=== PATIENT | female | born 1935 | race African-American/Black ===

== ENCOUNTER 2018-04-19 21:06 | Inpatient (IN) | payer MEDICARE, BC ==
[~2018-04-19] VITALS: Ht 157.5 cm; Wt 54.0 kg
[~2018-04-19 21:06] MED LIST: ACETAMINOPHEN325 M1 ORAL; ADVAIR 100-501 EACH INH; ASPIR 8181 MG ORAL; ATORVASTATIN CA40 MG ORAL; CELEBREX200 MG ORAL; CLONIDINE HCL0.1 MG PO; CLOPIDOGREL75 MG ORAL; COREG3.125 MG ORAL; FERROUS SULFAT500 G1 MC; FUROSEMIDE40 MG ORAL; HYDROCODON-ACE1 EA15 ORAL; LASIX40 MG ORAL; LIPITOR20 MG ORAL; LIPITOR80 MG ORAL; LYRICA75 M1 ORAL; METOPROLOL TART50 MG ORAL; NICODERM 21MG/241 EA TDERMAL; NITRO-BID1 GM TOPIC; NORCO 5-325 TA1 EAC1 ORAL; NORCO 5-325 TA1 EACH ORAL; NORVASC5 MG ORAL; NOVOLOG100 UNITS1 SUBQ; POTASSIUM CHLO20 ME2 ORAL; PROTONIX20 MG ORAL; PROTONIX40 MG ORAL
--- NOTE | 2018-04-19 21:10 | NUR ---
ED Nurse Note: Patient biba from home c/o of resp distress, at time of arrival patient was on a cpap machine, EMS states that she was satting at around 80%. patient is alert and oriented x4, after being registered to ED, patient was placed on a bipap machine 15/7 breathing rate of 14, fio2 of 90. patient is accompanied by family
--- NOTE | 2018-04-19 21:11 | NUR ---
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
[2018-04-19] MEDS ORDERED: METFORMIN500 MG/5 M PO (21:12)
--- NOTE | 2018-04-19 21:14 | Emergency Room Report ---
History of Present Illness General Chief Complaint: Dyspnea/Respdistress Source: EMS Present Illness HPI Patient presents by paramedics for reports of shortness of breath Patient is reported to have come from home upon arrival appears in acute respiratory distress patient is tachypneic and Impending failure History from the patient is limited given her acute presentation Attempts are being made to contact family for further information Review of medical records does reveal the patient was here in 2013 with similar presentation requiring airway intubation Unknown regarding fevers on the regarding vomiting or diarrhea no regarding compliance of medications Patient appears extremely edematous On the left lower extremity and facial region upon arrival Allergies: Coded Allergies: SULFA (SULFONAMIDE ANTIBIOTICS) (Verified Allergy, Severe, ITCHING AND RASH BREAKOUT, 01/24/14) Patient History Limited by: medical condition Past Medical History: see triage record Pertinent Family History: unable to obtain Now: No Reviewed Nursing Documentation: PMH: Agreed; PSxH: Agreed Nursing Documentation-PMH Past Medical History Deferred: Pt Cognitively Impaired Past Medical History: No Stated History Hx Cardiac Problems: Yes - CHF Hx Hypertension: Yes Hx Asthma: Yes Hx Diabetes: Yes Hx Cancer: No Hx Gastrointestinal Problems: Yes Hx Neurological Problems: No Review of Systems All Other Systems: limited - Other than the ones mentioned in the history of present illness all others are reviewed however they do stay limited due to the patient's mental status Physical Exam Vital Signs Date Time Temp Pulse Resp B/P (MAP) Pulse Ox O2 Delivery O2 Flow Rate FiO2 04/19/18 20:53 98.4 111 24 140/91 91 Bi-pap Sp02 EP Interpretation: reviewed, abnormal - 91% on BiPAP which is low General Appearance: severe distress - Tachypneic appears short of breath Head: normocephalic, atraumatic Eyes: bilateral eye PERRL, bilateral eye EOMI ENT: normal pharynx, other - Edema noted to bilateral eyelids and facial area Neck: supple Respiratory: accessory muscle use, crackles - Diffusely, tachypneic Cardiovascular #1: regular rate, rhythm Gastrointestinal: non tender, soft Musculoskeletal: other - Right below the knee amputation, moves upper extremity without focal deficit Neurologic: alert, responsive - However not able to have appropriate speech, and acute respiratory distress Skin: other - Edematous diffusely Lymphatic: no adenopathy Procedures Critical Care Time Critical Care Time 50 minutes for multiple re-evaluations clinical presentation, acute respiratory distress, with impending respiratory failure not including any procedural time Medical Decision Making Diagnostic Impression: Primary Impression: CHF exacerbation Additional Impression: Respiratory distress ER Course Patient is a fairly complex patient with multiple differential to consideration including but not limited to cardiac cardiopulmonary and vascular emergencies Patient presents in acute distress emergently placed on BiPAP IV Lasix is provided Patient's family is at bedside I did discuss with him that if her respirations continue to deteriorate patient could potentially require Airway intubation at this time patient continues to respond to BiPAP appropriately Blood work and imaging all findings consistent with acute CHF as well White blood cell count is also mildly elevated raising question of underlying infiltrate Patient admitted to ICU in critical condition Labs Test 04/19/18 21:08 04/19/18 21:25 04/19/18 22:50 04/20/18 00:30 Arterial Blood pH 7.230 (7.350-7.450) Arterial Blood Partial Pressure CO2 49.6 mmHg (35.0-45.0) Arterial Blood Partial Pressure O2 83.0 mmHg (75.0-100.0) Arterial Blood HCO3 20.3 mmol/L (22.0-26.0) Arterial Blood Oxygen Saturation 94.2 % (95-100) Arterial Blood Base Excess -7.2 (-2-2) Jb Test Positive White Blood Count 15.6 K/UL (4.8-10.8) Red Blood Count 4.14 M/UL (4.20-5.40) Hemoglobin 11.5 G/DL (12.0-16.0) Hematocrit 36.4 % (37.0-47.0) Mean Corpuscular Volume 88 FL (80-99) Mean Corpuscular Hemoglobin 27.9 PG (27.0-31.0) Mean Corpuscular Hemoglobin Concent 31.7 G/DL (32.0-36.0) Red Cell Distribution Width 13.4 % (11.6-14.8) Platelet Count 267 K/UL (150-450) Mean Platelet Volume 7.3 FL (6.5-10.1) Neutrophils (%) (Auto) 71.1 % (45.0-75.0) Lymphocytes (%) (Auto) 16.5 % (20.0-45.0) Monocytes (%) (Auto) 7.2 % (1.0-10.0) Eosinophils (%) (Auto) 3.0 % (0.0-3.0) Basophils (%) (Auto) 2.2 % (0.0-2.0) Sodium Level 137 MMOL/L (136-145) Potassium Level 5.3 MMOL/L (3.5-5.1) Chloride Level 105 MMOL/L (98-107) Carbon Dioxide Level 25 MMOL/L (21-32) Anion Gap 7 mmol/L (5-15) Blood Urea Nitrogen 29 mg/dL (7-18) Creatinine 1.6 MG/DL (0.55-1.30) Estimat Glomerular Filtration Rate mL/min (>60) Glucose Level 323 MG/DL (74-106) Lactic Acid Level 1.90 mmol/L (0.4-2.0) Calcium Level 8.8 MG/DL (8.5-10.1) Total Bilirubin 0.2 MG/DL (0.2-1.0) Aspartate Amino Transf (AST/SGOT) 31 U/L (15-37) Alanine Aminotransferase (ALT/SGPT) 40 U/L (12-78) Alkaline Phosphatase 125 U/L (46-116) Total Creatine Kinase 81 U/L (26-308) Creatine Kinase MB 1.0 NG/ML (0.0-3.6) Creatine Kinase MB Relative Index 1.2 Troponin I 0.064 ng/mL (0.000-0.056) Pro-B-Type Natriuretic Peptide 7943 pg/mL (0-125) Total Protein 7.4 G/DL (6.4-8.2) Albumin 2.9 G/DL (3.4-5.0) Globulin 4.5 g/dL Albumin/Globulin Ratio 0.6 (1.0-2.7) Lipase 85 U/L (73-393) Urine Color Pale yellow Urine Appearance Clear Urine pH 5 (4.5-8.0) Urine Specific [place] 1.015 (1.005-1.035) Urine Protein 3+ (NEGATIVE) Urine Glucose (UA) Negative (NEGATIVE) Urine Ketones Negative (NEGATIVE) Urine Blood 2+ (NEGATIVE) Urine Nitrite Negative (NEGATIVE) Urine Bilirubin Negative (NEGATIVE) Urine Urobilinogen Normal MG/DL (0.0-1.0) Urine Leukocyte Esterase Negative (NEGATIVE) Urine RBC 2-4 /HPF (0 - 2) Urine WBC 15-20 /HPF (0 - 2) Urine Squamous Epithelial Cells Few /LPF (NONE/OCC) Urine Bacteria Few /HPF (NONE) D-Dimer 3.97 mg/L FEU (0.00-0.49) EKG Diagnostic Results Rate: other - paced Rhythm: other ST Segments: other Rhythm Strip Diag. Results EP Interpretation: yes Rate: 80 Rhythm: no PVC's, no ectopy, other - paced Chest X-Ray Diagnostic Results Chest X-Ray Diagnostic Results : Chest X-Ray Ordered: Yes # of Views/Limited/Complete: 1 View Indication: Shortness of Breath EP Interpretation: Yes Interpretation: no pneumothorax, other - Cardiomegaly, pulmonary congestion , some increased right lower lobe markings Impression: Other - Acute CHF Electronically Signed by: Светлана Romero DO Last Vital Signs Date Time Temp Pulse Resp B/P (MAP) Pulse Ox O2 Delivery O2 Flow Rate FiO2 04/19/18 20:53 98.4 111 24 140/91 91 Bi-pap Status: improved Disposition: ADMITTED INPATIENT Condition: Critical Светлана Romero DO Apr 19, 2018 21:14
[2018-04-19 21:41] LABS: BASOPHILS % (AUTO) 2.2 % (0.0-2.0); HEMATOCRIT 36.4 % (37.0-47.0); HEMOGLOBIN 11.5 G/DL (12.0-16.0); LYMPHOCYTES % (AUTO) 16.5 % (20.0-45.0); MEAN CORPUSCULAR VOLUME 88 FL (80-99); MONOCYTES % (AUTO) 7.2 % (1.0-10.0); NEUTROPHILS % (AUTO) 71.1 % (45.0-75.0); PLATELET COUNT 267 K/UL (150-450); RED BLOOD COUNT 4.14 M/UL (4.20-5.40); RED CELL DISTRIBUTION WIDTH 13.4 % (11.6-14.8); WHITE BLOOD COUNT 15.6 K/UL (4.8-10.8)
[2018-04-19 21:51] LABS: ANION GAP 7 mmol/L (5-15); BLOOD UREA NITROGEN 29 mg/dL (7-18); CALCIUM 8.8 MG/DL (8.5-10.1); CARBON DIOXIDE 25 MMOL/L (21-32); CHLORIDE 105 MMOL/L (98-107); CREATININE 1.6 MG/DL (0.55-1.30); POTASSIUM 5.3 MMOL/L (3.5-5.1); SODIUM 137 MMOL/L (136-145)
[2018-04-19 22:05] LABS: ALANINE AMINOTRANSFERASE 40 U/L (12-78); ALBUMIN 2.9 G/DL (3.4-5.0); ALBUMIN/GLOBULIN RATIO 0.6 (1.0-2.7); ALKALINE PHOSPHATASE 125 U/L (46-116); ASPARTATE AMINO TRANSFERASE 31 U/L (15-37); BILIRUBIN,TOTAL 0.2 MG/DL (0.2-1.0); CREATINE KINASE 81 U/L (26-308)
[2018-04-19 23:06] VITALS: BP 139/55
[2018-04-19 23:19] LABS: APPEARANCE,URINE CLEAR; BILIRUBIN, URINE NEGATIVE (NEGATIVE); COLOR,URINE PALE YELLOW; GLUCOSE, URINE (UA) NEGATIVE (NEGATIVE); KETONES,URINE NEGATIVE (NEGATIVE); LEUKOCYTE ESTERASE ,URINE NEGATIVE (NEGATIVE); NITRITE,URINE NEGATIVE (NEGATIVE); PH,URINE 5 (4.5-8.0); PROTEIN,URINE 3+ (NEGATIVE); UROBILINOGEN,URINE NORMAL MG/DL (0.0-1.0)
--- NOTE | 2018-04-19 23:27 | NUR ---
NURSE NOTES: MD Vazquez called and admission orders have been received at this time. Orders read back and confirmed by .
[2018-04-19] MEDS ORDERED: Albuterol/Ipratropium 3ml neb HHN PRN (23:30)
--- NOTE | 2018-04-19 23:40 | NUR ---
TRANSFER TO FLOOR: Patient transferred to ICU as ordered, per Dr. Albert. Report given to JERALD Carrillo. Belongings and medications given to Family and informed of transfer.
--- NOTE | 2018-04-19 23:55 | NUR ---
NURSE NOTES: Received pt from ER [facility]. pt AOx4. Sinus rhythm on the monitor. On Bi-pap at this time. Noted to be SOB unable to lay flat. Left FA IV site patent and intact at this time. Pt has a Jenkins cath draining to gravity. Bed in lowest position, side rails upx3. No signs of distress noted. Will continue to monitor.
[2018-04-20] VITALS (24 sets, daily range): BP systolic 100–151; BP diastolic 37–77
--- NOTE | 2018-04-20 00:10 | NUR ---
NURSE NOTES: Called and notified MD Cruz about new admission. ABG Results read back and new Bi-pap orders received at this time. Will continue with plan of care
--- NOTE | 2018-04-20 01:45 | NUR ---
NURSE NOTES: Sinus rhythm on the monitor. Continues on Bi-pap at this time. Sleeping, continues AOx4. No signs of distress noted. Will continue to monitor.
[2018-04-20] MEDS ORDERED: Piperacillin/Tazobactam 2.25 GM in NS 55 ML IV SCH (02:00)
--- NOTE | 2018-04-20 04:00 | NUR ---
NURSE NOTES: Pt called and states she wants to drink something. notified her about current order diet orders. Pt does not want to be repositioned at this time. In high fowlers positions supported by two pillows at this time. Continues to be SOB, on ordered bi-pap setting. Blood sugar 133 at this time. No coverage as per MD's orders of no sliding scale to prevent hypoglycemia. pt denies any pain or discomfort at this time. Will continue with plan of care.
--- NOTE | 2018-04-20 05:12 | NUR ---
NURSE NOTES: Message left for MD Crzu in regards to pt D- Dimer results.
[2018-04-20 06:04] LABS: HEMATOCRIT 31.6 % (37.0-47.0); HEMOGLOBIN 10.2 G/DL (12.0-16.0); MEAN CORPUSCULAR VOLUME 87 FL (80-99); PLATELET COUNT 227 K/UL (150-450); RED BLOOD COUNT 3.62 M/UL (4.20-5.40); RED CELL DISTRIBUTION WIDTH 13.6 % (11.6-14.8); WHITE BLOOD COUNT 18.4 K/UL (4.8-10.8)
[2018-04-20 06:33] LABS: ALANINE AMINOTRANSFERASE 38 U/L (12-78); ALBUMIN 2.8 G/DL (3.4-5.0); ALBUMIN/GLOBULIN RATIO 0.8 (1.0-2.7); ALKALINE PHOSPHATASE 100 U/L (46-116); ANION GAP 8 mmol/L (5-15); ASPARTATE AMINO TRANSFERASE 22 U/L (15-37); BILIRUBIN,TOTAL 0.2 MG/DL (0.2-1.0); BLOOD UREA NITROGEN 31 mg/dL (7-18); CALCIUM 8.8 MG/DL (8.5-10.1); CARBON DIOXIDE 24 MMOL/L (21-32); CHLORIDE 107 MMOL/L (98-107); CREATININE 1.5 MG/DL (0.55-1.30); SODIUM 139 MMOL/L (136-145)
--- NOTE | 2018-04-20 06:42 | NUR ---
NURSE NOTES: Pt sleeping at this time. Continues on bi-pap at this time. Denies any pain or discomfort. SOB noted to be less but patient continue son high fowlers position. No signs of distress noted. Will continue to monitor
--- NOTE | 2018-04-20 07:04 | NUR ---
NURSE NOTES: Called and notified MD Cruz in regards to troponin 0.111 at this time. Elevated from time of admission. duplex being done at this time.
--- NOTE | 2018-04-20 07:17 | NUR ---
NURSE NOTES: MD Cruz called with orders to start Heparin gtt at this time, D/C SubQ Heparin, ABG now and chest X-ray. Troponin to be repeated at 1200 today. JERALD Hightower updated with the most recent orders at this time.
--- NOTE | 2018-04-20 07:21 | NUR ---
HAND-OFF: Report given to Katja MARQUES at this time. updates also provided.
--- NOTE | 2018-04-20 07:30 | NUR ---
Received Patient on BIPAP 17/5 40% FIO2 BUR 14. Patient alert and awake. BIPAP is bothering patient. BS clear diminished. HR low to mid 80s with 100% O2 saturation. Will continue to monitor.
--- NOTE | 2018-04-20 07:45 | NUR ---
NURSE NOTES: Report given by lobo
--- NOTE | 2018-04-20 07:47 | NUR ---
NURSE NOTES: Patient is resting in bed, alert and oriented x3-4, on bipap 17/5 at 40%. Awaiting abg, chestxray, and lab. DR mccollmu has already communicated that he wants patient on heparin drip with full bolus. Patient has currently one access and arms are too edematous to insert another IV willl continue to monitor patient.
[2018-04-20] MEDS ORDERED: Heparin 25,000u/D5W 500ml 500 ML IV SCH ×2 (07:50→17:45)
[2018-04-20] MEDS ORDERED: Heparin 5000 units/ml inj IV SCH (07:50)
--- NOTE | 2018-04-20 08:00 | NUR ---
NURSE NOTES: Patient has been seen by MD mccollum : he has ordered heparin drip, VD is negative, troponin is elevated . PICCL line is ordered for patient whom is required to recieve antibiotics, heparin drip IV push medications. Patient has consented
[2018-04-20 08:25] LABS: PHOSPHORUS 3.9 MG/DL (2.5-4.9)
--- NOTE | 2018-04-20 08:34 | Pulmonolgy Critical Care Note ---
Critical Care - Asmt/Plan Problems: (1) Respiratory failure, acute (2) Pulmonary edema (3) Pneumonia (4) CHF exacerbation (5) NSTEMI (non-ST elevated myocardial infarction) (6) ARF (acute renal failure) (7) Diabetes mellitus (8) Leukocytosis (9) Hx of BKA Assessment/Plan: CHANGE BiPAP to 17/5 qHS and PRN Titrate down FiO2 to keep SaO2 > 90% RTC and PRN HHN's Zosyn (D1), F/U Cx's, F/U rapid viral swab Monitor volumes and renal function, lasix 40 IV BID Start IVUH for now, trend trops, F/U Duplex --> if neg will check VQ, FU TTE, cards eval pending ASA, BB, statin, home meds Monitor BS, SSI, accu check QID AC HS Start ADA diet Aspiration precautions, [employer] eval Px: IVUH, PPI FC CCT 55 min Critical Care - Objective Last 24 Hour Vital Signs Date Time Temp Pulse Resp B/P (MAP) Pulse Ox O2 Delivery O2 Flow Rate FiO2 04/20/18 07:14 85 21 100 Facial 40 04/20/18 07:00 82 20 123/46 (71) 100 04/20/18 06:00 83 20 137/48 (77) 100 04/20/18 05:00 83 18 136/51 (79) 100 04/20/18 04:52 85 19 100 Facial 40 04/20/18 04:00 Bi-pap 04/20/18 04:00 89 04/20/18 04:00 98.1 85 19 132/57 (82) 100 04/20/18 04:00 40 04/20/18 03:11 83 22 100 Facial 40 04/20/18 03:00 84 25 137/53 (81) 100 04/20/18 02:00 83 25 136/50 (78) 100 04/20/18 01:19 Bi-pap 04/20/18 01:00 82 25 130/49 (76) 100 04/20/18 00:36 85 24 100 Facial 50 04/20/18 00:22 50 04/20/18 00:17 98.3 90 25 151/60 (90) 100 04/20/18 00:16 90 04/20/18 00:00 Bi-pap 04/19/18 23:40 98.2 60 18 129/72 99 Room Air 04/19/18 23:06 98.2 84 32 139/55 100 Bi-pap 15.0 04/19/18 23:00 102 28 100 Facial 90 04/19/18 21:15 85 32 Bi-pap 100 04/19/18 21:00 111 32 Bi-pap 100 04/19/18 21:00 111 32 92 Facial 100 04/19/18 20:53 98.4 111 24 140/91 91 Bi-pap Status: awake Condition: critical HEENT: atraumatic, normocephalic Neck: full ROM, other - JVD to AOM Lungs: rales, rhonchi Heart: HR/BP stable Abdomen: soft, non-tender, active bowel sounds Extremities: other - 2+ RLEE, L BKA, no CC Micro: Microbiology Date/Time Source Procedure Growth Status 04/19/18 23:30 Rectum Received Accucheck: 133 Blood Sugars: BS controlled Critical Care - Subjective ROS Limited/Unobtainable: Yes ICU Day: 1 Intubation Day: N/A Interval Events: 83 F h/o CAD S/P PCI, CHF, PVD, BKA, DM, HTN, HL BIB EMS with SOB and RD + cough and congestion x a few days, no F/C, no rhin/breana, + chest discomfort no CP. Trop elevated, BNP 8000, clinically in ADHF, WCT 16 on presentation now 18 , 7.23/49/83/20/94, placed on BiPAP ON now 7.39/37/107/22/96. Patient states that initially she started feeling her respiratory Sx's and subsequently stopped taking Lasix. She was transferred to the ICU from ER, weaned off of BiPAP this am onto VM, she feels marked improvement. Condition: critical IV Access: peripheral EKG Rhythm: Sinus Rhythm FI02: 40 Secretions: none Fluids: SLIV Drips: None I&O: Intake and Output 04/19/18 04/20/18 18:59 06:59 Output Total 1050 ml Balance -1050 ml Output Urine Total 1050 ml # Bowel Movements 1 Subjective: + cough + SOB + wheezing no F/C no CP no NVDC + DAVE + PND + orthopnea CXR: PVC Labs: Laboratory Tests Test 04/19/18 21:08 04/19/18 21:25 04/19/18 22:50 04/20/18 00:30 Arterial Blood pH 7.230 (7.350-7.450) Arterial Blood Partial Pressure CO2 49.6 mmHg (35.0-45.0) H Arterial Blood Partial Pressure O2 83.0 mmHg (75.0-100.0) Arterial Blood HCO3 20.3 mmol/L (22.0-26.0) L Arterial Blood Oxygen Saturation 94.2 % (95-100) L Arterial Blood Base Excess -7.2 (-2-2) L Jb Test Positive White Blood Count 15.6 K/UL (4.8-10.8) H Red Blood Count 4.14 M/UL (4.20-5.40) L Hemoglobin 11.5 G/DL (12.0-16.0) L Hematocrit 36.4 % (37.0-47.0) L Mean Corpuscular Volume 88 FL (80-99) Mean Corpuscular Hemoglobin 27.9 PG (27.0-31.0) Mean Corpuscular Hemoglobin Concent 31.7 G/DL (32.0-36.0) L Red Cell Distribution Width 13.4 % (11.6-14.8) Platelet Count 267 K/UL (150-450) Mean Platelet Volume 7.3 FL (6.5-10.1) Neutrophils (%) (Auto) 71.1 % (45.0-75.0) Lymphocytes (%) (Auto) 16.5 % (20.0-45.0) L Monocytes (%) (Auto) 7.2 % (1.0-10.0) Eosinophils (%) (Auto) 3.0 % (0.0-3.0) Basophils (%) (Auto) 2.2 % (0.0-2.0) H Sodium Level 137 MMOL/L (136-145) Potassium Level 5.3 MMOL/L (3.5-5.1) H Chloride Level 105 MMOL/L (98-107) Carbon Dioxide Level 25 MMOL/L (21-32) Anion Gap 7 mmol/L (5-15) Blood Urea Nitrogen 29 mg/dL (7-18) H Creatinine 1.6 MG/DL (0.55-1.30) H Estimat Glomerular Filtration Rate mL/min (>60) Glucose Level 323 MG/DL (74-106) H Lactic Acid Level 1.90 mmol/L (0.4-2.0) Calcium Level 8.8 MG/DL (8.5-10.1) Total Bilirubin 0.2 MG/DL (0.2-1.0) Aspartate Amino Transf (AST/SGOT) 31 U/L (15-37) Alanine Aminotransferase (ALT/SGPT) 40 U/L (12-78) Alkaline Phosphatase 125 U/L (46-116) H Total Creatine Kinase 81 U/L (26-308) Creatine Kinase MB 1.0 NG/ML (0.0-3.6) Creatine Kinase MB Relative Index 1.2 Troponin I 0.064 ng/mL (0.000-0.056) Pro-B-Type Natriuretic Peptide 7943 pg/mL (0-125) H Total Protein 7.4 G/DL (6.4-8.2) Albumin 2.9 G/DL (3.4-5.0) L Globulin 4.5 g/dL Albumin/Globulin Ratio 0.6 (1.0-2.7) L Lipase 85 U/L (73-393) Urine Color Pale yellow Urine Appearance Clear Urine pH 5 (4.5-8.0) Urine Specific [place] 1.015 (1.005-1.035) Urine Protein 3+ (NEGATIVE) H Urine Glucose (UA) Negative (NEGATIVE) Urine Ketones Negative (NEGATIVE) Urine Blood 2+ (NEGATIVE) H Urine Nitrite Negative (NEGATIVE) Urine Bilirubin Negative (NEGATIVE) Urine Urobilinogen Normal MG/DL (0.0-1.0) Urine Leukocyte Esterase Negative (NEGATIVE) Urine RBC 2-4 /HPF (0 - 2) H Urine WBC 15-20 /HPF (0 - 2) H Urine Squamous Epithelial Cells Few /LPF (NONE/OCC) Urine Bacteria Few /HPF (NONE) Activated Partial Thromboplast Time 29 SEC (23-33) D-Dimer 3.97 mg/L FEU (0.00-0.49) H Test 04/20/18 04:46 04/20/18 07:20 White Blood Count 18.4 K/UL (4.8-10.8) H Red Blood Count 3.62 M/UL (4.20-5.40) L Hemoglobin 10.2 G/DL (12.0-16.0) L Hematocrit 31.6 % (37.0-47.0) L Mean Corpuscular Volume 87 FL (80-99) Mean Corpuscular Hemoglobin 28.1 PG (27.0-31.0) Mean Corpuscular Hemoglobin Concent 32.2 G/DL (32.0-36.0) Red Cell Distribution Width 13.6 % (11.6-14.8) Platelet Count 227 K/UL (150-450) Mean Platelet Volume 7.4 FL (6.5-10.1) Neutrophils (%) (Auto) % (45.0-75.0) Lymphocytes (%) (Auto) % (20.0-45.0) Monocytes (%) (Auto) % (1.0-10.0) Eosinophils (%) (Auto) % (0.0-3.0) Basophils (%) (Auto) % (0.0-2.0) Neutrophils % (Manual) Pending Lymphocytes % (Manual) Pending Platelet Estimate Pending Platelet Morphology Pending Sodium Level 139 MMOL/L (136-145) Potassium Level 5.0 MMOL/L (3.5-5.1) Chloride Level 107 MMOL/L (98-107) Carbon Dioxide Level 24 MMOL/L (21-32) Anion Gap 8 mmol/L (5-15) Blood Urea Nitrogen 31 mg/dL (7-18) H Creatinine 1.5 MG/DL (0.55-1.30) H Estimat Glomerular Filtration Rate mL/min (>60) Glucose Level 185 MG/DL (74-106) #H Hemoglobin A1c 7.4 % (4.3-6.0) H Uric Acid 6.2 MG/DL (2.6-7.2) Calcium Level 8.8 MG/DL (8.5-10.1) Phosphorus Level 3.9 MG/DL (2.5-4.9) Magnesium Level 1.8 MG/DL (1.8-2.4) Total Bilirubin 0.2 MG/DL (0.2-1.0) Aspartate Amino Transf (AST/SGOT) 22 U/L (15-37) Alanine Aminotransferase (ALT/SGPT) 38 U/L (12-78) Alkaline Phosphatase 100 U/L (46-116) Troponin I 0.111 ng/mL (0.000-0.056) Total Protein 6.5 G/DL (6.4-8.2) Albumin 2.8 G/DL (3.4-5.0) L Globulin 3.7 g/dL Albumin/Globulin Ratio 0.8 (1.0-2.7) L Arterial Blood pH 7.394 (7.350-7.450) Arterial Blood Partial Pressure CO2 37.4 mmHg (35.0-45.0) Arterial Blood Partial Pressure O2 107.9 mmHg (75.0-100.0) H Arterial Blood HCO3 22.3 mmol/L (22.0-26.0) Arterial Blood Oxygen Saturation 96.4 % (95-100) Arterial Blood Base Excess -2.3 (-2-2) L Jb Test Positive Gamal Cruz MD Apr 20, 2018 08:34
[2018-04-20] MEDS: Atorvastatin 80mg tab ORAL SCH (08:41)
[2018-04-20] MEDS: Aspirin EC 81mg tab ORAL SCH (08:42)
[2018-04-20] MEDS ORDERED: Lidocaine 1% Plain 30 ml INJ PRN (09:00)
[2018-04-20] MEDS ORDERED: NovoLOG Insulin Flexpen SUBQ SCH (09:00)
[2018-04-20] MEDS ORDERED: Heparin 2000 units/Ns 1000ml INJ PRN (09:00)
[2018-04-20] MEDS ORDERED: Heparin 5000 units/ml inj SUBQ SCH (09:00)
--- NOTE | 2018-04-20 10:04 | Diagnostic Imaging Report ---
Indication: Dyspnea Comparison: 04/19/2018 A single view chest radiograph was obtained. Findings: Mild to moderate interstitial edema demonstrated improved from the last study. Heart remains enlarged. Aortic the mechanical aortic valve demonstrated. Pacemaker noted. IMPRESSION: CHF improved over last 24 hours.
--- NOTE | 2018-04-20 10:38 | Diagnostic Imaging Report ---
Indication: Dyspnea Comparison: 01/24/2014 A single view chest radiograph was obtained. Findings: Current exam shows mixed interstitial and alveolar densities with prominent vascularity and heart size. Pacemaker is present on the left. Bones are osteopenic. Mechanical aortic heart valve noted. IMPRESSION: Congestive heart failure.
[2018-04-20] MEDS: NovoLOG Insulin Flexpen SUBQ SCH ×3 (11:30→20:43)
--- NOTE | 2018-04-20 11:36 | NUR ---
CASE MANAGEMENT: REVIEW 83/F BIBA FROM CC: DYSPNEA . RESP DISTRESS SI: ACUTE CHF T 98.4 HR 111 RR 24 BP 140/91 SAT 91% BIPAP FIO2 100 WBC 15.6 H/H 11.5/36.4 ABG: PH 7.230 PCO2 49.6 PO2 83.0 HCO3 20.3 O2 SAT 94.2 IS: LASIX IV X1 LEVOFLOXACIN IV X1 ZOSYN IV X1 HEPARIN IV X1 INTERQUAL CRITERIA MET: PATIENT ADMITTED TO ICU 04/19/2018 DCP: PATIENT IS FROM HOME
[2018-04-20] MEDS: Zosyn 3.375gm q8h **Extended infusion IVPB SCH ×4 (12:00→22:20)
--- NOTE | 2018-04-20 12:21 | NUR ---
RADIOLOGY DEPT CHEST X-RAY DONE.-P.DYE
--- NOTE | 2018-04-20 12:50 | NUR ---
NURSE NOTES: Dr butts has been informed about patients condition. and elevated troponin. ( spoke with administrative receptionist) [facility] call back
[2018-04-20] MEDS: Albuterol/Ipratropium 3ml neb HHN SCH ×2 (13:07→19:56)
--- NOTE | 2018-04-20 13:21 | GI Initial Consult Note ---
History of Present Illness General Date patient seen: Apr 20, 2018 Time patient seen: 13:15 Reason for Hospitalization: Dyspnea/Respdistress Referring physician: BRENDON Manuel Reason for Consultation: ANEMIA Present Illness HPI Patient presents by paramedics for reports of shortness of breath Patient is reported to have come from home upon arrival appears in acute respiratory distress patient is tachypneic and Impending failure History from the patient is limited given her acute presentation Attempts are being made to contact family for further information Review of medical records does reveal the patient was here in 2013 with similar presentation requiring airway intubation Unknown regarding fevers on the regarding vomiting or diarrhea no regarding compliance of medications Patient appears extremely edematous On the left lower extremity and facial region upon arrival GI consulted for anemia. ROS limited, patient seen in ICU currently on Venturi mask. Patient has a history of peripheral vascular disease, status post multiple angioplasties, history of coronary disease and [place], history of hypertension, diabetes mellitus and history of congestive heart failure. Patient presents today with a leukocytosis and Normocytic anemia and elevated troponin levels. Unknown history of endoscopic or colonoscopy at this time. Home Meds Active Scripts Pantoprazole* (PROTONIX*) 40 Mg Tabec, 40 MG ORAL DAILY, #60 TAB Prov:Kavin Elkins MD 01/22/14 Nitroglycerin (NITRO-BID*) 1 Inch Oint, 1 INCH TOPIC EVERY 6 HOURS, #30 GM Prov:Kavin Elkins MD 01/22/14 Nicotine (Nicotine Patch) 1 Patch Patch, 1 PATCH TDERMAL Q24H, #60 PATCH Prov:Kavin Elkins MD 01/22/14 Insulin Aspart (Novolog Flexpen) 100 Units/Ml Pen, 0 UNITS SUBQ BEFORE MEALS AND HS, #30 EA Prov:Kavin Elkins MD 01/22/14 Furosemide* (LASIX*) 40 Mg Tab, 40 MG ORAL EVERY 12 HOURS, #60 TAB Prov:Kavin Elkins MD 01/22/14 Carvedilol (Coreg) 3.125 Mg Tab, 25 MG ORAL EVERY 12 HOURS, #60 TAB Prov:Kavin Elkins MD 01/22/14 Atorvastatin Calcium* (LIPITOR*) 20 Mg Tablet, 20 MG ORAL BEDTIME, #60 TAB Prov:Kavin Elkins MD 01/22/14 Amlodipine Besylate (Norvasc) 5 Mg Tab, 5 MG ORAL DAILY, #60 TAB Prov:Kavin Elkins MD 01/22/14 Acetaminophen* (ACETAMINOPHEN 325MG TABLET*) 325 Mg Tab, 650 MG ORAL Q4H PRN for HEADACHE or temp>101, #60 TAB Prov:Kavin Elkins MD 01/22/14 Reported Medications Metformin HCl (Metformin HCl) 500 Mg/5 Ml Solution, 500 MG PO 04/19/18 Atorvastatin (Lipitor) 80 Mg Tablet, 80 MG ORAL DAILY, TAB 0 Refills 04/19/18 Clopidogrel* (CLOPIDOGREL*) 75 Mg Tablet, 75 MG ORAL DAILY, TAB 04/19/18 Ferrous Sulfate, Dried (FERROUS SULFATE) 500 Gm Powder, 500 GM MC, GM 04/19/18 Carvedilol (Coreg) 3.125 Mg Tablet, 3.125 MG ORAL EVERY 12 HOURS, TAB 04/19/18 Clonidine Hcl (CLONIDINE HCL) 0.1 Mg Tablet, 0.1 MG PO BID, TAB 04/19/18 Pantoprazole Sodium (PROTONIX) 20 Mg Tablet.dr, 20 MG ORAL DAILY, TAB 04/19/18 Furosemide* (LASIX*) 40 Mg Tablet, 40 MG ORAL DAILY, TAB 04/19/18 Aspirin* (ASPIR 81*) 81 Mg Tablet.dr, 81 MG ORAL DAILY, TAB 04/19/18 Hydrocodone Bit/Acetaminophen 5-325* (NORCO 5-325*) 1 Each Tablet, 1 TAB ORAL Q4H PRN for For Pain, TAB 0 Refills 01/24/14 Aspirin* (ASPIR 81*) 81 Mg Tablet.dr, 81 MG ORAL DAILY, TAB 12/30/13 Med list reviewed/reconciled: Yes Allergies: Coded Allergies: SULFA (SULFONAMIDE ANTIBIOTICS) (Verified Allergy, Severe, ITCHING AND RASH BREAKOUT, 01/24/14) Patient History Limited by: medical condition History Provided By: Medical Record PMH Narrative Limited by: medical condition Past Medical History: see triage record Pertinent Family History: unable to obtain Now: No Reviewed Nursing Documentation: PMH: Agreed; PSxH: Agreed Nursing Documentation-PM Past Medical History Deferred: Pt Cognitively Impaired Past Medical History: No Stated History Hx Cardiac Problems: Yes - CHF Hx Hypertension: Yes Hx Asthma: Yes Hx Diabetes: Yes Hx Cancer: No Hx Gastrointestinal Problems: Yes Hx Neurological Problems: No Review of Systems All Other Systems: limited Physical Exam Vital Signs Date Time Temp Pulse Resp B/P (MAP) Pulse Ox O2 Delivery O2 Flow Rate FiO2 04/19/18 20:53 98.4 111 24 140/91 91 Bi-pap 04/19/18 21:00 100 04/19/18 23:06 15.0 Labs Laboratory Tests Test 04/19/18 21:08 04/19/18 21:25 04/19/18 22:50 04/20/18 00:30 Arterial Blood pH 7.230 (7.350-7.450) Arterial Blood Partial Pressure CO2 49.6 mmHg (35.0-45.0) H Arterial Blood Partial Pressure O2 83.0 mmHg (75.0-100.0) Arterial Blood HCO3 20.3 mmol/L (22.0-26.0) L Arterial Blood Oxygen Saturation 94.2 % (95-100) L Arterial Blood Base Excess -7.2 (-2-2) L Jb Test Positive White Blood Count 15.6 K/UL (4.8-10.8) H Red Blood Count 4.14 M/UL (4.20-5.40) L Hemoglobin 11.5 G/DL (12.0-16.0) L Hematocrit 36.4 % (37.0-47.0) L Mean Corpuscular Volume 88 FL (80-99) Mean Corpuscular Hemoglobin 27.9 PG (27.0-31.0) Mean Corpuscular Hemoglobin Concent 31.7 G/DL (32.0-36.0) L Red Cell Distribution Width 13.4 % (11.6-14.8) Platelet Count 267 K/UL (150-450) Mean Platelet Volume 7.3 FL (6.5-10.1) Neutrophils (%) (Auto) 71.1 % (45.0-75.0) Lymphocytes (%) (Auto) 16.5 % (20.0-45.0) L Monocytes (%) (Auto) 7.2 % (1.0-10.0) Eosinophils (%) (Auto) 3.0 % (0.0-3.0) Basophils (%) (Auto) 2.2 % (0.0-2.0) H Sodium Level 137 MMOL/L (136-145) Potassium Level 5.3 MMOL/L (3.5-5.1) H Chloride Level 105 MMOL/L (98-107) Carbon Dioxide Level 25 MMOL/L (21-32) Anion Gap 7 mmol/L (5-15) Blood Urea Nitrogen 29 mg/dL (7-18) H Creatinine 1.6 MG/DL (0.55-1.30) H Estimat Glomerular Filtration Rate mL/min (>60) Glucose Level 323 MG/DL (74-106) H Lactic Acid Level 1.90 mmol/L (0.4-2.0) Calcium Level 8.8 MG/DL (8.5-10.1) Total Bilirubin 0.2 MG/DL (0.2-1.0) Aspartate Amino Transf (AST/SGOT) 31 U/L (15-37) Alanine Aminotransferase (ALT/SGPT) 40 U/L (12-78) Alkaline Phosphatase 125 U/L (46-116) H Total Creatine Kinase 81 U/L (26-308) Creatine Kinase MB 1.0 NG/ML (0.0-3.6) Creatine Kinase MB Relative Index 1.2 Troponin I 0.064 ng/mL (0.000-0.056) Pro-B-Type Natriuretic Peptide 7943 pg/mL (0-125) H Total Protein 7.4 G/DL (6.4-8.2) Albumin 2.9 G/DL (3.4-5.0) L Globulin 4.5 g/dL Albumin/Globulin Ratio 0.6 (1.0-2.7) L Lipase 85 U/L (73-393) Urine Color Pale yellow Urine Appearance Clear Urine pH 5 (4.5-8.0) Urine Specific [place] 1.015 (1.005-1.035) Urine Protein 3+ (NEGATIVE) H Urine Glucose (UA) Negative (NEGATIVE) Urine Ketones Negative (NEGATIVE) Urine Blood 2+ (NEGATIVE) H Urine Nitrite Negative (NEGATIVE) Urine Bilirubin Negative (NEGATIVE) Urine Urobilinogen Normal MG/DL (0.0-1.0) Urine Leukocyte Esterase Negative (NEGATIVE) Urine RBC 2-4 /HPF (0 - 2) H Urine WBC 15-20 /HPF (0 - 2) H Urine Squamous Epithelial Cells Few /LPF (NONE/OCC) Urine Bacteria Few /HPF (NONE) Activated Partial Thromboplast Time 29 SEC (23-33) D-Dimer 3.97 mg/L FEU (0.00-0.49) H Test 04/20/18 04:46 04/20/18 07:20 White Blood Count 18.4 K/UL (4.8-10.8) H Red Blood Count 3.62 M/UL (4.20-5.40) L Hemoglobin 10.2 G/DL (12.0-16.0) L Hematocrit 31.6 % (37.0-47.0) L Mean Corpuscular Volume 87 FL (80-99) Mean Corpuscular Hemoglobin 28.1 PG (27.0-31.0) Mean Corpuscular Hemoglobin Concent 32.2 G/DL (32.0-36.0) Red Cell Distribution Width 13.6 % (11.6-14.8) Platelet Count 227 K/UL (150-450) Mean Platelet Volume 7.4 FL (6.5-10.1) Neutrophils (%) (Auto) % (45.0-75.0) Lymphocytes (%) (Auto) % (20.0-45.0) Monocytes (%) (Auto) % (1.0-10.0) Eosinophils (%) (Auto) % (0.0-3.0) Basophils (%) (Auto) % (0.0-2.0) Differential Total Cells Counted 100 Neutrophils % (Manual) 80 % (45-75) H Lymphocytes % (Manual) 7 % (20-45) L Monocytes % (Manual) 8 % (1-10) Eosinophils % (Manual) 0 % (0-3) Basophils % (Manual) 1 % (0-2) Band Neutrophils 4 % (0-8) Platelet Estimate Adequate Platelet Morphology Normal Red Blood Cell Morphology Normal Sodium Level 139 MMOL/L (136-145) Potassium Level 5.0 MMOL/L (3.5-5.1) Chloride Level 107 MMOL/L (98-107) Carbon Dioxide Level 24 MMOL/L (21-32) Anion Gap 8 mmol/L (5-15) Blood Urea Nitrogen 31 mg/dL (7-18) H Creatinine 1.5 MG/DL (0.55-1.30) H Estimat Glomerular Filtration Rate mL/min (>60) Glucose Level 185 MG/DL (74-106) #H Hemoglobin A1c 7.4 % (4.3-6.0) H Uric Acid 6.2 MG/DL (2.6-7.2) Calcium Level 8.8 MG/DL (8.5-10.1) Phosphorus Level 3.9 MG/DL (2.5-4.9) Magnesium Level 1.8 MG/DL (1.8-2.4) Total Bilirubin 0.2 MG/DL (0.2-1.0) Aspartate Amino Transf (AST/SGOT) 22 U/L (15-37) Alanine Aminotransferase (ALT/SGPT) 38 U/L (12-78) Alkaline Phosphatase 100 U/L (46-116) Troponin I 0.111 ng/mL (0.000-0.056) Total Protein 6.5 G/DL (6.4-8.2) Albumin 2.8 G/DL (3.4-5.0) L Globulin 3.7 g/dL Albumin/Globulin Ratio 0.8 (1.0-2.7) L Thyroid Stimulating Hormone (TSH) 1.656 uiU/mL (0.358-3.740) Arterial Blood pH 7.394 (7.350-7.450) Arterial Blood Partial Pressure CO2 37.4 mmHg (35.0-45.0) Arterial Blood Partial Pressure O2 107.9 mmHg (75.0-100.0) H Arterial Blood HCO3 22.3 mmol/L (22.0-26.0) Arterial Blood Oxygen Saturation 96.4 % (95-100) Arterial Blood Base Excess -2.3 (-2-2) L Jb Test Positive General Appearance: no apparent distress Head: normocephalic Neck: supple Respiratory: other - Venturi mask Cardiovascular: normal rate Gastrointestinal: non tender, soft Rectal: deferred Skin: normal inspection, normal color, no rash Lymphatic: normal inspection, no adenopathy Current Medications Current Medications Medications (Trade) Dose Ordered Sig/Shazia Route PRN Reason Start Time Stop Time Status Last Admin Dose Admin Albuterol/ Ipratropium (Albuterol/ Ipratropium) 3 ml Q4H PRN HHN Shortness of Breath 04/19/18 23:30 04/24/18 23:29 Albuterol/ Ipratropium (Albuterol/ Ipratropium) 3 ml Q6HRT HHN 04/20/18 13:00 04/25/18 12:59 04/20/18 13:07 Amlodipine Besylate (Norvasc) 5 mg DAILY ORAL 04/20/18 09:00 05/20/18 08:59 04/20/18 08:42 Aspirin (Ecotrin) 81 mg DAILY ORAL 04/20/18 09:00 05/20/18 08:59 04/20/18 08:42 Atorvastatin Calcium (Lipitor) 80 mg DAILY ORAL 04/20/18 09:00 05/20/18 08:59 04/20/18 08:41 Chlorhexidine Gluconate (Monet-Hex 2%) 1 applic DAILY@2000 TOPIC 04/20/18 20:00 05/20/18 19:59 Clonidine HCl (Catapres Tab) 0.1 mg BID SL 04/20/18 09:00 05/20/18 08:59 04/20/18 08:42 Clopidogrel Bisulfate (Plavix) 75 mg DAILY ORAL 04/20/18 09:00 05/20/18 08:59 04/20/18 08:42 Dextrose (Dextrose 50%) 25 ml Q30M PRN IV Hypoglycemia 04/20/18 08:30 05/20/18 08:29 Dextrose (Dextrose 50%) 50 ml Q30M PRN IV Hypoglycemia 04/20/18 08:30 05/20/18 08:29 Furosemide (Lasix) 40 mg EVERY 12 HOURS IV 04/20/18 09:00 05/20/18 08:59 04/20/18 08:19 Heparin Sodium/ Dextrose 500 ml @ 19.759 mls/ hr ADJUST PER PROTOCOL IV 04/20/18 07:50 05/20/18 07:49 04/20/18 08:24 Heparin Sodium/ Sodium Chloride (Heparin 2000 units/Ns 1000ml premix) 2,000 unit ONCE PRN INJ PICC LINE 04/20/18 09:00 04/21/18 23:59 Insulin Aspart (NovoLOG) BEFORE MEALS AND HS SUBQ 04/20/18 11:30 05/20/18 11:29 Lidocaine HCl (Xylocaine 1% 30ml) 30 ml ONCE PRN INJ PICC LINE 04/20/18 09:00 04/21/18 23:59 Pantoprazole (Protonix) 40 mg DAILY ORAL 1/16/19 09:00 05/20/18 08:59 04/20/18 08:42 Piperacillin Sod/ Tazobactam Sod 3.375 gm/Sodium Chloride 110 ml @ 27.5 mls/hr EVERY 8 HOURS IVPB 04/20/18 12:00 04/25/18 11:59 04/20/18 12:00 GI: Plan Problems: (1) Anemia (2) HTN (hypertension) (3) Diabetes mellitus Plan GI procedures if necessary, but will defer at this time given elevated troponin levels and will require cardiac clearance prior. Pulmonary support speech therapy evaluation pending anemia work up OB stool r/o GI bleed monitor H&H, prn transfusions bowel regime ppi fu labs Discussed with Dr. Anthony. Thank you for this patient referral, we will follow. The patient was seen and examined at bedside and all new and available data was reviewed in the patients chart. I agree with the above findings, impression and plan. (Patient seen earlier today. Signature stamp does not reflect patient encounter time.). - MD Cherie RojasHopi Health Care CenterAnnelise BONE CHAR KILN TENDER Apr 20, 2018 13:21
--- NOTE | 2018-04-20 14:30 | Consultation ---
DATE OF CONSULTATION: 04/20/2018 ENDOCRINOLOGY CONSULTATION: CONSULTING PHYSICIAN: Richi Jeff M.D. REFERRING PHYSICIAN: Светална Vazquez M.D. REASON FOR CONSULTATION: Diabetes management. HISTORY OF PRESENT ILLNESS: The patient is an 83-year-old female who presented to the hospital with generalized edema and respiratory failure, was put on BiPAP. Glucose on presentation was 323. History of diabetes, on metformin as an outpatient. Lactic acid is not elevated. I was called to manage diabetes. PAST MEDICAL HISTORY: 1. Respiratory disease. 2. Peripheral vascular disease. 3. Coronary artery disease and [place], status post angioplasty. 4. Hypertension. 5. Diabetes. 6. CHF. MEDICATIONS: Reviewed and reconciled. ALLERGIES: To Sulfa, which is severe. SOCIAL HISTORY: Longstanding history of smoking. No alcohol or drug use. Has supportive family. REVIEW OF SYSTEMS: Unobtainable. LABORATORY DATA: WBC 18, hemoglobin 12, hematocrit 31.6, and platelets of 227. Sodium 139, potassium 5.0, chloride 107, bicarbonate 24, BUN 31, creatinine 1.5, and glucose of 185. On presentation, glucose was 323. Lactic acid is 190. Troponin initial was 0.06 and subsequent was 0.1. BNP 7943. Lipase is normal. PHYSICAL EXAMINATION: VITAL SIGNS: Blood pressure 123/46, pulse 82, respiratory rate of 20, and temperature of 98.5. HEENT: Pupils are equal and reactive to light. On BiPAP. HEART: Tachycardiac. LUNGS: Crackles. ABDOMEN: Positive bowel sounds. EXTREMITIES: 2 to 2+ edema. DIAGNOSES: 1. CHF exacerbation. 2. Diabetes out of control. 3. Respiratory insufficiency. PLAN: The patient will be kept NPO. We will start the patient on blood glucose monitoring every 4 hours with high-dose NovoLog. Once the diet is resumed, we will add scheduled insulin basal bolus. The patient is to continue with her [employer]. We will follow the patient closely. Thank you, Dr. Vazquez, for the courtesy of this consultation. Richi Jeff M.D. DR: JERALD/DILEEP JOB#: [id number] CC: OSMAR
--- NOTE | 2018-04-20 15:40 | NUR ---
NURSE NOTES: PICCline attempted twice failed , picc line team will attempt again tmr morning
--- NOTE | 2018-04-20 16:08 | Cardiology Report ---
APPROVED REPORT EKG Measurement Heart [id number] OR [id number] Normal sinus rhythm Right bundle branch block Left posterior fascicular block Bifascicular block T wave abnormality, consider lateral ischemia Abnormal ECG
--- NOTE | 2018-04-20 16:13 | Cardiology Report ---
APPROVED REPORT EKG Measurement Heart [id number] MD [id number] Sinus tachycardia with Dual-Chamber Pacemaker Abnormal ECG
--- NOTE | 2018-04-20 16:23 | Consultation ---
Consult Note Consult Note asked to eval for elevated Cr Seen in ICU Patient presents by paramedics for reports of shortness of breath Patient is reported to have come from home upon arrival appears in acute respiratory distress patient is tachypneic and Impending failure History from the patient is limited given her acute presentation Attempts are being made to contact family for further information Review of medical records does reveal the patient was here in 2013 with similar presentation requiring airway intubation Unknown regarding fevers on the regarding vomiting or diarrhea no regarding compliance of medications Patient appears extremely edematous On the left lower extremity and facial region upon arrival Allergies: SULFA (SULFONAMIDE ANTIBIOTICS) (Verified Allergy, Severe, ITCHING AND RASH BREAKOUT, 01/24/14) Past Medical History Deferred: Pt Cognitively Impaired Past Medical History: No Stated History Hx Cardiac Problems: Yes - CHF Hx Hypertension: Yes Hx Asthma: Yes Hx Diabetes: Yes Hx Gastrointestinal Problems: Yes examined data reviewed Assessment/Plan Renal failure- likely acute on chronic Likely Diabetic Nephropathy 3+ proteinuria Anemia Etiology?? Respiratory failure, acute / Pulmonary edema / Pneumonia CHF exacerbation NSTEMI (non-ST elevated myocardial infarction) Diabetes mellitus Leukocytosis Hx of BKA plan: Optimize cardiac and pulmonary status avoid Nephrotoxics BP and BS in check hickman echo urine studies Antony Adkins MD Apr 20, 2018 16:23
--- NOTE | 2018-04-20 16:30 | Consultation ---
DATE OF CONSULTATION: 04/20/2018 INFECTIOUS DISEASES CONSULTATION CONSULTING PHYSICIAN: Matt Elkins M.D. PRIMARY ATTENDING PHYSICIAN: Светлана Vazquez M.D. REASON FOR CONSULTATION: Pneumonia. HISTORY OF PRESENT ILLNESS: The patient is an 83-year-old female admitted last night from home complaining of shortness of breath. The patient had respiratory failure and started on BiPAP, transferred to ICU, had altered mental status that is improving today, had leukocytosis that increased today, but no fever. PAST MEDICAL HISTORY: Significant for congestive heart failure, hypertension, diabetes mellitus, asthma, history of previous admission in [facility] in 2013 with acute renal failure and exacerbation of congestive heart failure. ALLERGIES: Allergic to sulfa. MEDICATIONS: Albuterol ipratropium inhaler, Zosyn, insulin, Lasix, amlodipine, aspirin, atorvastatin, clonidine, Plavix, Protonix, heparin, get a dose of Levaquin in the ER. SOCIAL HISTORY: Single, history of smoking in the past. No alcohol or drug abuse. VACCINATION HISTORY: The patient did not got flu shot this year, but she states that she got pneumonia vaccination before. REVIEW OF SYSTEMS: Coughing and shortness of breath better today. No fever. No chills. No nausea. No vomiting. Has swelling of the leg. She is ambulating with a walker at home. PHYSICAL EXAMINATION: VITAL SIGNS: Temperature 98.1, pulse 84, blood pressure 124/43. GENERAL APPEARANCE: Seems to be in normal weight. HEAD AND NECK: Getting oxygen by mask. HEART: Regular. LUNGS: Clear. ABDOMEN: Soft and nontender. EXTREMITIES: Right above-knee amputation. Left leg edema. NEUROLOGIC: She is awake, alert, and responsive. LABORATORY AND DIAGNOSTIC DATA: WBC 18.4, hemoglobin 10.2, hematocrit 31.6, and platelets is 227. Sodium 139, potassium 5, chloride 107, bicarb 24, BUN 31, . Hemoglobin A1c 7.4. Troponin is slightly elevated at 0.1111. Albumin is 2.8. Chest x-ray showed pulmonary edema. Subsequent x-ray shows improvement of congestive heart failure. Venous duplex showed no DVT. IMPRESSION: 1. Bronchitis, try to rule out pneumonia. 2. CHF exacerbation. 3. Acute renal failure. 4. Diabetes mellitus. 5. Leukocytosis. 6. Acute respiratory failure. RECOMMENDATION: We will continue Zosyn. We will follow up the cultures. The patient has wbc's of 15 to 20 in the urine exam may have UTI. We will try to gradually taper antibiotic. At the end of my exam, I thank Dr. Vazquez for involving me in the care of this patient. Matt Elkins M.D. DR: Benjamín JOB#: [id number] CC: OSMAR
--- NOTE | 2018-04-20 16:42 | Cardiology Report ---
APPROVED REPORT EXAM: Two-dimensional and M-mode echocardiogram with Doppler and color Doppler. INDICATION Congestive Heart Failure M-Mode DIMENSIONS IVSd1.2 (0.7-1.1cm)Left Atrium (MM)2.1 (1.6-4.0cm) LVDd5.9 (3.5-5.6cm)Aortic Root2.1 (2.0-3.7cm) PWd1.3 (0.7-1.1cm)Aortic Cusp Exc.1.6 (1.5-2.0cm) IVSs1.6 cm LVDs4.4 (2.5-4.0cm) PWs1.2 cm Mild left ventricular enlargement . Left ventricular ejection fraction estimated to be 40-45 %. Mild left ventricular hypertrophy by 2-D. Circumferential pericardial effusion with mild early diastolic collapse with respiratory variation . Mild left atrial enlargement . Right cardiac chamber sizes are within normal limits. Focal aortic valve sclerosis with adequate cusp excursion. Thickened mitral valve leaflets with normal excursion. Mitral annulus and aortic root calcification. Normal pulmonic valve structure. Normal tricuspid valve structure. IVC dilated at 2.5 cm with physiologic collapse suggestive of increased RA pressure, RA pressure estimated 15mmHg. Pacemaker wire present in the right side chambers. A color flow and spectral Doppler study was performed and revealed: No aortic insufficiency . Mild mitral regurgitation. Mitral diastolic velocities suggest reduced left ventricular relaxation c/w mild LV diastolic dysfunction (Grade I ). Mild tricuspid regurgitation. Tricuspid systolic velocities suggests peak right ventricular systolic pressure of 35 mmHg,consistent with mild pulmonary hypertension.
--- NOTE | 2018-04-20 19:04 | Cardiology Progress Note ---
Assessment/Plan Assessment/Plan The patient is seen and examined, full consult note will be dictated. Objective Last 24 Hour Vital Signs Date Time Temp Pulse Resp B/P (MAP) Pulse Ox O2 Delivery O2 Flow Rate FiO2 04/20/18 18:00 92 23 124/42 (69) 100 04/20/18 17:48 119/39 04/20/18 17:02 76 24 98 04/20/18 17:00 83 24 119/38 (65) 100 04/20/18 16:00 40 04/20/18 16:00 Venturi Mask 04/20/18 16:00 91 04/20/18 16:00 88 23 119/46 (70) 100 04/20/18 15:00 93 22 100/77 (85) 100 04/20/18 14:37 88 24 97 04/20/18 14:00 90 24 137/44 (75) 100 04/20/18 13:09 84 25 100 Venturi Mask 8.0 40 04/20/18 13:00 87 33 100 Venturi Mask 8.0 40 04/20/18 13:00 36 04/20/18 13:00 100.0 88 26 145/50 (81) 100 04/20/18 12:58 84 26 98 04/20/18 12:00 90 04/20/18 12:00 Venturi Mask 04/20/18 12:00 88 26 145/50 (81) 100 04/20/18 12:00 40 04/20/18 11:00 84 25 124/43 (70) 100 04/20/18 10:38 88 22 99 04/20/18 10:02 Venturi Mask 8.0 40 04/20/18 10:01 100 Venturi Mask 8.0 40 04/20/18 10:00 84 29 121/42 (68) 100 04/20/18 09:00 92 24 139/44 (75) 99 04/20/18 08:42 123/46 04/20/18 08:42 84 123/46 04/20/18 08:38 84 24 100 04/20/18 08:00 90 27 136/47 (76) 100 04/20/18 08:00 Venturi Mask 04/20/18 08:00 92 04/20/18 08:00 40 04/20/18 07:14 85 21 100 Facial 40 04/20/18 07:00 82 20 123/46 (71) 100 04/20/18 06:00 83 20 137/48 (77) 100 04/20/18 05:00 83 18 136/51 (79) 100 04/20/18 04:52 85 19 100 Facial 40 04/20/18 04:00 Bi-pap 04/20/18 04:00 89 04/20/18 04:00 98.1 85 19 132/57 (82) 100 04/20/18 04:00 40 04/20/18 03:11 83 22 100 Facial 40 04/20/18 03:00 84 25 137/53 (81) 100 04/20/18 02:00 83 25 136/50 (78) 100 04/20/18 01:19 Bi-pap 04/20/18 01:00 82 25 130/49 (76) 100 04/20/18 00:36 85 24 100 Facial 50 04/20/18 00:22 50 04/20/18 00:17 98.3 90 25 151/60 (90) 100 04/20/18 00:16 90 04/20/18 00:00 Bi-pap 04/19/18 23:40 98.2 60 18 129/72 99 Room Air 04/19/18 23:06 98.2 84 32 139/55 100 Bi-pap 15.0 04/19/18 23:00 102 28 100 Facial 90 04/19/18 21:15 85 32 Bi-pap 100 04/19/18 21:00 111 32 Bi-pap 100 04/19/18 21:00 111 32 92 Facial 100 04/19/18 20:53 98.4 111 24 140/91 91 Bi-pap Intake and Output 04/19/18 04/20/18 19:00 07:00 Output Total 1090 ml Balance -1090 ml Output Urine Total 1090 ml # Bowel Movements 1 Laboratory Tests Test 04/19/18 21:08 04/19/18 21:25 04/19/18 22:50 04/20/18 00:30 Arterial Blood pH 7.230 (7.350-7.450) Arterial Blood Partial Pressure CO2 49.6 mmHg (35.0-45.0) H Arterial Blood Partial Pressure O2 83.0 mmHg (75.0-100.0) Arterial Blood HCO3 20.3 mmol/L (22.0-26.0) L Arterial Blood Oxygen Saturation 94.2 % (95-100) L Arterial Blood Base Excess -7.2 (-2-2) L Jb Test Positive White Blood Count 15.6 K/UL (4.8-10.8) H Red Blood Count 4.14 M/UL (4.20-5.40) L Hemoglobin 11.5 G/DL (12.0-16.0) L Hematocrit 36.4 % (37.0-47.0) L Mean Corpuscular Volume 88 FL (80-99) Mean Corpuscular Hemoglobin 27.9 PG (27.0-31.0) Mean Corpuscular Hemoglobin Concent 31.7 G/DL (32.0-36.0) L Red Cell Distribution Width 13.4 % (11.6-14.8) Platelet Count 267 K/UL (150-450) Mean Platelet Volume 7.3 FL (6.5-10.1) Neutrophils (%) (Auto) 71.1 % (45.0-75.0) Lymphocytes (%) (Auto) 16.5 % (20.0-45.0) L Monocytes (%) (Auto) 7.2 % (1.0-10.0) Eosinophils (%) (Auto) 3.0 % (0.0-3.0) Basophils (%) (Auto) 2.2 % (0.0-2.0) H Sodium Level 137 MMOL/L (136-145) Potassium Level 5.3 MMOL/L (3.5-5.1) H Chloride Level 105 MMOL/L (98-107) Carbon Dioxide Level 25 MMOL/L (21-32) Anion Gap 7 mmol/L (5-15) Blood Urea Nitrogen 29 mg/dL (7-18) H Creatinine 1.6 MG/DL (0.55-1.30) H Estimat Glomerular Filtration Rate mL/min (>60) Glucose Level 323 MG/DL (74-106) H Lactic Acid Level 1.90 mmol/L (0.4-2.0) Calcium Level 8.8 MG/DL (8.5-10.1) Total Bilirubin 0.2 MG/DL (0.2-1.0) Aspartate Amino Transf (AST/SGOT) 31 U/L (15-37) Alanine Aminotransferase (ALT/SGPT) 40 U/L (12-78) Alkaline Phosphatase 125 U/L (46-116) H Total Creatine Kinase 81 U/L (26-308) Creatine Kinase MB 1.0 NG/ML (0.0-3.6) Creatine Kinase MB Relative Index 1.2 Troponin I 0.064 ng/mL (0.000-0.056) Pro-B-Type Natriuretic Peptide 7943 pg/mL (0-125) H Total Protein 7.4 G/DL (6.4-8.2) Albumin 2.9 G/DL (3.4-5.0) L Globulin 4.5 g/dL Albumin/Globulin Ratio 0.6 (1.0-2.7) L Lipase 85 U/L (73-393) Urine Color Pale yellow Urine Appearance Clear Urine pH 5 (4.5-8.0) Urine Specific [place] 1.015 (1.005-1.035) Urine Protein 3+ (NEGATIVE) H Urine Glucose (UA) Negative (NEGATIVE) Urine Ketones Negative (NEGATIVE) Urine Blood 2+ (NEGATIVE) H Urine Nitrite Negative (NEGATIVE) Urine Bilirubin Negative (NEGATIVE) Urine Urobilinogen Normal MG/DL (0.0-1.0) Urine Leukocyte Esterase Negative (NEGATIVE) Urine RBC 2-4 /HPF (0 - 2) H Urine WBC 15-20 /HPF (0 - 2) H Urine Squamous Epithelial Cells Few /LPF (NONE/OCC) Urine Bacteria Few /HPF (NONE) Activated Partial Thromboplast Time 29 SEC (23-33) D-Dimer 3.97 mg/L FEU (0.00-0.49) H Test 04/20/18 04:46 04/20/18 07:20 04/20/18 16:00 White Blood Count 18.4 K/UL (4.8-10.8) H Red Blood Count 3.62 M/UL (4.20-5.40) L Hemoglobin 10.2 G/DL (12.0-16.0) L Hematocrit 31.6 % (37.0-47.0) L Mean Corpuscular Volume 87 FL (80-99) Mean Corpuscular Hemoglobin 28.1 PG (27.0-31.0) Mean Corpuscular Hemoglobin Concent 32.2 G/DL (32.0-36.0) Red Cell Distribution Width 13.6 % (11.6-14.8) Platelet Count 227 K/UL (150-450) Mean Platelet Volume 7.4 FL (6.5-10.1) Neutrophils (%) (Auto) % (45.0-75.0) Lymphocytes (%) (Auto) % (20.0-45.0) Monocytes (%) (Auto) % (1.0-10.0) Eosinophils (%) (Auto) % (0.0-3.0) Basophils (%) (Auto) % (0.0-2.0) Differential Total Cells Counted 100 Neutrophils % (Manual) 80 % (45-75) H Lymphocytes % (Manual) 7 % (20-45) L Monocytes % (Manual) 8 % (1-10) Eosinophils % (Manual) 0 % (0-3) Basophils % (Manual) 1 % (0-2) Band Neutrophils 4 % (0-8) Platelet Estimate Adequate Platelet Morphology Normal Red Blood Cell Morphology Normal Sodium Level 139 MMOL/L (136-145) Potassium Level 5.0 MMOL/L (3.5-5.1) Chloride Level 107 MMOL/L (98-107) Carbon Dioxide Level 24 MMOL/L (21-32) Anion Gap 8 mmol/L (5-15) Blood Urea Nitrogen 31 mg/dL (7-18) H Creatinine 1.5 MG/DL (0.55-1.30) H Estimat Glomerular Filtration Rate mL/min (>60) Glucose Level 185 MG/DL (74-106) #H Hemoglobin A1c 7.4 % (4.3-6.0) H Uric Acid 6.2 MG/DL (2.6-7.2) Calcium Level 8.8 MG/DL (8.5-10.1) Phosphorus Level 3.9 MG/DL (2.5-4.9) Magnesium Level 1.8 MG/DL (1.8-2.4) Total Bilirubin 0.2 MG/DL (0.2-1.0) Aspartate Amino Transf (AST/SGOT) 22 U/L (15-37) Alanine Aminotransferase (ALT/SGPT) 38 U/L (12-78) Alkaline Phosphatase 100 U/L (46-116) Troponin I 0.111 ng/mL (0.000-0.056) 0.071 ng/mL (0.000-0.056) Total Protein 6.5 G/DL (6.4-8.2) Albumin 2.8 G/DL (3.4-5.0) L Globulin 3.7 g/dL Albumin/Globulin Ratio 0.8 (1.0-2.7) L Thyroid Stimulating Hormone (TSH) 1.656 uiU/mL (0.358-3.740) Arterial Blood pH 7.394 (7.350-7.450) Arterial Blood Partial Pressure CO2 37.4 mmHg (35.0-45.0) Arterial Blood Partial Pressure O2 107.9 mmHg (75.0-100.0) H Arterial Blood HCO3 22.3 mmol/L (22.0-26.0) Arterial Blood Oxygen Saturation 96.4 % (95-100) Arterial Blood Base Excess -2.3 (-2-2) L Jb Test Positive Activated Partial Thromboplast Time > 150 SEC (23-33) *H Fibrinogen 410 mg/dL (200-400) H Lactic Acid Level 1.00 mmol/L (0.4-2.0) Lactate Dehydrogenase 134 U/L (81-234) C-Reactive Protein, Quantitative 7.5 mg/dL (0.00-0.90) H Microbiology Date/Time Source Procedure Growth Status 04/19/18 23:30 Rectum Received Logan Mathur MD Apr 20, 2018 19:04
--- NOTE | 2018-04-20 19:30 | NUR ---
NURSE NOTES: Received pt in bed with eyes closed. sinus rhythm on the monitor With HR 79. arousable to verbal and tactile stimuli. On Venturi Mask 45 %. Left FA IV site running heparin gtt at this time @ 15.36 u/hr. No signs of bleeding noted. Right AKA noted and elevated at this time. Left foot noted with +4 pitting edema at this time. Jenkins cath draining with sediment. pt denies any pain or discomfort. No signs of distress noted. Will continue to monitor.
[2018-04-20] MEDS ORDERED: Dyna-Hex 2% Top Sol 2oz TOPIC SCH (20:00)
--- NOTE | 2018-04-20 21:00 | NUR ---
NURSE NOTES: Pt turned and repositioned at this time. pt does not want to bed turned but bedside teaching done about the importance of repositioning q2hr. Pt continues on heparin gtt at this time. No signs of bleeding or distress noted. Will continue to monitor
--- NOTE | 2018-04-20 21:30 | Consultation ---
DATE OF CONSULTATION: 04/20/2018 CARDIOLOGY CONSULTATION CONSULTING PHYSICIAN: Logan Mathur M.D. REFERRING PHYSICIAN: Светлана Vazquez M.D. REASON FOR CONSULTATION: Management of shortness of breath. HISTORY OF PRESENT ILLNESS: The patient is a very unfortunate 83-year-old lady with history of congestive heart failure and cardiomyopathy, history of hypertension, history of asthma/COPD due to longstanding tobacco use, history of diabetes mellitus, history of GERD, history of dementia who comes from home with symptoms of shortness of breath. Apparently, the patient at the time of arrival to the hospital, had respiratory distress, was having tachypnea and using accessary muscles of respiration. She had trouble providing history. In 2013, she had similar presentation requiring intubation. At the time of arrival to the facility, blood pressure was 140/91 and heart rate was 111. A 12-lead electrocardiogram was significant for sinus tachycardia rate of 105 with left axis deviation and left anterior fascicular block, and LVH. A 12-lead electrocardiogram was significant for sinus tachycardia with V-paced rhythm. Chest x-ray done in the emergency department was significant for alveolar edema consistent with congestive heart failure. There was also evidence of right atrial and right ventricular leads, cardiomegaly, and bilateral pleural effusion. Cardiology consultation was made at request of Dr. Vazquez for assessment and evaluation of acute heart failure. The patient was admitted to intensive care unit of [facility] with diagnosis of acute respiratory failure. PAST MEDICAL HISTORY: Diabetes mellitus, hypertension, COPD, history of congestive heart failure/cardiomyopathy for about 10 years, history of dementia, history of GERD, peripheral vascular disease status post right AKA in the past, multiple myocardial infarction. PAST SURGICAL HISTORY: Status post dual-chamber pacemaker implantation, amputation of the right leg. ALLERGIES: To sulfa. FAMILY HISTORY: No premature coronary artery disease in the first-degree relatives. SOCIAL HISTORY: Ex-smoker, she was a heavy smoker. Currently there is no tobacco, alcohol, or illicit drug use. MEDICATIONS: List of medication including atorvastatin 80 mg at bedtime, carvedilol 3.125 mg twice daily, clopidogrel 75 mg p.o. daily, clonidine 0.1 mg twice daily, ferrous sulfate , Lasix 40 mg q.12 hours, hydrocodone-acetaminophen 5/325 one tablet every four hours p.r.n. pain, insulin NovoLog, metformin 500 mg twice daily, NicoDerm 1 patch dermal every 24 hours, Nitro-Bid one inch every six hours topical, Protonix 20 mg p.o. daily. REVIEW OF SYSTEMS: HEENT: Denies any headache, diplopia, blurred vision. CONSTITUTIONAL: Denies any fever, chills, night sweats, or weight loss. CARDIOVASCULAR: Complains of shortness of breath. No chest pain. Complained of 2 to 3 pillow orthopnea, PND, and left lower extremity edema. PULMONARY: Denies any cough, hemoptysis, or wheezing. GASTROINTESTINAL: Denies any nausea, vomiting, diarrhea, constipation, abdominal pain, or GI bleed. GENITOURINARY: Denies any hematuria, dysuria, incontinence. NEUROLOGY: Denies any motor dysfunction, sensory deficit, or altered speech. PHYSICAL EXAMINATION: VITAL SIGNS: Blood pressure at time of arrival to the hospital was 140/91, pulse of 111, respirations 24, temperature 98.4 degrees Fahrenheit, and O2 saturation of 91% on BiPAP. GENERAL: The patient is a very unfortunate 83-year-old lady currently on Venturi mask. Alert and oriented x4. HEENT: Atraumatic and normocephalic. Anicteric. Pupils are equal, round, and reactive to light and accommodation. Extraocular muscles intact. NECK: JVP is less than 2 mm. No carotid bruit. Carotid upstrokes 2+ bilaterally. CARDIOVASCULAR: Normal S1 and S2. Regular rate and rhythm. No murmurs, gallops, or rubs. PMI is at fourth intercostal space in the mid clavicular line. LUNGS: Diminished breath sounds in both lungs. ABDOMEN: Soft, nontender, and nondistended. No hepatosplenomegaly. Positive bowel sounds. EXTREMITIES: There is right [id number] amputation. LABORATORY FINDINGS: WBC 15.6, hemoglobin 11.5, hematocrit 36.4, and platelet count is 267. Sodium 137, potassium is 5.3, chloride 105, bicarbonate 25, BUN of 29, creatinine 1.6, glucose is 323, calcium is 8.8. Troponin I level was 0.06 and 0.11. ProBNP was 7943. D-dimer elevated at 3.97. Arterial blood gas shows pH 7.23, pCO2 of 49.6, pO2 of 83, HCO2 of 20.3, and O2 saturation 94.2%. A 2D echocardiography was reviewed. This showed left ventricular systolic dysfunction mainly posterior and mid to apical inferior wall infarct, lateral infarct with overall left ventricular ejection fraction, estimated to be 35 to 40%. There was mild left ventricular hypertrophy. There was moderate pericardial effusions with no evidence of pericardial tamponade, transmitral gradient during did not change, IVC was at 2 centimeter with physiologic collapse, mild moderate mitral regurgitation and tricuspid regurgitation with RVSP measured at 35 mmHg consistent with mild pulmonary hypertension. There was no RA or RV diastolic collapse. ASSESSMENT AND PLAN: The is a very unfortunate 83-year-old lady who is seen in Cardiology consultation at request of Dr. Vazquez. 1. Acute systolic congestive heart failure. The wall motion abnormalities as stated above. Overall left ventricular ejection fraction measured at 35% to 40%. The patient requires to be on guideline directed medical therapy including carvedilol, NICK inhibitors/ ARBs as well as spironolactone. We will slowly introduce these agents. The patient will require to have diuretics. will be given for decreasing preload. The patient may benefit from digoxin as well. 2. Slight elevation of troponin I level in this patient could be type [address]-elevation myocardial infarction or due to myocarditis. 3. Moderate pericardial effusion with no echocardiographic or clinical evidence of pericardial tamponade. 4. Chronic kidney disease. Creatinine of 1.5. 5. 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 6. Bilateral pleural effusion. 7. Acute respiratory failure, was on BiPAP mask. Currently, on Venturi mask. Total amount of time spent in the care and evaluation of the intensive care unit of [facility], reviewing of the medical records, review of the 2D echocardiography images, discussing the plan of care with the nursing staff as well as primary care physician was over 50 minutes. I would like to thank, Dr. Vazquez, for the courtesy of this consultation. Logan Mathur M.D. DR: Jameson JOB#: [id number] CC:
[2018-04-20 22:32] LABS: ANION GAP 8 mmol/L (5-15); BLOOD UREA NITROGEN 37 mg/dL (7-18); CALCIUM 8.6 MG/DL (8.5-10.1); CARBON DIOXIDE 27 MMOL/L (21-32); CHLORIDE 105 MMOL/L (98-107); CREATININE 1.9 MG/DL (0.55-1.30); POTASSIUM 3.8 MMOL/L (3.5-5.1); SODIUM 140 MMOL/L (136-145)
--- NOTE | 2018-04-20 22:41 | Consultation ---
History of Present Illness General Date patient seen: Apr 20, 2018 Chief Complaint: Dyspnea/Respdistress Referring physician: СВЕТЛАНА Vazquez Reason for Consultation: ANEMIA Present Illness Allergies: Coded Allergies: SULFA (SULFONAMIDE ANTIBIOTICS) (Verified Allergy, Severe, ITCHING AND RASH BREAKOUT, 01/24/14) Medication History Scheduled Amlodipine Besylate (Norvasc), 5 MG ORAL DAILY Aspirin* (Aspir 81*), 81 MG ORAL DAILY, (Reported) Aspirin* (Aspir 81*), 81 MG ORAL DAILY, (Reported) Atorvastatin (Lipitor), 80 MG ORAL DAILY, (Reported) Atorvastatin Calcium* (Lipitor*), 20 MG ORAL BEDTIME Carvedilol (Coreg), 25 MG ORAL EVERY 12 HOURS Carvedilol (Coreg), 3.125 MG ORAL EVERY 12 HOURS, (Reported) Clopidogrel* (Clopidogrel*), 75 MG ORAL DAILY, (Reported) Furosemide* (Lasix*), 40 MG ORAL EVERY 12 HOURS Furosemide* (Lasix*), 40 MG ORAL DAILY, (Reported) Insulin Aspart (Novolog Flexpen), 0 UNITS SUBQ BEFORE MEALS AND HS Nicotine (Nicotine Patch), 1 PATCH TDERMAL Q24H Nitroglycerin (Nitro-Bid*), 1 INCH TOPIC EVERY 6 HOURS Pantoprazole Sodium (Protonix), 20 MG ORAL DAILY, (Reported) Pantoprazole* (Protonix*), 40 MG ORAL DAILY Scheduled PRN Acetaminophen* (Acetaminophen 325MG Tablet*), 650 MG ORAL Q4H PRN for HEADACHE or temp>101 Hydrocodone Bit/Acetaminophen 5-325* ([place] 5-325*), 1 TAB ORAL Q4H PRN for For Pain, (Reported) Miscellaneous Medications Ferrous Sulfate, Dried (Ferrous Sulfate), 500 GM MC, (Reported) Metformin HCl (Metformin HCl), 500 MG PO, (Reported) Discontinued Medications Clonidine Hcl (Clonidine Hcl), 0.1 MG PO BID, (Reported) Discontinued Reason: MD discontinued med Patient History Healthcare decision maker keily quach Resuscitation status Full Code Advanced Directive on File No Physical Exam Last 24 Hour Vital Signs Date Time Temp Pulse Resp B/P (MAP) Pulse Ox O2 Delivery O2 Flow Rate FiO2 04/20/18 21:30 96 8.0 40 04/20/18 20:40 80 118/40 04/20/18 20:00 80 20 100 Venturi Mask 8.0 40 1/16/19 20:00 Venturi Mask 04/20/18 19:56 Venturi Mask 8.0 40 04/20/18 19:56 100 Venturi Mask 8.0 40 04/20/18 19:49 78 20 98 Venturi Mask 8.0 40 04/20/18 19:30 78 98 8.0 40 04/20/18 19:00 83 23 115/37 (63) 100 04/20/18 18:00 92 23 124/42 (69) 100 04/20/18 17:48 119/39 04/20/18 17:02 76 24 98 04/20/18 17:00 83 24 119/38 (65) 100 04/20/18 16:00 40 04/20/18 16:00 Venturi Mask 04/20/18 16:00 91 04/20/18 16:00 88 23 119/46 (70) 100 04/20/18 15:00 93 22 100/77 (85) 100 04/20/18 14:37 88 24 97 04/20/18 14:00 90 24 137/44 (75) 100 04/20/18 13:09 84 25 100 Venturi Mask 8.0 40 04/20/18 13:00 87 33 100 Venturi Mask 8.0 40 04/20/18 13:00 36 04/20/18 13:00 100.0 88 26 145/50 (81) 100 04/20/18 12:58 84 26 98 04/20/18 12:00 90 04/20/18 12:00 Venturi Mask 04/20/18 12:00 88 26 145/50 (81) 100 04/20/18 12:00 40 04/20/18 11:00 84 25 124/43 (70) 100 04/20/18 10:38 88 22 99 04/20/18 10:02 Venturi Mask 8.0 40 04/20/18 10:01 100 Venturi Mask 8.0 40 04/20/18 10:00 84 29 121/42 (68) 100 04/20/18 09:00 92 24 139/44 (75) 99 04/20/18 08:42 123/46 04/20/18 08:42 84 123/46 04/20/18 08:38 84 24 100 04/20/18 08:00 90 27 136/47 (76) 100 04/20/18 08:00 Venturi Mask 04/20/18 08:00 92 04/20/18 08:00 40 04/20/18 07:14 85 21 100 Facial 40 04/20/18 07:00 82 20 123/46 (71) 100 04/20/18 06:00 83 20 137/48 (77) 100 04/20/18 05:00 83 18 136/51 (79) 100 04/20/18 04:52 85 19 100 Facial 40 04/20/18 04:00 Bi-pap 04/20/18 04:00 89 04/20/18 04:00 98.1 85 19 132/57 (82) 100 04/20/18 04:00 40 04/20/18 03:11 83 22 100 Facial 40 04/20/18 03:00 84 25 137/53 (81) 100 04/20/18 02:00 83 25 136/50 (78) 100 04/20/18 01:19 Bi-pap 04/20/18 01:00 82 25 130/49 (76) 100 04/20/18 00:36 85 24 100 Facial 50 04/20/18 00:22 50 04/20/18 00:17 98.3 90 25 151/60 (90) 100 04/20/18 00:16 90 04/20/18 00:00 Bi-pap 04/19/18 23:40 98.2 60 18 129/72 99 Room Air 04/19/18 23:06 98.2 84 32 139/55 100 Bi-pap 15.0 04/19/18 23:00 102 28 100 Facial 90 Intake and Output 04/19/18 04/20/18 19:00 07:00 Output Total 1090 ml Balance -1090 ml Output Urine Total 1090 ml # Bowel Movements 1 Laboratory Tests Test 04/19/18 22:50 04/20/18 00:30 04/20/18 04:46 04/20/18 07:20 Urine Color Pale yellow Urine Appearance Clear Urine pH 5 (4.5-8.0) Urine Specific [place] 1.015 (1.005-1.035) Urine Protein 3+ (NEGATIVE) H Urine Glucose (UA) Negative (NEGATIVE) Urine Ketones Negative (NEGATIVE) Urine Blood 2+ (NEGATIVE) H Urine Nitrite Negative (NEGATIVE) Urine Bilirubin Negative (NEGATIVE) Urine Urobilinogen Normal MG/DL (0.0-1.0) Urine Leukocyte Esterase Negative (NEGATIVE) Urine RBC 2-4 /HPF (0 - 2) H Urine WBC 15-20 /HPF (0 - 2) H Urine Squamous Epithelial Cells Few /LPF (NONE/OCC) Urine Bacteria Few /HPF (NONE) Activated Partial Thromboplast Time 29 SEC (23-33) D-Dimer 3.97 mg/L FEU (0.00-0.49) H White Blood Count 18.4 K/UL (4.8-10.8) H Red Blood Count 3.62 M/UL (4.20-5.40) L Hemoglobin 10.2 G/DL (12.0-16.0) L Hematocrit 31.6 % (37.0-47.0) L Mean Corpuscular Volume 87 FL (80-99) Mean Corpuscular Hemoglobin 28.1 PG (27.0-31.0) Mean Corpuscular Hemoglobin Concent 32.2 G/DL (32.0-36.0) Red Cell Distribution Width 13.6 % (11.6-14.8) Platelet Count 227 K/UL (150-450) Mean Platelet Volume 7.4 FL (6.5-10.1) Neutrophils (%) (Auto) % (45.0-75.0) Lymphocytes (%) (Auto) % (20.0-45.0) Monocytes (%) (Auto) % (1.0-10.0) Eosinophils (%) (Auto) % (0.0-3.0) Basophils (%) (Auto) % (0.0-2.0) Differential Total Cells Counted 100 Neutrophils % (Manual) 80 % (45-75) H Lymphocytes % (Manual) 7 % (20-45) L Monocytes % (Manual) 8 % (1-10) Eosinophils % (Manual) 0 % (0-3) Basophils % (Manual) 1 % (0-2) Band Neutrophils 4 % (0-8) Platelet Estimate Adequate Platelet Morphology Normal Red Blood Cell Morphology Normal Sodium Level 139 MMOL/L (136-145) Potassium Level 5.0 MMOL/L (3.5-5.1) Chloride Level 107 MMOL/L (98-107) Carbon Dioxide Level 24 MMOL/L (21-32) Anion Gap 8 mmol/L (5-15) Blood Urea Nitrogen 31 mg/dL (7-18) H Creatinine 1.5 MG/DL (0.55-1.30) H Estimat Glomerular Filtration Rate mL/min (>60) Glucose Level 185 MG/DL (74-106) #H Hemoglobin A1c 7.4 % (4.3-6.0) H Uric Acid 6.2 MG/DL (2.6-7.2) Calcium Level 8.8 MG/DL (8.5-10.1) Phosphorus Level 3.9 MG/DL (2.5-4.9) Magnesium Level 1.8 MG/DL (1.8-2.4) Total Bilirubin 0.2 MG/DL (0.2-1.0) Aspartate Amino Transf (AST/SGOT) 22 U/L (15-37) Alanine Aminotransferase (ALT/SGPT) 38 U/L (12-78) Alkaline Phosphatase 100 U/L (46-116) Troponin I 0.111 ng/mL (0.000-0.056) Total Protein 6.5 G/DL (6.4-8.2) Albumin 2.8 G/DL (3.4-5.0) L Globulin 3.7 g/dL Albumin/Globulin Ratio 0.8 (1.0-2.7) L Thyroid Stimulating Hormone (TSH) 1.656 uiU/mL (0.358-3.740) Arterial Blood pH 7.394 (7.350-7.450) Arterial Blood Partial Pressure CO2 37.4 mmHg (35.0-45.0) Arterial Blood Partial Pressure O2 107.9 mmHg (75.0-100.0) H Arterial Blood HCO3 22.3 mmol/L (22.0-26.0) Arterial Blood Oxygen Saturation 96.4 % (95-100) Arterial Blood Base Excess -2.3 (-2-2) L Jb Test Positive Test 04/20/18 16:00 Activated Partial Thromboplast Time > 150 SEC (23-33) *H Fibrinogen 410 mg/dL (200-400) H Lactic Acid Level 1.00 mmol/L (0.4-2.0) Lactate Dehydrogenase 134 U/L (81-234) Troponin I 0.071 ng/mL (0.000-0.056) C-Reactive Protein, Quantitative 7.5 mg/dL (0.00-0.90) H Microbiology Date/Time Source Procedure Growth Status 04/19/18 23:30 Rectum Received Height (Feet): 5 Height (Inches): 2.00 Weight (Pounds): 121 Medications Current Medications Medications (Trade) Dose Ordered Sig/Shazia Route PRN Reason Start Time Stop Time Status Last Admin Dose Admin Albuterol/ Ipratropium (Albuterol/ Ipratropium) 3 ml Q4H PRN HHN Shortness of Breath 04/19/18 23:30 04/24/18 23:29 Albuterol/ Ipratropium (Albuterol/ Ipratropium) 3 ml Q6HRT HHN 04/20/18 13:00 04/25/18 12:59 04/20/18 19:56 Aspirin (Ecotrin) 81 mg DAILY ORAL 04/20/18 09:00 05/20/18 08:59 04/20/18 08:42 Atorvastatin Calcium (Lipitor) 80 mg DAILY ORAL 04/20/18 09:00 05/20/18 08:59 04/20/18 08:41 Carvedilol (Coreg) 3.125 mg EVERY 12 HOURS ORAL 04/20/18 21:00 05/20/18 20:59 04/20/18 20:40 Chlorhexidine Gluconate (Monet-Hex 2%) 1 applic DAILY@2000 TOPIC 04/20/18 20:00 05/20/18 19:59 Clopidogrel Bisulfate (Plavix) 75 mg DAILY ORAL 04/20/18 09:00 05/20/18 08:59 04/20/18 08:42 Dextrose (Dextrose 50%) 25 ml Q30M PRN IV Hypoglycemia 04/20/18 08:30 05/20/18 08:29 Dextrose (Dextrose 50%) 50 ml Q30M PRN IV Hypoglycemia 04/20/18 08:30 05/20/18 08:29 Furosemide (Lasix) 40 mg EVERY 12 HOURS IV 04/20/18 09:00 05/20/18 08:59 04/20/18 20:39 Heparin Sodium/ Dextrose 500 ml @ 15.368 mls/ hr ADJUST PER PROTOCOL IV 04/20/18 17:45 05/20/18 07:49 04/20/18 18:59 Heparin Sodium/ Sodium Chloride (Heparin 2000 units/Ns 1000ml premix) 2,000 unit ONCE PRN INJ PICC LINE 04/20/18 09:00 04/21/18 23:59 Insulin Aspart (NovoLOG) BEFORE MEALS AND HS SUBQ 04/20/18 11:30 05/20/18 11:29 04/20/18 20:43 Lidocaine HCl (Xylocaine 1% 30ml) 30 ml ONCE PRN INJ PICC LINE 04/20/18 09:00 04/21/18 23:59 Pantoprazole (Protonix) 40 mg DAILY ORAL 04/20/18 09:00 05/20/18 08:59 04/20/18 08:42 Piperacillin Sod/ Tazobactam Sod 3.375 gm/Sodium Chloride 110 ml @ 27.5 mls/hr EVERY 8 HOURS IVPB 04/20/18 12:00 04/25/18 11:59 04/20/18 12:00 Assessment/Plan Assessment/Plan Hematology/Oncology Consultation Requesting MD: Светлана Vazquez M.D. Date of Service: 04/20/2018 Reason for consultation: Leukocytosis and Anemia. HPI: This is a 83 years old female with history of congestive heart failure, cardiomyopathy, hypertension, asthma/COPD due to longstanding tobacco use, diabetes mellitus, GERD, and dementia Patient was admitted for shortness of breath, leukocytosis, and anemia. Patient experienced respiratory distress and she was having tachypnea and using accessary muscles of respiration. In 2013, she had similar presentation requiring intubation. The patient was started on BiPAP for respiratory failure was transferred to ICU, she had altered mental status that is improving. Hematology/Oncology was consulted for leukocytosis and anemia. WBC trending up from 15.6-->18.4. Hgb 11.5-->10.2. Plt 277. Past Medical Hx: Diabetes mellitus, hypertension, COPD, history of congestive heart failure/cardiomyopathy for about 10 years, history of dementia, history of GERD, peripheral vascular disease status post right AKA in the past, multiple myocardial infarction. Past Surgical Hx: Status post dual-chamber pacemaker implantation, amputation of the right leg. Social Hx: Ex-smoker, she was a heavy smoker. Currently there is no tobacco, alcohol, or illicit drug use Family history: none Allergies:To sulfa. Home meds: List of medication including atorvastatin 80 mg at bedtime, carvedilol 3.125 mg twice daily, clopidogrel 75 mg p.o. daily, clonidine 0.1 mg twice daily, ferrous sulfate ,Lasix 40 mg q.12 hours, hydrocodone-acetaminophen 5/325 one tablet every four hours p.r.n. pain, insulin NovoLog, metformin 500 mg twice daily, NicoDerm 1 patch dermal every 24 hours, Nitro-Bid one inch every six hours topical, Protonix 20 mg p.o. daily. ROS: Constitutional: No fever, no chills, no night sweats, no fatigue Skin: No rashes, lumps, itchiness, dryness HEENT: No MARQUEZ, ear ache, visual changes, double vision, Breasts: No lumps, pain, discharge Pulmonary: Complained of 2 to 3 pillow orthopnea, PND, and left lower extremity Cardiovascular:Complains of shortness of breath. No chest pain. GI: No nausea, vomiting, diarrhea, melena, hematochezia, change in appetite, abdominal pain : No dysuria, frequency, urgency, urinary incontinence, foamy urine Musculoskeletal: No joint swelling or muscle pain, trauma, back pain Neurologic: No dizziness, fainting, seizures Physical Exam Last 24 Hour Vital Signs Date Time Temp Pulse Resp B/P (MAP) Pulse Ox O2 Delivery O2 Flow Rate FiO2 04/21/18 05:00 79 21 140/41 (74) 100 04/21/18 04:00 40 04/21/18 04:00 82 04/21/18 04:00 98.3 82 22 130/38 (68) 100 04/21/18 04:00 Venturi Mask 04/21/18 03:00 81 22 137/45 (75) 100 04/21/18 02:00 80 22 111/72 (85) 100 04/21/18 01:08 82 20 100 Venturi Mask 8.0 40 04/21/18 01:00 79 20 98 Venturi Mask 8.0 40 04/21/18 01:00 82 24 135/41 (72) 100 04/21/18 00:00 77 04/21/18 00:00 Venturi Mask 04/21/18 00:00 98.1 77 22 130/38 (68) 100 04/20/18 23:00 77 24 123/48 (73) 100 04/20/18 22:00 77 24 123/46 (71) 100 04/20/18 21:30 96 8.0 40 04/20/18 21:00 79 24 124/44 (70) 100 04/20/18 20:40 80 118/40 04/20/18 20:00 80 20 100 Venturi Mask 8.0 40 04/20/18 20:00 40 04/20/18 20:00 80 04/20/18 20:00 98.3 80 23 127/38 (67) 100 04/20/18 20:00 Venturi Mask 04/20/18 19:56 Venturi Mask 8.0 40 04/20/18 19:56 100 Venturi Mask 8.0 40 04/20/18 19:49 78 20 98 Venturi Mask 8.0 40 04/20/18 19:30 78 98 8.0 40 04/20/18 19:00 83 23 115/37 (63) 100 04/20/18 18:00 92 23 124/42 (69) 100 04/20/18 17:48 119/39 04/20/18 17:02 76 24 98 04/20/18 17:00 83 24 119/38 (65) 100 04/20/18 16:00 40 04/20/18 16:00 Venturi Mask 04/20/18 16:00 91 04/20/18 16:00 88 23 119/46 (70) 100 04/20/18 15:00 93 22 100/77 (85) 100 04/20/18 14:37 88 24 97 04/20/18 14:00 90 24 137/44 (75) 100 04/20/18 13:09 84 25 100 Venturi Mask 8.0 40 04/20/18 13:00 87 33 100 Venturi Mask 8.0 40 04/20/18 13:00 36 04/20/18 13:00 100.0 88 26 145/50 (81) 100 04/20/18 12:58 84 26 98 04/20/18 12:00 90 04/20/18 12:00 Venturi Mask 04/20/18 12:00 88 26 145/50 (81) 100 04/20/18 12:00 40 04/20/18 11:00 84 25 124/43 (70) 100 04/20/18 10:38 88 22 99 04/20/18 10:02 Venturi Mask 8.0 40 04/20/18 10:01 100 Venturi Mask 8.0 40 04/20/18 10:00 84 29 121/42 (68) 100 04/20/18 09:00 92 24 139/44 (75) 99 04/20/18 08:42 123/46 04/20/18 08:42 84 123/46 04/20/18 08:38 84 24 100 04/20/18 08:00 90 27 136/47 (76) 100 04/20/18 08:00 Venturi Mask 04/20/18 08:00 92 04/20/18 08:00 40 04/20/18 07:14 85 21 100 Facial 40 04/20/18 07:00 82 20 123/46 (71) 100 General Appearance: A+O x3, NAD HEENT: normocephalic, atraumatic Neck: non-tender, normal alignment Respiratory/Chest: Venturi mask. Diminished breath sounds in both lungs. Cardiovascular/Chest: normal peripheral pulses, normal rate Abdomen: normal bowel sounds, non tender Extremities: There is right [id number] amputation. LABORATORY FINDINGS: WBC 15.6, hemoglobin 11.5, hematocrit 36.4, and platelet count is 267. Sodium 137, potassium is 5.3, chloride 105, bicarbonate 25, BUN of 29, creatinine 1.6, glucose is 323, calcium is 8.8. troponin I level was 0.06 and 0.11. Assessment and Recommendations: # Leukocytosis/Elevated white blood cell count, likely related to underlying stress reaction, smoking, or underlying infection --> Peripheral has been ordered, results are pending --> trend wbc 15.6-->18.4 --> Medications have been reviewed --> Imaging has been reviewed --> Blood cultures and urine reviewed --> has been started on Zosyn # Anemia of chronic disease (due to underlying chronic medical issues) --> Anemia w/u has been ordered --> No evidence of hemolysis is noted --> peripheral smear has been reviewed. --> Hgb goal >7. Transfuse prn --> Hgb trend 11.5-->10.2--> --> epo and iron not indicated # Acute respiratory failure --> was on BiPAP mask, now on Venturi mask. # Acute systolic congestive heart failure. --> medical therapy including carvedilol, NICK inhibitors/ ARBs as well as spironolactone --> diuresis as per cards # Slight elevation of troponin I level in this patient could be type [address]- elevation myocardial infarction or due to myocarditis. --> per cards recs # JULIAN on ckd --> Creatinine of 1.5.-->1.2 --> per renal # Mild pulmonary hypertension--> due to left heart failure. # Bilateral pleural effusion. The timing of this note does not necessarily reflect the time of the patient was seen Greatly appreciate consultation! Loi Shepherd MD Apr 20, 2018 22:41
--- NOTE | 2018-04-20 23:00 | NUR ---
NURSE NOTES: Pt refused to have troponin drawn at this time. states she just wants to be left alone. equine pharmacology technician at the beside at this time. will try again in the am for ptt.
--- NOTE | 2018-04-20 23:10 | NUR ---
NURSE NOTES: Lab called and stated they will add on troponin to labs that were drawn earlier
[2018-04-21] VITALS (17 sets, daily range): BP systolic 98–142; BP diastolic 4–87
--- NOTE | 2018-04-21 01:00 | NUR ---
NURSE NOTES: Lab was only able to get Ptt and this time. Pt continues to refuse any other labs at this time. laborer/grade check will come back 0400 and draw all morning labs.
[2018-04-21] MEDS: Albuterol/Ipratropium 3ml neb HHN SCH ×4 (01:05→19:28)
[2018-04-21 01:23] LABS: INR 1.1 (0.9-1.1)
--- NOTE | 2018-04-21 01:52 | NUR ---
NURSE NOTES: [facility] called and there is no changed in heparin gtt at this time. Next ptt 04/22 0400
--- NOTE | 2018-04-21 03:52 | NUR ---
NURSE NOTES: pt sleeping at this time. Continues on Venturi mask at 40%. Sat 100%. Denies any pain or discomfort at this time. Will continue to monitor.
[2018-04-21 05:07] LABS: BASOPHILS % (AUTO) 1.7 % (0.0-2.0); EOSINOPHILS % (AUTO) 2.8 % (0.0-3.0); HEMOGLOBIN 8.3 G/DL (12.0-16.0); LYMPHOCYTES % (AUTO) 16.7 % (20.0-45.0); MEAN CORPUSCULAR VOLUME 85 FL (80-99); MONOCYTES % (AUTO) 11.8 % (1.0-10.0); NEUTROPHILS % (AUTO) 67.1 % (45.0-75.0); PLATELET COUNT 182 K/UL (150-450); RED BLOOD COUNT 2.95 M/UL (4.20-5.40); RED CELL DISTRIBUTION WIDTH 13.4 % (11.6-14.8); WHITE BLOOD COUNT 10.2 K/UL (4.8-10.8)
[2018-04-21] MEDS: Zosyn 3.375gm q8h **Extended infusion IVPB SCH ×4 (05:37→14:00)
[2018-04-21] MEDS: NovoLOG Insulin Flexpen SUBQ SCH ×4 (05:46→21:05)
--- NOTE | 2018-04-21 05:46 | NUR ---
NURSE NOTES: Pt BS 125 at this time. Does not want morning inulin because "she does think she will eat breakfast due to not liking the food". Held at this time. Will endorse to morning RN to recheck sugar if patient eats
[2018-04-21 05:52] LABS: ALANINE AMINOTRANSFERASE 23 U/L (12-78); ALBUMIN 2.4 G/DL (3.4-5.0); ALBUMIN/GLOBULIN RATIO 0.6 (1.0-2.7); ALKALINE PHOSPHATASE 68 U/L (46-116); ANION GAP 7 mmol/L (5-15); ASPARTATE AMINO TRANSFERASE 10 U/L (15-37); BILIRUBIN,TOTAL 0.4 MG/DL (0.2-1.0); BLOOD UREA NITROGEN 37 mg/dL (7-18); CALCIUM 8.7 MG/DL (8.5-10.1); CARBON DIOXIDE 28 MMOL/L (21-32); CHLORIDE 105 MMOL/L (98-107); CHOLESTEROL 123 MG/DL (< 200); CREATININE 1.8 MG/DL (0.55-1.30); FERRITIN 71 NG/ML (8-388); HDL CHOLESTEROL 52 MG/DL (40-60); POTASSIUM 4.1 MMOL/L (3.5-5.1); SODIUM 140 MMOL/L (136-145); TRIGLYCERIDES 64 MG/DL (30-150)
[2018-04-21 05:59] LABS: CREATINE KINASE 44 U/L (26-308); GAMMA GLUTAMYL TRANSPEPTIDASE 33 U/L (5-85); PHOSPHORUS 3.6 MG/DL (2.5-4.9)
[2018-04-21 06:30] LABS: % IRON SATURATION 12 % (15-50); IRON 27 ug/dL (50-175); TOTAL IRON BINDING CAPACITY 218 ug/dL (250-450)
--- NOTE | 2018-04-21 07:18 | NUR ---
HAND-OFF: Report given to Katja Barger RN using SBAR. VS Stable at this time.
--- NOTE | 2018-04-21 07:30 | NUR ---
NURSE NOTES: Patient is resting in bed, alert and oriented x4, does not like her food, is on venturi mask ( currently ) being titrated . Has diet and eating more than 50%. hAS BARCENAS out put is well. Currently on heparin drip, next ptt will be tmr.
[2018-04-21] MEDS ORDERED: Enalapril 5mg tab ORAL SCH (07:45)
[2018-04-21] MEDS ORDERED: Spironolactone 25mg tab ORAL SCH (09:00)
--- NOTE | 2018-04-21 09:05 | NUR ---
ST NOTE: BEDSIDE SWALLOW EVAL RECEIVED BEDSIDE SWALLOW EVAL ORDER CHART REVIEWED PRIOR THE EVALUATION PT IS A 83-YEAR-OLD FEMALE WHO WAS ADMITTED ACUTE CHF WITH ACUTE RESP FAILURE. DYSPHAGIA RISK FACTORS: CHF, PACEMAKER, HEART ATTACK, EX-SMOKER(PER PT, 30 YEARS), DM, COPD, GERD, H/O DEMENTIA, ESRD, DIALYSIS. PLOF: PT RESIDES AT HOME WITH FAMILY. PT IS FULL CODE. CURRENT STATUS: PT SEEN AT BEDSIDE IN AM. ALERT, COOPERATIVE, FOLLOWS DIRECTIONS, ORIENTED X 3, WITH VENTURI MASK(6L), OXYGEN LEVEL: 100% PT DENIED ANY SWALLOWING DIFFICULTY, HOWEVER, DID REPORT THAT SOMETIMES FEEL LIKE FOOD STUCK IN THE MIDDLE OF THE CHEST OR LOWER THROAT, WHICH MADE HER COUGH, ESPECIALLY AT NIGHT. GIVEN PO TRIALS: THIN(CUP), PUREE(TSP) AND CRACKER. INITIAL IMPRESSION: PT EDENTULOUS. SLOW BUT FUNCTIONAL MASTICATION MILD INCREASED ORAL TRANSIT TIME AND OROPHARYNGEAL TRANSIT TIME FAIR TO GOOD LARYNGEAL ELEVATION, NO OVERT S/S OF ASPIRATION. OVERALL, PT'S SWALLOWING SEEMS FUNCTIONAL. HOWEVER, QUESTIONABLE DEGREE OF ESOPHAGEAL PHASE DYSPHAGIA. RECOMMENDATIONS: 1. CONTINUE CCHO(LOW) REGULAR WITH THIN LIQUIDS DIET (PT REFUSED MODIFIED DIET). 2. STRICT ASPIRATION/REFLUX PRECAUTIONS WITH ASSIST. 3. CONSIDER VIDEOSWALLOW STUDY IF NEEDED IP OR OP WITH AP VIEW(VIEW ESOPHAGEAL PHASE)TO OBJECTIVELY ASSESS PT'S SWALLOWING FUNCTION. D/W PT AND THE STAFF POSTED ASPIRATION/REFLUX PRECAUTIONS SIGN
[2018-04-21] MEDS: Atorvastatin 80mg tab ORAL SCH (09:33)
[2018-04-21] MEDS: Aspirin EC 81mg tab ORAL SCH (09:33)
--- NOTE | 2018-04-21 09:54 | NUR ---
RADIOLOGY DEPT CHEST X-RAY DONE.-P.DYE
[2018-04-21] MEDS ORDERED: Iron Sucrose 200 MG in NS 110 ML IV ONE (10:00)
--- NOTE | 2018-04-21 10:00 | NUR ---
CASE MANAGEMENT: REVIEW SI: ACUTE CHF . PNA T 99.1 HR 82 RR 20 BP 138/48 SAT 100% VENTURI MASK FIO2 40 H/H 8.3/25.0 IS: VENOFER IV X1 ALDACTONE PO QD COREG PO Q12HR HEPARIN GTT ZOSYN IV Q8HR LASIX IV Q12HR ICU STATUS DCP: PATIENT IS FROM HOME
--- NOTE | 2018-04-21 10:45 | History and Physical Report ---
DATE OF ADMISSION: 04/19/2018 "NOTE: POOR AUDIO QUALITY" HISTORY OF PRESENT ILLNESS: The patient was admitted for acute CHF, on BiPAP initially and hyperkalemia and elevated . The patient was admitted for acute CHF exacerbation. The patient has been complaining of shortness of breath, orthopnea for the past few days as well as and productive cough, severe reflux, history of smoking, ICU. Initially she was altered. PAST MEDICAL HISTORY: Significant for hypertension, hyperlipidemia, iron deficiency anemia, NIDDM, and GERD. PAST SURGICAL HISTORY: Right hip replacement, pacemaker, extremity, right hand surgery. SOCIAL HISTORY: History of smoking. Denies alcohol or illicit drugs. alcohol abuse. MEDICATIONS: . ALLERGIES: . FAMILY HISTORY: history of diabetes mellitus. REVIEW OF SYSTEMS: HEENT: Denies headaches. RESPIRATORY: cough. Does have some shortness of breath. No wheezing. CARDIOVASCULAR: Denies chest pain. GASTROINTESTINAL: Denies any nausea, vomiting, or diarrhea. EXTREMITIES: Denies pain in lower extremities. CENTRAL NERVOUS SYSTEM: Denies change in vision or speech pattern. PHYSICAL EXAMINATION: VITAL SIGNS: Temperature is not recorded, pulse is 78, and blood pressure is 110/40. HEENT: PERRLA. . GASTROINTESTINAL: . EXTREMITIES: generalized weakness. LABORATORY DATA: hemoglobin 11.5, and platelets 267. ASSESSMENT AND PLAN: NIDDM. Initially she was on prior to admission admitted to ICU. I have asked Dr. Mathur, Dr. Jed Dr. to see the patient for the above-mentioned diagnoses and treatment to help with the management of this patient . Светлана Vazquez M.D. DR: YENI JOB#: [id number] CC:
--- NOTE | 2018-04-21 11:34 | Infectious Diseases Prog Note ---
Assessment/Plan Assessment/Plan A: 1. Bronchitis, try to rule out pneumonia. 2. CHF exacerbation. 3. Acute renal failure. 4. Diabetes mellitus. 5. Leukocytosis. resolved 6. Acute respiratory failure. 7. UTI P: Continue Zosy Will f/u cultures Subjective ROS Limited/Unobtainable: No Constitutional: Reports: other - doing better Respiratory: Reports: dry cough Cardiovascular: Reports: no symptoms Gastrointestinal/Abdominal: Reports: no symptoms Genitourinary: Reports: no symptoms Allergies: Coded Allergies: SULFA (SULFONAMIDE ANTIBIOTICS) (Verified Allergy, Severe, ITCHING AND RASH BREAKOUT, 01/24/14) Objective Vital Signs Last 24 Hour Vital Signs Date Time Temp Pulse Resp B/P (MAP) Pulse Ox O2 Delivery O2 Flow Rate FiO2 04/21/18 11:00 80 18 141/55 (83) 100 04/21/18 10:00 77 20 122/47 (72) 100 04/21/18 09:36 120/38 04/21/18 09:33 82 120/38 04/21/18 09:00 83 20 137/39 (71) 100 04/21/18 08:00 Venturi Mask 04/21/18 08:00 82 04/21/18 08:00 99.1 82 20 120/38 (65) 100 04/21/18 08:00 40 04/21/18 07:06 76 19 100 Venturi Mask 6.0 35 04/21/18 07:00 77 20 138/48 (78) 100 04/21/18 06:55 Venturi Mask 8.0 40 04/21/18 06:55 100 Venturi Mask 8.0 40 04/21/18 06:55 78 24 100 Venturi Mask 8.0 40 04/21/18 06:00 79 20 142/52 (82) 100 04/21/18 05:00 79 21 140/41 (74) 100 04/21/18 04:00 40 04/21/18 04:00 82 04/21/18 04:00 98.3 82 22 130/38 (68) 100 04/21/18 04:00 Venturi Mask 04/21/18 03:00 81 22 137/45 (75) 100 04/21/18 02:00 80 22 111/72 (85) 100 04/21/18 01:08 82 20 100 Venturi Mask 8.0 40 04/21/18 01:00 79 20 98 Venturi Mask 8.0 40 04/21/18 01:00 82 24 135/41 (72) 100 04/21/18 00:00 77 04/21/18 00:00 Venturi Mask 04/21/18 00:00 98.1 77 22 130/38 (68) 100 04/20/18 23:00 77 24 123/48 (73) 100 04/20/18 22:00 77 24 123/46 (71) 100 04/20/18 21:30 96 8.0 40 04/20/18 21:00 79 24 124/44 (70) 100 04/20/18 20:40 80 118/40 04/20/18 20:00 80 20 100 Venturi Mask 8.0 40 04/20/18 20:00 40 04/20/18 20:00 80 04/20/18 20:00 98.3 80 23 127/38 (67) 100 04/20/18 20:00 Venturi Mask 04/20/18 19:56 Venturi Mask 8.0 40 04/20/18 19:56 100 Venturi Mask 8.0 40 04/20/18 19:49 78 20 98 Venturi Mask 8.0 40 04/20/18 19:30 78 98 8.0 40 04/20/18 19:00 83 23 115/37 (63) 100 04/20/18 18:00 92 23 124/42 (69) 100 04/20/18 17:48 119/39 04/20/18 17:02 76 24 98 04/20/18 17:00 83 24 119/38 (65) 100 04/20/18 16:00 40 04/20/18 16:00 Venturi Mask 04/20/18 16:00 91 04/20/18 16:00 88 23 119/46 (70) 100 04/20/18 15:00 93 22 100/77 (85) 100 04/20/18 14:37 88 24 97 04/20/18 14:00 90 24 137/44 (75) 100 04/20/18 13:09 84 25 100 Venturi Mask 8.0 40 04/20/18 13:00 87 33 100 Venturi Mask 8.0 40 04/20/18 13:00 36 04/20/18 13:00 100.0 88 26 145/50 (81) 100 04/20/18 12:58 84 26 98 04/20/18 12:00 90 04/20/18 12:00 Venturi Mask 04/20/18 12:00 88 26 145/50 (81) 100 04/20/18 12:00 40 Height (Feet): 5 Height (Inches): 2.00 Weight (Pounds): 121 General Appearance: no acute distress Respiratory/Chest: lungs clear, other - Oxygen by mask Cardiovascular: normal rate, other - R arm PICC line Abdomen: soft, non tender Extremities: other - R AKA, left leg edema decreasing Neurologic/Psychiatric: alert, responsive Microbiology Date/Time Source Procedure Growth Status 04/19/18 21:25 Blood Blood Culture - Preliminary NO GROWTH AFTER 24 HOURS Resulted 04/19/18 21:10 Blood Blood Culture - Preliminary NO GROWTH AFTER 24 HOURS Resulted 04/20/18 21:30 Nasal Not Otherwise Specified Influenza Types A,B Antigen (ROSA) - Final Complete 04/19/18 22:50 Urine,Clean Catch Urine Culture - Preliminary Gram Negative Bacillus 1 Resulted 04/19/18 23:30 Rectum Received Laboratory Tests Test 04/20/18 16:00 04/20/18 22:00 04/21/18 01:00 04/21/18 04:00 Activated Partial Thromboplast Time > 150 SEC (23-33) *H 77 SEC (23-33) H Fibrinogen 410 mg/dL (200-400) H Lactic Acid Level 1.00 mmol/L (0.4-2.0) Lactate Dehydrogenase 134 U/L (81-234) Troponin I 0.071 ng/mL (0.000-0.056) 0.052 ng/mL (0.000-0.056) C-Reactive Protein, Quantitative 7.5 mg/dL (0.00-0.90) H Sodium Level 140 MMOL/L (136-145) Potassium Level 3.8 MMOL/L (3.5-5.1) Chloride Level 105 MMOL/L (98-107) Carbon Dioxide Level 27 MMOL/L (21-32) Anion Gap 8 mmol/L (5-15) Blood Urea Nitrogen 37 mg/dL (7-18) H Creatinine 1.9 MG/DL (0.55-1.30) H Estimat Glomerular Filtration Rate mL/min (>60) Glucose Level 83 MG/DL (74-106) # Calcium Level 8.6 MG/DL (8.5-10.1) Prothrombin Time 12.0 SEC (9.30-11.50) H Prothromb Time International Ratio 1.1 (0.9-1.1) Urine Eosinophils Pending Test 04/21/18 04:10 White Blood Count 10.2 K/UL (4.8-10.8) Red Blood Count 2.95 M/UL (4.20-5.40) L Hemoglobin 8.3 G/DL (12.0-16.0) L Hematocrit 25.0 % (37.0-47.0) L Mean Corpuscular Volume 85 FL (80-99) Mean Corpuscular Hemoglobin 28.3 PG (27.0-31.0) Mean Corpuscular Hemoglobin Concent 33.4 G/DL (32.0-36.0) Red Cell Distribution Width 13.4 % (11.6-14.8) Platelet Count 182 K/UL (150-450) Mean Platelet Volume 8.2 FL (6.5-10.1) Neutrophils (%) (Auto) 67.1 % (45.0-75.0) Lymphocytes (%) (Auto) 16.7 % (20.0-45.0) L Monocytes (%) (Auto) 11.8 % (1.0-10.0) H Eosinophils (%) (Auto) 2.8 % (0.0-3.0) Basophils (%) (Auto) 1.7 % (0.0-2.0) Reticulocyte Count Pending Sodium Level 140 MMOL/L (136-145) Potassium Level 4.1 MMOL/L (3.5-5.1) Chloride Level 105 MMOL/L (98-107) Carbon Dioxide Level 28 MMOL/L (21-32) Anion Gap 7 mmol/L (5-15) Blood Urea Nitrogen 37 mg/dL (7-18) H Creatinine 1.8 MG/DL (0.55-1.30) H Estimat Glomerular Filtration Rate mL/min (>60) Glucose Level 121 MG/DL (74-106) H Uric Acid 5.9 MG/DL (2.6-7.2) Calcium Level 8.7 MG/DL (8.5-10.1) Phosphorus Level 3.6 MG/DL (2.5-4.9) Magnesium Level 1.8 MG/DL (1.8-2.4) Iron Level 27 ug/dL (50-175) L Total Iron Binding Capacity 218 ug/dL (250-450) L Percent Iron Saturation 12 % (15-50) L Unsaturated Iron Binding 191 ug/dL (112-346) Ferritin 71 NG/ML (8-388) Total Bilirubin 0.4 MG/DL (0.2-1.0) Gamma Glutamyl Transpeptidase 33 U/L (5-85) Aspartate Amino Transf (AST/SGOT) 10 U/L (15-37) L Alanine Aminotransferase (ALT/SGPT) 23 U/L (12-78) Alkaline Phosphatase 68 U/L (46-116) Total Creatine Kinase 44 U/L (26-308) Troponin I 0.050 ng/mL (0.000-0.056) Pro-B-Type Natriuretic Peptide 4314 pg/mL (0-125) H Total Protein 6.1 G/DL (6.4-8.2) L Albumin 2.4 G/DL (3.4-5.0) L Globulin 3.7 g/dL Albumin/Globulin Ratio 0.6 (1.0-2.7) L Triglycerides Level 64 MG/DL (30-150) Cholesterol Level 123 MG/DL (< 200) LDL Cholesterol 56 mg/dL (<100) HDL Cholesterol 52 MG/DL (40-60) Cholesterol/HDL Ratio 2.4 (3.3-4.4) L Carcinoembryonic Antigen Pending Vitamin B12 Level 432 PG/ML (193-986) Folate 11.1 NG/ML (8.6-58.9) Free Thyroxine 1.25 NG/DL (0.76-1.46) Current Medications Medications (Trade) Dose Ordered Sig/Shazia Route PRN Reason Start Time Stop Time Status Last Admin Dose Admin Albuterol/ Ipratropium (Albuterol/ Ipratropium) 3 ml Q4H PRN HHN Shortness of Breath 04/19/18 23:30 04/24/18 23:29 Albuterol/ Ipratropium (Albuterol/ Ipratropium) 3 ml Q6HRT HHN 04/20/18 13:00 04/25/18 12:59 04/21/18 06:55 Aspirin (Ecotrin) 81 mg DAILY ORAL 04/20/18 09:00 05/20/18 08:59 04/21/18 09:33 Atorvastatin Calcium (Lipitor) 80 mg DAILY ORAL 04/20/18 09:00 05/20/18 08:59 04/21/18 09:33 Carvedilol (Coreg) 3.125 mg EVERY 12 HOURS ORAL 04/20/18 21:00 05/20/18 20:59 04/21/18 09:33 Chlorhexidine Gluconate (Monet-Hex 2%) 1 applic DAILY@2000 TOPIC 04/20/18 20:00 05/20/18 19:59 Clopidogrel Bisulfate (Plavix) 75 mg DAILY ORAL 04/20/18 09:00 05/20/18 08:59 04/21/18 09:32 Dextrose (Dextrose 50%) 25 ml Q30M PRN IV Hypoglycemia 04/20/18 08:30 05/20/18 08:29 Dextrose (Dextrose 50%) 50 ml Q30M PRN IV Hypoglycemia 04/20/18 08:30 05/20/18 08:29 Furosemide (Lasix) 40 mg EVERY 12 HOURS IV 04/20/18 09:00 05/20/18 08:59 04/21/18 09:34 Heparin Sodium/ Dextrose 500 ml @ 15.368 mls/ hr ADJUST PER PROTOCOL IV 04/20/18 17:45 05/20/18 07:49 04/20/18 18:59 Heparin Sodium/ Sodium Chloride (Heparin 2000 units/Ns 1000ml premix) 2,000 unit ONCE PRN INJ PICC LINE 04/20/18 09:00 04/21/18 23:59 Insulin Aspart (NovoLOG) BEFORE MEALS AND HS SUBQ 04/20/18 11:30 05/20/18 11:29 04/20/18 20:43 Lidocaine HCl (Xylocaine 1% 30ml) 30 ml ONCE PRN INJ PICC LINE 04/20/18 09:00 04/21/18 23:59 Pantoprazole (Protonix) 40 mg DAILY ORAL 04/20/18 09:00 05/20/18 08:59 04/21/18 09:32 Piperacillin Sod/ Tazobactam Sod 3.375 gm/Sodium Chloride 110 ml @ 27.5 mls/hr EVERY 8 HOURS IVPB 04/20/18 12:00 04/25/18 11:59 04/21/18 05:37 Spironolactone (Aldactone) 25 mg DAILY ORAL 04/21/18 09:00 05/21/18 08:59 04/21/18 09:32 Matt Elknis MD Apr 21, 2018 11:34
--- NOTE | 2018-04-21 11:44 | Diagnostic Imaging Report ---
Indication: Cough Comparison: 04/20/2018 A single view chest radiograph was obtained. Findings: No change appreciated. Vascular congestion and cardiomegaly demonstrated. Left pleural effusion is present. Pacemaker noted. IMPRESSION: Congestive heart failure
--- NOTE | 2018-04-21 12:09 | NUR ---
awake/alert v/s cocdition stable cont heparin drip ptt [place]
--- NOTE | 2018-04-21 12:22 | Diagnostic Imaging Report ---
Indication: long term venous access Findings: After the indications, procedure, risks, complications, and alternatives of the procedure were explained, written informed consent was obtained. The right upper extremity was prepped with alcohol. All elements of maximal sterile barrier technique were followed including usage of a cap, mask, sterile gown, sterile gloves, hand hygiene and a large sterile sheet. Sonographic evaluation of the upper extremity was performed demonstrating a patent and compressible basilic vein. Access was obtained under real-time ultrasound guidance (with utilization of sterile gel and sterile probe cover) and digital image was saved and archived. An .018 wire was introduced. Needle exchanged for a 5 Fijian peel-away sheath. Measurements were obtained. A 5 Fijian dual-lumen Power PICC line catheter was cut to 40 cm and introduced over the wire. Peel-away sheath and wire were removed.Catheter was secured to the skin using 2-0 Prolene suture. Both ports aspirate and flush easily. Post procedure chest x-ray demonstrates good position of the PICC line catheter within the SVC. Impression: Successful placement of an upper extremity PICC line catheter
--- NOTE | 2018-04-21 13:54 | Pulmonolgy Critical Care Note ---
Critical Care - Asmt/Plan Problems: (1) Respiratory failure, acute (2) Pulmonary edema (3) Pneumonia (4) CHF exacerbation (5) NSTEMI (non-ST elevated myocardial infarction) (6) ARF (acute renal failure) (7) Diabetes mellitus (8) Leukocytosis (9) Hx of BKA (10) UTI (urinary tract infection) Assessment/Plan: Declines BiPAP, gas exchange adequate Titrate down FiO2 to keep SaO2 > 90% RTC and PRN HHN's Zosyn (D2) per ID, F/U Cx's, F/U rapid viral swab Monitor volumes and renal function, lasix 40 IV BID Continue IVUH until VQ done, if neg can dc and switch to Hep SQ ASA, BB, statin, home meds Monitor BS, SSI, accu check QID AC HS ADA diet, aspiration precautions, [employer] recs, VSS Px: IVUH, PPI FC TTF --> HALLE CCT 25 min Critical Care - Objective Last 24 Hour Vital Signs Date Time Temp Pulse Resp B/P (MAP) Pulse Ox O2 Delivery O2 Flow Rate FiO2 04/21/18 12:00 Venturi Mask 04/21/18 12:00 98.6 80 19 127/43 (71) 100 04/21/18 12:00 78 04/21/18 12:00 40 04/21/18 11:00 80 18 141/55 (83) 100 04/21/18 10:00 77 20 122/47 (72) 100 04/21/18 09:36 120/38 04/21/18 09:33 82 120/38 04/21/18 09:00 83 20 137/39 (71) 100 04/21/18 08:00 Venturi Mask 04/21/18 08:00 82 04/21/18 08:00 99.1 82 20 120/38 (65) 100 04/21/18 08:00 40 04/21/18 07:06 76 19 100 Venturi Mask 6.0 35 04/21/18 07:00 77 20 138/48 (78) 100 04/21/18 06:55 Venturi Mask 8.0 40 04/21/18 06:55 100 Venturi Mask 8.0 40 04/21/18 06:55 78 24 100 Venturi Mask 8.0 40 04/21/18 06:00 79 20 142/52 (82) 100 04/21/18 05:00 79 21 140/41 (74) 100 04/21/18 04:00 40 04/21/18 04:00 82 04/21/18 04:00 98.3 82 22 130/38 (68) 100 04/21/18 04:00 Venturi Mask 04/21/18 03:00 81 22 137/45 (75) 100 04/21/18 02:00 80 22 111/72 (85) 100 04/21/18 01:08 82 20 100 Venturi Mask 8.0 40 04/21/18 01:00 79 20 98 Venturi Mask 8.0 40 04/21/18 01:00 82 24 135/41 (72) 100 04/21/18 00:00 77 04/21/18 00:00 Venturi Mask 04/21/18 00:00 98.1 77 22 130/38 (68) 100 04/20/18 23:00 77 24 123/48 (73) 100 04/20/18 22:00 77 24 123/46 (71) 100 04/20/18 21:30 96 8.0 40 04/20/18 21:00 79 24 124/44 (70) 100 04/20/18 20:40 80 118/40 04/20/18 20:00 80 20 100 Venturi Mask 8.0 40 04/20/18 20:00 40 04/20/18 20:00 80 04/20/18 20:00 98.3 80 23 127/38 (67) 100 04/20/18 20:00 Venturi Mask 04/20/18 19:56 Venturi Mask 8.0 40 04/20/18 19:56 100 Venturi Mask 8.0 40 04/20/18 19:49 78 20 98 Venturi Mask 8.0 40 04/20/18 19:30 78 98 8.0 40 04/20/18 19:00 83 23 115/37 (63) 100 04/20/18 18:00 92 23 124/42 (69) 100 04/20/18 17:48 119/39 04/20/18 17:02 76 24 98 04/20/18 17:00 83 24 119/38 (65) 100 04/20/18 16:00 40 04/20/18 16:00 Venturi Mask 04/20/18 16:00 91 04/20/18 16:00 88 23 119/46 (70) 100 04/20/18 15:00 93 22 100/77 (85) 100 04/20/18 14:37 88 24 97 04/20/18 14:00 90 24 137/44 (75) 100 Status: awake Condition: improving HEENT: atraumatic, normocephalic Neck: full ROM Lungs: clear - but distant Heart: HR/BP stable Abdomen: soft, non-tender, active bowel sounds Extremities: no C/C/E Micro: Microbiology Date/Time Source Procedure Growth Status 04/19/18 21:25 Blood Blood Culture - Preliminary NO GROWTH AFTER 24 HOURS Resulted 04/19/18 21:10 Blood Blood Culture - Preliminary NO GROWTH AFTER 24 HOURS Resulted 04/20/18 21:30 Nasal Not Otherwise Specified Influenza Types A,B Antigen (ROSA) - Final Complete 04/19/18 22:50 Urine,Clean Catch Urine Culture - Preliminary Gram Negative Bacillus 1 Resulted 04/19/18 23:30 Rectum Received Accucheck: 98 Blood Sugars: BS controlled Critical Care - Subjective ROS Limited/Unobtainable: Yes ICU Day: 3 Interval Events: -2.2 L, AFVSS on VM, did not use BiPAP o/n Duplex neg, trops downtrending, on IVUH, HH dropping Condition: improving IV Access: PICC EKG Rhythm: Sinus Rhythm FI02: 40 Sputum Amount: None Fluids: SLIV Drips: N/A I&O: Intake and Output 04/20/18 04/21/18 18:59 06:59 Intake Total 210.929 ml 518.312 ml Output Total 940 ml 2040 ml Balance -729.071 ml -1521.688 ml Intake Oral 270 ml IV Total 210.929 ml 248.312 ml Output Urine Total 940 ml 2040 ml Subjective: cough better not mobilizing no SOB + wheezing no F/C\ Labs: Laboratory Tests Test 04/20/18 16:00 04/20/18 22:00 04/21/18 01:00 04/21/18 04:00 Activated Partial Thromboplast Time > 150 SEC (23-33) *H 77 SEC (23-33) H Fibrinogen 410 mg/dL (200-400) H Lactic Acid Level 1.00 mmol/L (0.4-2.0) Lactate Dehydrogenase 134 U/L (81-234) Troponin I 0.071 ng/mL (0.000-0.056) 0.052 ng/mL (0.000-0.056) C-Reactive Protein, Quantitative 7.5 mg/dL (0.00-0.90) H Sodium Level 140 MMOL/L (136-145) Potassium Level 3.8 MMOL/L (3.5-5.1) Chloride Level 105 MMOL/L (98-107) Carbon Dioxide Level 27 MMOL/L (21-32) Anion Gap 8 mmol/L (5-15) Blood Urea Nitrogen 37 mg/dL (7-18) H Creatinine 1.9 MG/DL (0.55-1.30) H Estimat Glomerular Filtration Rate mL/min (>60) Glucose Level 83 MG/DL (74-106) # Calcium Level 8.6 MG/DL (8.5-10.1) Prothrombin Time 12.0 SEC (9.30-11.50) H Prothromb Time International Ratio 1.1 (0.9-1.1) Urine Eosinophils None seen (NONE SEEN) Test 04/21/18 04:10 White Blood Count 10.2 K/UL (4.8-10.8) Red Blood Count 2.95 M/UL (4.20-5.40) L Hemoglobin 8.3 G/DL (12.0-16.0) L Hematocrit 25.0 % (37.0-47.0) L Mean Corpuscular Volume 85 FL (80-99) Mean Corpuscular Hemoglobin 28.3 PG (27.0-31.0) Mean Corpuscular Hemoglobin Concent 33.4 G/DL (32.0-36.0) Red Cell Distribution Width 13.4 % (11.6-14.8) Platelet Count 182 K/UL (150-450) Mean Platelet Volume 8.2 FL (6.5-10.1) Neutrophils (%) (Auto) 67.1 % (45.0-75.0) Lymphocytes (%) (Auto) 16.7 % (20.0-45.0) L Monocytes (%) (Auto) 11.8 % (1.0-10.0) H Eosinophils (%) (Auto) 2.8 % (0.0-3.0) Basophils (%) (Auto) 1.7 % (0.0-2.0) Reticulocyte Count 0.9 % (0.0-2.0) Sodium Level 140 MMOL/L (136-145) Potassium Level 4.1 MMOL/L (3.5-5.1) Chloride Level 105 MMOL/L (98-107) Carbon Dioxide Level 28 MMOL/L (21-32) Anion Gap 7 mmol/L (5-15) Blood Urea Nitrogen 37 mg/dL (7-18) H Creatinine 1.8 MG/DL (0.55-1.30) H Estimat Glomerular Filtration Rate mL/min (>60) Glucose Level 121 MG/DL (74-106) H Uric Acid 5.9 MG/DL (2.6-7.2) Calcium Level 8.7 MG/DL (8.5-10.1) Phosphorus Level 3.6 MG/DL (2.5-4.9) Magnesium Level 1.8 MG/DL (1.8-2.4) Iron Level 27 ug/dL (50-175) L Total Iron Binding Capacity 218 ug/dL (250-450) L Percent Iron Saturation 12 % (15-50) L Unsaturated Iron Binding 191 ug/dL (112-346) Ferritin 71 NG/ML (8-388) Total Bilirubin 0.4 MG/DL (0.2-1.0) Gamma Glutamyl Transpeptidase 33 U/L (5-85) Aspartate Amino Transf (AST/SGOT) 10 U/L (15-37) L Alanine Aminotransferase (ALT/SGPT) 23 U/L (12-78) Alkaline Phosphatase 68 U/L (46-116) Total Creatine Kinase 44 U/L (26-308) Troponin I 0.050 ng/mL (0.000-0.056) Pro-B-Type Natriuretic Peptide 4314 pg/mL (0-125) H Total Protein 6.1 G/DL (6.4-8.2) L Albumin 2.4 G/DL (3.4-5.0) L Globulin 3.7 g/dL Albumin/Globulin Ratio 0.6 (1.0-2.7) L Triglycerides Level 64 MG/DL (30-150) Cholesterol Level 123 MG/DL (< 200) LDL Cholesterol 56 mg/dL (<100) HDL Cholesterol 52 MG/DL (40-60) Cholesterol/HDL Ratio 2.4 (3.3-4.4) L Carcinoembryonic Antigen Pending Vitamin B12 Level 432 PG/ML (193-986) Folate 11.1 NG/ML (8.6-58.9) Free Thyroxine 1.25 NG/DL (0.76-1.46) Gamal Cruz MD Apr 21, 2018 13:54
--- NOTE | 2018-04-21 13:58 | General Progress Note ---
Assessment/Plan Assessment/Plan Assessment and Recommendations: # Leukocytosis/Elevated white blood cell count, likely related to underlying stress reaction, smoking, or underlying infection --> Peripheral has been ordered, results are pending --> trend wbc 15.6-->18.4-->10.2 --> Medications have been reviewed --> Imaging has been reviewed --> Blood cultures and urine reviewed --> has been started on Zosyn --> atul ID recs # Anemia of iron deficiency though borderline --> Anemia w/u has been ordered / reviewed --> No evidence of hemolysis is noted --> peripheral smear has been reviewed. --> Hgb goal >7. Transfuse prn --> Hgb trend 11.5-->10.2--> 8.3 --> iron iv has been started x3d # Acute respiratory failure --> was on BiPAP mask, now on Venturi mask. # Acute systolic congestive heart failure. --> medical therapy including carvedilol, NICK inhibitors/ ARBs as well as spironolactone --> diuresis as per cards # Slight elevation of troponin I level in this patient could be type [address]- elevation myocardial infarction or due to myocarditis. --> per cards recs --> on heparin gtt until vq scan neg # JULIAN on ckd --> Creatinine of 1.5.-->1.2 --> per renal # Mild pulmonary hypertension--> due to left heart failure. # Bilateral pleural effusion. The timing of this note does not necessarily reflect the time of the patient was seen Greatly appreciate consultation! Subjective Constitutional: Denies: no symptoms, chills, diaphoresis, fever, malaise, weakness, other HEENT: Denies: no symptoms, eye pain, blurred vision, tearing, double vision, ear pain, ear discharge, nose pain, nose congestion, throat pain, throat swelling, mouth pain, mouth swelling, other Cardiovascular: Denies: no symptoms, chest pain, edema, irregular heart rate, lightheadedness, palpitations, syncope, other Respiratory: Denies: no symptoms, cough, orthopnea, shortness of breath, SOB with excertion, SOB at rest, sputum, stridor, wheezing, other Gastrointestinal/Abdominal: Denies: no symptoms, abdomen distended, abdominal pain, black stools, tarry stools, blood in stool, constipated, diarrhea, difficulty swallowing, nausea, poor appetite, poor fluid intake, rectal bleeding , vomiting, other Genitourinary: Denies: no symptoms, burning, discharge, frequency, flank pain, hematuria, incontinence, pain, urgency, other Neurologic/Psychiatric: Denies: no symptoms, anxiety, depressed, emotional problems, headache, numbness, paresthesia, pre-existing deficit, seizure, tingling, tremors, weakness, other Allergies: Coded Allergies: SULFA (SULFONAMIDE ANTIBIOTICS) (Verified Allergy, Severe, ITCHING AND RASH BREAKOUT, 01/24/14) Subjective 04/21: on heparin gtt as per pulm until vq is negative, otherwise anemia panel reviewed, started on iron iv Objective Last 24 Hour Vital Signs Date Time Temp Pulse Resp B/P (MAP) Pulse Ox O2 Delivery O2 Flow Rate FiO2 04/21/18 13:51 83 22 100 Venturi Mask 8.0 40 04/21/18 12:00 Venturi Mask 04/21/18 12:00 98.6 80 19 127/43 (71) 100 04/21/18 12:00 78 04/21/18 12:00 40 04/21/18 11:00 80 18 141/55 (83) 100 04/21/18 10:00 77 20 122/47 (72) 100 04/21/18 09:36 120/38 04/21/18 09:33 82 120/38 04/21/18 09:00 83 20 137/39 (71) 100 04/21/18 08:00 Venturi Mask 04/21/18 08:00 82 04/21/18 08:00 99.1 82 20 120/38 (65) 100 04/21/18 08:00 40 04/21/18 07:06 76 19 100 Venturi Mask 6.0 35 04/21/18 07:00 77 20 138/48 (78) 100 04/21/18 06:55 Venturi Mask 8.0 40 04/21/18 06:55 100 Venturi Mask 8.0 40 04/21/18 06:55 78 24 100 Venturi Mask 8.0 40 04/21/18 06:00 79 20 142/52 (82) 100 04/21/18 05:00 79 21 140/41 (74) 100 04/21/18 04:00 40 04/21/18 04:00 82 04/21/18 04:00 98.3 82 22 130/38 (68) 100 04/21/18 04:00 Venturi Mask 04/21/18 03:00 81 22 137/45 (75) 100 04/21/18 02:00 80 22 111/72 (85) 100 04/21/18 01:08 82 20 100 Venturi Mask 8.0 40 04/21/18 01:00 79 20 98 Venturi Mask 8.0 40 04/21/18 01:00 82 24 135/41 (72) 100 04/21/18 00:00 77 04/21/18 00:00 Venturi Mask 04/21/18 00:00 98.1 77 22 130/38 (68) 100 04/20/18 23:00 77 24 123/48 (73) 100 04/20/18 22:00 77 24 123/46 (71) 100 04/20/18 21:30 96 8.0 40 04/20/18 21:00 79 24 124/44 (70) 100 04/20/18 20:40 80 118/40 04/20/18 20:00 80 20 100 Venturi Mask 8.0 40 04/20/18 20:00 40 04/20/18 20:00 80 04/20/18 20:00 98.3 80 23 127/38 (67) 100 04/20/18 20:00 Venturi Mask 04/20/18 19:56 Venturi Mask 8.0 40 04/20/18 19:56 100 Venturi Mask 8.0 40 04/20/18 19:49 78 20 98 Venturi Mask 8.0 40 04/20/18 19:30 78 98 8.0 40 04/20/18 19:00 83 23 115/37 (63) 100 04/20/18 18:00 92 23 124/42 (69) 100 04/20/18 17:48 119/39 04/20/18 17:02 76 24 98 04/20/18 17:00 83 24 119/38 (65) 100 04/20/18 16:00 40 04/20/18 16:00 Venturi Mask 04/20/18 16:00 91 04/20/18 16:00 88 23 119/46 (70) 100 04/20/18 15:00 93 22 100/77 (85) 100 04/20/18 14:37 88 24 97 04/20/18 14:00 90 24 137/44 (75) 100 Intake and Output 04/20/18 04/21/18 19:00 07:00 Intake Total 253.797 ml 518.312 ml Output Total 940 ml 2150 ml Balance -686.203 ml -1631.688 ml Intake Oral 270 ml IV Total 253.797 ml 248.312 ml Output Urine Total 940 ml 2150 ml Laboratory Tests 04/20/18 16:00: Activated Partial Thromboplast Time > 150*H, Fibrinogen 410H, Lactic Acid Level 1.00, Lactate Dehydrogenase 134, Troponin I 0.071H, C-Reactive Protein, Quantitative 7.5H 04/20/18 22:00: Troponin I 0.052, Sodium Level 140, Potassium Level 3.8, Chloride Level 105, Carbon Dioxide Level 27, Anion Gap 8, Blood Urea Nitrogen 37H, Creatinine 1.9H, Estimat Glomerular Filtration Rate , Glucose Level 83#, Calcium Level 8.6 04/21/18 01:00: Activated Partial Thromboplast Time 77H, Prothrombin Time 12.0H, Prothromb Time International Ratio 1.1 04/21/18 04:00: Urine Eosinophils None seen 04/21/18 04:10: White Blood Count 10.2, Red Blood Count 2.95L, Hemoglobin 8.3L, Hematocrit 25.0L , Mean Corpuscular Volume 85, Mean Corpuscular Hemoglobin 28.3, Mean Corpuscular Hemoglobin Concent 33.4, Red Cell Distribution Width 13.4, Platelet Count 182, Mean Platelet Volume 8.2, Neutrophils (%) (Auto) 67.1, Lymphocytes (% ) (Auto) 16.7L, Monocytes (%) (Auto) 11.8H, Eosinophils (%) (Auto) 2.8, Basophils (%) (Auto) 1.7, Reticulocyte Count 0.9, Sodium Level 140, Potassium Level 4.1, Chloride Level 105, Carbon Dioxide Level 28, Anion Gap 7, Blood Urea Nitrogen 37H, Creatinine 1.8H, Estimat Glomerular Filtration Rate , Glucose Level 121H, Uric Acid 5.9, Calcium Level 8.7, Phosphorus Level 3.6, Magnesium Level 1.8, Iron Level 27L, Total Iron Binding Capacity 218L, Percent Iron Saturation 12L, Unsaturated Iron Binding 191, Ferritin 71, Total Bilirubin 0.4, Gamma Glutamyl Transpeptidase 33, Aspartate Amino Transf (AST/SGOT) 10L, Alanine Aminotransferase (ALT/SGPT) 23, Alkaline Phosphatase 68, Total Creatine Kinase 44, Troponin I 0.050, Pro-B-Type Natriuretic Peptide 4314H, Total Protein 6.1L, Albumin 2.4L, Globulin 3.7, Albumin/Globulin Ratio 0.6L, Triglycerides Level 64, Cholesterol Level 123, LDL Cholesterol 56, HDL Cholesterol 52, Cholesterol/HDL Ratio 2.4L, Carcinoembryonic Antigen [Pending], Vitamin B12 Level 432, Folate 11.1, Free Thyroxine 1.25 Height (Feet): 5 Height (Inches): 2.00 Weight (Pounds): 121 Objective General Appearance: A+O x3, NAD HEENT: normocephalic, atraumatic Neck: non-tender, normal alignment Respiratory/Chest: bipapa and vm. Diminished breath sounds in both lungs. 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 Loi Shepherd MD Apr 21, 2018 13:58
--- NOTE | 2018-04-21 14:02 | NUR ---
Regarding V/Q Scan: Spoke with JERALD Bolden. V/Q Scan will be scheduled for tomorrow morning
--- NOTE | 2018-04-21 14:15 | NUR ---
pt, seen by chun gutierres with orders cont,heparin drip till vq scan done
--- NOTE | 2018-04-21 14:30 | NUR ---
NURSE NOTES: RECEIVED PATIENT FROM JERALD COTA - ICU. PATIENT IS AWAKE, ALERT AND ORIENTED. 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 ON VENTURI MASK 3L AT 30%. NO SIGNS OF CARDIO OR RESPI DISTRESS. WITH BARCENAS CATH. WITH R PICC, OK TO USE. ON HEPARIN DRIP AT 14u/KG/HR, FOLLOWING HOSPITAL PROTOCOL. DGT SEEN AT THE BEDSIDE. CALL LIGHT WITHIN REACH. BED AT LOWEST POSITION. SIDE RAILS UP. WILL CONTINUE TO MONITOR.
--- NOTE | 2018-04-21 14:45 | Nephrology Progress Note ---
Assessment/Plan Problem List: (1) ARF (acute renal failure) (2) Diabetic nephropathy (3) Anemia (4) CHF exacerbation (5) Cardiomyopathy (6) Pacemaker Assessment Renal failure- likely acute on chronic Likely Diabetic Nephropathy 3+ proteinuria Anemia Etiology?? Respiratory failure, acute / Pulmonary edema / Pneumonia CHF exacerbation NSTEMI (non-ST elevated myocardial infarction) Diabetes mellitus Leukocytosis Hx of BKA Plan Optimize cardiac and pulmonary status avoid Nephrotoxics BP and BS in check hickman echo 40 5 ej fx urine studies venofer IV Subjective ROS Limited/Unobtainable: No Constitutional: Reports: malaise, weakness Objective Objective Last 24 Hour Vital Signs Date Time Temp Pulse Resp B/P (MAP) Pulse Ox O2 Delivery O2 Flow Rate FiO2 04/21/18 14:02 81 20 100 Venturi Mask 6.0 35 04/21/18 14:00 83 18 114/4 (40) 100 04/21/18 13:51 83 22 100 Venturi Mask 8.0 40 04/21/18 13:00 81 18 98/60 (73) 100 04/21/18 12:00 Venturi Mask 04/21/18 12:00 98.6 80 19 127/43 (71) 100 04/21/18 12:00 78 04/21/18 12:00 40 04/21/18 11:00 80 18 141/55 (83) 100 04/21/18 10:00 77 20 122/47 (72) 100 04/21/18 09:36 120/38 04/21/18 09:33 82 120/38 04/21/18 09:00 83 20 137/39 (71) 100 04/21/18 08:00 Venturi Mask 04/21/18 08:00 82 04/21/18 08:00 99.1 82 20 120/38 (65) 100 04/21/18 08:00 40 04/21/18 07:06 76 19 100 Venturi Mask 6.0 35 04/21/18 07:00 77 20 138/48 (78) 100 04/21/18 06:55 Venturi Mask 8.0 40 04/21/18 06:55 100 Venturi Mask 8.0 40 04/21/18 06:55 78 24 100 Venturi Mask 8.0 40 04/21/18 06:00 79 20 142/52 (82) 100 04/21/18 05:00 79 21 140/41 (74) 100 04/21/18 04:00 40 04/21/18 04:00 82 04/21/18 04:00 98.3 82 22 130/38 (68) 100 04/21/18 04:00 Venturi Mask 04/21/18 03:00 81 22 137/45 (75) 100 04/21/18 02:00 80 22 111/72 (85) 100 04/21/18 01:08 82 20 100 Venturi Mask 8.0 40 04/21/18 01:00 79 20 98 Venturi Mask 8.0 40 04/21/18 01:00 82 24 135/41 (72) 100 04/21/18 00:00 77 04/21/18 00:00 Venturi Mask 04/21/18 00:00 98.1 77 22 130/38 (68) 100 04/20/18 23:00 77 24 123/48 (73) 100 04/20/18 22:00 77 24 123/46 (71) 100 04/20/18 21:30 96 8.0 40 04/20/18 21:00 79 24 124/44 (70) 100 04/20/18 20:40 80 118/40 04/20/18 20:00 80 20 100 Venturi Mask 8.0 40 04/20/18 20:00 40 04/20/18 20:00 80 04/20/18 20:00 98.3 80 23 127/38 (67) 100 04/20/18 20:00 Venturi Mask 04/20/18 19:56 Venturi Mask 8.0 40 04/20/18 19:56 100 Venturi Mask 8.0 40 04/20/18 19:49 78 20 98 Venturi Mask 8.0 40 04/20/18 19:30 78 98 8.0 40 04/20/18 19:00 83 23 115/37 (63) 100 04/20/18 18:00 92 23 124/42 (69) 100 04/20/18 17:48 119/39 04/20/18 17:02 76 24 98 04/20/18 17:00 83 24 119/38 (65) 100 04/20/18 16:00 40 04/20/18 16:00 Venturi Mask 04/20/18 16:00 91 04/20/18 16:00 88 23 119/46 (70) 100 04/20/18 15:00 93 22 100/77 (85) 100 Intake and Output 04/20/18 04/21/18 19:00 07:00 Intake Total 253.797 ml 518.312 ml Output Total 940 ml 2150 ml Balance -686.203 ml -1631.688 ml Intake Oral 270 ml IV Total 253.797 ml 248.312 ml Output Urine Total 940 ml 2150 ml Laboratory Tests 04/20/18 16:00: Activated Partial Thromboplast Time > 150*H, Fibrinogen 410H, Lactic Acid Level 1.00, Lactate Dehydrogenase 134, Troponin I 0.071H, C-Reactive Protein, Quantitative 7.5H 04/20/18 22:00: Troponin I 0.052, Sodium Level 140, Potassium Level 3.8, Chloride Level 105, Carbon Dioxide Level 27, Anion Gap 8, Blood Urea Nitrogen 37H, Creatinine 1.9H, Estimat Glomerular Filtration Rate , Glucose Level 83#, Calcium Level 8.6 04/21/18 01:00: Activated Partial Thromboplast Time 77H, Prothrombin Time 12.0H, Prothromb Time International Ratio 1.1 04/21/18 04:00: Urine Eosinophils None seen 04/21/18 04:10: White Blood Count 10.2, Red Blood Count 2.95L, Hemoglobin 8.3L, Hematocrit 25.0L , Mean Corpuscular Volume 85, Mean Corpuscular Hemoglobin 28.3, Mean Corpuscular Hemoglobin Concent 33.4, Red Cell Distribution Width 13.4, Platelet Count 182, Mean Platelet Volume 8.2, Neutrophils (%) (Auto) 67.1, Lymphocytes (% ) (Auto) 16.7L, Monocytes (%) (Auto) 11.8H, Eosinophils (%) (Auto) 2.8, Basophils (%) (Auto) 1.7, Reticulocyte Count 0.9, Sodium Level 140, Potassium Level 4.1, Chloride Level 105, Carbon Dioxide Level 28, Anion Gap 7, Blood Urea Nitrogen 37H, Creatinine 1.8H, Estimat Glomerular Filtration Rate , Glucose Level 121H, Uric Acid 5.9, Calcium Level 8.7, Phosphorus Level 3.6, Magnesium Level 1.8, Iron Level 27L, Total Iron Binding Capacity 218L, Percent Iron Saturation 12L, Unsaturated Iron Binding 191, Ferritin 71, Total Bilirubin 0.4, Gamma Glutamyl Transpeptidase 33, Aspartate Amino Transf (AST/SGOT) 10L, Alanine Aminotransferase (ALT/SGPT) 23, Alkaline Phosphatase 68, Total Creatine Kinase 44, Troponin I 0.050, Pro-B-Type Natriuretic Peptide 4314H, Total Protein 6.1L, Albumin 2.4L, Globulin 3.7, Albumin/Globulin Ratio 0.6L, Triglycerides Level 64, Cholesterol Level 123, LDL Cholesterol 56, HDL Cholesterol 52, Cholesterol/HDL Ratio 2.4L, Carcinoembryonic Antigen [Pending], Vitamin B12 Level 432, Folate 11.1, Free Thyroxine 1.25 Height (Feet): 5 Height (Inches): 2.00 Weight (Pounds): 121 General Appearance: mild distress Cardiovascular: normal rate Respiratory/Chest: decreased breath sounds, rhonchi - bilaterally Abdomen: distended Objective breathing easier Antony Adkins MD Apr 21, 2018 14:45
--- NOTE | 2018-04-21 14:50 | GI Progress Note ---
Assessment/Plan Problems: (1) Anemia ICD Codes: D64.9 - Anemia, unspecified SNOMED: 966490819 (2) Respiratory distress ICD Codes: R06.00 - Dyspnea, unspecified SNOMED: 191892258 (3) Acute on chronic renal failure ICD Codes: N17.9 - Acute on chronic renal failure; N18.9 - Chronic kidney disease, unspecified SNOMED: 183406703 Status: progressing, unchanged Status Narrative Discussed with Dr. Anthony. Assessment/Plan GI procedures if necessary, but will defer at this time given elevated troponin levels and will require cardiac clearance prior. Pulmonary support on ADA diet OB stool r/o GI bleed venofer monitor H&H, prn transfusions bowel regime ppi fu labs The patient was seen and examined at bedside and all new and available data was reviewed in the patients chart. I agree with the above findings, impression and plan. (Patient seen earlier today. Signature stamp does not reflect patient encounter time.). - Norman Anthony MD Subjective Gastrointestinal/Abdominal: Reports: no symptoms Objective Last 24 Hour Vital Signs Date Time Temp Pulse Resp B/P (MAP) Pulse Ox O2 Delivery O2 Flow Rate FiO2 04/21/18 14:02 81 20 100 Venturi Mask 6.0 35 04/21/18 14:00 83 18 114/4 (40) 100 04/21/18 13:51 83 22 100 Venturi Mask 8.0 40 04/21/18 13:00 81 18 98/60 (73) 100 04/21/18 12:00 Venturi Mask 04/21/18 12:00 98.6 80 19 127/43 (71) 100 04/21/18 12:00 78 04/21/18 12:00 40 04/21/18 11:00 80 18 141/55 (83) 100 04/21/18 10:00 77 20 122/47 (72) 100 04/21/18 09:36 120/38 04/21/18 09:33 82 120/38 04/21/18 09:00 83 20 137/39 (71) 100 04/21/18 08:00 Venturi Mask 04/21/18 08:00 82 04/21/18 08:00 99.1 82 20 120/38 (65) 100 04/21/18 08:00 40 04/21/18 07:06 76 19 100 Venturi Mask 6.0 35 04/21/18 07:00 77 20 138/48 (78) 100 04/21/18 06:55 Venturi Mask 8.0 40 04/21/18 06:55 100 Venturi Mask 8.0 40 04/21/18 06:55 78 24 100 Venturi Mask 8.0 40 04/21/18 06:00 79 20 142/52 (82) 100 04/21/18 05:00 79 21 140/41 (74) 100 04/21/18 04:00 40 04/21/18 04:00 82 04/21/18 04:00 98.3 82 22 130/38 (68) 100 04/21/18 04:00 Venturi Mask 04/21/18 03:00 81 22 137/45 (75) 100 04/21/18 02:00 80 22 111/72 (85) 100 04/21/18 01:08 82 20 100 Venturi Mask 8.0 40 04/21/18 01:00 79 20 98 Venturi Mask 8.0 40 04/21/18 01:00 82 24 135/41 (72) 100 04/21/18 00:00 77 04/21/18 00:00 Venturi Mask 04/21/18 00:00 98.1 77 22 130/38 (68) 100 04/20/18 23:00 77 24 123/48 (73) 100 04/20/18 22:00 77 24 123/46 (71) 100 04/20/18 21:30 96 8.0 40 04/20/18 21:00 79 24 124/44 (70) 100 04/20/18 20:40 80 118/40 04/20/18 20:00 80 20 100 Venturi Mask 8.0 40 04/20/18 20:00 40 04/20/18 20:00 80 04/20/18 20:00 98.3 80 23 127/38 (67) 100 04/20/18 20:00 Venturi Mask 04/20/18 19:56 Venturi Mask 8.0 40 04/20/18 19:56 100 Venturi Mask 8.0 40 04/20/18 19:49 78 20 98 Venturi Mask 8.0 40 04/20/18 19:30 78 98 8.0 40 04/20/18 19:00 83 23 115/37 (63) 100 04/20/18 18:00 92 23 124/42 (69) 100 04/20/18 17:48 119/39 04/20/18 17:02 76 24 98 04/20/18 17:00 83 24 119/38 (65) 100 04/20/18 16:00 40 04/20/18 16:00 Venturi Mask 04/20/18 16:00 91 04/20/18 16:00 88 23 119/46 (70) 100 04/20/18 15:00 93 22 100/77 (85) 100 Intake and Output 04/20/18 04/21/18 19:00 07:00 Intake Total 253.797 ml 518.312 ml Output Total 940 ml 2150 ml Balance -686.203 ml -1631.688 ml Intake Oral 270 ml IV Total 253.797 ml 248.312 ml Output Urine Total 940 ml 2150 ml Laboratory Tests Test 04/20/18 16:00 04/20/18 22:00 04/21/18 01:00 04/21/18 04:00 Activated Partial Thromboplast Time > 150 SEC (23-33) *H 77 SEC (23-33) H Fibrinogen 410 mg/dL (200-400) H Lactic Acid Level 1.00 mmol/L (0.4-2.0) Lactate Dehydrogenase 134 U/L (81-234) Troponin I 0.071 ng/mL (0.000-0.056) 0.052 ng/mL (0.000-0.056) C-Reactive Protein, Quantitative 7.5 mg/dL (0.00-0.90) H Sodium Level 140 MMOL/L (136-145) Potassium Level 3.8 MMOL/L (3.5-5.1) Chloride Level 105 MMOL/L (98-107) Carbon Dioxide Level 27 MMOL/L (21-32) Anion Gap 8 mmol/L (5-15) Blood Urea Nitrogen 37 mg/dL (7-18) H Creatinine 1.9 MG/DL (0.55-1.30) H Estimat Glomerular Filtration Rate mL/min (>60) Glucose Level 83 MG/DL (74-106) # Calcium Level 8.6 MG/DL (8.5-10.1) Prothrombin Time 12.0 SEC (9.30-11.50) H Prothromb Time International Ratio 1.1 (0.9-1.1) Urine Eosinophils None seen (NONE SEEN) Test 04/21/18 04:10 White Blood Count 10.2 K/UL (4.8-10.8) Red Blood Count 2.95 M/UL (4.20-5.40) L Hemoglobin 8.3 G/DL (12.0-16.0) L Hematocrit 25.0 % (37.0-47.0) L Mean Corpuscular Volume 85 FL (80-99) Mean Corpuscular Hemoglobin 28.3 PG (27.0-31.0) Mean Corpuscular Hemoglobin Concent 33.4 G/DL (32.0-36.0) Red Cell Distribution Width 13.4 % (11.6-14.8) Platelet Count 182 K/UL (150-450) Mean Platelet Volume 8.2 FL (6.5-10.1) Neutrophils (%) (Auto) 67.1 % (45.0-75.0) Lymphocytes (%) (Auto) 16.7 % (20.0-45.0) L Monocytes (%) (Auto) 11.8 % (1.0-10.0) H Eosinophils (%) (Auto) 2.8 % (0.0-3.0) Basophils (%) (Auto) 1.7 % (0.0-2.0) Reticulocyte Count 0.9 % (0.0-2.0) Sodium Level 140 MMOL/L (136-145) Potassium Level 4.1 MMOL/L (3.5-5.1) Chloride Level 105 MMOL/L (98-107) Carbon Dioxide Level 28 MMOL/L (21-32) Anion Gap 7 mmol/L (5-15) Blood Urea Nitrogen 37 mg/dL (7-18) H Creatinine 1.8 MG/DL (0.55-1.30) H Estimat Glomerular Filtration Rate mL/min (>60) Glucose Level 121 MG/DL (74-106) H Uric Acid 5.9 MG/DL (2.6-7.2) Calcium Level 8.7 MG/DL (8.5-10.1) Phosphorus Level 3.6 MG/DL (2.5-4.9) Magnesium Level 1.8 MG/DL (1.8-2.4) Iron Level 27 ug/dL (50-175) L Total Iron Binding Capacity 218 ug/dL (250-450) L Percent Iron Saturation 12 % (15-50) L Unsaturated Iron Binding 191 ug/dL (112-346) Ferritin 71 NG/ML (8-388) Total Bilirubin 0.4 MG/DL (0.2-1.0) Gamma Glutamyl Transpeptidase 33 U/L (5-85) Aspartate Amino Transf (AST/SGOT) 10 U/L (15-37) L Alanine Aminotransferase (ALT/SGPT) 23 U/L (12-78) Alkaline Phosphatase 68 U/L (46-116) Total Creatine Kinase 44 U/L (26-308) Troponin I 0.050 ng/mL (0.000-0.056) Pro-B-Type Natriuretic Peptide 4314 pg/mL (0-125) H Total Protein 6.1 G/DL (6.4-8.2) L Albumin 2.4 G/DL (3.4-5.0) L Globulin 3.7 g/dL Albumin/Globulin Ratio 0.6 (1.0-2.7) L Triglycerides Level 64 MG/DL (30-150) Cholesterol Level 123 MG/DL (< 200) LDL Cholesterol 56 mg/dL (<100) HDL Cholesterol 52 MG/DL (40-60) Cholesterol/HDL Ratio 2.4 (3.3-4.4) L Carcinoembryonic Antigen Pending Vitamin B12 Level 432 PG/ML (193-986) Folate 11.1 NG/ML (8.6-58.9) Free Thyroxine 1.25 NG/DL (0.76-1.46) Microbiology Date/Time Source Procedure Growth Status 04/20/18 21:30 Nasal Not Otherwise Specified Influenza Types A,B Antigen (ROSA) - Final Complete Height (Feet): 5 Height (Inches): 2.00 Weight (Pounds): 121 General Appearance: WD/WN, no apparent distress, alert, thin Cardiovascular: normal rate Respiratory/Chest: normal breath sounds, no respiratory distress, other - venturi mask Abdominal Exam: normal bowel sounds, non tender, soft Extremities: non-tender Renee Crespo [employer] Apr 21, 2018 14:50
[2018-04-21] MEDS ORDERED: Heparin 25,000u/D5W 500ml 500 ML IV SCH (16:06)
[2018-04-21] MEDS ORDERED: Albuterol/Ipratropium 3ml neb HHN PRN (16:07)
[2018-04-21] MEDS: guaiFENesin ER 600mg tab ORAL SCH (17:07)
[2018-04-21] MEDS ORDERED: guaiFENesin ER 600mg tab ORAL SCH (18:00)
--- NOTE | 2018-04-21 19:09 | NUR ---
HAND-OFF: Report given to kIe Lara RN.
--- NOTE | 2018-04-21 19:20 | NUR ---
NURSE NOTES: Received report from Judd MARQUES, pt. in bed awake, A/O x's3-4- able to make needs known- family at bedside, no signs or symptoms of acute cardiac or respiratory distress noted, cardiac monitoring on, pt. appears to be satin well on 4L venturi mask at 97%- no respiratory distress noted, call light within easy reach, bed in lowest position, bed alarm on, side rails up x's3- safety brakes engaged, Jenkins intact and draining to gravity, SIMONA PICC Intact and patent running Heparin at 14U/Kg/hr- no evidence of bleeding noted, pt. appears to be resting comfortably, safety measures continued, will continue with plan of care. Addendum: 04/21/18 at [id number] by BESSIE DORMAN RN RN correction to message above pt. is on 4L venturi mask at Fio2 40%- sating at 97%- no respiratory distress noted.
--- NOTE | 2018-04-21 20:43 | General Progress Note ---
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 SNOMED: 00975900, 763898103 (7) Cardiomyopathy ICD Codes: I42.9 - Cardiomyopathy, unspecified SNOMED: 18585591 (8) Pacemaker ICD Codes: Z95.0 - Presence of cardiac pacemaker SNOMED: 930369903 (9) CHF exacerbation ICD Codes: I50.9 - Heart failure, unspecified SNOMED: 81907515 (10) Diabetes mellitus ICD Codes: E11.9 - Diabetes mellitus SNOMED: 24163810 (11) Valvular cardiomyopathy ICD Codes: I42.8 - Valvular cardiomyopathy SNOMED: 09065735 (12) Hypokalemia ICD Codes: E87.6 - Hypokalemia SNOMED: 28697576 (13) ARF (acute renal failure) ICD Codes: N17.9 - ARF (acute renal failure) SNOMED: 46463966 Status: progressing Assessment/Plan sugar is improving resp insuff afebrile off icu chf htn cardiomyopathy echo clinically improving Subjective Respiratory: Reports: shortness of breath Allergies: Coded Allergies: SULFA (SULFONAMIDE ANTIBIOTICS) (Verified Allergy, Severe, ITCHING AND RASH BREAKOUT, 01/24/14) Objective Last 24 Hour Vital Signs Date Time Temp Pulse Resp B/P (MAP) Pulse Ox O2 Delivery O2 Flow Rate FiO2 04/21/18 19:51 Venturi Mask 6.0 35 04/21/18 19:51 98 Venturi Mask 6.0 35 04/21/18 19:50 83 20 98 Venturi Mask 6.0 35 04/21/18 19:29 84 20 96 Venturi Mask 6.0 35 04/21/18 16:00 80 04/21/18 16:00 4.0 30 04/21/18 16:00 Venturi Mask 04/21/18 16:00 97.9 81 22 118/47 (70) 99 04/21/18 14:02 81 20 100 Venturi Mask 6.0 35 04/21/18 14:00 83 18 114/4 (40) 100 04/21/18 13:51 83 22 100 Venturi Mask 8.0 40 04/21/18 13:00 81 18 98/60 (73) 100 04/21/18 12:00 Venturi Mask 04/21/18 12:00 98.6 80 19 127/43 (71) 100 04/21/18 12:00 78 04/21/18 12:00 40 04/21/18 11:00 80 18 141/55 (83) 100 04/21/18 10:00 77 20 122/47 (72) 100 04/21/18 09:36 120/38 04/21/18 09:33 82 120/38 04/21/18 09:00 83 20 137/39 (71) 100 04/21/18 08:00 Venturi Mask 04/21/18 08:00 82 04/21/18 08:00 99.1 82 20 120/38 (65) 100 04/21/18 08:00 40 04/21/18 07:06 76 19 100 Venturi Mask 6.0 35 04/21/18 07:00 77 20 138/48 (78) 100 04/21/18 06:55 Venturi Mask 8.0 40 04/21/18 06:55 100 Venturi Mask 8.0 40 04/21/18 06:55 78 24 100 Venturi Mask 8.0 40 04/21/18 06:00 79 20 142/52 (82) 100 04/21/18 05:00 79 21 140/41 (74) 100 04/21/18 04:00 40 04/21/18 04:00 82 04/21/18 04:00 98.3 82 22 130/38 (68) 100 04/21/18 04:00 Venturi Mask 04/21/18 03:00 81 22 137/45 (75) 100 04/21/18 02:00 80 22 111/72 (85) 100 04/21/18 01:08 82 20 100 Venturi Mask 8.0 40 04/21/18 01:00 79 20 98 Venturi Mask 8.0 40 04/21/18 01:00 82 24 135/41 (72) 100 04/21/18 00:00 77 04/21/18 00:00 Venturi Mask 04/21/18 00:00 98.1 77 22 130/38 (68) 100 04/20/18 23:00 77 24 123/48 (73) 100 04/20/18 22:00 77 24 123/46 (71) 100 04/20/18 21:30 96 8.0 40 04/20/18 21:00 79 24 124/44 (70) 100 Intake and Output 04/20/18 04/21/18 19:00 07:00 Intake Total 253.797 ml 518.312 ml Output Total 940 ml 2150 ml Balance -686.203 ml -1631.688 ml Intake Oral 270 ml IV Total 253.797 ml 248.312 ml Output Urine Total 940 ml 2150 ml Laboratory Tests 04/20/18 22:00: Sodium Level 140, Potassium Level 3.8, Chloride Level 105, Carbon Dioxide Level 27, Anion Gap 8, Blood Urea Nitrogen 37H, Creatinine 1.9H, Estimat Glomerular Filtration Rate , Glucose Level 83#, Calcium Level 8.6, Troponin I 0.052 04/21/18 01:00: Prothrombin Time 12.0H, Prothromb Time International Ratio 1.1, Activated Partial Thromboplast Time 77H 04/21/18 04:00: Urine Eosinophils None seen 04/21/18 04:10: Sodium Level 140, Potassium Level 4.1, Chloride Level 105, Carbon Dioxide Level 28, Anion Gap 7, Blood Urea Nitrogen 37H, Creatinine 1.8H, Estimat Glomerular Filtration Rate , Glucose Level 121H, Calcium Level 8.7, Troponin I 0.050, White Blood Count 10.2, Red Blood Count 2.95L, Hemoglobin 8.3L, Hematocrit 25.0L , Mean Corpuscular Volume 85, Mean Corpuscular Hemoglobin 28.3, Mean Corpuscular Hemoglobin Concent 33.4, Red Cell Distribution Width 13.4, Platelet Count 182, Mean Platelet Volume 8.2, Neutrophils (%) (Auto) 67.1, Lymphocytes (% ) (Auto) 16.7L, Monocytes (%) (Auto) 11.8H, Eosinophils (%) (Auto) 2.8, Basophils (%) (Auto) 1.7, Reticulocyte Count 0.9, Uric Acid 5.9, Phosphorus Level 3.6, Magnesium Level 1.8, Iron Level 27L, Total Iron Binding Capacity 218L , Percent Iron Saturation 12L, Unsaturated Iron Binding 191, Ferritin 71, Total Bilirubin 0.4, Gamma Glutamyl Transpeptidase 33, Aspartate Amino Transf (AST/ SGOT) 10L, Alanine Aminotransferase (ALT/SGPT) 23, Alkaline Phosphatase 68, Total Creatine Kinase 44, Pro-B-Type Natriuretic Peptide 4314H, Total Protein 6.1L, Albumin 2.4L, Globulin 3.7, Albumin/Globulin Ratio 0.6L, Triglycerides Level 64, Cholesterol Level 123, LDL Cholesterol 56, HDL Cholesterol 52, Cholesterol/HDL Ratio 2.4L, Carcinoembryonic Antigen [Pending], Vitamin B12 Level 432, Folate 11.1, Free Thyroxine 1.25 Height (Feet): 5 Height (Inches): 2.00 Weight (Pounds): 121 Respiratory/Chest: lungs clear Abdomen: soft Светлана Vazquez MD Apr 21, 2018 20:43
[2018-04-21] MEDS ORDERED: Iron Sucrose 100 MG in NS 55 ML IV SCH (21:00)
[2018-04-21] MEDS: Dyna-Hex 2% Top Sol 2oz TOPIC SCH (21:02)
[2018-04-21] MEDS: Iron Sucrose 100 MG in NS 55 ML IV SCH (21:03)
[2018-04-21] MEDS: Piperacillin/Tazobactam 3.375 GM in NS 110 ML IVPB SCH (21:56)
--- NOTE | 2018-04-21 23:42 | Cardiology Progress Note ---
Assessment/Plan Assessment/Plan 1. Acute systolic congestive heart failure, LVEF at 35% to 40% with associated WMA. Continue guideline directed medical therapy including carvedilol, NICK inhibitors/ ARBs as well as spironolactone. 2. Slight elevation of troponin I level in this patient could be type 2 [address]- elevation myocardial infarction or due to myocarditis. 3. Moderate pericardial effusion with no echocardiographic or clinical evidence of pericardial tamponade. 4. Chronic kidney disease. Creatinine of 1.5. 5. 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 6. Bilateral pleural effusion. 7. Acute respiratory failure, resolved. Subjective Subjective Sinus rhythm at rate of 80. On venturi mask with FiO2 of 30. Objective Last 24 Hour Vital Signs Date Time Temp Pulse Resp B/P (MAP) Pulse Ox O2 Delivery O2 Flow Rate FiO2 04/21/18 21:02 80 129/87 04/21/18 20:00 4.0 30 04/21/18 20:00 90 04/21/18 20:00 97.9 80 24 129/87 (101) 100 04/21/18 20:00 Venturi Mask 04/21/18 19:51 Venturi Mask 6.0 35 04/21/18 19:51 98 Venturi Mask 6.0 35 04/21/18 19:50 83 20 98 Venturi Mask 6.0 35 04/21/18 19:29 84 20 96 Venturi Mask 6.0 35 04/21/18 16:00 80 04/21/18 16:00 4.0 30 04/21/18 16:00 Venturi Mask 04/21/18 16:00 97.9 81 22 118/47 (70) 99 04/21/18 14:02 81 20 100 Venturi Mask 6.0 35 04/21/18 14:00 83 18 114/4 (40) 100 04/21/18 13:51 83 22 100 Venturi Mask 8.0 40 04/21/18 13:00 81 18 98/60 (73) 100 04/21/18 12:00 Venturi Mask 04/21/18 12:00 98.6 80 19 127/43 (71) 100 04/21/18 12:00 78 04/21/18 12:00 40 04/21/18 11:00 80 18 141/55 (83) 100 04/21/18 10:00 77 20 122/47 (72) 100 04/21/18 09:36 120/38 04/21/18 09:33 82 120/38 04/21/18 09:00 83 20 137/39 (71) 100 04/21/18 08:00 Venturi Mask 04/21/18 08:00 82 04/21/18 08:00 99.1 82 20 120/38 (65) 100 04/21/18 08:00 40 04/21/18 07:06 76 19 100 Venturi Mask 6.0 35 04/21/18 07:00 77 20 138/48 (78) 100 04/21/18 06:55 Venturi Mask 8.0 40 04/21/18 06:55 100 Venturi Mask 8.0 40 04/21/18 06:55 78 24 100 Venturi Mask 8.0 40 04/21/18 06:00 79 20 142/52 (82) 100 04/21/18 05:00 79 21 140/41 (74) 100 04/21/18 04:00 40 04/21/18 04:00 82 04/21/18 04:00 98.3 82 22 130/38 (68) 100 04/21/18 04:00 Venturi Mask 04/21/18 03:00 81 22 137/45 (75) 100 04/21/18 02:00 80 22 111/72 (85) 100 04/21/18 01:08 82 20 100 Venturi Mask 8.0 40 04/21/18 01:00 79 20 98 Venturi Mask 8.0 40 04/21/18 01:00 82 24 135/41 (72) 100 04/21/18 00:00 77 04/21/18 00:00 Venturi Mask 04/21/18 00:00 98.1 77 22 130/38 (68) 100 Intake and Output 04/20/18 04/21/18 19:00 07:00 Intake Total 253.797 ml 518.312 ml Output Total 940 ml 2150 ml Balance -686.203 ml -1631.688 ml Intake Oral 270 ml IV Total 253.797 ml 248.312 ml Output Urine Total 940 ml 2150 ml 2D Echo: EF 40%, Mild LVH/LAE, Medium Leslie.Eff. no tamponade, RVSP 35, Grade I LVDD ild Laboratory Tests Test 04/21/18 01:00 04/21/18 04:00 04/21/18 04:10 Prothrombin Time 12.0 SEC (9.30-11.50) H Prothromb Time International Ratio 1.1 (0.9-1.1) Activated Partial Thromboplast Time 77 SEC (23-33) H Urine Eosinophils None seen (NONE SEEN) White Blood Count 10.2 K/UL (4.8-10.8) Red Blood Count 2.95 M/UL (4.20-5.40) L Hemoglobin 8.3 G/DL (12.0-16.0) L Hematocrit 25.0 % (37.0-47.0) L Mean Corpuscular Volume 85 FL (80-99) Mean Corpuscular Hemoglobin 28.3 PG (27.0-31.0) Mean Corpuscular Hemoglobin Concent 33.4 G/DL (32.0-36.0) Red Cell Distribution Width 13.4 % (11.6-14.8) Platelet Count 182 K/UL (150-450) Mean Platelet Volume 8.2 FL (6.5-10.1) Neutrophils (%) (Auto) 67.1 % (45.0-75.0) Lymphocytes (%) (Auto) 16.7 % (20.0-45.0) L Monocytes (%) (Auto) 11.8 % (1.0-10.0) H Eosinophils (%) (Auto) 2.8 % (0.0-3.0) Basophils (%) (Auto) 1.7 % (0.0-2.0) Reticulocyte Count 0.9 % (0.0-2.0) Sodium Level 140 MMOL/L (136-145) Potassium Level 4.1 MMOL/L (3.5-5.1) Chloride Level 105 MMOL/L (98-107) Carbon Dioxide Level 28 MMOL/L (21-32) Anion Gap 7 mmol/L (5-15) Blood Urea Nitrogen 37 mg/dL (7-18) H Creatinine 1.8 MG/DL (0.55-1.30) H Estimat Glomerular Filtration Rate mL/min (>60) Glucose Level 121 MG/DL (74-106) H Uric Acid 5.9 MG/DL (2.6-7.2) Calcium Level 8.7 MG/DL (8.5-10.1) Phosphorus Level 3.6 MG/DL (2.5-4.9) Magnesium Level 1.8 MG/DL (1.8-2.4) Iron Level 27 ug/dL (50-175) L Total Iron Binding Capacity 218 ug/dL (250-450) L Percent Iron Saturation 12 % (15-50) L Unsaturated Iron Binding 191 ug/dL (112-346) Ferritin 71 NG/ML (8-388) Total Bilirubin 0.4 MG/DL (0.2-1.0) Gamma Glutamyl Transpeptidase 33 U/L (5-85) Aspartate Amino Transf (AST/SGOT) 10 U/L (15-37) L Alanine Aminotransferase (ALT/SGPT) 23 U/L (12-78) Alkaline Phosphatase 68 U/L (46-116) Total Creatine Kinase 44 U/L (26-308) Troponin I 0.050 ng/mL (0.000-0.056) Pro-B-Type Natriuretic Peptide 4314 pg/mL (0-125) H Total Protein 6.1 G/DL (6.4-8.2) L Albumin 2.4 G/DL (3.4-5.0) L Globulin 3.7 g/dL Albumin/Globulin Ratio 0.6 (1.0-2.7) L Triglycerides Level 64 MG/DL (30-150) Cholesterol Level 123 MG/DL (< 200) LDL Cholesterol 56 mg/dL (<100) HDL Cholesterol 52 MG/DL (40-60) Cholesterol/HDL Ratio 2.4 (3.3-4.4) L Carcinoembryonic Antigen Pending Vitamin B12 Level 432 PG/ML (193-986) Folate 11.1 NG/ML (8.6-58.9) Free Thyroxine 1.25 NG/DL (0.76-1.46) Microbiology Date/Time Source Procedure Growth Status 04/19/18 21:25 Blood Blood Culture - Preliminary NO GROWTH AFTER 24 HOURS Resulted 04/19/18 21:10 Blood Blood Culture - Preliminary NO GROWTH AFTER 24 HOURS Resulted 04/20/18 21:30 Nasal Not Otherwise Specified Influenza Types A,B Antigen (ROSA) - Final Complete 04/19/18 22:50 Urine,Clean Catch Urine Culture - Preliminary Gram Negative Bacillus 1 Resulted 04/19/18 23:30 Rectum Received Objective HEENT: Atraumatic and normocephalic. Anicteric. Pupils are equal, round, and reactive to light and accommodation. Extraocular muscles intact. NECK: JVP is less than 2 mm. No carotid bruit. Carotid upstrokes 2+ bilaterally. CARDIOVASCULAR: Normal S1 and S2. Regular rate and rhythm. No murmurs, gallops, or rubs. PMI is at fourth intercostal space in the mid clavicular line. LUNGS: Diminished breath sounds in both lungs. ABDOMEN: Soft, nontender, and nondistended. No hepatosplenomegaly. Positive bowel sounds. 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 Logan Mathur MD Apr 21, 2018 23:42
[2018-04-22] VITALS: BP 130/60
--- NOTE | 2018-04-22 00:45 | NUR ---
HAND-OFF: Report given to Ana Rn, pt. stable and no signs of distress noted.
[2018-04-22] MEDS: Albuterol/Ipratropium 3ml neb HHN SCH ×4 (01:37→18:37)
--- NOTE | 2018-04-22 01:43 | NUR ---
NURSE NOTES: Report received from JERALD Pina. Pt shows no signs of distress. VSS. Respirations even and unlabored on 3 [address] NC[address] in place, patent, and running heparin drip at prescribed rate. Pt is in stable condition; will continue to monitor.
[2018-04-22 04:19] LABS: HEMATOCRIT 24.4 % (37.0-47.0); LYMPHOCYTES % (AUTO) 17.2 % (20.0-45.0); MEAN CORPUSCULAR VOLUME 85 FL (80-99); MONOCYTES % (AUTO) 12.1 % (1.0-10.0); NEUTROPHILS % (AUTO) 63.7 % (45.0-75.0); PLATELET COUNT 184 K/UL (150-450); RED BLOOD COUNT 2.87 M/UL (4.20-5.40); RED CELL DISTRIBUTION WIDTH 12.9 % (11.6-14.8)
[2018-04-22 04:49] LABS: ANION GAP 8 mmol/L (5-15); BLOOD UREA NITROGEN 36 mg/dL (7-18); CALCIUM 8.4 MG/DL (8.5-10.1); CARBON DIOXIDE 28 MMOL/L (21-32); CHLORIDE 105 MMOL/L (98-107); CREATININE 1.9 MG/DL (0.55-1.30); PHOSPHORUS 4.1 MG/DL (2.5-4.9); POTASSIUM 3.6 MMOL/L (3.5-5.1); SODIUM 141 MMOL/L (136-145)
--- NOTE | 2018-04-22 05:07 | NUR ---
NURSE NOTES: 0400 PTT higher than 150. Heparin drip on hold for one hour.
[2018-04-22 05:14] LABS: ALANINE AMINOTRANSFERASE 24 U/L (12-78); ALBUMIN 2.5 G/DL (3.4-5.0); ALKALINE PHOSPHATASE 65 U/L (46-116); ASPARTATE AMINO TRANSFERASE 9 U/L (15-37); BILIRUBIN,DIRECT 0.1 MG/DL (0.0-0.3); BILIRUBIN,TOTAL 0.3 MG/DL (0.2-1.0)
[2018-04-22] MEDS ORDERED: Heparin 25,000u/D5W 500ml 500 ML IV SCH ×2 (06:00→14:30)
[2018-04-22] MEDS: NovoLOG Insulin Flexpen SUBQ SCH ×4 (06:22→20:49)
[2018-04-22] MEDS: Piperacillin/Tazobactam 3.375 GM in NS 110 ML IVPB SCH (06:24)
--- NOTE | 2018-04-22 07:21 | NUR ---
HAND-OFF: Report given to JERALD Smith. Pt is in stable condition; plan of care endorsed.
--- NOTE | 2018-04-22 07:22 | NUR ---
NURSE NOTES: Received patient from JERALD Perez. Patient in bed, awake, alert, and verbally responsive. No SOB. On 3L via NC. satellite project site monitor in placed. Jenkins is in placed and draining well. On Heparin Drip. PICC is on SIMONA asymptomatic. Bed in lowest position with side rails up. Will continue to follow plan of care.
[2018-04-22 08:00] VITALS: BP 152/61
[2018-04-22] MEDS: guaiFENesin ER 600mg tab ORAL SCH ×2 (08:27→18:09)
--- NOTE | 2018-04-22 08:33 | NUR ---
ST NOTE: SWALLOW/SPEECH/LANGUAGE/COGNITION STATUS PT SEEN AT BEDSIDE IN AM. ALERT, COOPERATIVE, WITH NC(3L). PT COMPLETED HER BREAKFAST (100%). PER PT, NO OVERT S/S OF ASPIRATION. HOWEVER, PT REPORTED THAT COUGHING AFTER EATING HER BREAKFAST. DISCUSSED THE PLAN OF CARE WITH PT. RECEIVED VIDEOSWALLOW STUDY ORDER AND DISCUSSED WITH PT RE: VIDEOSWALLOW STUDY. PT AGREED TO DO THE VIDEOSWALLOW STUDY. WILL FOLLOW D/W JERALD DIAZ.
[2018-04-22] MEDS ORDERED: Spironolactone 25mg tab ORAL SCH (09:00)
[2018-04-22] MEDS ORDERED: Aspirin EC 81mg tab ORAL SCH (09:00)
[2018-04-22] MEDS ORDERED: Atorvastatin 80mg tab ORAL SCH (09:00)
--- NOTE | 2018-04-22 09:10 | Pulmonology Progress Note ---
Assessment/Plan Problems: (1) Respiratory distress (2) Pulmonary edema (3) Anemia (4) NSTEMI (non-ST elevated myocardial infarction) (5) HTN (hypertension) (6) UTI (urinary tract infection) (7) ARF (acute renal failure) (8) Acute on chronic renal failure (9) Diabetic nephropathy (10) Diabetes mellitus Assessment/Plan Declines BiPAP, gas exchange adequate Titrate down FiO2 to keep SaO2 > 90% RTC and PRN HHN's Zosyn (D3) per ID, F/U Cx's, F/U rapid viral swab Monitor volumes and renal function, lasix 40 IV BID - may need to slow down on diuresis Continue IVUH until VQ done, if neg can dc and switch to Hep SQ ASA, BB, statin, home meds Monitor BS, SSI, accu check QID AC HS ADA diet, aspiration precautions, VP TRAINING recs, VSS Px: IVUH, PPI FC Subjective Allergies: Coded Allergies: SULFA (SULFONAMIDE ANTIBIOTICS) (Verified Allergy, Severe, ITCHING AND RASH BREAKOUT, 01/24/14) Subjective AFVSS on 3L -2.8L Cr 1.9 less SOB less cough no wheezing no FC Objective Last 24 Hour Vital Signs Date Time Temp Pulse Resp B/P (MAP) Pulse Ox O2 Delivery O2 Flow Rate FiO2 04/22/18 08:28 82 152/61 04/22/18 08:00 98.1 82 22 152/61 (91) 97 04/22/18 07:52 81 18 100 Nasal Cannula 3.0 32 04/22/18 07:42 80 20 99 Nasal Cannula 3.0 32 04/22/18 07:41 99 Nasal Cannula 3.0 32 04/22/18 07:41 Nasal Cannula 3.0 32 04/22/18 04:00 3.0 04/22/18 04:00 Venturi Mask 04/22/18 04:00 82 04/22/18 01:48 82 20 100 Nasal Cannula 3.0 32 04/22/18 01:37 82 20 96 Nasal Cannula 3.0 32 04/22/18 00:00 4.0 30 04/22/18 00:00 82 04/22/18 00:00 Venturi Mask 04/22/18 00:00 98.1 80 22 130/60 (83) 100 04/21/18 21:02 80 129/87 04/21/18 20:00 4.0 30 04/21/18 20:00 90 04/21/18 20:00 97.9 80 24 129/87 (101) 100 04/21/18 20:00 Venturi Mask 04/21/18 19:51 Venturi Mask 6.0 35 04/21/18 19:51 98 Venturi Mask 6.0 35 04/21/18 19:50 83 20 98 Venturi Mask 6.0 35 04/21/18 19:29 84 20 96 Venturi Mask 6.0 35 04/21/18 16:00 80 04/21/18 16:00 4.0 30 04/21/18 16:00 Venturi Mask 04/21/18 16:00 97.9 81 22 118/47 (70) 99 04/21/18 14:02 81 20 100 Venturi Mask 6.0 35 04/21/18 14:00 83 18 114/4 (40) 100 04/21/18 13:51 83 22 100 Venturi Mask 8.0 40 04/21/18 13:00 81 18 98/60 (73) 100 04/21/18 12:00 Venturi Mask 04/21/18 12:00 98.6 80 19 127/43 (71) 100 04/21/18 12:00 78 04/21/18 12:00 40 04/21/18 11:00 80 18 141/55 (83) 100 04/21/18 10:00 77 20 122/47 (72) 100 04/21/18 09:36 120/38 04/21/18 09:33 82 120/38 Intake and Output 04/21/18 04/22/18 19:00 07:00 Intake Total 1356.548 ml 721.840 ml Output Total 3510 ml 1300 ml Balance -2153.452 ml -578.160 ml Intake Oral 1150 ml 350 ml IV Total 206.548 ml 371.840 ml Output Urine Total 3510 ml 1300 ml General Appearance: WD/WN, no acute distress HEENT: normocephalic, atraumatic, anicteric Respiratory/Chest: crackles/rales Cardiovascular: normal peripheral pulses, normal rate, regular rhythm, regularly irregular Abdomen: normal bowel sounds, soft, non tender, no organomegaly, non distended , no mass Extremities: no cyanosis, no clubbing, other - trace edema better S/P BKA Microbiology Date/Time Source Procedure Growth Status 04/19/18 21:25 Blood Blood Culture - Preliminary NO GROWTH AFTER 48 HOURS Resulted 04/19/18 21:10 Blood Blood Culture - Preliminary NO GROWTH AFTER 48 HOURS Resulted 04/20/18 21:30 Nasal Not Otherwise Specified Influenza Types A,B Antigen (ROSA) - Final Complete 04/19/18 22:50 Urine,Clean Catch Urine Culture - Final Pseudomonas Aeruginosa Complete 04/19/18 23:30 Rectum VRE Culture - Final NO VANCOMYCIN RESISTANT ENTEROCOCCUS ... Complete Laboratory Tests 04/22/18 01:00: Urine Eosinophils Negative 04/22/18 04:09: White Blood Count 10.0, Red Blood Count 2.87L, Hemoglobin 8.0L, Hematocrit 24.4L , Mean Corpuscular Volume 85, Mean Corpuscular Hemoglobin 27.8, Mean Corpuscular Hemoglobin Concent 32.7, Red Cell Distribution Width 12.9, Platelet Count 184, Mean Platelet Volume 7.1, Neutrophils (%) (Auto) 63.7, Lymphocytes (% ) (Auto) 17.2L, Monocytes (%) (Auto) 12.1H, Eosinophils (%) (Auto) 6.0H, Basophils (%) (Auto) 1.0, Activated Partial Thromboplast Time > 150*H, Sodium Level 141, Potassium Level 3.6, Chloride Level 105, Carbon Dioxide Level 28, Anion Gap 8, Blood Urea Nitrogen 36H, Creatinine 1.9H, Estimat Glomerular Filtration Rate , Glucose Level 150H, Uric Acid 5.4, Calcium Level 8.4L, Phosphorus Level 4.1, Magnesium Level 1.8, Total Bilirubin 0.3, Direct Bilirubin 0.1, Aspartate Amino Transf (AST/SGOT) 9L, Alanine Aminotransferase ( ALT/SGPT) 24, Alkaline Phosphatase 65, C-Reactive Protein, Quantitative 8.5H, Pro-B-Type Natriuretic Peptide 1576H, Total Protein 6.3L, Albumin 2.5L Current Medications Medications (Trade) Dose Ordered Sig/Shazia Route PRN Reason Start Time Stop Time Status Last Admin Dose Admin Albuterol/ Ipratropium (Albuterol/ Ipratropium) 3 ml Q4H PRN HHN Shortness of Breath 04/21/18 16:07 04/24/18 16:06 Albuterol/ Ipratropium (Albuterol/ Ipratropium) 3 ml Q6HRT HHN 04/21/18 19:00 04/25/18 12:59 04/22/18 07:43 Aspirin (Ecotrin) 81 mg DAILY ORAL 04/22/18 09:00 05/20/18 08:59 04/22/18 08:28 Atorvastatin Calcium (Lipitor) 80 mg DAILY ORAL 04/22/18 09:00 05/20/18 08:59 04/22/18 08:27 Carvedilol (Coreg) 3.125 mg EVERY 12 HOURS ORAL 04/21/18 21:00 05/20/18 20:59 04/22/18 08:28 Chlorhexidine Gluconate (Monet-Hex 2%) 1 applic DAILY@2000 TOPIC 04/21/18 20:00 05/20/18 19:59 04/21/18 21:02 Clopidogrel Bisulfate (Plavix) 75 mg DAILY ORAL 04/22/18 09:00 05/20/18 08:59 04/22/18 08:27 Dextrose (Dextrose 50%) 25 ml Q30M PRN IV Hypoglycemia 04/21/18 16:30 05/20/18 08:29 Dextrose (Dextrose 50%) 50 ml Q30M PRN IV Hypoglycemia 04/21/18 16:30 05/20/18 08:29 Furosemide (Lasix) 40 mg EVERY 12 HOURS IV 04/21/18 21:00 05/20/18 08:59 04/22/18 08:27 Guaifenesin (Mucinex ER) 600 mg TWICE A DAY ORAL 04/21/18 18:00 05/21/18 17:59 04/22/18 08:27 Heparin Sodium/ Dextrose 500 ml @ 10.977 mls/ hr ADJUST PER PROTOCOL IV 04/22/18 06:00 05/20/18 16:05 04/22/18 06:25 Insulin Aspart (NovoLOG) BEFORE MEALS AND HS SUBQ 04/21/18 16:30 05/20/18 11:29 04/21/18 21:05 Iron Sucrose 100 mg/Sodium Chloride 60 ml @ 240 mls/hr BEDTIME IV 04/21/18 21:00 04/23/18 21:14 04/21/18 21:03 Pantoprazole (Protonix) 40 mg DAILY ORAL 04/22/18 09:00 05/20/18 08:59 04/22/18 08:27 Piperacillin Sod/ Tazobactam Sod 3.375 gm/Sodium Chloride 110 ml @ 27.5 mls/hr EVERY 8 HOURS IVPB 04/21/18 22:00 04/25/18 11:59 04/22/18 06:24 Spironolactone (Aldactone) 25 mg DAILY ORAL 04/22/18 09:00 05/21/18 08:59 04/22/18 08:27 Gamal Cruz MD Apr 22, 2018 09:10
--- NOTE | 2018-04-22 10:11 | Infectious Diseases Prog Note ---
Assessment/Plan Assessment/Plan A: 1. Bronchitis, 2. CHF exacerbation. 3. Acute renal failure. 4. Diabetes mellitus. 5. Leukocytosis. resolved 6. Acute respiratory failure.improving 7. UTI with Pseudomonas P: Change Zosyn to Levaquin Will f/u cultures Subjective ROS Limited/Unobtainable: No Constitutional: Reports: no symptoms, other - doing better transferred from ICU to [facility] Respiratory: Reports: dry cough Cardiovascular: Reports: no symptoms Gastrointestinal/Abdominal: Reports: no symptoms Genitourinary: Reports: no symptoms Allergies: Coded Allergies: SULFA (SULFONAMIDE ANTIBIOTICS) (Verified Allergy, Severe, ITCHING AND RASH BREAKOUT, 01/24/14) Objective Vital Signs Last 24 Hour Vital Signs Date Time Temp Pulse Resp B/P (MAP) Pulse Ox O2 Delivery O2 Flow Rate FiO2 04/22/18 08:28 82 152/61 04/22/18 08:00 98.1 82 22 152/61 (91) 97 04/22/18 07:52 81 18 100 Nasal Cannula 3.0 32 04/22/18 07:42 80 20 99 Nasal Cannula 3.0 32 04/22/18 07:41 99 Nasal Cannula 3.0 32 04/22/18 07:41 Nasal Cannula 3.0 32 04/22/18 04:00 3.0 04/22/18 04:00 Venturi Mask 04/22/18 04:00 82 04/22/18 01:48 82 20 100 Nasal Cannula 3.0 32 04/22/18 01:37 82 20 96 Nasal Cannula 3.0 32 04/22/18 00:00 4.0 30 04/22/18 00:00 82 04/22/18 00:00 Venturi Mask 04/22/18 00:00 98.1 80 22 130/60 (83) 100 04/21/18 21:02 80 129/87 04/21/18 20:00 4.0 30 04/21/18 20:00 90 04/21/18 20:00 97.9 80 24 129/87 (101) 100 04/21/18 20:00 Venturi Mask 04/21/18 19:51 Venturi Mask 6.0 35 04/21/18 19:51 98 Venturi Mask 6.0 35 04/21/18 19:50 83 20 98 Venturi Mask 6.0 35 04/21/18 19:29 84 20 96 Venturi Mask 6.0 35 04/21/18 16:00 80 04/21/18 16:00 4.0 30 04/21/18 16:00 Venturi Mask 04/21/18 16:00 97.9 81 22 118/47 (70) 99 04/21/18 14:02 81 20 100 Venturi Mask 6.0 35 04/21/18 14:00 83 18 114/4 (40) 100 04/21/18 13:51 83 22 100 Venturi Mask 8.0 40 04/21/18 13:00 81 18 98/60 (73) 100 04/21/18 12:00 Venturi Mask 04/21/18 12:00 98.6 80 19 127/43 (71) 100 04/21/18 12:00 78 04/21/18 12:00 40 04/21/18 11:00 80 18 141/55 (83) 100 Height (Feet): 5 Height (Inches): 2.00 Weight (Pounds): 124 General Appearance: no acute distress HEENT: mucous membranes moist, other - no teeth Respiratory/Chest: lungs clear, other - oxygen by nasal cannula Cardiovascular: normal rate Abdomen: soft, non tender Extremities: no edema Neurologic/Psychiatric: alert, oriented x 3, responsive Microbiology Date/Time Source Procedure Growth Status 04/19/18 21:25 Blood Blood Culture - Preliminary NO GROWTH AFTER 48 HOURS Resulted 04/19/18 21:10 Blood Blood Culture - Preliminary NO GROWTH AFTER 48 HOURS Resulted 04/20/18 21:30 Nasal Not Otherwise Specified Influenza Types A,B Antigen (ROSA) - Final Complete 04/19/18 22:50 Urine,Clean Catch Urine Culture - Final Pseudomonas Aeruginosa Complete 04/19/18 23:30 Rectum VRE Culture - Final NO VANCOMYCIN RESISTANT ENTEROCOCCUS ... Complete Laboratory Tests Test 04/22/18 01:00 04/22/18 04:09 Urine Eosinophils Negative (NONE SEEN) White Blood Count 10.0 K/UL (4.8-10.8) Red Blood Count 2.87 M/UL (4.20-5.40) L Hemoglobin 8.0 G/DL (12.0-16.0) L Hematocrit 24.4 % (37.0-47.0) L Mean Corpuscular Volume 85 FL (80-99) Mean Corpuscular Hemoglobin 27.8 PG (27.0-31.0) Mean Corpuscular Hemoglobin Concent 32.7 G/DL (32.0-36.0) Red Cell Distribution Width 12.9 % (11.6-14.8) Platelet Count 184 K/UL (150-450) Mean Platelet Volume 7.1 FL (6.5-10.1) Neutrophils (%) (Auto) 63.7 % (45.0-75.0) Lymphocytes (%) (Auto) 17.2 % (20.0-45.0) L Monocytes (%) (Auto) 12.1 % (1.0-10.0) H Eosinophils (%) (Auto) 6.0 % (0.0-3.0) H Basophils (%) (Auto) 1.0 % (0.0-2.0) Activated Partial Thromboplast Time > 150 SEC (23-33) *H Sodium Level 141 MMOL/L (136-145) Potassium Level 3.6 MMOL/L (3.5-5.1) Chloride Level 105 MMOL/L (98-107) Carbon Dioxide Level 28 MMOL/L (21-32) Anion Gap 8 mmol/L (5-15) Blood Urea Nitrogen 36 mg/dL (7-18) H Creatinine 1.9 MG/DL (0.55-1.30) H Estimat Glomerular Filtration Rate mL/min (>60) Glucose Level 150 MG/DL (74-106) H Uric Acid 5.4 MG/DL (2.6-7.2) Calcium Level 8.4 MG/DL (8.5-10.1) L Phosphorus Level 4.1 MG/DL (2.5-4.9) Magnesium Level 1.8 MG/DL (1.8-2.4) Total Bilirubin 0.3 MG/DL (0.2-1.0) Direct Bilirubin 0.1 MG/DL (0.0-0.3) Aspartate Amino Transf (AST/SGOT) 9 U/L (15-37) L Alanine Aminotransferase (ALT/SGPT) 24 U/L (12-78) Alkaline Phosphatase 65 U/L (46-116) C-Reactive Protein, Quantitative 8.5 mg/dL (0.00-0.90) H Pro-B-Type Natriuretic Peptide 1576 pg/mL (0-125) H Total Protein 6.3 G/DL (6.4-8.2) L Albumin 2.5 G/DL (3.4-5.0) L Current Medications Medications (Trade) Dose Ordered Sig/Shazia Route PRN Reason Start Time Stop Time Status Last Admin Dose Admin Albuterol/ Ipratropium (Albuterol/ Ipratropium) 3 ml Q4H PRN HHN Shortness of Breath 04/21/18 16:07 04/24/18 16:06 Albuterol/ Ipratropium (Albuterol/ Ipratropium) 3 ml Q6HRT HHN 04/21/18 19:00 04/25/18 12:59 04/22/18 07:43 Aspirin (Ecotrin) 81 mg DAILY ORAL 04/22/18 09:00 05/20/18 08:59 04/22/18 08:28 Atorvastatin Calcium (Lipitor) 80 mg DAILY ORAL 04/22/18 09:00 05/20/18 08:59 04/22/18 08:27 Carvedilol (Coreg) 3.125 mg EVERY 12 HOURS ORAL 04/21/18 21:00 05/20/18 20:59 04/22/18 08:28 Chlorhexidine Gluconate (Monet-Hex 2%) 1 applic DAILY@2000 TOPIC 04/21/18 20:00 05/20/18 19:59 04/21/18 21:02 Clopidogrel Bisulfate (Plavix) 75 mg DAILY ORAL 04/22/18 09:00 05/20/18 08:59 04/22/18 08:27 Dextrose (Dextrose 50%) 25 ml Q30M PRN IV Hypoglycemia 04/21/18 16:30 05/20/18 08:29 Dextrose (Dextrose 50%) 50 ml Q30M PRN IV Hypoglycemia 04/21/18 16:30 05/20/18 08:29 Furosemide (Lasix) 40 mg EVERY 12 HOURS IV 04/21/18 21:00 05/20/18 08:59 04/22/18 08:27 Guaifenesin (Mucinex ER) 600 mg TWICE A DAY ORAL 04/21/18 18:00 05/21/18 17:59 04/22/18 08:27 Heparin Sodium/ Dextrose 500 ml @ 10.977 mls/ hr ADJUST PER PROTOCOL IV 04/22/18 06:00 05/20/18 16:05 04/22/18 06:25 Insulin Aspart (NovoLOG) BEFORE MEALS AND HS SUBQ 04/21/18 16:30 05/20/18 11:29 04/21/18 21:05 Iron Sucrose 100 mg/Sodium Chloride 60 ml @ 240 mls/hr BEDTIME IV 04/21/18 21:00 04/23/18 21:14 04/21/18 21:03 Pantoprazole (Protonix) 40 mg DAILY ORAL 04/22/18 09:00 05/20/18 08:59 04/22/18 08:27 Piperacillin Sod/ Tazobactam Sod 3.375 gm/Sodium Chloride 110 ml @ 27.5 mls/hr EVERY 8 HOURS IVPB 04/21/18 22:00 04/25/18 11:59 04/22/18 06:24 Spironolactone (Aldactone) 25 mg DAILY ORAL 04/22/18 09:00 05/21/18 08:59 04/22/18 08:27 Matt Elkins MD Apr 22, 2018 10:11
--- NOTE | 2018-04-22 10:17 | NUR ---
CASE MANAGEMENT: REVIEW SI: ACUTE CHF . PNA T 98.1 HR 82 RR 22 BP 152/61 SAT 97% VENTURI MASK FIO2 32 H/H 8.0/24.4 BUN 36 CR 1.9 IS: LEVAQUIN PO QD ECOTRIN PO QD PLAVIX PO QD HEPARIN IV VENOFER IV QHS COREG PO Q12HR LASIX IV Q12HR STEP DOWN UNIT STATUS DCP: PATIENT IS FROM HOME
--- NOTE | 2018-04-22 11:29 | GI Progress Note ---
Assessment/Plan Problems: (1) Anemia ICD Codes: D64.9 - Anemia, unspecified SNOMED: 085935141 (2) Respiratory distress ICD Codes: R06.00 - Dyspnea, unspecified SNOMED: 377199164 (3) Acute on chronic renal failure ICD Codes: N17.9 - Acute on chronic renal failure; N18.9 - Chronic kidney disease, unspecified SNOMED: 962313483 Status: progressing, unchanged Status Narrative Discussed with Dr. Anthony Assessment/Plan GI procedures if necessary, but will defer at this time given elevated troponin levels and will require cardiac clearance prior. Pulmonary support on ADA diet OB stool r/o GI bleed venofer monitor H&H, prn transfusions bowel regime ppi fu labs The patient was seen and examined at bedside and all new and available data was reviewed in the patients chart. I agree with the above findings, impression and plan. (Patient seen earlier today. Signature stamp does not reflect patient encounter time.). - Norman Anthony MD Subjective Subjective Limited Objective Last 24 Hour Vital Signs Date Time Temp Pulse Resp B/P (MAP) Pulse Ox O2 Delivery O2 Flow Rate FiO2 04/22/18 10:00 Venturi Mask 04/22/18 08:28 82 152/61 04/22/18 08:00 98.1 82 22 152/61 (91) 97 04/22/18 08:00 Venturi Mask 04/22/18 08:00 3.0 04/22/18 07:52 81 18 100 Nasal Cannula 3.0 32 04/22/18 07:42 80 20 99 Nasal Cannula 3.0 32 04/22/18 07:41 99 Nasal Cannula 3.0 32 04/22/18 07:41 Nasal Cannula 3.0 32 04/22/18 04:00 3.0 04/22/18 04:00 Venturi Mask 04/22/18 04:00 82 04/22/18 01:48 82 20 100 Nasal Cannula 3.0 32 04/22/18 01:37 82 20 96 Nasal Cannula 3.0 32 04/22/18 00:00 4.0 30 04/22/18 00:00 82 04/22/18 00:00 Venturi Mask 04/22/18 00:00 98.1 80 22 130/60 (83) 100 04/21/18 21:02 80 129/87 04/21/18 20:00 4.0 30 04/21/18 20:00 90 04/21/18 20:00 97.9 80 24 129/87 (101) 100 04/21/18 20:00 Venturi Mask 04/21/18 19:51 Venturi Mask 6.0 35 04/21/18 19:51 98 Venturi Mask 6.0 35 04/21/18 19:50 83 20 98 Venturi Mask 6.0 35 04/21/18 19:29 84 20 96 Venturi Mask 6.0 35 04/21/18 16:00 80 04/21/18 16:00 4.0 30 04/21/18 16:00 Venturi Mask 04/21/18 16:00 97.9 81 22 118/47 (70) 99 04/21/18 14:02 81 20 100 Venturi Mask 6.0 35 04/21/18 14:00 83 18 114/4 (40) 100 04/21/18 13:51 83 22 100 Venturi Mask 8.0 40 04/21/18 13:00 81 18 98/60 (73) 100 04/21/18 12:00 Venturi Mask 04/21/18 12:00 98.6 80 19 127/43 (71) 100 04/21/18 12:00 78 04/21/18 12:00 40 Intake and Output 04/21/18 04/22/18 18:59 06:59 Intake Total 1384.048 ml 737.208 ml Output Total 3660 ml 1300 ml Balance -2275.952 ml -562.792 ml Intake Oral 1150 ml 350 ml IV Total 234.048 ml 387.208 ml Output Urine Total 3660 ml 1300 ml Laboratory Tests Test 04/22/18 01:00 04/22/18 04:09 Urine Eosinophils Negative (NONE SEEN) White Blood Count 10.0 K/UL (4.8-10.8) Red Blood Count 2.87 M/UL (4.20-5.40) L Hemoglobin 8.0 G/DL (12.0-16.0) L Hematocrit 24.4 % (37.0-47.0) L Mean Corpuscular Volume 85 FL (80-99) Mean Corpuscular Hemoglobin 27.8 PG (27.0-31.0) Mean Corpuscular Hemoglobin Concent 32.7 G/DL (32.0-36.0) Red Cell Distribution Width 12.9 % (11.6-14.8) Platelet Count 184 K/UL (150-450) Mean Platelet Volume 7.1 FL (6.5-10.1) Neutrophils (%) (Auto) 63.7 % (45.0-75.0) Lymphocytes (%) (Auto) 17.2 % (20.0-45.0) L Monocytes (%) (Auto) 12.1 % (1.0-10.0) H Eosinophils (%) (Auto) 6.0 % (0.0-3.0) H Basophils (%) (Auto) 1.0 % (0.0-2.0) Activated Partial Thromboplast Time > 150 SEC (23-33) *H Sodium Level 141 MMOL/L (136-145) Potassium Level 3.6 MMOL/L (3.5-5.1) Chloride Level 105 MMOL/L (98-107) Carbon Dioxide Level 28 MMOL/L (21-32) Anion Gap 8 mmol/L (5-15) Blood Urea Nitrogen 36 mg/dL (7-18) H Creatinine 1.9 MG/DL (0.55-1.30) H Estimat Glomerular Filtration Rate mL/min (>60) Glucose Level 150 MG/DL (74-106) H Uric Acid 5.4 MG/DL (2.6-7.2) Calcium Level 8.4 MG/DL (8.5-10.1) L Phosphorus Level 4.1 MG/DL (2.5-4.9) Magnesium Level 1.8 MG/DL (1.8-2.4) Total Bilirubin 0.3 MG/DL (0.2-1.0) Direct Bilirubin 0.1 MG/DL (0.0-0.3) Aspartate Amino Transf (AST/SGOT) 9 U/L (15-37) L Alanine Aminotransferase (ALT/SGPT) 24 U/L (12-78) Alkaline Phosphatase 65 U/L (46-116) C-Reactive Protein, Quantitative 8.5 mg/dL (0.00-0.90) H Pro-B-Type Natriuretic Peptide 1576 pg/mL (0-125) H Total Protein 6.3 G/DL (6.4-8.2) L Albumin 2.5 G/DL (3.4-5.0) L Height (Feet): 5 Height (Inches): 2.00 Weight (Pounds): 124 General Appearance: no apparent distress Cardiovascular: normal rate Respiratory/Chest: normal breath sounds, no respiratory distress, other - Venturi mask Abdominal Exam: normal bowel sounds, non tender, soft Extremities: non-tender Renee Crespo NP Apr 22, 2018 11:29
[2018-04-22 12:00] VITALS: BP 145/61
--- NOTE | 2018-04-22 12:19 | NUR ---
NURSE NOTES: Spoke to Bob from Pharmacy to let him know that patient has an order for timed PTT at 12pm, but patient is still doing a VQ scan procedure. Ambreen from Lab is also aware.
--- NOTE | 2018-04-22 12:24 | NUR ---
NURSE NOTES: Patient just came back from VQ scan, called lab and spoke to Deepthi that they can take blood now for timed PTT.
--- NOTE | 2018-04-22 12:43 | NUR ---
NURSE NOTES: Spoke to Edvin from Pharmacy that patient refused for PTT to be drawn thru Peripheral IV, was told to speak to laboratory. Spoke to Deepthi from Laboratory. Patient refused for the timed PTT to be drawn thru Peripheral IV. Deepthi said it is okay for the IV fluid to be stopped then after 10 minutes, PTT will be drawn from the PICC.
--- NOTE | 2018-04-22 12:59 | NUR ---
RD ASSESSMENT & RECOMMENDATIONS SEE CARE ACTIVITY FOR COMPLETE ASSESSMENT DAILY ESTIMATED NEEDS: Needs based on DM, CHF/ 56kg 25-30 kcals/kg 9831-8571 total kcals 1-1.3 g protein/kg 56-73 g total protein 20-22 mL/kg 6464-1223 total fluid mLs NUTRITION DIAGNOSIS: Altered nutrition related lab values R/T diabetes and CHF as evidenced by elev POC glu (98-215), elev BNP (1576), on diuretics. CURRENT DIET:CCHO LOW PO DIET RECOMMENDATIONS: LOW NA, CCHO LOW/ texture per PATTERN ILLUSTRATOR ADDITIONAL RECOMMENDATIONS: * Calibrated bedscale wt -daily wts per policy- CHF dx * Monitor lytes closely w/ diuretics, replete as needed
--- NOTE | 2018-04-22 13:11 | NUR ---
NURSE NOTES: Timed PTT drawn through PICC Line and sent to laboratory.
--- NOTE | 2018-04-22 13:39 | NUR ---
ST NOTE: DUE TO SCHEDULING CONFLICT, UNABLE TO COMPLETE VIDEOSWALLOW STUDY AT THIS TIME. SPOKE TO THE PT AT BEDSIDE. PT REPORTED THAT NO SWALLOWING DIFFICULTY AND WANTED TO HOLD OFF ON VIDEOSWALLOW STUDY. SPOKE TO PT AND EDUCATED PT THAT VIDEOSWALLOW STUDY NOT ONLY ASSESS PT'S SWALLOWING FUNCTION AND ALSO OBJECTIVELY VIEW ESOPHAGEAL PHASE RE:REFLUX. PT VERBALIZED THE GOOD UNDERSTANDING OF INFO GIVEN. RECOMMENDATIONS: 1. CONSIDER ENT CONSULT OP RE: CHRONIC COUGH 2. CONSIDER VIDEOSWALLOW STUDY OP (DO NOT HOLD UP THE DISCHARGE). D/W PT AND RNJOE.
[2018-04-22] MEDS ORDERED: Heparin 5000 units/ml inj IV SCH (14:15)
--- NOTE | 2018-04-22 14:23 | Nephrology Progress Note ---
Assessment/Plan Problem List: (1) ARF (acute renal failure) (2) Diabetic nephropathy (3) Anemia (4) CHF exacerbation (5) Cardiomyopathy (6) Pacemaker Assessment Renal failure- likely acute on chronic Likely Diabetic Nephropathy 3+ proteinuria Anemia Etiology?? Respiratory failure, acute / Pulmonary edema / Pneumonia CHF exacerbation NSTEMI (non-ST elevated myocardial infarction) Diabetes mellitus Leukocytosis Hx of BKA Plan Optimize cardiac and pulmonary status avoid Nephrotoxics BP and BS in check increase coreg hickman echo 40 5 ej fx urine studies venofer IV Subjective ROS Limited/Unobtainable: No Constitutional: Reports: malaise Objective Objective Last 24 Hour Vital Signs Date Time Temp Pulse Resp B/P (MAP) Pulse Ox O2 Delivery O2 Flow Rate FiO2 04/22/18 13:21 89 18 100 Nasal Cannula 3.0 32 04/22/18 13:11 89 20 98 Nasal Cannula 3.0 32 04/22/18 12:00 Venturi Mask 04/22/18 12:00 97.5 91 20 145/61 (89) 94 04/22/18 12:00 3.0 04/22/18 10:33 84 04/22/18 10:00 Venturi Mask 04/22/18 08:28 82 152/61 04/22/18 08:00 98.1 82 22 152/61 (91) 97 04/22/18 08:00 Venturi Mask 04/22/18 08:00 3.0 04/22/18 07:52 81 18 100 Nasal Cannula 3.0 32 04/22/18 07:42 80 20 99 Nasal Cannula 3.0 32 04/22/18 07:41 99 Nasal Cannula 3.0 32 04/22/18 07:41 Nasal Cannula 3.0 32 04/22/18 04:00 3.0 04/22/18 04:00 Venturi Mask 04/22/18 04:00 82 04/22/18 01:48 82 20 100 Nasal Cannula 3.0 32 04/22/18 01:37 82 20 96 Nasal Cannula 3.0 32 04/22/18 00:00 4.0 30 04/22/18 00:00 82 04/22/18 00:00 Venturi Mask 04/22/18 00:00 98.1 80 22 130/60 (83) 100 04/21/18 21:02 80 129/87 04/21/18 20:00 4.0 30 04/21/18 20:00 90 04/21/18 20:00 97.9 80 24 129/87 (101) 100 04/21/18 20:00 Venturi Mask 04/21/18 19:51 Venturi Mask 6.0 35 04/21/18 19:51 98 Venturi Mask 6.0 35 04/21/18 19:50 83 20 98 Venturi Mask 6.0 35 04/21/18 19:29 84 20 96 Venturi Mask 6.0 35 04/21/18 16:00 80 04/21/18 16:00 4.0 30 04/21/18 16:00 Venturi Mask 04/21/18 16:00 97.9 81 22 118/47 (70) 99 Intake and Output 04/21/18 04/22/18 18:59 06:59 Intake Total 1384.048 ml 737.208 ml Output Total 3660 ml 1300 ml Balance -2275.952 ml -562.792 ml Intake Oral 1150 ml 350 ml IV Total 234.048 ml 387.208 ml Output Urine Total 3660 ml 1300 ml Laboratory Tests 04/22/18 01:00: Urine Eosinophils Negative 04/22/18 04:09: White Blood Count 10.0, Red Blood Count 2.87L, Hemoglobin 8.0L, Hematocrit 24.4L , Mean Corpuscular Volume 85, Mean Corpuscular Hemoglobin 27.8, Mean Corpuscular Hemoglobin Concent 32.7, Red Cell Distribution Width 12.9, Platelet Count 184, Mean Platelet Volume 7.1, Neutrophils (%) (Auto) 63.7, Lymphocytes (% ) (Auto) 17.2L, Monocytes (%) (Auto) 12.1H, Eosinophils (%) (Auto) 6.0H, Basophils (%) (Auto) 1.0, Activated Partial Thromboplast Time > 150*H, Sodium Level 141, Potassium Level 3.6, Chloride Level 105, Carbon Dioxide Level 28, Anion Gap 8, Blood Urea Nitrogen 36H, Creatinine 1.9H, Estimat Glomerular Filtration Rate , Glucose Level 150H, Uric Acid 5.4, Calcium Level 8.4L, Phosphorus Level 4.1, Magnesium Level 1.8, Total Bilirubin 0.3, Direct Bilirubin 0.1, Aspartate Amino Transf (AST/SGOT) 9L, Alanine Aminotransferase ( ALT/SGPT) 24, Alkaline Phosphatase 65, C-Reactive Protein, Quantitative 8.5H, Pro-B-Type Natriuretic Peptide 1576H, Total Protein 6.3L, Albumin 2.5L 04/22/18 13:00: Activated Partial Thromboplast Time 64H Height (Feet): 5 Height (Inches): 2.00 Weight (Pounds): 124 General Appearance: no apparent distress Cardiovascular: tachycardia Respiratory/Chest: decreased breath sounds Abdomen: soft Objective breathing easier Antony Adkins MD Apr 22, 2018 14:23
[2018-04-22 16:00] VITALS: BP 151/66
--- NOTE | 2018-04-22 16:12 | Diagnostic Imaging Report ---
Indication: Chest pain Technique: A ventilation/perfusion scan was performed. Ventilation was performed utilizing 40 mCi of Technetium 99m-DTPA. Perfusion was performed with 5 mCi of technetium 99m-MAA injected intravenously. Multiple side by side projections obtained. Findings: Ventilation is homogeneous. No defects are identified. Perfusion is homogeneous. No defects are identified. Impression: Low probability for pulmonary embolus
--- NOTE | 2018-04-22 18:50 | NUR ---
NURSE NOTES: Received orders from Dr. Cruz to stop heparin drop and Heparin 5000u SubQ BID.
--- NOTE | 2018-04-22 19:20 | NUR ---
NURSE NOTES: Received report from Sarah Prieto RN, pt. in bed awake, A/O x's3-4- able to make needs known, no signs or symptoms of acute cardiac or respiratory distress noted, cardiac monitoring on, pt. appears to be sating well on 4L venturi mask at fio2 at 40%- sating at 98%- no respiratory distress noted, call light within easy reach, bed in lowest position, bed alarm on, side rails up x's3- safety brakes engaged, Jenkins intact and draining to gravity, SIMONA PICC Intact and patent- heplock, no evidence of bleeding noted, pt. appears to be resting comfortably, safety measures continued, will continue with plan of care.
--- NOTE | 2018-04-22 19:26 | NUR ---
HAND-OFF: Report given to JERALD Pina. Patient stable and in no apparent distress.
[2018-04-22 20:00] VITALS: BP 144/75
--- NOTE | 2018-04-22 20:31 | General Progress Note ---
Assessment/Plan Assessment/Plan Assessment and Recommendations: # Leukocytosis/Elevated white blood cell count, likely related to underlying stress reaction, smoking, or underlying infection --> Peripheral has been ordered, results reviewed, no blasts noted --> trend wbc 15.6-->18.4-->10.2-->10 --> Medications have been reviewed --> Imaging has been reviewed --> Blood cultures and urine reviewed --> has been started on Zosyn --> atul ID recs # Anemia of iron deficiency though borderline --> Anemia w/u has been ordered / reviewed --> No evidence of hemolysis is noted --> peripheral smear has been reviewed. --> Hgb goal >7. Transfuse prn --> Hgb trend 11.5-->10.2--> 8.3-->8 --> iron iv has been started x3d # Acute respiratory failure --> was on BiPAP mask, now on Venturi mask. # Acute systolic congestive heart failure. --> medical therapy including carvedilol, NICK inhibitors/ ARBs as well as spironolactone --> diuresis as per cards # Slight elevation of troponin I level in this patient could be type [address]- elevation myocardial infarction or due to myocarditis. 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 # Bilateral pleural effusion. The timing of this note does not necessarily reflect the time of the patient was seen Greatly appreciate consultation! Subjective Constitutional: Denies: no symptoms, chills, diaphoresis, fever, malaise, weakness, other HEENT: Denies: no symptoms, eye pain, blurred vision, tearing, double vision, ear pain, ear discharge, nose pain, nose congestion, throat pain, throat swelling, mouth pain, mouth swelling, other Cardiovascular: Denies: no symptoms, chest pain, edema, irregular heart rate, lightheadedness, palpitations, syncope, other Respiratory: Denies: no symptoms, cough, orthopnea, shortness of breath, SOB with excertion, SOB at rest, sputum, stridor, wheezing, other Gastrointestinal/Abdominal: Denies: no symptoms, abdomen distended, abdominal pain, black stools, tarry stools, blood in stool, constipated, diarrhea, difficulty swallowing, nausea, poor appetite, poor fluid intake, rectal bleeding , vomiting, other Genitourinary: Denies: no symptoms, burning, discharge, frequency, flank pain, hematuria, incontinence, pain, urgency, other Neurologic/Psychiatric: Denies: no symptoms, anxiety, depressed, emotional problems, headache, numbness, paresthesia, pre-existing deficit, seizure, tingling, tremors, weakness, other Endocrine: Denies: no symptoms, excessive sweating, flushing, intolerance to cold, intolerance to heat, increased hunger, increased thirst, increased urine, unexplained weight gain, unexplained weight loss, other Allergies: Coded Allergies: SULFA (SULFONAMIDE ANTIBIOTICS) (Verified Allergy, Severe, ITCHING AND RASH BREAKOUT, 01/24/14) Subjective 04/21: on heparin gtt as per pulm until vq is negative, otherwise anemia panel reviewed, started on iron iv 04/22: heparin gtt was stopped, started on hep sq, no fevers or chills, remains on iron Objective Last 24 Hour Vital Signs Date Time Temp Pulse Resp B/P (MAP) Pulse Ox O2 Delivery O2 Flow Rate FiO2 04/22/18 18:49 83 18 99 Nasal Cannula 3.0 32 04/22/18 18:37 83 18 98 Nasal Cannula 3.0 32 04/22/18 18:37 Nasal Cannula 3.0 32 04/22/18 18:37 98 Nasal Cannula 3.0 32 04/22/18 18:00 Venturi Mask 04/22/18 16:00 Venturi Mask 04/22/18 16:00 3.0 04/22/18 16:00 99.2 91 20 151/66 (94) 98 04/22/18 15:31 95 04/22/18 13:21 89 18 100 Nasal Cannula 3.0 32 04/22/18 13:11 89 20 98 Nasal Cannula 3.0 32 04/22/18 12:04 85 04/22/18 12:00 Venturi Mask 04/22/18 12:00 97.5 91 20 145/61 (89) 94 04/22/18 12:00 3.0 04/22/18 10:33 84 04/22/18 10:00 Venturi Mask 04/22/18 08:28 82 152/61 04/22/18 08:00 98.1 82 22 152/61 (91) 97 04/22/18 08:00 Venturi Mask 04/22/18 08:00 3.0 04/22/18 07:52 81 18 100 Nasal Cannula 3.0 32 04/22/18 07:42 80 20 99 Nasal Cannula 3.0 32 04/22/18 07:41 99 Nasal Cannula 3.0 32 04/22/18 07:41 Nasal Cannula 3.0 32 04/22/18 04:00 3.0 04/22/18 04:00 Venturi Mask 04/22/18 04:00 82 04/22/18 01:48 82 20 100 Nasal Cannula 3.0 32 04/22/18 01:37 82 20 96 Nasal Cannula 3.0 32 04/22/18 00:00 4.0 30 04/22/18 00:00 82 04/22/18 00:00 Venturi Mask 04/22/18 00:00 98.1 80 22 130/60 (83) 100 04/21/18 21:02 80 129/87 Intake and Output 04/21/18 04/22/18 19:00 07:00 Intake Total 1356.548 ml 728.240 ml Output Total 3510 ml 1300 ml Balance -2153.452 ml -571.760 ml Intake Oral 1150 ml 350 ml IV Total 206.548 ml 378.240 ml Output Urine Total 3510 ml 1300 ml Laboratory Tests 04/22/18 01:00: Urine Eosinophils Negative 04/22/18 04:09: White Blood Count 10.0, Red Blood Count 2.87L, Hemoglobin 8.0L, Hematocrit 24.4L , Mean Corpuscular Volume 85, Mean Corpuscular Hemoglobin 27.8, Mean Corpuscular Hemoglobin Concent 32.7, Red Cell Distribution Width 12.9, Platelet Count 184, Mean Platelet Volume 7.1, Neutrophils (%) (Auto) 63.7, Lymphocytes (% ) (Auto) 17.2L, Monocytes (%) (Auto) 12.1H, Eosinophils (%) (Auto) 6.0H, Basophils (%) (Auto) 1.0, Activated Partial Thromboplast Time > 150*H, Sodium Level 141, Potassium Level 3.6, Chloride Level 105, Carbon Dioxide Level 28, Anion Gap 8, Blood Urea Nitrogen 36H, Creatinine 1.9H, Estimat Glomerular Filtration Rate , Glucose Level 150H, Uric Acid 5.4, Calcium Level 8.4L, Phosphorus Level 4.1, Magnesium Level 1.8, Total Bilirubin 0.3, Direct Bilirubin 0.1, Aspartate Amino Transf (AST/SGOT) 9L, Alanine Aminotransferase ( ALT/SGPT) 24, Alkaline Phosphatase 65, C-Reactive Protein, Quantitative 8.5H, Pro-B-Type Natriuretic Peptide 1576H, Total Protein 6.3L, Albumin 2.5L 04/22/18 13:00: Activated Partial Thromboplast Time 64H Height (Feet): 5 Height (Inches): 2.00 Weight (Pounds): 124 Objective General Appearance: A+O x3, NAD HEENT: normocephalic, atraumatic Neck: non-tender, normal alignment Respiratory/Chest: venturi-mask, diminished breath sounds in both lungs. 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 Loi Shepherd MD Apr 22, 2018 20:31
[2018-04-22] MEDS: Dyna-Hex 2% Top Sol 2oz TOPIC SCH (20:44)
[2018-04-22] MEDS ORDERED: Heparin 5000 units/ml inj SUBQ SCH (21:00)
[2018-04-22] MEDS ORDERED: Carvedilol 6.25mg Tab ORAL SCH (21:00)
[2018-04-22] MEDS: Iron Sucrose 100 MG in NS 55 ML IV SCH (21:06)
--- NOTE | 2018-04-22 21:36 | General Progress Note ---
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 SNOMED: 73220341, 133881027 (7) Cardiomyopathy ICD Codes: I42.9 - Cardiomyopathy, unspecified SNOMED: 06471401 (8) Pacemaker ICD Codes: Z95.0 - Presence of cardiac pacemaker SNOMED: 785284401 (9) CHF exacerbation ICD Codes: I50.9 - Heart failure, unspecified SNOMED: 49524447 (10) Diabetes mellitus ICD Codes: E11.9 - Diabetes mellitus SNOMED: 20828424 (11) Valvular cardiomyopathy ICD Codes: I42.8 - Valvular cardiomyopathy SNOMED: 63570743 (12) Hypokalemia ICD Codes: E87.6 - Hypokalemia SNOMED: 45501362 (13) ARF (acute renal failure) ICD Codes: N17.9 - ARF (acute renal failure) SNOMED: 50383878 Status: progressing Assessment/Plan sugar is improving resp insuff chf htn cardiomyopathy valvular insuffcieny pulm edema is improving weak needs rehab decrease oxygen requirement Subjective ROS Limited/Unobtainable: Yes Allergies: Coded Allergies: SULFA (SULFONAMIDE ANTIBIOTICS) (Verified Allergy, Severe, ITCHING AND RASH BREAKOUT, 01/24/14) Objective Last 24 Hour Vital Signs Date Time Temp Pulse Resp B/P (MAP) Pulse Ox O2 Delivery O2 Flow Rate FiO2 04/22/18 20:45 84 144/75 04/22/18 20:00 98.2 84 24 144/75 (98) 99 04/22/18 20:00 92 04/22/18 20:00 3.0 04/22/18 20:00 Venturi Mask 04/22/18 18:49 83 18 99 Nasal Cannula 3.0 32 04/22/18 18:37 83 18 98 Nasal Cannula 3.0 32 04/22/18 18:37 Nasal Cannula 3.0 32 04/22/18 18:37 98 Nasal Cannula 3.0 32 04/22/18 18:00 Venturi Mask 04/22/18 16:00 Venturi Mask 04/22/18 16:00 3.0 04/22/18 16:00 99.2 91 20 151/66 (94) 98 04/22/18 15:31 95 04/22/18 13:21 89 18 100 Nasal Cannula 3.0 32 04/22/18 13:11 89 20 98 Nasal Cannula 3.0 32 04/22/18 12:04 85 04/22/18 12:00 Venturi Mask 04/22/18 12:00 97.5 91 20 145/61 (89) 94 04/22/18 12:00 3.0 04/22/18 10:33 84 04/22/18 10:00 Venturi Mask 04/22/18 08:28 82 152/61 04/22/18 08:00 98.1 82 22 152/61 (91) 97 04/22/18 08:00 Venturi Mask 04/22/18 08:00 3.0 04/22/18 07:52 81 18 100 Nasal Cannula 3.0 32 04/22/18 07:42 80 20 99 Nasal Cannula 3.0 32 04/22/18 07:41 99 Nasal Cannula 3.0 32 04/22/18 07:41 Nasal Cannula 3.0 32 04/22/18 04:00 3.0 04/22/18 04:00 Venturi Mask 04/22/18 04:00 82 04/22/18 01:48 82 20 100 Nasal Cannula 3.0 32 04/22/18 01:37 82 20 96 Nasal Cannula 3.0 32 04/22/18 00:00 4.0 30 04/22/18 00:00 82 04/22/18 00:00 Venturi Mask 04/22/18 00:00 98.1 80 22 130/60 (83) 100 Intake and Output 04/21/18 04/22/18 19:00 07:00 Intake Total 1356.548 ml 728.240 ml Output Total 3510 ml 1300 ml Balance -2153.452 ml -571.760 ml Intake Oral 1150 ml 350 ml IV Total 206.548 ml 378.240 ml Output Urine Total 3510 ml 1300 ml Laboratory Tests 04/22/18 01:00: Urine Eosinophils Negative 04/22/18 04:09: White Blood Count 10.0, Red Blood Count 2.87L, Hemoglobin 8.0L, Hematocrit 24.4L , Mean Corpuscular Volume 85, Mean Corpuscular Hemoglobin 27.8, Mean Corpuscular Hemoglobin Concent 32.7, Red Cell Distribution Width 12.9, Platelet Count 184, Mean Platelet Volume 7.1, Neutrophils (%) (Auto) 63.7, Lymphocytes (% ) (Auto) 17.2L, Monocytes (%) (Auto) 12.1H, Eosinophils (%) (Auto) 6.0H, Basophils (%) (Auto) 1.0, Activated Partial Thromboplast Time > 150*H, Sodium Level 141, Potassium Level 3.6, Chloride Level 105, Carbon Dioxide Level 28, Anion Gap 8, Blood Urea Nitrogen 36H, Creatinine 1.9H, Estimat Glomerular Filtration Rate , Glucose Level 150H, Uric Acid 5.4, Calcium Level 8.4L, Phosphorus Level 4.1, Magnesium Level 1.8, Total Bilirubin 0.3, Direct Bilirubin 0.1, Aspartate Amino Transf (AST/SGOT) 9L, Alanine Aminotransferase ( ALT/SGPT) 24, Alkaline Phosphatase 65, C-Reactive Protein, Quantitative 8.5H, Pro-B-Type Natriuretic Peptide 1576H, Total Protein 6.3L, Albumin 2.5L 04/22/18 13:00: Activated Partial Thromboplast Time 64H Height (Feet): 5 Height (Inches): 2.00 Weight (Pounds): 124 Cardiovascular: normal rate Respiratory/Chest: lungs clear Abdomen: soft Светлана Vazquez MD Apr 22, 2018 21:36
--- NOTE | 2018-04-22 22:00 | NUR ---
HAND-OFF: Report given to My RN, pt. remains stable and no signs of distress noted. pt. transferred to room 301 bed 2.
--- NOTE | 2018-04-22 23:52 | Cardiology Progress Note ---
Assessment/Plan Assessment/Plan 1. Acute systolic congestive heart failure, LVEF at 35% to 40% with associated WMA. Continue guideline directed medical therapy including carvedilol, NICK inhibitors/ ARBs as well as spironolactone. Pro-BNP is on the downtrend. 2. Slight elevation of troponin I level in this patient could be type [address]- elevation myocardial infarction or due to myocarditis. 3. Moderate pericardial effusion with no echocardiographic or clinical evidence of pericardial tamponade. 4. Chronic kidney disease. Creatinine of 1.9. 5. 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 6. Bilateral pleural effusion. 7. Acute respiratory failure, resolved. Subjective Subjective Sinus rhythm at rate of 84. On venturi mask with FiO2 of 32. Objective Last 24 Hour Vital Signs Date Time Temp Pulse Resp B/P (MAP) Pulse Ox O2 Delivery O2 Flow Rate FiO2 04/22/18 20:45 84 144/75 04/22/18 20:00 98.2 84 24 144/75 (98) 99 04/22/18 20:00 92 04/22/18 20:00 3.0 04/22/18 20:00 Venturi Mask 04/22/18 18:49 83 18 99 Nasal Cannula 3.0 32 04/22/18 18:37 83 18 98 Nasal Cannula 3.0 32 04/22/18 18:37 Nasal Cannula 3.0 32 04/22/18 18:37 98 Nasal Cannula 3.0 32 04/22/18 18:00 Venturi Mask 04/22/18 16:00 Venturi Mask 04/22/18 16:00 3.0 04/22/18 16:00 99.2 91 20 151/66 (94) 98 04/22/18 15:31 95 04/22/18 13:21 89 18 100 Nasal Cannula 3.0 32 04/22/18 13:11 89 20 98 Nasal Cannula 3.0 32 04/22/18 12:04 85 04/22/18 12:00 Venturi Mask 04/22/18 12:00 97.5 91 20 145/61 (89) 94 04/22/18 12:00 3.0 04/22/18 10:33 84 04/22/18 10:00 Venturi Mask 04/22/18 08:28 82 152/61 04/22/18 08:00 98.1 82 22 152/61 (91) 97 04/22/18 08:00 Venturi Mask 04/22/18 08:00 3.0 04/22/18 07:52 81 18 100 Nasal Cannula 3.0 32 04/22/18 07:42 80 20 99 Nasal Cannula 3.0 32 04/22/18 07:41 99 Nasal Cannula 3.0 32 04/22/18 07:41 Nasal Cannula 3.0 32 04/22/18 04:00 3.0 04/22/18 04:00 Venturi Mask 04/22/18 04:00 82 04/22/18 01:48 82 20 100 Nasal Cannula 3.0 32 04/22/18 01:37 82 20 96 Nasal Cannula 3.0 32 04/22/18 00:00 4.0 30 04/22/18 00:00 82 04/22/18 00:00 Venturi Mask 04/22/18 00:00 98.1 80 22 130/60 (83) 100 Intake and Output 04/21/18 04/22/18 19:00 07:00 Intake Total 1356.548 ml 728.240 ml Output Total 3510 ml 1300 ml Balance -2153.452 ml -571.760 ml Intake Oral 1150 ml 350 ml IV Total 206.548 ml 378.240 ml Output Urine Total 3510 ml 1300 ml 2D Echo: EF 40%, Mild LVH/LAE, Medium Leslie.Eff. no tamponade, RVSP 35, Grade I LVDD Laboratory Tests Test 04/22/18 01:00 04/22/18 04:09 04/22/18 13:00 Urine Eosinophils Negative (NONE SEEN) White Blood Count 10.0 K/UL (4.8-10.8) Red Blood Count 2.87 M/UL (4.20-5.40) L Hemoglobin 8.0 G/DL (12.0-16.0) L Hematocrit 24.4 % (37.0-47.0) L Mean Corpuscular Volume 85 FL (80-99) Mean Corpuscular Hemoglobin 27.8 PG (27.0-31.0) Mean Corpuscular Hemoglobin Concent 32.7 G/DL (32.0-36.0) Red Cell Distribution Width 12.9 % (11.6-14.8) Platelet Count 184 K/UL (150-450) Mean Platelet Volume 7.1 FL (6.5-10.1) Neutrophils (%) (Auto) 63.7 % (45.0-75.0) Lymphocytes (%) (Auto) 17.2 % (20.0-45.0) L Monocytes (%) (Auto) 12.1 % (1.0-10.0) H Eosinophils (%) (Auto) 6.0 % (0.0-3.0) H Basophils (%) (Auto) 1.0 % (0.0-2.0) Activated Partial Thromboplast Time > 150 SEC (23-33) *H 64 SEC (23-33) H Sodium Level 141 MMOL/L (136-145) Potassium Level 3.6 MMOL/L (3.5-5.1) Chloride Level 105 MMOL/L (98-107) Carbon Dioxide Level 28 MMOL/L (21-32) Anion Gap 8 mmol/L (5-15) Blood Urea Nitrogen 36 mg/dL (7-18) H Creatinine 1.9 MG/DL (0.55-1.30) H Estimat Glomerular Filtration Rate mL/min (>60) Glucose Level 150 MG/DL (74-106) H Uric Acid 5.4 MG/DL (2.6-7.2) Calcium Level 8.4 MG/DL (8.5-10.1) L Phosphorus Level 4.1 MG/DL (2.5-4.9) Magnesium Level 1.8 MG/DL (1.8-2.4) Total Bilirubin 0.3 MG/DL (0.2-1.0) Direct Bilirubin 0.1 MG/DL (0.0-0.3) Aspartate Amino Transf (AST/SGOT) 9 U/L (15-37) L Alanine Aminotransferase (ALT/SGPT) 24 U/L (12-78) Alkaline Phosphatase 65 U/L (46-116) C-Reactive Protein, Quantitative 8.5 mg/dL (0.00-0.90) H Pro-B-Type Natriuretic Peptide 1576 pg/mL (0-125) H Total Protein 6.3 G/DL (6.4-8.2) L Albumin 2.5 G/DL (3.4-5.0) L Microbiology Date/Time Source Procedure Growth Status 04/22/18 06:00 Sputum Expectorated Gram Stain - Final Resulted 04/22/18 06:00 Sputum Expectorated Sputum Culture Pending Resulted 04/20/18 21:30 Nasal Not Otherwise Specified Influenza Types A,B Antigen (ROSA) - Final Complete Objective HEENT: Atraumatic and normocephalic. Anicteric. Pupils are equal, round, and reactive to light and accommodation. Extraocular muscles intact. NECK: JVP is less than 2 mm. No carotid bruit. Carotid upstrokes 2+ bilaterally. CARDIOVASCULAR: Normal S1 and S2. Regular rate and rhythm. No murmurs, gallops, or rubs. PMI is at fourth intercostal space in the mid clavicular line. LUNGS: Diminished breath sounds in both lungs. ABDOMEN: Soft, nontender, and nondistended. No hepatosplenomegaly. Positive bowel sounds. EXTREMITIES: There is right [id number]-[id number] amputation. Logan Mathur MD Apr 22, 2018 23:52
[2018-04-23] MEDS ORDERED: Albuterol/Ipratropium 3ml neb HHN PRN (00:15)
[2018-04-23 04:00] VITALS: BP 123/63
[2018-04-23 04:38] LABS: BASOPHILS % (AUTO) 1.4 % (0.0-2.0); EOSINOPHILS % (AUTO) 7.8 % (0.0-3.0); HEMATOCRIT 25.3 % (37.0-47.0); HEMOGLOBIN 8.2 G/DL (12.0-16.0); LYMPHOCYTES % (AUTO) 16.9 % (20.0-45.0); MEAN CORPUSCULAR VOLUME 85 FL (80-99); NEUTROPHILS % (AUTO) 61.9 % (45.0-75.0); PLATELET COUNT 195 K/UL (150-450); RED BLOOD COUNT 2.96 M/UL (4.20-5.40); RED CELL DISTRIBUTION WIDTH 13.5 % (11.6-14.8); WHITE BLOOD COUNT 10.2 K/UL (4.8-10.8)
[2018-04-23] MEDS: NovoLOG Insulin Flexpen SUBQ SCH ×4 (06:30→20:52)
[2018-04-23] MEDS: Albuterol/Ipratropium 3ml neb HHN SCH ×3 (07:00→19:00)
--- NOTE | 2018-04-23 07:25 | NUR ---
HAND-OFF: Report given to JERALD Barreto. Pt. is in stable condition. Plan of care endorsed.
--- NOTE | 2018-04-23 07:30 | NUR ---
Report received from outgoing RN, rounds made. Patient alert, oriented x4, semi fowlers position, O2 3L NC in place, no SOB or cough. Patient denies pain or NV. Jenkins patent with yellow clear urine to gravity. Call light in reach, bed in lowest position, will continue to assess.
[2018-04-23 08:00] VITALS: BP 126/63
[2018-04-23] MEDS: Spironolactone 25mg tab ORAL SCH (08:29)
[2018-04-23] MEDS: Aspirin EC 81mg tab ORAL SCH (08:29)
[2018-04-23] MEDS: guaiFENesin ER 600mg tab ORAL SCH ×2 (08:30→17:28)
[2018-04-23] MEDS: Carvedilol 6.25mg Tab ORAL SCH ×2 (08:30→20:54)
[2018-04-23] MEDS: Atorvastatin 80mg tab ORAL SCH (08:30)
[2018-04-23] MEDS: Heparin 5000 units/ml inj SUBQ SCH ×2 (08:34→20:52)
--- NOTE | 2018-04-23 10:24 | Nephrology Progress Note ---
Assessment/Plan Problem List: (1) ARF (acute renal failure) (2) Diabetic nephropathy (3) Anemia (4) CHF exacerbation (5) Cardiomyopathy (6) Pacemaker Assessment Renal failure- likely acute on chronic Likely Diabetic Nephropathy 3+ proteinuria Anemia Etiology?? Respiratory failure, acute / Pulmonary edema / Pneumonia CHF exacerbation NSTEMI (non-ST elevated myocardial infarction) Diabetes mellitus Leukocytosis Hx of BKA Plan Optimize cardiac and pulmonary status avoid Nephrotoxics BP and BS in check increase coreg hickman echo 40 5 ej fx urine studies venofer IV down on lasix dose Subjective ROS Limited/Unobtainable: No Constitutional: Reports: malaise Objective Objective Last 24 Hour Vital Signs Date Time Temp Pulse Resp B/P (MAP) Pulse Ox O2 Delivery O2 Flow Rate FiO2 04/23/18 09:00 Venturi Mask 04/23/18 08:30 84 126/63 04/23/18 08:00 3.0 04/23/18 08:00 99.5 84 18 126/63 (84) 100 04/23/18 07:10 Nasal Cannula 3.0 32 04/23/18 07:10 Nasal Cannula 3.0 32 04/23/18 07:10 97 Nasal Cannula 3.0 32 04/23/18 07:10 Nasal Cannula 3.0 32 04/23/18 04:00 98.9 86 20 123/63 (83) 97 04/23/18 04:00 3.0 04/23/18 01:42 79 16 98 Nasal Cannula 3.0 32 04/23/18 01:31 84 16 97 Nasal Cannula 3.0 32 04/22/18 20:45 84 144/75 04/22/18 20:00 98.2 84 24 144/75 (98) 99 04/22/18 20:00 92 04/22/18 20:00 3.0 04/22/18 20:00 Venturi Mask 04/22/18 18:49 83 18 99 Nasal Cannula 3.0 32 04/22/18 18:37 83 18 98 Nasal Cannula 3.0 32 04/22/18 18:37 Nasal Cannula 3.0 32 04/22/18 18:37 98 Nasal Cannula 3.0 32 04/22/18 18:00 Venturi Mask 04/22/18 16:00 Venturi Mask 04/22/18 16:00 3.0 04/22/18 16:00 99.2 91 20 151/66 (94) 98 04/22/18 15:31 95 04/22/18 13:21 89 18 100 Nasal Cannula 3.0 32 04/22/18 13:11 89 20 98 Nasal Cannula 3.0 32 04/22/18 12:04 85 04/22/18 12:00 Venturi Mask 04/22/18 12:00 97.5 91 20 145/61 (89) 94 04/22/18 12:00 3.0 04/22/18 10:33 84 Intake and Output 04/22/18 04/23/18 19:00 07:00 Intake Total 398.925 ml 360 ml Output Total 1500 ml 400 ml Balance -1101.075 ml -40 ml Intake Oral 260 ml 360 ml IV Total 138.925 ml Output Urine Total 1500 ml 400 ml # Bowel Movements 2 1 Laboratory Tests 04/22/18 13:00: Activated Partial Thromboplast Time 64H 04/23/18 04:00: White Blood Count 10.2, Red Blood Count 2.96L, Hemoglobin 8.2L, Hematocrit 25.3L , Mean Corpuscular Volume 85, Mean Corpuscular Hemoglobin 27.8, Mean Corpuscular Hemoglobin Concent 32.6, Red Cell Distribution Width 13.5, Platelet Count 195, Mean Platelet Volume 7.7, Neutrophils (%) (Auto) 61.9, Lymphocytes (% ) (Auto) 16.9L, Monocytes (%) (Auto) 12.0H, Eosinophils (%) (Auto) 7.8H, Basophils (%) (Auto) 1.4 04/23/18 05:30: Urine Eosinophils [Pending] Height (Feet): 5 Height (Inches): 2.00 Weight (Pounds): 118 General Appearance: no apparent distress Cardiovascular: tachycardia Respiratory/Chest: decreased breath sounds Abdomen: soft Objective breathing easier Antony Adkins MD Apr 23, 2018 10:24
[2018-04-23 12:00] VITALS: BP 136/60
--- NOTE | 2018-04-23 13:15 | NUR ---
NURSE NOTES: Patient alert, oriented x4, calm, on O2 3LNC 95%, no SOB noted, HOB elevated, semi fowlers position, lungs diminished, non-productive cough, tolerating RT treatments as ordered. No pain/NV. Jenkins patent, yellow clear urine. LLE edema improved, no s/s of edema at this time. LLE skin intact, instructed on daily feet checks. Right AKA noted, skin intact. Last BM 04/22. Accu check 150 mg/dl, Novolog 3 units given subcutaneous to SIMONA as ordered, no adverse diabetic reaction noted. Appetite fair. Right PICC double lumen, intact, asymptomatic. Call light in reach, bed in lowest position, will continue to assess.
--- NOTE | 2018-04-23 14:34 | General Progress Note ---
Assessment/Plan Problem List: (1) Cardiomyopathy ICD Codes: I42.9 - Cardiomyopathy, unspecified SNOMED: 77050344 (2) ARF (acute renal failure) ICD Codes: N17.9 - Acute kidney failure, unspecified SNOMED: 23918893 (3) Pulmonary edema ICD Codes: J81.1 - Chronic pulmonary edema SNOMED: 62122053 (4) Diabetes mellitus ICD Codes: E11.9 - Diabetes mellitus SNOMED: 25239693 Assessment/Plan continue to keep off Metformin start Januvia 50 mg daily continue NISS ac / hs Subjective Allergies: Coded Allergies: SULFA (SULFONAMIDE ANTIBIOTICS) (Verified Allergy, Severe, ITCHING AND RASH BREAKOUT, 01/24/14) All Systems: reviewed and negative except above Subjective presented with SOB and admitted with CHF DM is managed by Metformin as OP - stopped after admission due to Cr of 1.8 Objective Last 24 Hour Vital Signs Date Time Temp Pulse Resp B/P (MAP) Pulse Ox O2 Delivery O2 Flow Rate FiO2 04/23/18 13:35 81 18 98 Nasal Cannula 3.0 32 04/23/18 13:20 76 16 96 Nasal Cannula 3.0 32 04/23/18 12:00 3.0 04/23/18 12:00 98.3 81 20 136/60 (85) 95 04/23/18 09:00 Venturi Mask 04/23/18 08:30 84 126/63 04/23/18 08:00 3.0 04/23/18 08:00 99.5 84 18 126/63 (84) 100 04/23/18 07:10 Nasal Cannula 3.0 32 04/23/18 07:10 Nasal Cannula 3.0 32 04/23/18 07:10 97 Nasal Cannula 3.0 32 04/23/18 07:10 Nasal Cannula 3.0 32 04/23/18 04:00 98.9 86 20 123/63 (83) 97 04/23/18 04:00 3.0 04/23/18 01:42 79 16 98 Nasal Cannula 3.0 32 04/23/18 01:31 84 16 97 Nasal Cannula 3.0 32 04/22/18 20:45 84 144/75 04/22/18 20:00 98.2 84 24 144/75 (98) 99 04/22/18 20:00 92 04/22/18 20:00 3.0 04/22/18 20:00 Venturi Mask 04/22/18 18:49 83 18 99 Nasal Cannula 3.0 32 04/22/18 18:37 83 18 98 Nasal Cannula 3.0 32 04/22/18 18:37 Nasal Cannula 3.0 32 04/22/18 18:37 98 Nasal Cannula 3.0 32 04/22/18 18:00 Venturi Mask 04/22/18 16:00 Venturi Mask 04/22/18 16:00 3.0 04/22/18 16:00 99.2 91 20 151/66 (94) 98 04/22/18 15:31 95 Intake and Output 04/22/18 04/23/18 18:59 06:59 Intake Total 391.826 ml 373.499 ml Output Total 1500 ml 400 ml Balance -1108.174 ml -26.501 ml Intake Oral 260 ml 360 ml IV Total 131.826 ml 13.499 ml Output Urine Total 1500 ml 400 ml # Bowel Movements 2 1 Laboratory Tests 04/23/18 04:00: White Blood Count 10.2, Red Blood Count 2.96L, Hemoglobin 8.2L, Hematocrit 25.3L , Mean Corpuscular Volume 85, Mean Corpuscular Hemoglobin 27.8, Mean Corpuscular Hemoglobin Concent 32.6, Red Cell Distribution Width 13.5, Platelet Count 195, Mean Platelet Volume 7.7, Neutrophils (%) (Auto) 61.9, Lymphocytes (% ) (Auto) 16.9L, Monocytes (%) (Auto) 12.0H, Eosinophils (%) (Auto) 7.8H, Basophils (%) (Auto) 1.4 04/23/18 05:30: Urine Eosinophils None seen Height (Feet): 5 Height (Inches): 2.00 Weight (Pounds): 118 General Appearance: no apparent distress Neck: normal alignment Cardiovascular: normal rate Respiratory/Chest: crackles/rales Pelvis: normal external exam Edema: no edema noted Arm (L), no edema noted Arm (R), no edema noted Leg (L), no edema noted Leg (R), no edema noted Pedal (L), no edema noted Pedal (R), no edema noted Generalized Objective Current Medications Medications (Trade) Dose Ordered Sig/Shazia Route PRN Reason Start Time Stop Time Status Last Admin Dose Admin Albuterol/ Ipratropium (Albuterol/ Ipratropium) 3 ml Q4H PRN HHN Shortness of Breath 04/23/18 00:15 04/24/18 16:06 Albuterol/ Ipratropium (Albuterol/ Ipratropium) 3 ml Q6HRT HHN 04/23/18 01:00 04/25/18 12:59 04/23/18 13:30 Aspirin (Ecotrin) 81 mg DAILY ORAL 04/23/18 09:00 05/20/18 08:59 04/23/18 08:29 Atorvastatin Calcium (Lipitor) 80 mg DAILY ORAL 04/23/18 09:00 05/20/18 08:59 04/23/18 08:30 Carvedilol (Coreg) 6.25 mg EVERY 12 HOURS ORAL 04/23/18 09:00 05/20/18 20:59 04/23/18 08:30 Chlorhexidine Gluconate (Monet-Hex 2%) 1 applic DAILY@2000 TOPIC 04/23/18 20:00 05/20/18 19:59 Clopidogrel Bisulfate (Plavix) 75 mg DAILY ORAL 04/23/18 09:00 05/20/18 08:59 04/23/18 08:29 Dextrose (Dextrose 50%) 25 ml Q30M PRN IV Hypoglycemia 04/22/18 22:30 05/20/18 08:29 Dextrose (Dextrose 50%) 50 ml Q30M PRN IV Hypoglycemia 04/22/18 22:30 05/20/18 08:29 Furosemide (Lasix) 40 mg DAILY IV 04/24/18 09:00 05/20/18 08:59 Guaifenesin (Mucinex ER) 600 mg TWICE A DAY ORAL 04/23/18 09:00 05/21/18 17:59 04/23/18 08:30 Heparin Sodium (Porcine) (Heparin 5000 units/ml) 5,000 units EVERY 12 HOURS SUBQ 04/23/18 09:00 05/22/18 20:59 04/23/18 08:34 Insulin Aspart (NovoLOG) BEFORE MEALS AND HS SUBQ 04/23/18 06:30 05/20/18 11:29 04/23/18 12:00 Iron Sucrose 100 mg/Sodium Chloride 60 ml @ 240 mls/hr BEDTIME IV 04/23/18 21:00 04/23/18 21:14 Levofloxacin (Levaquin) 250 mg QOD ORAL 04/24/18 09:00 04/29/18 13:59 Pantoprazole (Protonix) 40 mg DAILY ORAL 04/23/18 09:00 05/20/18 08:59 04/23/18 08:29 Spironolactone (Aldactone) 25 mg DAILY ORAL 04/23/18 09:00 05/21/18 08:59 04/23/18 08:29 Item Value Date Time Bedside Blood Glucose 150 mg/dl H 04/23/18 1200 Bedside Blood Glucose 107 mg/dl 04/23/18 0630 Bedside Blood Glucose 108 mg/dl 04/22/18 2100 Bedside Blood Glucose 208 mg/dl H 04/22/18 1630 Bedside Blood Glucose 132 mg/dl H 04/22/18 [id number] Richi Jeff MD Apr 23, 2018 14:34
[2018-04-23 16:00] VITALS: BP 152/64
--- NOTE | 2018-04-23 16:00 | NUR ---
NURSE NOTES: Spoke with pt and pt's son regarding d/c plan. pt stated that she daughter and her daughter's family live in her two story home. she also state that she has a caregiver and that she has a nurse once a week to check on her. She also stated that she has some type of portable oxygen at home but unable to describe what type, pt also stated that she would like to have a new one but I told her that she would need to qualify for that. RN will endorse to case management. Pt would like to go back home once stable to do so. I will f/u as needed.
--- NOTE | 2018-04-23 17:11 | Cardiology Progress Note ---
Assessment/Plan Assessment/Plan 1. Acute systolic congestive heart failure, LVEF at 35% to 40% with associated WMA. Continue guideline directed medical therapy including carvedilol, NICK inhibitors/ ARBs as well as spironolactone. 2. Slight elevation of troponin I level in this patient could be type 2 [address] ST- elevation myocardial infarction or due to myocarditis. 3. Moderate pericardial effusion with no echocardiographic or clinical evidence of pericardial tamponade. 4. Chronic kidney disease. Creatinine stable at 1.9. 5. 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 6. Bilateral pleural effusion. 7. Acute respiratory failure, resolved. Subjective Subjective Sinus rhythm at rate of 81. On NC oxygen. Objective Last 24 Hour Vital Signs Date Time Temp Pulse Resp B/P (MAP) Pulse Ox O2 Delivery O2 Flow Rate FiO2 04/23/18 13:35 81 18 98 Nasal Cannula 3.0 32 04/23/18 13:20 76 16 96 Nasal Cannula 3.0 32 04/23/18 12:00 3.0 04/23/18 12:00 98.3 81 20 136/60 (85) 95 04/23/18 09:00 Venturi Mask 04/23/18 08:30 84 126/63 04/23/18 08:00 3.0 04/23/18 08:00 99.5 84 18 126/63 (84) 100 04/23/18 07:10 Nasal Cannula 3.0 32 04/23/18 07:10 Nasal Cannula 3.0 32 04/23/18 07:10 97 Nasal Cannula 3.0 32 04/23/18 07:10 Nasal Cannula 3.0 32 04/23/18 04:00 98.9 86 20 123/63 (83) 97 04/23/18 04:00 3.0 04/23/18 01:42 79 16 98 Nasal Cannula 3.0 32 04/23/18 01:31 84 16 97 Nasal Cannula 3.0 32 04/22/18 20:45 84 144/75 04/22/18 20:00 98.2 84 24 144/75 (98) 99 04/22/18 20:00 92 04/22/18 20:00 3.0 04/22/18 20:00 Venturi Mask 04/22/18 18:49 83 18 99 Nasal Cannula 3.0 32 04/22/18 18:37 83 18 98 Nasal Cannula 3.0 32 04/22/18 18:37 Nasal Cannula 3.0 32 04/22/18 18:37 98 Nasal Cannula 3.0 32 04/22/18 18:00 Venturi Mask Intake and Output 04/22/18 04/23/18 18:59 06:59 Intake Total 391.826 ml 373.499 ml Output Total 1500 ml 400 ml Balance -1108.174 ml -26.501 ml Intake Oral 260 ml 360 ml IV Total 131.826 ml 13.499 ml Output Urine Total 1500 ml 400 ml # Bowel Movements 2 1 2D Echo: EF 40%, Mild LVH/LAE, Medium Leslie.Eff. no tamponade, RVSP 35, Grade I LVDD Laboratory Tests Test 04/23/18 04:00 04/23/18 05:30 White Blood Count 10.2 K/UL (4.8-10.8) Red Blood Count 2.96 M/UL (4.20-5.40) L Hemoglobin 8.2 G/DL (12.0-16.0) L Hematocrit 25.3 % (37.0-47.0) L Mean Corpuscular Volume 85 FL (80-99) Mean Corpuscular Hemoglobin 27.8 PG (27.0-31.0) Mean Corpuscular Hemoglobin Concent 32.6 G/DL (32.0-36.0) Red Cell Distribution Width 13.5 % (11.6-14.8) Platelet Count 195 K/UL (150-450) Mean Platelet Volume 7.7 FL (6.5-10.1) Neutrophils (%) (Auto) 61.9 % (45.0-75.0) Lymphocytes (%) (Auto) 16.9 % (20.0-45.0) L Monocytes (%) (Auto) 12.0 % (1.0-10.0) H Eosinophils (%) (Auto) 7.8 % (0.0-3.0) H Basophils (%) (Auto) 1.4 % (0.0-2.0) Urine Eosinophils None seen (NONE SEEN) Microbiology Date/Time Source Procedure Growth Status 04/22/18 06:00 Sputum Expectorated Gram Stain - Final Resulted 04/22/18 06:00 Sputum Expectorated Sputum Culture - Preliminary Resulted 1/16/19 21:30 Nasal Not Otherwise Specified Influenza Types A,B Antigen (ROSA) - Final Complete Objective HEENT: Atraumatic and normocephalic. Anicteric. Pupils are equal, round, and reactive to light and accommodation. Extraocular muscles intact. NECK: JVP is less than 2 mm. No carotid bruit. Carotid upstrokes 2+ bilaterally. CARDIOVASCULAR: Normal S1 and S2. Regular rate and rhythm. No murmurs, gallops, or rubs. PMI is at fourth intercostal space in the mid clavicular line. LUNGS: Diminished breath sounds in both lungs. ABDOMEN: Soft, nontender, and nondistended. No hepatosplenomegaly. Positive bowel sounds. 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 Logan Mathur MD Apr 23, 2018 17:11
--- NOTE | 2018-04-23 17:29 | Pulmonology Progress Note ---
Assessment/Plan Assessment/Plan Pulmonary Progress Note Assessment/Plan Problems: (1) Respiratory distress - VQ low probability (2) Pulmonary edema (3) Anemia (4) NSTEMI (non-ST elevated myocardial infarction) (5) HTN (hypertension) (6) UTI (urinary tract infection) (7) ARF (acute renal failure) (8) Acute on chronic renal failure (9) Diabetic nephropathy (10) Diabetes mellitus Assessment/Plan Declines BiPAP, gas exchange adequate Titrate down FiO2 to keep SaO2 > 90% RTC and PRN HHN's Zosyn (D3) per ID, F/U Cx's, F/U rapid viral swab Monitor volumes and renal function, lasix 40 IV BID - may need to slow down on diuresis DC IVUH and switch to Hep SQ ASA, BB, statin, home meds Monitor BS, SSI, accu check QID AC HS ADA diet, aspiration precautions, CATERING ADMINISTRATIVE ASSISTANT recs, VSS Px: IVUH, PPI FC Subjective Allergies: Coded Allergies: SULFA (SULFONAMIDE ANTIBIOTICS) (Verified Allergy, Severe, ITCHING AND RASH BREAKOUT, 01/24/14) Subjective AFVSS on 3L -2.8L Cr 1.9 less SOB less cough no wheezing no FC Objective Vital Signs Noted General Appearance: WD/WN, no acute distress HEENT: normocephalic, atraumatic, anicteric Respiratory/Chest: crackles/rales Cardiovascular: normal peripheral pulses, normal rate, regular rhythm, regularly irregular Abdomen: normal bowel sounds, soft, non tender, no organomegaly, non distended , no mass Extremities: no cyanosis, no clubbing, other - trace edema better S/P BKA Microbiology Date/Time Source Procedure Growth Status 04/19/18 21:25 Blood Blood Culture - Preliminary NO GROWTH AFTER 48 HOURS Resulted 04/19/18 21:10 Blood Blood Culture - Preliminary NO GROWTH AFTER 48 HOURS Resulted 04/20/18 21:30 Nasal Not Otherwise Specified Influenza Types A,B Antigen (ROSA) - Final Complete 04/19/18 22:50 Urine,Clean Catch Urine Culture - Final Pseudomonas Aeruginosa Complete 04/19/18 23:30 Rectum VRE Culture - Final NO VANCOMYCIN RESISTANT ENTEROCOCCUS ... Complete Laboratory Tests 04/22/18 01:00: Urine Eosinophils Negative 04/22/18 04:09: White Blood Count 10.0, Red Blood Count 2.87L, Hemoglobin 8.0L, Hematocrit 24.4L , Mean Corpuscular Volume 85, Mean Corpuscular Hemoglobin 27.8, Mean Corpuscular Hemoglobin Concent 32.7, Red Cell Distribution Width 12.9, Platelet Count 184, Mean Platelet Volume 7.1, Neutrophils (%) (Auto) 63.7, Lymphocytes (% ) (Auto) 17.2L, Monocytes (%) (Auto) 12.1H, Eosinophils (%) (Auto) 6.0H, Basophils (%) (Auto) 1.0, Activated Partial Thromboplast Time > 150*H, Sodium Level 141, Potassium Level 3.6, Chloride Level 105, Carbon Dioxide Level 28, Anion Gap 8, Blood Urea Nitrogen 36H, Creatinine 1.9H, Estimat Glomerular Filtration Rate , Glucose Level 150H, Uric Acid 5.4, Calcium Level 8.4L, Phosphorus Level 4.1, Magnesium Level 1.8, Total Bilirubin 0.3, Direct Bilirubin 0.1, Aspartate Amino Transf (AST/SGOT) 9L, Alanine Aminotransferase ( ALT/SGPT) 24, Alkaline Phosphatase 65, C-Reactive Protein, Quantitative 8.5H, Pro-B-Type Natriuretic Peptide 1576H, Total Protein 6.3L, Albumin 2.5L Current Medications Medications (Trade) Dose Ordered Sig/Shazia Route PRN Reason Start Time Stop Time Status Last Admin Dose Admin Albuterol/ Ipratropium (Albuterol/ Ipratropium) 3 ml Q4H PRN N Shortness of Breath 04/21/18 16:07 04/24/18 16:06 Albuterol/ Ipratropium (Albuterol/ Ipratropium) 3 ml Q6HRT HHN 04/21/18 19:00 04/25/18 12:59 04/22/18 07:43 Aspirin (Ecotrin) 81 mg DAILY ORAL 04/22/18 09:00 05/20/18 08:59 04/22/18 08:28 Atorvastatin Calcium (Lipitor) 80 mg DAILY ORAL 04/22/18 09:00 05/20/18 08:59 04/22/18 08:27 Carvedilol (Coreg) 3.125 mg EVERY 12 HOURS ORAL 04/21/18 21:00 05/20/18 20:59 04/22/18 08:28 Chlorhexidine Gluconate (Monet-Hex 2%) 1 applic DAILY@2000 TOPIC 04/21/18 20:00 05/20/18 19:59 04/21/18 21:02 Clopidogrel Bisulfate (Plavix) 75 mg DAILY ORAL 04/22/18 09:00 05/20/18 08:59 04/22/18 08:27 Dextrose (Dextrose 50%) 25 ml Q30M PRN IV Hypoglycemia 04/21/18 16:30 05/20/18 08:29 Dextrose (Dextrose 50%) 50 ml Q30M PRN IV Hypoglycemia 04/21/18 16:30 05/20/18 08:29 Furosemide (Lasix) 40 mg EVERY 12 HOURS IV 04/21/18 21:00 05/20/18 08:59 04/22/18 08:27 Guaifenesin (Mucinex ER) 600 mg TWICE A DAY ORAL 04/21/18 18:00 05/21/18 17:59 04/22/18 08:27 Heparin Sodium/ Dextrose 500 ml @ 10.977 mls/ hr ADJUST PER PROTOCOL IV 04/22/18 06:00 05/20/18 16:05 04/22/18 06:25 Insulin Aspart (NovoLOG) BEFORE MEALS AND HS SUBQ 04/21/18 16:30 05/20/18 11:29 04/21/18 21:05 Iron Sucrose 100 mg/Sodium Chloride 60 ml @ 240 mls/hr BEDTIME IV 04/21/18 21:00 04/23/18 21:14 04/21/18 21:03 Pantoprazole (Protonix) 40 mg DAILY ORAL 04/22/18 09:00 05/20/18 08:59 04/22/18 08:27 Piperacillin Sod/ Tazobactam Sod 3.375 gm/Sodium Chloride 110 ml @ 27.5 mls/hr EVERY 8 HOURS IVPB 04/21/18 22:00 04/25/18 11:59 04/22/18 06:24 Spironolactone (Aldactone) 25 mg DAILY ORAL 04/22/18 09:00 05/21/18 08:59 04/22/18 08:27 Subjective ROS Limited/Unobtainable: No Allergies: Coded Allergies: SULFA (SULFONAMIDE ANTIBIOTICS) (Verified Allergy, Severe, ITCHING AND RASH BREAKOUT, 01/24/14) Objective Last 24 Hour Vital Signs Date Time Temp Pulse Resp B/P (MAP) Pulse Ox O2 Delivery O2 Flow Rate FiO2 04/23/18 16:00 3.0 04/23/18 16:00 99.0 90 18 152/64 (93) 100 04/23/18 13:35 81 18 98 Nasal Cannula 3.0 32 04/23/18 13:20 76 16 96 Nasal Cannula 3.0 32 04/23/18 12:00 3.0 04/23/18 12:00 98.3 81 20 136/60 (85) 95 04/23/18 09:00 Venturi Mask 04/23/18 08:30 84 126/63 04/23/18 08:00 3.0 04/23/18 08:00 99.5 84 18 126/63 (84) 100 04/23/18 07:10 Nasal Cannula 3.0 32 04/23/18 07:10 Nasal Cannula 3.0 32 04/23/18 07:10 97 Nasal Cannula 3.0 32 04/23/18 07:10 Nasal Cannula 3.0 32 04/23/18 04:00 98.9 86 20 123/63 (83) 97 04/23/18 04:00 3.0 04/23/18 01:42 79 16 98 Nasal Cannula 3.0 32 04/23/18 01:31 84 16 97 Nasal Cannula 3.0 32 04/22/18 20:45 84 144/75 04/22/18 20:00 98.2 84 24 144/75 (98) 99 04/22/18 20:00 92 04/22/18 20:00 3.0 04/22/18 20:00 Venturi Mask 04/22/18 18:49 83 18 99 Nasal Cannula 3.0 32 04/22/18 18:37 83 18 98 Nasal Cannula 3.0 32 04/22/18 18:37 Nasal Cannula 3.0 32 04/22/18 18:37 98 Nasal Cannula 3.0 32 04/22/18 18:00 Venturi Mask Intake and Output 04/22/18 04/23/18 18:59 06:59 Intake Total 391.826 ml 373.499 ml Output Total 1500 ml 400 ml Balance -1108.174 ml -26.501 ml Intake Oral 260 ml 360 ml IV Total 131.826 ml 13.499 ml Output Urine Total 1500 ml 400 ml # Bowel Movements 2 1 Microbiology Date/Time Source Procedure Growth Status 04/22/18 06:00 Sputum Expectorated Gram Stain - Final Resulted 04/22/18 06:00 Sputum Expectorated Sputum Culture - Preliminary Resulted 04/20/18 21:30 Nasal Not Otherwise Specified Influenza Types A,B Antigen (ROSA) - Final Complete Laboratory Tests 04/23/18 04:00: White Blood Count 10.2, Red Blood Count 2.96L, Hemoglobin 8.2L, Hematocrit 25.3L , Mean Corpuscular Volume 85, Mean Corpuscular Hemoglobin 27.8, Mean Corpuscular Hemoglobin Concent 32.6, Red Cell Distribution Width 13.5, Platelet Count 195, Mean Platelet Volume 7.7, Neutrophils (%) (Auto) 61.9, Lymphocytes (% ) (Auto) 16.9L, Monocytes (%) (Auto) 12.0H, Eosinophils (%) (Auto) 7.8H, Basophils (%) (Auto) 1.4 04/23/18 05:30: Urine Eosinophils None seen Current Medications Medications (Trade) Dose Ordered Sig/Shazia Route PRN Reason Start Time Stop Time Status Last Admin Dose Admin Albuterol/ Ipratropium (Albuterol/ Ipratropium) 3 ml Q4H PRN N Shortness of Breath 04/23/18 00:15 04/24/18 16:06 Albuterol/ Ipratropium (Albuterol/ Ipratropium) 3 ml Q6HRT HHN 04/23/18 01:00 04/25/18 12:59 04/23/18 13:30 Aspirin (Ecotrin) 81 mg DAILY ORAL 04/23/18 09:00 05/20/18 08:59 04/23/18 08:29 Atorvastatin Calcium (Lipitor) 80 mg DAILY ORAL 04/23/18 09:00 05/20/18 08:59 04/23/18 08:30 Carvedilol (Coreg) 6.25 mg EVERY 12 HOURS ORAL 04/23/18 09:00 05/20/18 20:59 04/23/18 08:30 Chlorhexidine Gluconate (Monet-Hex 2%) 1 applic DAILY@1999 TOPIC 04/23/18 20:00 05/20/18 19:59 Clopidogrel Bisulfate (Plavix) 75 mg DAILY ORAL 04/23/18 09:00 05/20/18 08:59 04/23/18 08:29 Dextrose (Dextrose 50%) 25 ml Q30M PRN IV Hypoglycemia 04/22/18 22:30 05/20/18 08:29 Dextrose (Dextrose 50%) 50 ml Q30M PRN IV Hypoglycemia 04/22/18 22:30 05/20/18 08:29 Furosemide (Lasix) 40 mg DAILY IV 04/24/18 09:00 05/20/18 08:59 Guaifenesin (Mucinex ER) 600 mg TWICE A DAY ORAL 04/23/18 09:00 05/21/18 17:59 04/23/18 08:30 Heparin Sodium (Porcine) (Heparin 5000 units/ml) 5,000 units EVERY 12 HOURS SUBQ 04/23/18 09:00 05/22/18 20:59 04/23/18 08:34 Insulin Aspart (NovoLOG) BEFORE MEALS AND HS SUBQ 04/23/18 06:30 05/20/18 11:29 04/23/18 16:51 Iron Sucrose 100 mg/Sodium Chloride 60 ml @ 240 mls/hr BEDTIME IV 04/23/18 21:00 04/23/18 21:14 Levofloxacin (Levaquin) 250 mg QOD ORAL 04/24/18 09:00 04/29/18 13:59 Pantoprazole (Protonix) 40 mg DAILY ORAL 04/23/18 09:00 05/20/18 08:59 04/23/18 08:29 Spironolactone (Aldactone) 25 mg DAILY ORAL 04/23/18 09:00 05/21/18 08:59 04/23/18 08:29 Shabbir Dillard MD Apr 23, 2018 17:28
--- NOTE | 2018-04-23 18:22 | NUR ---
NURSE NOTES: During hourly rounding RN titrate if pt need O2 for home. pt is Sat at 97% on RA. I will f/u as needed.
--- NOTE | 2018-04-23 18:34 | General Progress Note ---
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 SNOMED: 46386317, 740466972 (7) Cardiomyopathy ICD Codes: I42.9 - Cardiomyopathy, unspecified SNOMED: 95426552 (8) Pacemaker ICD Codes: Z95.0 - Presence of cardiac pacemaker SNOMED: 133357933 (9) CHF exacerbation ICD Codes: I50.9 - Heart failure, unspecified SNOMED: 04871458 (10) Diabetes mellitus ICD Codes: E11.9 - Diabetes mellitus SNOMED: 49023554 (11) Valvular cardiomyopathy ICD Codes: I42.8 - Valvular cardiomyopathy SNOMED: 73193772 (12) Hypokalemia ICD Codes: E87.6 - Hypokalemia SNOMED: 84283880 (13) ARF (acute renal failure) ICD Codes: N17.9 - ARF (acute renal failure) SNOMED: 73547965 Assessment/Plan niddm chf htn cardiomyopathy valvular insuffcieny pulm edema is improving needs rehab check sugar bp improving Subjective Respiratory: Reports: shortness of breath Allergies: Coded Allergies: SULFA (SULFONAMIDE ANTIBIOTICS) (Verified Allergy, Severe, ITCHING AND RASH BREAKOUT, 01/24/14) Objective Last 24 Hour Vital Signs Date Time Temp Pulse Resp B/P (MAP) Pulse Ox O2 Delivery O2 Flow Rate FiO2 04/23/18 16:00 3.0 04/23/18 16:00 99.0 90 18 152/64 (93) 100 04/23/18 13:35 81 18 98 Nasal Cannula 3.0 32 04/23/18 13:20 76 16 96 Nasal Cannula 3.0 32 04/23/18 12:00 3.0 04/23/18 12:00 98.3 81 20 136/60 (85) 95 04/23/18 09:00 Venturi Mask 04/23/18 08:30 84 126/63 04/23/18 08:00 3.0 04/23/18 08:00 99.5 84 18 126/63 (84) 100 04/23/18 07:10 Nasal Cannula 3.0 32 04/23/18 07:10 Nasal Cannula 3.0 32 04/23/18 07:10 97 Nasal Cannula 3.0 32 04/23/18 07:10 Nasal Cannula 3.0 32 04/23/18 04:00 98.9 86 20 123/63 (83) 97 04/23/18 04:00 3.0 04/23/18 01:42 79 16 98 Nasal Cannula 3.0 32 04/23/18 01:31 84 16 97 Nasal Cannula 3.0 32 04/22/18 20:45 84 144/75 04/22/18 20:00 98.2 84 24 144/75 (98) 99 04/22/18 20:00 92 04/22/18 20:00 3.0 04/22/18 20:00 Venturi Mask 04/22/18 18:49 83 18 99 Nasal Cannula 3.0 32 04/22/18 18:37 83 18 98 Nasal Cannula 3.0 32 04/22/18 18:37 Nasal Cannula 3.0 32 04/22/18 18:37 98 Nasal Cannula 3.0 32 Intake and Output 04/22/18 04/23/18 18:59 06:59 Intake Total 391.826 ml 373.499 ml Output Total 1500 ml 400 ml Balance -1108.174 ml -26.501 ml Intake Oral 260 ml 360 ml IV Total 131.826 ml 13.499 ml Output Urine Total 1500 ml 400 ml # Bowel Movements 2 1 Laboratory Tests 04/23/18 04:00: White Blood Count 10.2, Red Blood Count 2.96L, Hemoglobin 8.2L, Hematocrit 25.3L , Mean Corpuscular Volume 85, Mean Corpuscular Hemoglobin 27.8, Mean Corpuscular Hemoglobin Concent 32.6, Red Cell Distribution Width 13.5, Platelet Count 195, Mean Platelet Volume 7.7, Neutrophils (%) (Auto) 61.9, Lymphocytes (% ) (Auto) 16.9L, Monocytes (%) (Auto) 12.0H, Eosinophils (%) (Auto) 7.8H, Basophils (%) (Auto) 1.4 04/23/18 05:30: Urine Eosinophils None seen Height (Feet): 5 Height (Inches): 2.00 Weight (Pounds): 118 Cardiovascular: normal rate Abdomen: soft Светлана Vazquez MD Apr 23, 2018 18:34
--- NOTE | 2018-04-23 19:20 | NUR ---
HAND-OFF: Report given to Elizabeth RN, pt in stable condition. total urine output during my shift: 1000ml
[2018-04-23] MEDS ORDERED: NS 275ml ONE ×3 (19:27→19:46)
--- NOTE | 2018-04-23 19:28 | NUR ---
NURSE NOTES: Pt received awake, alert oriented, in bed, nasal cannuli on, hickman catheter in place, bed in lowest position.
[2018-04-23] MEDS ORDERED: Tubing Blood Filter IV ONE (19:34)
[2018-04-23] MEDS ORDERED: D5NS 1000ml IV ONE (19:34)
[2018-04-23] MEDS ORDERED: Tubing IV Secondary IV ONE ×2 (19:34→19:43)
[2018-04-23 20:00] VITALS: BP 140/78
[2018-04-23] MEDS: Dyna-Hex 2% Top Sol 2oz TOPIC SCH (20:53)
[2018-04-23] MEDS ORDERED: Iron Sucrose 100 MG in NS 55 ML IV SCH (21:00)
[2018-04-24] VITALS: BP 133/79
[2018-04-24] MEDS: Albuterol/Ipratropium 3ml neb HHN SCH ×4 (01:20→19:15)
[2018-04-24 04:00] VITALS: BP 145/65
[2018-04-24] MEDS: NovoLOG Insulin Flexpen SUBQ SCH ×4 (05:52→20:54)
--- NOTE | 2018-04-24 07:07 | NUR ---
HAND-OFF: Report given to JERALD Barreto.
--- NOTE | 2018-04-24 07:17 | General Progress Note ---
Assessment/Plan Problem List: (1) Cardiomyopathy ICD Codes: I42.9 - Cardiomyopathy, unspecified SNOMED: 20649366 (2) ARF (acute renal failure) ICD Codes: N17.9 - Acute kidney failure, unspecified SNOMED: 27149072 (3) Pulmonary edema ICD Codes: J81.1 - Chronic pulmonary edema SNOMED: 54337191 (4) Diabetes mellitus ICD Codes: E11.9 - Diabetes mellitus SNOMED: 24748301 Assessment/Plan continue to keep off Metformin continue Januvia 50 mg daily will consider adding Starlix 60 mg ac tid if mealtime glucose stays high continue NISS ac / hs Subjective Allergies: Coded Allergies: SULFA (SULFONAMIDE ANTIBIOTICS) (Verified Allergy, Severe, ITCHING AND RASH BREAKOUT, 01/24/14) All Systems: reviewed and negative except above Subjective events noted Objective Last 24 Hour Vital Signs Date Time Temp Pulse Resp B/P (MAP) Pulse Ox O2 Delivery O2 Flow Rate FiO2 04/24/18 04:00 3.0 04/24/18 04:00 98.3 87 18 145/65 (91) 96 87 04/24/18 01:30 86 16 99 Nasal Cannula 3.0 32 04/24/18 01:20 85 16 98 Nasal Cannula 3.0 32 04/24/18 00:00 98.2 82 19 133/79 (97) 98 82 04/24/18 00:00 3.0 04/23/18 21:00 Nasal Cannula 3.0 04/23/18 20:54 90 140/78 04/23/18 20:37 Nasal Cannula 3.0 32 04/23/18 20:35 88 16 98 Nasal Cannula 3.0 32 04/23/18 20:34 98 Nasal Cannula 3.0 32 04/23/18 20:34 Nasal Cannula 3.0 32 04/23/18 20:00 99.0 89 19 140/78 (98) 96 89 04/23/18 16:00 3.0 04/23/18 16:00 99.0 90 18 152/64 (93) 100 04/23/18 13:35 81 18 98 Nasal Cannula 3.0 32 04/23/18 13:20 76 16 96 Nasal Cannula 3.0 32 04/23/18 12:00 3.0 04/23/18 12:00 98.3 81 20 136/60 (85) 95 04/23/18 09:00 Venturi Mask 04/23/18 08:30 84 126/63 04/23/18 08:00 3.0 04/23/18 08:00 99.5 84 18 126/63 (84) 100 Intake and Output 04/23/18 04/24/18 19:00 07:00 Intake Total 240 ml Output Total 450 ml Balance -210 ml Intake Oral 240 ml Output Urine Total 450 ml # Bowel Movements 1 Height (Feet): 5 Height (Inches): 2.00 Weight (Pounds): 115 General Appearance: no apparent distress Neck: normal alignment Cardiovascular: normal rate Respiratory/Chest: crackles/rales Abdomen: normal bowel sounds Pelvis: normal external exam Objective Current Medications Medications (Trade) Dose Ordered Sig/Shazia Route PRN Reason Start Time Stop Time Status Last Admin Dose Admin Albuterol/ Ipratropium (Albuterol/ Ipratropium) 3 ml Q4H PRN HHN Shortness of Breath 04/23/18 00:15 04/24/18 16:06 Albuterol/ Ipratropium (Albuterol/ Ipratropium) 3 ml Q6HRT HHN 04/23/18 01:00 04/25/18 12:59 04/24/18 01:20 Aspirin (Ecotrin) 81 mg DAILY ORAL 04/23/18 09:00 05/20/18 08:59 04/23/18 08:29 Atorvastatin Calcium (Lipitor) 80 mg DAILY ORAL 04/23/18 09:00 05/20/18 08:59 04/23/18 08:30 Carvedilol (Coreg) 6.25 mg EVERY 12 HOURS ORAL 04/23/18 09:00 05/20/18 20:59 04/23/18 20:54 Chlorhexidine Gluconate (Monet-Hex 2%) 1 applic DAILY@2000 TOPIC 04/23/18 20:00 05/20/18 19:59 04/23/18 20:53 Clopidogrel Bisulfate (Plavix) 75 mg DAILY ORAL 04/23/18 09:00 05/20/18 08:59 04/23/18 08:29 Dextrose (Dextrose 50%) 25 ml Q30M PRN IV Hypoglycemia 04/22/18 22:30 05/20/18 08:29 Dextrose (Dextrose 50%) 50 ml Q30M PRN IV Hypoglycemia 04/22/18 22:30 05/20/18 08:29 Furosemide (Lasix) 40 mg DAILY IV 04/24/18 09:00 05/20/18 08:59 Guaifenesin (Mucinex ER) 600 mg TWICE A DAY ORAL 04/23/18 09:00 05/21/18 17:59 04/23/18 17:28 Heparin Sodium (Porcine) (Heparin 5000 units/ml) 5,000 units EVERY 12 HOURS SUBQ 04/23/18 09:00 05/22/18 20:59 04/23/18 20:52 Insulin Aspart (NovoLOG) BEFORE MEALS AND HS SUBQ 04/23/18 06:30 05/20/18 11:29 04/24/18 05:52 Levofloxacin (Levaquin) 250 mg QOD ORAL 04/24/18 09:00 04/29/18 13:59 Pantoprazole (Protonix) 40 mg DAILY ORAL 04/23/18 09:00 05/20/18 08:59 04/23/18 08:29 Spironolactone (Aldactone) 25 mg DAILY ORAL 04/23/18 09:00 05/21/18 08:59 04/23/18 08:29 Item Value Date Time Bedside Blood Glucose 143 mg/dl H 04/24/18 0616 Bedside Blood Glucose 228 mg/dl H 04/23/18 2100 Bedside Blood Glucose 289 mg/dl H 04/23/18 1651 Bedside Blood Glucose 150 mg/dl H 04/23/18 1200 Bedside Blood Glucose 107 mg/dl 04/23/18 0630 Richi Jeff MD Apr 24, 2018 07:16
--- NOTE | 2018-04-24 07:45 | NUR ---
NURSE NOTES: Report received from outgoing RN, rounds made. Patient sitting upright in bed, calm/pleasant, no pain/NV/SOB/cough. O2 4LNC, encouraged cough/deep breathing exercises. Jenkins draining yellow clear urine to gravity. LLE mild non pitting edema noted to ankle/pedal, skin intact. Appetite good. Call light in reach, bed in lowest position. Will continue to assess.
[2018-04-24 08:00] VITALS: BP 157/72
[2018-04-24] MEDS: Atorvastatin 80mg tab ORAL SCH (08:37)
[2018-04-24] MEDS: Carvedilol 6.25mg Tab ORAL SCH (08:37)
[2018-04-24] MEDS: guaiFENesin ER 600mg tab ORAL SCH ×2 (08:37→16:53)
[2018-04-24] MEDS: Spironolactone 25mg tab ORAL SCH (08:37)
[2018-04-24] MEDS: Aspirin EC 81mg tab ORAL SCH (08:37)
[2018-04-24] MEDS: Heparin 5000 units/ml inj SUBQ SCH ×2 (08:38→20:57)
--- NOTE | 2018-04-24 10:38 | NUR ---
CASE MANAGEMENT: REVIEW SI: ACUTE CHF . PNA T 99.3 HR 84 RR 18 B/P 157/72 SATS 98% ON 4L/NC NO LABS TODAY IS: LEVAQUIN PO QD ECOTRIN PO QD PLAVIX PO QD HEPARIN IV VENOFER IV QHS COREG PO Q12HR LASIX IV Q12HR STEP DOWN UNIT STATUS DCP: PATIENT IS FROM HOME
--- NOTE | 2018-04-24 10:51 | Nephrology Progress Note ---
Assessment/Plan Problem List: (1) ARF (acute renal failure) (2) Diabetic nephropathy (3) Anemia (4) CHF exacerbation (5) Cardiomyopathy (6) Pacemaker Assessment Renal failure- likely acute on chronic Likely Diabetic Nephropathy 3+ proteinuria Anemia Etiology?? Respiratory failure, acute / Pulmonary edema / Pneumonia CHF exacerbation NSTEMI (non-ST elevated myocardial infarction) Diabetes mellitus Leukocytosis Hx of BKA Plan Optimize cardiac and pulmonary status avoid Nephrotoxics BP and BS in check increase coreg DC hickman echo 40 5 ej fx urine studies venofer IV lasix to po Subjective ROS Limited/Unobtainable: No Constitutional: Reports: malaise Objective Objective Last 24 Hour Vital Signs Date Time Temp Pulse Resp B/P (MAP) Pulse Ox O2 Delivery O2 Flow Rate FiO2 04/24/18 09:00 Nasal Cannula 4.0 04/24/18 08:37 84 157/72 04/24/18 08:00 99.3 84 18 157/72 (100) 98 04/24/18 08:00 4.0 04/24/18 08:00 99.3 84 18 157/72 (100) 96 84 04/24/18 07:25 97 Nasal Cannula 3.0 32 04/24/18 07:25 Nasal Cannula 3.0 32 04/24/18 07:25 Nasal Cannula 3.0 32 04/24/18 07:25 Nasal Cannula 3.0 32 04/24/18 04:00 3.0 04/24/18 04:00 98.3 87 18 145/65 (91) 96 87 04/24/18 01:30 86 16 99 Nasal Cannula 3.0 32 04/24/18 01:20 85 16 98 Nasal Cannula 3.0 32 04/24/18 00:00 98.2 82 19 133/79 (97) 98 82 04/24/18 00:00 3.0 04/23/18 21:00 Nasal Cannula 3.0 04/23/18 20:54 90 140/78 04/23/18 20:37 Nasal Cannula 3.0 32 04/23/18 20:35 88 16 98 Nasal Cannula 3.0 32 04/23/18 20:34 98 Nasal Cannula 3.0 32 04/23/18 20:34 Nasal Cannula 3.0 32 04/23/18 20:00 99.0 89 19 140/78 (98) 96 89 04/23/18 16:00 3.0 04/23/18 16:00 99.0 90 18 152/64 (93) 100 04/23/18 13:35 81 18 98 Nasal Cannula 3.0 32 04/23/18 13:20 76 16 96 Nasal Cannula 3.0 32 04/23/18 12:00 3.0 04/23/18 12:00 98.3 81 20 136/60 (85) 95 Intake and Output 04/23/18 04/24/18 19:00 07:00 Intake Total 240 ml Output Total 450 ml Balance -210 ml Intake Oral 240 ml Output Urine Total 450 ml # Bowel Movements 1 Height (Feet): 5 Height (Inches): 2.00 Weight (Pounds): 115 Cardiovascular: normal rate Respiratory/Chest: decreased breath sounds Abdomen: soft Objective breathing easier Antony Adkins MD Apr 24, 2018 10:51
[2018-04-24 12:00] VITALS: BP 149/71
--- NOTE | 2018-04-24 13:16 | Infectious Diseases Prog Note ---
Assessment/Plan Assessment/Plan A: 1. Bronchitis, 2. CHF exacerbation. 3. Acute renal failure. 4. Diabetes mellitus. 5. Leukocytosis. resolved 6. Acute respiratory failure.improving 7. UTI with Pseudomonas P: Continue Levaquin Will f/u cultures Subjective ROS Limited/Unobtainable: No Constitutional: Reports: no symptoms Respiratory: Reports: dry cough Gastrointestinal/Abdominal: Reports: no symptoms Genitourinary: Reports: no symptoms Allergies: Coded Allergies: SULFA (SULFONAMIDE ANTIBIOTICS) (Verified Allergy, Severe, ITCHING AND RASH BREAKOUT, 01/24/14) Objective Vital Signs Last 24 Hour Vital Signs Date Time Temp Pulse Resp B/P (MAP) Pulse Ox O2 Delivery O2 Flow Rate FiO2 04/24/18 13:04 Nasal Cannula 3.0 32 04/24/18 13:04 Nasal Cannula 3.0 32 04/24/18 12:00 98.2 86 18 149/71 (97) 98 86 04/24/18 09:00 Nasal Cannula 4.0 04/24/18 08:37 84 157/72 04/24/18 08:00 99.3 84 18 157/72 (100) 98 04/24/18 08:00 4.0 04/24/18 08:00 99.3 84 18 157/72 (100) 96 84 04/24/18 07:25 97 Nasal Cannula 3.0 32 04/24/18 07:25 Nasal Cannula 3.0 32 04/24/18 07:25 Nasal Cannula 3.0 32 04/24/18 07:25 Nasal Cannula 3.0 32 04/24/18 04:00 3.0 04/24/18 04:00 98.3 87 18 145/65 (91) 96 87 04/24/18 01:30 86 16 99 Nasal Cannula 3.0 32 04/24/18 01:20 85 16 98 Nasal Cannula 3.0 32 04/24/18 00:00 98.2 82 19 133/79 (97) 98 82 04/24/18 00:00 3.0 04/23/18 21:00 Nasal Cannula 3.0 04/23/18 20:54 90 140/78 04/23/18 20:37 Nasal Cannula 3.0 32 04/23/18 20:35 88 16 98 Nasal Cannula 3.0 32 04/23/18 20:34 98 Nasal Cannula 3.0 32 04/23/18 20:34 Nasal Cannula 3.0 32 04/23/18 20:00 99.0 89 19 140/78 (98) 96 89 04/23/18 16:00 3.0 04/23/18 16:00 99.0 90 18 152/64 (93) 100 04/23/18 13:35 81 18 98 Nasal Cannula 3.0 32 04/23/18 13:20 76 16 96 Nasal Cannula 3.0 32 Height (Feet): 5 Height (Inches): 2.00 Weight (Pounds): 115 General Appearance: no acute distress HEENT: mucous membranes moist Respiratory/Chest: lungs clear Cardiovascular: normal rate, other - R arm PICC line Abdomen: soft, non tender Extremities: no edema Neurologic/Psychiatric: alert, oriented x 3, responsive Microbiology Date/Time Source Procedure Growth Status 04/22/18 06:00 Sputum Expectorated Gram Stain - Final Complete 04/22/18 06:00 Sputum Expectorated Sputum Culture - Final NORMAL UPPER RESPIRATORY CHRIS PRESENT Complete Laboratory Tests Test 04/24/18 11:45 C-Reactive Protein, Quantitative 3.8 mg/dL (0.00-0.90) H Current Medications Medications (Trade) Dose Ordered Sig/Shazia Route PRN Reason Start Time Stop Time Status Last Admin Dose Admin Albuterol/ Ipratropium (Albuterol/ Ipratropium) 3 ml Q4H PRN N Shortness of Breath 04/23/18 00:15 04/24/18 16:06 Albuterol/ Ipratropium (Albuterol/ Ipratropium) 3 ml Q6HRT HHN 04/23/18 01:00 04/25/18 12:59 04/24/18 01:20 Aspirin (Ecotrin) 81 mg DAILY ORAL 04/23/18 09:00 05/20/18 08:59 04/24/18 08:37 Atorvastatin Calcium (Lipitor) 80 mg DAILY ORAL 04/23/18 09:00 05/20/18 08:59 04/24/18 08:37 Carvedilol (Coreg) 12.5 mg EVERY 12 HOURS ORAL 04/24/18 21:00 05/20/18 20:59 Chlorhexidine Gluconate (Monet-Hex 2%) 1 applic DAILY@1999 TOPIC 04/23/18 20:00 05/20/18 19:59 04/23/18 20:53 Clopidogrel Bisulfate (Plavix) 75 mg DAILY ORAL 04/23/18 09:00 05/20/18 08:59 04/24/18 08:36 Dextrose (Dextrose 50%) 25 ml Q30M PRN IV Hypoglycemia 04/22/18 22:30 05/20/18 08:29 Dextrose (Dextrose 50%) 50 ml Q30M PRN IV Hypoglycemia 04/22/18 22:30 05/20/18 08:29 Furosemide (Lasix) 80 mg DAILY ORAL 04/25/18 09:00 05/25/18 08:59 Guaifenesin (Mucinex ER) 600 mg TWICE A DAY ORAL 04/23/18 09:00 05/21/18 17:59 04/24/18 08:37 Heparin Sodium (Porcine) (Heparin 5000 units/ml) 5,000 units EVERY 12 HOURS SUBQ 04/23/18 09:00 05/22/18 20:59 04/24/18 08:38 Insulin Aspart (NovoLOG) BEFORE MEALS AND HS SUBQ 04/23/18 06:30 05/20/18 11:29 04/24/18 12:23 Levofloxacin (Levaquin) 250 mg QOD ORAL 04/24/18 09:00 04/29/18 13:59 04/24/18 08:37 Pantoprazole (Protonix) 40 mg DAILY ORAL 04/23/18 09:00 05/20/18 08:59 04/24/18 08:36 Spironolactone (Aldactone) 25 mg DAILY ORAL 04/23/18 09:00 05/21/18 08:59 04/24/18 08:37 Matt Elkins MD Apr 24, 2018 13:15
[2018-04-24 16:00] VITALS: BP 136/68
--- NOTE | 2018-04-24 16:40 | Pulmonology Progress Note ---
Assessment/Plan Assessment/Plan Pulmonary Progress Note Assessment/Plan Problems: (1) Respiratory distress - VQ low probability (2) Pulmonary edema (3) Anemia (4) NSTEMI (non-ST elevated myocardial infarction) (5) HTN (hypertension) (6) UTI (urinary tract infection) (7) ARF (acute renal failure) (8) Acute on chronic renal failure (9) Diabetic nephropathy (10) Diabetes mellitus Assessment/Plan Declines BiPAP, gas exchange adequate Titrate down FiO2 to keep SaO2 > 90% RTC and PRN HHN's Zosyn (D3) per ID, F/U Cx's, F/U rapid viral swab Monitor volumes and renal function, lasix 40 IV BID - may need to slow down on diuresis DC IVUH and switch to Hep SQ ASA, BB, statin, home meds Monitor BS, SSI, accu check QID AC HS ADA diet, aspiration precautions, W[employer]ING [employer]ACH[employer] THERMIT recs, VSS Px: IVUH, PPI FC Subjective Allergies: Coded Allergies: SULFA (SULFONAMIDE ANTIBIOTICS) (Verified Allergy, Severe, ITCHING AND RASH BREAKOUT, 01/24/14) Subjective AFVSS on 3L -2.8L Cr 1.9 less SOB less cough no wheezing no FC Objective Vital Signs Noted General Appearance: WD/WN, no acute distress HEENT: normocephalic, atraumatic, anicteric Respiratory/Chest: crackles/rales Cardiovascular: normal peripheral pulses, normal rate, regular rhythm, regularly irregular Abdomen: normal bowel sounds, soft, non tender, no organomegaly, non distended , no mass Extremities: no cyanosis, no clubbing, other - trace edema better S/P BKA Microbiology Date/Time Source Procedure Growth Status 04/19/18 21:25 Blood Blood Culture - Preliminary NO GROWTH AFTER 48 HOURS Resulted 04/19/18 21:10 Blood Blood Culture - Preliminary NO GROWTH AFTER 48 HOURS Resulted 04/20/18 21:30 Nasal Not Otherwise Specified Influenza Types A,B Antigen (ROSA) - Final Complete 04/19/18 22:50 Urine,Clean Catch Urine Culture - Final Pseudomonas Aeruginosa Complete 04/19/18 23:30 Rectum VRE Culture - Final NO VANCOMYCIN RESISTANT ENTEROCOCCUS ... Complete Laboratory Tests 04/22/18 01:00: Urine Eosinophils Negative 04/22/18 04:09: White Blood Count 10.0, Red Blood Count 2.87L, Hemoglobin 8.0L, Hematocrit 24.4L , Mean Corpuscular Volume 85, Mean Corpuscular Hemoglobin 27.8, Mean Corpuscular Hemoglobin Concent 32.7, Red Cell Distribution Width 12.9, Platelet Count 184, Mean Platelet Volume 7.1, Neutrophils (%) (Auto) 63.7, Lymphocytes (% ) (Auto) 17.2L, Monocytes (%) (Auto) 12.1H, Eosinophils (%) (Auto) 6.0H, Basophils (%) (Auto) 1.0, Activated Partial Thromboplast Time > 150*H, Sodium Level 141, Potassium Level 3.6, Chloride Level 105, Carbon Dioxide Level 28, Anion Gap 8, Blood Urea Nitrogen 36H, Creatinine 1.9H, Estimat Glomerular Filtration Rate , Glucose Level 150H, Uric Acid 5.4, Calcium Level 8.4L, Phosphorus Level 4.1, Magnesium Level 1.8, Total Bilirubin 0.3, Direct Bilirubin 0.1, Aspartate Amino Transf (AST/SGOT) 9L, Alanine Aminotransferase ( ALT/SGPT) 24, Alkaline Phosphatase 65, C-Reactive Protein, Quantitative 8.5H, Pro-B-Type Natriuretic Peptide 1576H, Total Protein 6.3L, Albumin 2.5L Current Medications Medications (Trade) Dose Ordered Sig/Shazia Route PRN Reason Start Time Stop Time Status Last Admin Dose Admin Albuterol/ Ipratropium (Albuterol/ Ipratropium) 3 ml Q4H PRN N Shortness of Breath 04/21/18 16:07 04/24/18 16:06 Albuterol/ Ipratropium (Albuterol/ Ipratropium) 3 ml Q6HRT HHN 04/21/18 19:00 04/25/18 12:59 04/22/18 07:43 Aspirin (Ecotrin) 81 mg DAILY ORAL 04/22/18 09:00 05/20/18 08:59 04/22/18 08:28 Atorvastatin Calcium (Lipitor) 80 mg DAILY ORAL 04/22/18 09:00 05/20/18 08:59 04/22/18 08:27 Carvedilol (Coreg) 3.125 mg EVERY 12 HOURS ORAL 04/21/18 21:00 05/20/18 20:59 04/22/18 08:28 Chlorhexidine Gluconate (Monet-Hex 2%) 1 applic DAILY@2000 TOPIC 04/21/18 20:00 05/20/18 19:59 04/21/18 21:02 Clopidogrel Bisulfate (Plavix) 75 mg DAILY ORAL 04/22/18 09:00 05/20/18 08:59 04/22/18 08:27 Dextrose (Dextrose 50%) 25 ml Q30M PRN IV Hypoglycemia 04/21/18 16:30 05/20/18 08:29 Dextrose (Dextrose 50%) 50 ml Q30M PRN IV Hypoglycemia 04/21/18 16:30 05/20/18 08:29 Furosemide (Lasix) 40 mg EVERY 12 HOURS IV 04/21/18 21:00 05/20/18 08:59 04/22/18 08:27 Guaifenesin (Mucinex ER) 600 mg TWICE A DAY ORAL 04/21/18 18:00 05/21/18 17:59 04/22/18 08:27 Heparin Sodium/ Dextrose 500 ml @ 10.977 mls/ hr ADJUST PER PROTOCOL IV 04/22/18 06:00 05/20/18 16:05 04/22/18 06:25 Insulin Aspart (NovoLOG) BEFORE MEALS AND HS SUBQ 04/21/18 16:30 05/20/18 11:29 04/21/18 21:05 Iron Sucrose 100 mg/Sodium Chloride 60 ml @ 240 mls/hr BEDTIME IV 04/21/18 21:00 04/23/18 21:14 04/21/18 21:03 Pantoprazole (Protonix) 40 mg DAILY ORAL 04/22/18 09:00 05/20/18 08:59 04/22/18 08:27 Piperacillin Sod/ Tazobactam Sod 3.375 gm/Sodium Chloride 110 ml @ 27.5 mls/hr EVERY 8 HOURS IVPB 04/21/18 22:00 04/25/18 11:59 04/22/18 06:24 Spironolactone (Aldactone) 25 mg DAILY ORAL 04/22/18 09:00 05/21/18 08:59 04/22/18 08:27 Subjective ROS Limited/Unobtainable: No Allergies: Coded Allergies: SULFA (SULFONAMIDE ANTIBIOTICS) (Verified Allergy, Severe, ITCHING AND RASH BREAKOUT, 01/24/14) Objective Last 24 Hour Vital Signs Date Time Temp Pulse Resp B/P (MAP) Pulse Ox O2 Delivery O2 Flow Rate FiO2 04/24/18 16:00 98.6 94 18 136/68 (90) 98 94 04/24/18 13:04 Nasal Cannula 3.0 32 04/24/18 13:04 Nasal Cannula 3.0 32 04/24/18 12:00 98.2 86 18 149/71 (97) 98 86 04/24/18 09:00 Nasal Cannula 4.0 04/24/18 08:37 84 157/72 04/24/18 08:00 99.3 84 18 157/72 (100) 98 04/24/18 08:00 4.0 04/24/18 08:00 99.3 84 18 157/72 (100) 96 84 04/24/18 07:25 97 Nasal Cannula 3.0 32 04/24/18 07:25 Nasal Cannula 3.0 32 04/24/18 07:25 Nasal Cannula 3.0 32 04/24/18 07:25 Nasal Cannula 3.0 32 04/24/18 04:00 3.0 04/24/18 04:00 98.3 87 18 145/65 (91) 96 87 04/24/18 01:30 86 16 99 Nasal Cannula 3.0 32 04/24/18 01:20 85 16 98 Nasal Cannula 3.0 32 04/24/18 00:00 98.2 82 19 133/79 (97) 98 82 04/24/18 00:00 3.0 04/23/18 21:00 Nasal Cannula 3.0 04/23/18 20:54 90 140/78 04/23/18 20:37 Nasal Cannula 3.0 32 04/23/18 20:35 88 16 98 Nasal Cannula 3.0 32 04/23/18 20:34 98 Nasal Cannula 3.0 32 04/23/18 20:34 Nasal Cannula 3.0 32 04/23/18 20:00 99.0 89 19 140/78 (98) 96 89 Intake and Output 04/23/18 04/24/18 18:59 06:59 Intake Total 240 ml Output Total 450 ml Balance -210 ml Intake Oral 240 ml Output Urine Total 450 ml # Bowel Movements 1 Microbiology Date/Time Source Procedure Growth Status 04/22/18 06:00 Sputum Expectorated Gram Stain - Final Complete 04/22/18 06:00 Sputum Expectorated Sputum Culture - Final NORMAL UPPER RESPIRATORY CHRIS PRESENT Complete Laboratory Tests 04/24/18 11:45: C-Reactive Protein, Quantitative 3.8H Current Medications Medications (Trade) Dose Ordered Sig/Shazia Route PRN Reason Start Time Stop Time Status Last Admin Dose Admin Albuterol/ Ipratropium (Albuterol/ Ipratropium) 3 ml Q6HRT HHN 04/23/18 01:00 04/25/18 12:59 04/24/18 01:20 Aspirin (Ecotrin) 81 mg DAILY ORAL 04/23/18 09:00 05/20/18 08:59 04/24/18 08:37 Atorvastatin Calcium (Lipitor) 80 mg DAILY ORAL 04/23/18 09:00 05/20/18 08:59 04/24/18 08:37 Carvedilol (Coreg) 12.5 mg EVERY 12 HOURS ORAL 04/24/18 21:00 05/20/18 20:59 Chlorhexidine Gluconate (Monet-Hex 2%) 1 applic DAILY@2000 TOPIC 04/23/18 20:00 05/20/18 19:59 04/23/18 20:53 Clopidogrel Bisulfate (Plavix) 75 mg DAILY ORAL 04/23/18 09:00 05/20/18 08:59 04/24/18 08:36 Dextrose (Dextrose 50%) 25 ml Q30M PRN IV Hypoglycemia 04/22/18 22:30 05/20/18 08:29 Dextrose (Dextrose 50%) 50 ml Q30M PRN IV Hypoglycemia 04/22/18 22:30 05/20/18 08:29 Furosemide (Lasix) 80 mg DAILY ORAL 04/25/18 09:00 05/25/18 08:59 Guaifenesin (Mucinex ER) 600 mg TWICE A DAY ORAL 04/23/18 09:00 05/21/18 17:59 04/24/18 08:37 Heparin Sodium (Porcine) (Heparin 5000 units/ml) 5,000 units EVERY 12 HOURS SUBQ 04/23/18 09:00 05/22/18 20:59 04/24/18 08:38 Insulin Aspart (NovoLOG) BEFORE MEALS AND HS SUBQ 04/23/18 06:30 05/20/18 11:29 04/24/18 12:23 Levofloxacin (Levaquin) 250 mg QOD ORAL 04/24/18 09:00 04/29/18 13:59 04/24/18 08:37 Pantoprazole (Protonix) 40 mg DAILY ORAL 04/23/18 09:00 05/20/18 08:59 04/24/18 08:36 Spironolactone (Aldactone) 25 mg DAILY ORAL 04/23/18 09:00 05/21/18 08:59 04/24/18 08:37 Shabbir Dillard MD Apr 24, 2018 16:40
--- NOTE | 2018-04-24 19:36 | NUR ---
HAND-OFF: Report given to Alison MARQUES.
--- NOTE | 2018-04-24 19:38 | NUR ---
NURSE NOTES: Pt received awake, alert, receiving breathing treatment, bed in lowest position, hickman catheter draining yellow urine, able to make need known, call light within reach.
--- NOTE | 2018-04-24 19:46 | NUR ---
HAND-OFF: Report given to Alison MARQUES pt in stable condition. total urine out put: 1000ml.
[2018-04-24 20:00] VITALS: BP 133/73
--- NOTE | 2018-04-24 20:07 | Cardiology Progress Note ---
Assessment/Plan Assessment/Plan 1. Acute systolic congestive heart failure, LVEF at 35% to 40% with associated WMA. Add enalapril since creat is stable. 2. Slight elevation of troponin I level in this patient could be type [address]- elevation myocardial infarction or due to myocarditis. 3. Moderate pericardial effusion with no echocardiographic or clinical evidence of pericardial tamponade. 4. Chronic kidney disease. Creatinine stable at 1.9. 5. 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 6. Bilateral pleural effusion. 7. Acute respiratory failure, resolved. Subjective Subjective Not on the telemetry monitoring. No cardiac events. On NC oxygen. Objective Last 24 Hour Vital Signs Date Time Temp Pulse Resp B/P (MAP) Pulse Ox O2 Delivery O2 Flow Rate FiO2 04/24/18 19:31 86 18 100 Nasal Cannula 3.0 32 04/24/18 19:18 96 Nasal Cannula 3.0 32 04/24/18 19:18 Nasal Cannula 3.0 32 04/24/18 19:15 86 18 98 Nasal Cannula 3.0 32 04/24/18 16:00 98.6 94 18 136/68 (90) 98 94 04/24/18 13:04 Nasal Cannula 3.0 32 04/24/18 13:04 Nasal Cannula 3.0 32 04/24/18 12:00 98.2 86 18 149/71 (97) 98 86 04/24/18 09:00 Nasal Cannula 4.0 04/24/18 08:37 84 157/72 04/24/18 08:00 99.3 84 18 157/72 (100) 98 04/24/18 08:00 4.0 04/24/18 08:00 99.3 84 18 157/72 (100) 96 84 04/24/18 07:25 97 Nasal Cannula 3.0 32 04/24/18 07:25 Nasal Cannula 3.0 32 04/24/18 07:25 Nasal Cannula 3.0 32 04/24/18 07:25 Nasal Cannula 3.0 32 04/24/18 04:00 3.0 04/24/18 04:00 98.3 87 18 145/65 (91) 96 87 04/24/18 01:30 86 16 99 Nasal Cannula 3.0 32 04/24/18 01:20 85 16 98 Nasal Cannula 3.0 32 04/24/18 00:00 98.2 82 19 133/79 (97) 98 82 04/24/18 00:00 3.0 04/23/18 21:00 Nasal Cannula 3.0 04/23/18 20:54 90 140/78 04/23/18 20:37 Nasal Cannula 3.0 32 04/23/18 20:35 88 16 98 Nasal Cannula 3.0 32 04/23/18 20:34 98 Nasal Cannula 3.0 32 04/23/18 20:34 Nasal Cannula 3.0 32 Intake and Output 04/23/18 04/24/18 18:59 06:59 Intake Total 240 ml Output Total 450 ml Balance -210 ml Intake Oral 240 ml Output Urine Total 450 ml # Bowel Movements 1 2D Echo: EF 40%, Mild LVH/LAE, Medium Leslie.Eff. no tamponade, RVSP 35, Grade I LVDD Laboratory Tests Test 04/24/18 11:45 C-Reactive Protein, Quantitative 3.8 mg/dL (0.00-0.90) H Microbiology Date/Time Source Procedure Growth Status 04/22/18 06:00 Sputum Expectorated Gram Stain - Final Complete 04/22/18 06:00 Sputum Expectorated Sputum Culture - Final NORMAL UPPER RESPIRATORY CHRIS PRESENT Complete Objective HEENT: Atraumatic and normocephalic. Anicteric. Pupils are equal, round, and reactive to light and accommodation. Extraocular muscles intact. NECK: JVP is less than 2 mm. No carotid bruit. Carotid upstrokes 2+ bilaterally. CARDIOVASCULAR: Normal S1 and S2. Regular rate and rhythm. No murmurs, gallops, or rubs. PMI is at fourth intercostal space in the mid clavicular line. LUNGS: Diminished breath sounds in both lungs. ABDOMEN: Soft, nontender, and nondistended. No hepatosplenomegaly. Positive bowel sounds. 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 Logan Mathur MD Apr 24, 2018 20:07
--- NOTE | 2018-04-24 20:35 | General Progress Note ---
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 SNOMED: 72575007, 466705819 (7) Cardiomyopathy ICD Codes: I42.9 - Cardiomyopathy, unspecified SNOMED: 15378094 (8) Pacemaker ICD Codes: Z95.0 - Presence of cardiac pacemaker SNOMED: 930715913 (9) CHF exacerbation ICD Codes: I50.9 - Heart failure, unspecified SNOMED: 11726131 (10) Diabetes mellitus ICD Codes: E11.9 - Diabetes mellitus SNOMED: 77023864 (11) Valvular cardiomyopathy ICD Codes: I42.8 - Valvular cardiomyopathy SNOMED: 07347797 (12) Hypokalemia ICD Codes: E87.6 - Hypokalemia SNOMED: 78452337 (13) ARF (acute renal failure) ICD Codes: N17.9 - ARF (acute renal failure) SNOMED: 41530064 Status: progressing Assessment/Plan niddm chf exac is improving heart murmer extertional dyspnea htn cardiomyopathy valvular insuffcieny pulm edema is improving needs rehab Subjective ROS Limited/Unobtainable: Yes Allergies: Coded Allergies: SULFA (SULFONAMIDE ANTIBIOTICS) (Verified Allergy, Severe, ITCHING AND RASH BREAKOUT, 01/24/14) Objective Last 24 Hour Vital Signs Date Time Temp Pulse Resp B/P (MAP) Pulse Ox O2 Delivery O2 Flow Rate FiO2 04/24/18 19:31 86 18 100 Nasal Cannula 3.0 32 04/24/18 19:18 96 Nasal Cannula 3.0 32 04/24/18 19:18 Nasal Cannula 3.0 32 04/24/18 19:15 86 18 98 Nasal Cannula 3.0 32 04/24/18 16:00 98.6 94 18 136/68 (90) 98 94 04/24/18 13:04 Nasal Cannula 3.0 32 04/24/18 13:04 Nasal Cannula 3.0 32 04/24/18 12:00 98.2 86 18 149/71 (97) 98 86 04/24/18 09:00 Nasal Cannula 4.0 04/24/18 08:37 84 157/72 04/24/18 08:00 99.3 84 18 157/72 (100) 98 04/24/18 08:00 4.0 04/24/18 08:00 99.3 84 18 157/72 (100) 96 84 04/24/18 07:25 97 Nasal Cannula 3.0 32 04/24/18 07:25 Nasal Cannula 3.0 32 04/24/18 07:25 Nasal Cannula 3.0 32 04/24/18 07:25 Nasal Cannula 3.0 32 04/24/18 04:00 3.0 04/24/18 04:00 98.3 87 18 145/65 (91) 96 87 04/24/18 01:30 86 16 99 Nasal Cannula 3.0 32 04/24/18 01:20 85 16 98 Nasal Cannula 3.0 32 04/24/18 00:00 98.2 82 19 133/79 (97) 98 82 04/24/18 00:00 3.0 04/23/18 21:00 Nasal Cannula 3.0 04/23/18 20:54 90 140/78 04/23/18 20:37 Nasal Cannula 3.0 32 04/23/18 20:35 88 16 98 Nasal Cannula 3.0 32 Intake and Output 04/23/18 04/24/18 18:59 06:59 Intake Total 240 ml Output Total 450 ml Balance -210 ml Intake Oral 240 ml Output Urine Total 450 ml # Bowel Movements 1 Laboratory Tests 04/24/18 11:45: C-Reactive Protein, Quantitative 3.8H Height (Feet): 5 Height (Inches): 2.00 Weight (Pounds): 115 Neck: supple Cardiovascular: normal rate Respiratory/Chest: lungs clear Abdomen: soft Светлана Vazquez MD Apr 24, 2018 20:35
[2018-04-24] MEDS: Dyna-Hex 2% Top Sol 2oz TOPIC SCH (20:57)
[2018-04-24] MEDS: Carvedilol 12.5mg tab ORAL SCH (20:57)
[2018-04-24] MEDS: Enalapril 2.5mg tab ORAL SCH (22:15)
--- NOTE | 2018-04-24 23:14 | NUR ---
NURSE NOTES: Pt blood pressure is 128/63, did not administer enalapril
--- NOTE | 2018-04-24 23:17 | Cardiology Progress Note ---
Assessment/Plan Assessment/Plan 1. Acute systolic congestive heart failure, LVEF at 35% to 40% with associated WMA. Add enalapril since creat is stable. 2. Slight elevation of troponin I level in this patient could be type [address]- elevation myocardial infarction or due to myocarditis. 3. Moderate pericardial effusion with no echocardiographic or clinical evidence of pericardial tamponade. 4. Chronic kidney disease. Creatinine stable at 1.9. 5. 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 6. Bilateral pleural effusion. 7. Acute respiratory failure, resolved. Subjective Subjective Not on the telemetry monitoring. No cardiac events. On NC oxygen. Objective Last 24 Hour Vital Signs Date Time Temp Pulse Resp B/P (MAP) Pulse Ox O2 Delivery O2 Flow Rate FiO2 04/24/18 22:15 128/63 04/24/18 21:00 Nasal Cannula 4.0 04/24/18 20:57 87 133/73 04/24/18 20:00 99.0 87 18 133/73 (93) 100 87 04/24/18 19:31 86 18 100 Nasal Cannula 3.0 32 04/24/18 19:18 96 Nasal Cannula 3.0 32 04/24/18 19:18 Nasal Cannula 3.0 32 04/24/18 19:15 86 18 98 Nasal Cannula 3.0 32 04/24/18 16:00 98.6 94 18 136/68 (90) 98 94 04/24/18 13:04 Nasal Cannula 3.0 32 04/24/18 13:04 Nasal Cannula 3.0 32 04/24/18 12:00 98.2 86 18 149/71 (97) 98 86 04/24/18 09:00 Nasal Cannula 4.0 04/24/18 08:37 84 157/72 04/24/18 08:00 99.3 84 18 157/72 (100) 98 04/24/18 08:00 4.0 04/24/18 08:00 99.3 84 18 157/72 (100) 96 84 04/24/18 07:25 97 Nasal Cannula 3.0 32 04/24/18 07:25 Nasal Cannula 3.0 32 04/24/18 07:25 Nasal Cannula 3.0 32 04/24/18 07:25 Nasal Cannula 3.0 32 04/24/18 04:00 3.0 1/20/19 04:00 98.3 87 18 145/65 (91) 96 87 04/24/18 01:30 86 16 99 Nasal Cannula 3.0 32 04/24/18 01:20 85 16 98 Nasal Cannula 3.0 32 04/24/18 00:00 98.2 82 19 133/79 (97) 98 82 04/24/18 00:00 3.0 Intake and Output 04/23/18 04/24/18 18:59 06:59 Intake Total 240 ml Output Total 450 ml Balance -210 ml Intake Oral 240 ml Output Urine Total 450 ml # Bowel Movements 1 Laboratory Tests Test 04/24/18 11:45 C-Reactive Protein, Quantitative 3.8 mg/dL (0.00-0.90) H Microbiology Date/Time Source Procedure Growth Status 04/22/18 06:00 Sputum Expectorated Gram Stain - Final Complete 04/22/18 06:00 Sputum Expectorated Sputum Culture - Final NORMAL UPPER RESPIRATORY CHRIS PRESENT Complete Objective HEENT: Atraumatic and normocephalic. Anicteric. Pupils are equal, round, and reactive to light and accommodation. Extraocular muscles intact. NECK: JVP is less than 2 mm. No carotid bruit. Carotid upstrokes 2+ bilaterally. CARDIOVASCULAR: Normal S1 and S2. Regular rate and rhythm. No murmurs, gallops, or rubs. PMI is at fourth intercostal space in the mid clavicular line. LUNGS: Diminished breath sounds in both lungs. ABDOMEN: Soft, nontender, and nondistended. No hepatosplenomegaly. Positive bowel sounds. 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 Logan Mathur MD Apr 24, 2018 23:17
[2018-04-25] VITALS (8 sets, daily range): BP systolic 121–144; BP diastolic 55–73
[2018-04-25] MEDS: Albuterol/Ipratropium 3ml neb HHN SCH ×4 (01:23→20:55)
[2018-04-25 05:42] LABS: BASOPHILS % (AUTO) 2.4 % (0.0-2.0); EOSINOPHILS % (AUTO) 5.3 % (0.0-3.0); HEMATOCRIT 25.1 % (37.0-47.0); HEMOGLOBIN 8.3 G/DL (12.0-16.0); LYMPHOCYTES % (AUTO) 19.6 % (20.0-45.0); MEAN CORPUSCULAR VOLUME 86 FL (80-99); MONOCYTES % (AUTO) 10.4 % (1.0-10.0); NEUTROPHILS % (AUTO) 62.3 % (45.0-75.0); PLATELET COUNT 200 K/UL (150-450); RED BLOOD COUNT 2.91 M/UL (4.20-5.40); WHITE BLOOD COUNT 10.3 K/UL (4.8-10.8)
[2018-04-25 06:02] LABS: ALANINE AMINOTRANSFERASE 21 U/L (12-78); ALBUMIN 2.7 G/DL (3.4-5.0); ALBUMIN/GLOBULIN RATIO 0.7 (1.0-2.7); ALKALINE PHOSPHATASE 64 U/L (46-116); ANION GAP 7 mmol/L (5-15); ASPARTATE AMINO TRANSFERASE 17 U/L (15-37); BILIRUBIN,TOTAL 0.3 MG/DL (0.2-1.0); BLOOD UREA NITROGEN 36 mg/dL (7-18); CALCIUM 8.5 MG/DL (8.5-10.1); CARBON DIOXIDE 27 MMOL/L (21-32); CHLORIDE 103 MMOL/L (98-107); CREATININE 1.6 MG/DL (0.55-1.30); GAMMA GLUTAMYL TRANSPEPTIDASE 32 U/L (5-85); POTASSIUM 3.2 MMOL/L (3.5-5.1); SODIUM 137 MMOL/L (136-145)
[2018-04-25] MEDS: NovoLOG Insulin Flexpen SUBQ SCH ×4 (06:44→21:00)
--- NOTE | 2018-04-25 07:13 | General Progress Note ---
Assessment/Plan Problem List: (1) Cardiomyopathy ICD Codes: I42.9 - Cardiomyopathy, unspecified SNOMED: 30366626 (2) ARF (acute renal failure) ICD Codes: N17.9 - Acute kidney failure, unspecified SNOMED: 66512525 (3) Pulmonary edema ICD Codes: J81.1 - Chronic pulmonary edema SNOMED: 93894129 (4) Diabetes mellitus ICD Codes: E11.9 - Diabetes mellitus SNOMED: 99365022 Assessment/Plan continue to keep off Metformin continue Januvia 50 mg daily continue NISS ac / hs Subjective Allergies: Coded Allergies: SULFA (SULFONAMIDE ANTIBIOTICS) (Verified Allergy, Severe, ITCHING AND RASH BREAKOUT, 01/24/14) All Systems: reviewed and negative except above Subjective events noted Objective Last 24 Hour Vital Signs Date Time Temp Pulse Resp B/P (MAP) Pulse Ox O2 Delivery O2 Flow Rate FiO2 04/25/18 04:00 98.5 82 19 144/68 (93) 100 82 04/25/18 01:46 76 18 97 Nasal Cannula 3.0 32 04/25/18 01:24 84 18 95 Nasal Cannula 3.0 32 04/25/18 00:00 97.8 81 19 128/63 (84) 100 81 04/24/18 22:15 128/63 04/24/18 21:00 Nasal Cannula 4.0 04/24/18 20:57 87 133/73 04/24/18 20:00 99.0 87 18 133/73 (93) 100 87 04/24/18 19:31 86 18 100 Nasal Cannula 3.0 32 04/24/18 19:18 96 Nasal Cannula 3.0 32 04/24/18 19:18 Nasal Cannula 3.0 32 04/24/18 19:15 86 18 98 Nasal Cannula 3.0 32 04/24/18 16:00 98.6 94 18 136/68 (90) 98 94 04/24/18 13:04 Nasal Cannula 3.0 32 04/24/18 13:04 Nasal Cannula 3.0 32 04/24/18 12:00 98.2 86 18 149/71 (97) 98 86 04/24/18 09:00 Nasal Cannula 4.0 04/24/18 08:37 84 157/72 04/24/18 08:00 99.3 84 18 157/72 (100) 98 04/24/18 08:00 4.0 04/24/18 08:00 99.3 84 18 157/72 (100) 96 84 04/24/18 07:25 97 Nasal Cannula 3.0 32 04/24/18 07:25 Nasal Cannula 3.0 32 04/24/18 07:25 Nasal Cannula 3.0 32 04/24/18 07:25 Nasal Cannula 3.0 32 Intake and Output 04/24/18 04/25/18 19:00 07:00 Intake Total 1052 ml 240 ml Output Total 1000 ml 450 ml Balance 52 ml -210 ml Intake Oral 1052 ml 240 ml Output Urine Total 1000 ml 450 ml Laboratory Tests 04/24/18 11:45: C-Reactive Protein, Quantitative 3.8H 04/25/18 05:00: White Blood Count 10.3, Red Blood Count 2.91L, Hemoglobin 8.3L, Hematocrit 25.1L , Mean Corpuscular Volume 86, Mean Corpuscular Hemoglobin 28.4, Mean Corpuscular Hemoglobin Concent 32.9, Red Cell Distribution Width 13.0, Platelet Count 200, Mean Platelet Volume 7.7, Neutrophils (%) (Auto) 62.3, Lymphocytes (% ) (Auto) 19.6L, Monocytes (%) (Auto) 10.4H, Eosinophils (%) (Auto) 5.3H, Basophils (%) (Auto) 2.4H, Sodium Level 137, Potassium Level 3.2L, Chloride Level 103, Carbon Dioxide Level 27, Anion Gap 7, Blood Urea Nitrogen 36H, Creatinine 1.6H, Estimat Glomerular Filtration Rate , Glucose Level 120H, Uric Acid 6.8, Calcium Level 8.5, Phosphorus Level 3.0, Magnesium Level 2.0, Total Bilirubin 0.3, Gamma Glutamyl Transpeptidase 32, Aspartate Amino Transf (AST/ SGOT) 17, Alanine Aminotransferase (ALT/SGPT) 21, Alkaline Phosphatase 64, Pro-B -Type Natriuretic Peptide 7092H, Total Protein 6.5, Albumin 2.7L, Globulin 3.8, Albumin/Globulin Ratio 0.7L Height (Feet): 5 Height (Inches): 2.00 Weight (Pounds): 115 General Appearance: no apparent distress Neck: normal alignment Cardiovascular: normal rate Respiratory/Chest: lungs clear Abdomen: normal bowel sounds Objective Current Medications Medications (Trade) Dose Ordered Sig/Shazia Route PRN Reason Start Time Stop Time Status Last Admin Dose Admin Albuterol/ Ipratropium (Albuterol/ Ipratropium) 3 ml Q6HRT HHN 04/23/18 01:00 04/25/18 12:59 04/25/18 01:23 Aspirin (Ecotrin) 81 mg DAILY ORAL 04/23/18 09:00 05/20/18 08:59 04/24/18 08:37 Atorvastatin Calcium (Lipitor) 80 mg DAILY ORAL 04/23/18 09:00 05/20/18 08:59 04/24/18 08:37 Carvedilol (Coreg) 12.5 mg EVERY 12 HOURS ORAL 04/24/18 21:00 05/20/18 20:59 04/24/18 20:57 Chlorhexidine Gluconate (Monet-Hex 2%) 1 applic DAILY@2000 TOPIC 04/23/18 20:00 05/20/18 19:59 04/24/18 20:57 Clopidogrel Bisulfate (Plavix) 75 mg DAILY ORAL 04/23/18 09:00 05/20/18 08:59 04/24/18 08:36 Dextrose (Dextrose 50%) 25 ml Q30M PRN IV Hypoglycemia 04/22/18 22:30 05/20/18 08:29 Dextrose (Dextrose 50%) 50 ml Q30M PRN IV Hypoglycemia 04/22/18 22:30 05/20/18 08:29 Enalapril Maleate (Vasotec) 2.5 mg EVERY 12 HOURS ORAL 04/24/18 22:15 05/24/18 22:14 Furosemide (Lasix) 80 mg DAILY ORAL 04/25/18 09:00 05/25/18 08:59 Guaifenesin (Mucinex ER) 600 mg TWICE A DAY ORAL 04/23/18 09:00 05/21/18 17:59 04/24/18 16:53 Heparin Sodium (Porcine) (Heparin 5000 units/ml) 5,000 units EVERY 12 HOURS SUBQ 04/23/18 09:00 05/22/18 20:59 04/24/18 20:57 Insulin Aspart (NovoLOG) BEFORE MEALS AND HS SUBQ 04/23/18 06:30 05/20/18 11:29 04/25/18 06:44 Levofloxacin (Levaquin) 250 mg QOD ORAL 04/24/18 09:00 04/29/18 13:59 04/24/18 08:37 Pantoprazole (Protonix) 40 mg DAILY ORAL 04/23/18 09:00 05/20/18 08:59 04/24/18 08:36 Spironolactone (Aldactone) 25 mg DAILY ORAL 04/23/18 09:00 05/21/18 08:59 04/24/18 08:37 Item Value Date Time Bedside Blood Glucose 118 mg/dl 04/25/18 0644 Bedside Blood Glucose 167 mg/dl H 04/24/18 2100 Bedside Blood Glucose 214 mg/dl H 04/24/18 1652 Bedside Blood Glucose 144 mg/dl H 04/24/18 1223 Bedside Blood Glucose 143 mg/dl H 04/24/18 0616 Richi Jeff MD Apr 25, 2018 07:13
--- NOTE | 2018-04-25 07:17 | NUR ---
HAND-OFF: Report given to JERALD Keane. Patient stable and eating breakfast.
[2018-04-25] MEDS: sitaGLIPtin 25mg tab ORAL SCH (07:45)
--- NOTE | 2018-04-25 07:48 | NUR ---
NURSE NOTES: AWAKE/ALERT. NO C/O PAIN.NO SOB. IN NO DISTRESS.
[2018-04-25] MEDS: Aspirin EC 81mg tab ORAL SCH (08:27)
[2018-04-25] MEDS: guaiFENesin ER 600mg tab ORAL SCH ×2 (08:27→17:36)
[2018-04-25] MEDS: Carvedilol 12.5mg tab ORAL SCH ×2 (08:27→20:56)
[2018-04-25] MEDS: Atorvastatin 80mg tab ORAL SCH (08:28)
[2018-04-25] MEDS: Enalapril 2.5mg tab ORAL SCH ×2 (08:28→21:19)
[2018-04-25] MEDS: Spironolactone 25mg tab ORAL SCH (08:29)
[2018-04-25] MEDS: Furosemide 80mg tab ORAL SCH (08:29)
[2018-04-25] MEDS: Heparin 5000 units/ml inj SUBQ SCH ×2 (08:31→20:59)
--- NOTE | 2018-04-25 10:32 | GI Progress Note ---
Assessment/Plan Problems: (1) Anemia ICD Codes: D64.9 - Anemia, unspecified SNOMED: 045311901 (2) Respiratory distress ICD Codes: R06.00 - Dyspnea, unspecified SNOMED: 751893390 (3) Acute on chronic renal failure ICD Codes: N17.9 - Acute on chronic renal failure; N18.9 - Chronic kidney disease, unspecified SNOMED: 100241804 Status: stable, progressing Status Narrative Discussed with Dr. Anthony Assessment/Plan GI procedures if necessary, but will defer at this time given elevated troponin levels and will require cardiac clearance prior. Pulmonary support on ADA diet OB stool r/o GI bleed collected, pending final read venofer monitor H&H, prn transfusions bowel regime ppi fu labs The patient was seen and examined at bedside and all new and available data was reviewed in the patients chart. I agree with the above findings, impression and plan. (Patient seen earlier today. Signature stamp does not reflect patient encounter time.). - Norman Anthony MD Subjective Subjective Limited Objective Last 24 Hour Vital Signs Date Time Temp Pulse Resp B/P (MAP) Pulse Ox O2 Delivery O2 Flow Rate FiO2 04/25/18 09:00 Nasal Cannula 4.0 04/25/18 08:28 131/64 04/25/18 08:27 82 131/64 04/25/18 08:00 98.7 82 19 131/64 (86) 100 04/25/18 07:22 99 Nasal Cannula 3.0 32 04/25/18 07:22 Nasal Cannula 3.0 32 04/25/18 07:22 Nasal Cannula 3.0 32 04/25/18 07:22 Nasal Cannula 3.0 32 04/25/18 04:00 98.5 82 19 144/68 (93) 100 82 04/25/18 01:46 76 18 97 Nasal Cannula 3.0 32 04/25/18 01:24 84 18 95 Nasal Cannula 3.0 32 04/25/18 00:00 97.8 81 19 128/63 (84) 100 81 04/24/18 22:15 128/63 04/24/18 21:00 Nasal Cannula 4.0 04/24/18 20:57 87 133/73 04/24/18 20:00 99.0 87 18 133/73 (93) 100 87 04/24/18 19:31 86 18 100 Nasal Cannula 3.0 32 04/24/18 19:18 96 Nasal Cannula 3.0 32 04/24/18 19:18 Nasal Cannula 3.0 32 04/24/18 19:15 86 18 98 Nasal Cannula 3.0 32 04/24/18 16:00 98.6 94 18 136/68 (90) 98 94 04/24/18 13:04 Nasal Cannula 3.0 32 04/24/18 13:04 Nasal Cannula 3.0 32 04/24/18 12:00 98.2 86 18 149/71 (97) 98 86 Intake and Output 04/24/18 04/25/18 19:00 07:00 Intake Total 1052 ml 240 ml Output Total 1000 ml 450 ml Balance 52 ml -210 ml Intake Oral 1052 ml 240 ml Output Urine Total 1000 ml 450 ml Laboratory Tests Test 04/24/18 11:45 04/25/18 05:00 04/25/18 08:55 C-Reactive Protein, Quantitative 3.8 mg/dL (0.00-0.90) H White Blood Count 10.3 K/UL (4.8-10.8) Red Blood Count 2.91 M/UL (4.20-5.40) L Hemoglobin 8.3 G/DL (12.0-16.0) L Hematocrit 25.1 % (37.0-47.0) L Mean Corpuscular Volume 86 FL (80-99) Mean Corpuscular Hemoglobin 28.4 PG (27.0-31.0) Mean Corpuscular Hemoglobin Concent 32.9 G/DL (32.0-36.0) Red Cell Distribution Width 13.0 % (11.6-14.8) Platelet Count 200 K/UL (150-450) Mean Platelet Volume 7.7 FL (6.5-10.1) Neutrophils (%) (Auto) 62.3 % (45.0-75.0) Lymphocytes (%) (Auto) 19.6 % (20.0-45.0) L Monocytes (%) (Auto) 10.4 % (1.0-10.0) H Eosinophils (%) (Auto) 5.3 % (0.0-3.0) H Basophils (%) (Auto) 2.4 % (0.0-2.0) H Sodium Level 137 MMOL/L (136-145) Potassium Level 3.2 MMOL/L (3.5-5.1) L Chloride Level 103 MMOL/L (98-107) Carbon Dioxide Level 27 MMOL/L (21-32) Anion Gap 7 mmol/L (5-15) Blood Urea Nitrogen 36 mg/dL (7-18) H Creatinine 1.6 MG/DL (0.55-1.30) H Estimat Glomerular Filtration Rate mL/min (>60) Glucose Level 120 MG/DL (74-106) H Uric Acid 6.8 MG/DL (2.6-7.2) Calcium Level 8.5 MG/DL (8.5-10.1) Phosphorus Level 3.0 MG/DL (2.5-4.9) Magnesium Level 2.0 MG/DL (1.8-2.4) Total Bilirubin 0.3 MG/DL (0.2-1.0) Gamma Glutamyl Transpeptidase 32 U/L (5-85) Aspartate Amino Transf (AST/SGOT) 17 U/L (15-37) Alanine Aminotransferase (ALT/SGPT) 21 U/L (12-78) Alkaline Phosphatase 64 U/L (46-116) Pro-B-Type Natriuretic Peptide 7092 pg/mL (0-125) H Total Protein 6.5 G/DL (6.4-8.2) Albumin 2.7 G/DL (3.4-5.0) L Globulin 3.8 g/dL Albumin/Globulin Ratio 0.7 (1.0-2.7) L Stool Occult Blood Pending Height (Feet): 5 Height (Inches): 2.00 Weight (Pounds): 115 General Appearance: no apparent distress, thin Cardiovascular: normal rate Respiratory/Chest: normal breath sounds, no respiratory distress, other - On nasal cannula Abdominal Exam: normal bowel sounds, non tender, soft Extremities: non-tender Renee Crespo NP Apr 25, 2018 10:32
--- NOTE | 2018-04-25 11:31 | Nephrology Progress Note ---
Assessment/Plan Problem List: (1) ARF (acute renal failure) (2) Diabetic nephropathy (3) Anemia (4) CHF exacerbation (5) Cardiomyopathy (6) Pacemaker Assessment Renal failure- likely acute on chronic Likely Diabetic Nephropathy 3+ proteinuria Anemia Etiology?? Respiratory failure, acute / Pulmonary edema / Pneumonia CHF exacerbation NSTEMI (non-ST elevated myocardial infarction) Diabetes mellitus Leukocytosis Hx of BKA Plan Optimize cardiac and pulmonary status avoid Nephrotoxics BP and BS in check increase coreg DC hickman echo 40 5 ej fx urine studies venofer IV lasix to po Subjective ROS Limited/Unobtainable: No Constitutional: Reports: malaise, weakness Objective Objective Last 24 Hour Vital Signs Date Time Temp Pulse Resp B/P (MAP) Pulse Ox O2 Delivery O2 Flow Rate FiO2 04/25/18 09:00 Nasal Cannula 4.0 04/25/18 08:28 131/64 04/25/18 08:27 82 131/64 04/25/18 08:00 98.7 82 19 131/64 (86) 100 04/25/18 07:22 99 Nasal Cannula 3.0 32 04/25/18 07:22 Nasal Cannula 3.0 32 04/25/18 07:22 Nasal Cannula 3.0 32 04/25/18 07:22 Nasal Cannula 3.0 32 04/25/18 04:00 98.5 82 19 144/68 (93) 100 82 04/25/18 01:46 76 18 97 Nasal Cannula 3.0 32 04/25/18 01:24 84 18 95 Nasal Cannula 3.0 32 04/25/18 00:00 97.8 81 19 128/63 (84) 100 81 04/24/18 22:15 128/63 04/24/18 21:00 Nasal Cannula 4.0 04/24/18 20:57 87 133/73 04/24/18 20:00 99.0 87 18 133/73 (93) 100 87 04/24/18 19:31 86 18 100 Nasal Cannula 3.0 32 04/24/18 19:18 96 Nasal Cannula 3.0 32 04/24/18 19:18 Nasal Cannula 3.0 32 04/24/18 19:15 86 18 98 Nasal Cannula 3.0 32 04/24/18 16:00 98.6 94 18 136/68 (90) 98 94 04/24/18 13:04 Nasal Cannula 3.0 32 04/24/18 13:04 Nasal Cannula 3.0 32 04/24/18 12:00 98.2 86 18 149/71 (97) 98 86 Intake and Output 04/24/18 04/25/18 19:00 07:00 Intake Total 1052 ml 240 ml Output Total 1000 ml 450 ml Balance 52 ml -210 ml Intake Oral 1052 ml 240 ml Output Urine Total 1000 ml 450 ml Laboratory Tests 04/24/18 11:45: C-Reactive Protein, Quantitative 3.8H 04/25/18 05:00: White Blood Count 10.3, Red Blood Count 2.91L, Hemoglobin 8.3L, Hematocrit 25.1L , Mean Corpuscular Volume 86, Mean Corpuscular Hemoglobin 28.4, Mean Corpuscular Hemoglobin Concent 32.9, Red Cell Distribution Width 13.0, Platelet Count 200, Mean Platelet Volume 7.7, Neutrophils (%) (Auto) 62.3, Lymphocytes (% ) (Auto) 19.6L, Monocytes (%) (Auto) 10.4H, Eosinophils (%) (Auto) 5.3H, Basophils (%) (Auto) 2.4H, Sodium Level 137, Potassium Level 3.2L, Chloride Level 103, Carbon Dioxide Level 27, Anion Gap 7, Blood Urea Nitrogen 36H, Creatinine 1.6H, Estimat Glomerular Filtration Rate , Glucose Level 120H, Uric Acid 6.8, Calcium Level 8.5, Phosphorus Level 3.0, Magnesium Level 2.0, Total Bilirubin 0.3, Gamma Glutamyl Transpeptidase 32, Aspartate Amino Transf (AST/ SGOT) 17, Alanine Aminotransferase (ALT/SGPT) 21, Alkaline Phosphatase 64, Pro-B -Type Natriuretic Peptide 7092H, Total Protein 6.5, Albumin 2.7L, Globulin 3.8, Albumin/Globulin Ratio 0.7L 04/25/18 08:55: Stool Occult Blood [Pending] Height (Feet): 5 Height (Inches): 2.00 Weight (Pounds): 115 General Appearance: no apparent distress Cardiovascular: normal rate Respiratory/Chest: decreased breath sounds Abdomen: soft Objective breathing easier Antony Adkins MD Apr 25, 2018 11:31
--- NOTE | 2018-04-25 14:47 | NUR ---
UPHOLSTERY CUTTERLEGAL ADVISER SI: ACUTE CHF T. 98.6 HR 84 RR 15 B/P 128/65 3L NC K 3.2 BUN 36 CR 1.6 BNP 7092 IS: LEVAQUIN PO LASIX PO K-DUR PO HEPARIN SUBC MED/SURG STATUS
--- NOTE | 2018-04-25 15:05 | Infectious Diseases Prog Note ---
Assessment/Plan Assessment/Plan A: 1. Bronchitis, 2. CHF exacerbation. 3. Acute renal failure. 4. Diabetes mellitus. 5. Leukocytosis. resolved 6. Acute respiratory failure.improving 7. UTI with Pseudomonas P: Discontinue Levaquin Observe off antibiotic Discontinue PICC line at time of discharge Subjective ROS Limited/Unobtainable: No Constitutional: Reports: no symptoms, other - feels better Respiratory: Reports: dry cough Cardiovascular: Reports: no symptoms Gastrointestinal/Abdominal: Reports: no symptoms Genitourinary: Reports: no symptoms Allergies: Coded Allergies: SULFA (SULFONAMIDE ANTIBIOTICS) (Verified Allergy, Severe, ITCHING AND RASH BREAKOUT, 01/24/14) Objective Vital Signs Last 24 Hour Vital Signs Date Time Temp Pulse Resp B/P (MAP) Pulse Ox O2 Delivery O2 Flow Rate FiO2 04/25/18 13:42 85 16 99 Nasal Cannula 2.0 28 04/25/18 13:30 84 15 100 Nasal Cannula 3.0 32 04/25/18 12:00 98.6 84 19 128/61 (83) 99 04/25/18 09:00 Nasal Cannula 4.0 04/25/18 08:28 131/64 04/25/18 08:27 82 131/64 04/25/18 08:00 98.7 82 19 131/64 (86) 100 04/25/18 07:22 99 Nasal Cannula 3.0 32 04/25/18 07:22 Nasal Cannula 3.0 32 04/25/18 07:22 Nasal Cannula 3.0 32 04/25/18 07:22 Nasal Cannula 3.0 32 04/25/18 04:00 98.5 82 19 144/68 (93) 100 82 04/25/18 01:46 76 18 97 Nasal Cannula 3.0 32 04/25/18 01:24 84 18 95 Nasal Cannula 3.0 32 04/25/18 00:00 97.8 81 19 128/63 (84) 100 81 04/24/18 22:15 128/63 04/24/18 21:00 Nasal Cannula 4.0 04/24/18 20:57 87 133/73 04/24/18 20:00 99.0 87 18 133/73 (93) 100 87 04/24/18 19:31 86 18 100 Nasal Cannula 3.0 32 04/24/18 19:18 96 Nasal Cannula 3.0 32 04/24/18 19:18 Nasal Cannula 3.0 32 04/24/18 19:15 86 18 98 Nasal Cannula 3.0 32 04/24/18 16:00 98.6 94 18 136/68 (90) 98 94 Height (Feet): 5 Height (Inches): 2.00 Weight (Pounds): 115 General Appearance: no acute distress HEENT: mucous membranes moist Respiratory/Chest: lungs clear, other - R arm PICC line Cardiovascular: normal rate Abdomen: soft, non tender Extremities: no edema Neurologic/Psychiatric: alert, oriented x 3, responsive Laboratory Tests Test 04/25/18 05:00 04/25/18 08:55 White Blood Count 10.3 K/UL (4.8-10.8) Red Blood Count 2.91 M/UL (4.20-5.40) L Hemoglobin 8.3 G/DL (12.0-16.0) L Hematocrit 25.1 % (37.0-47.0) L Mean Corpuscular Volume 86 FL (80-99) Mean Corpuscular Hemoglobin 28.4 PG (27.0-31.0) Mean Corpuscular Hemoglobin Concent 32.9 G/DL (32.0-36.0) Red Cell Distribution Width 13.0 % (11.6-14.8) Platelet Count 200 K/UL (150-450) Mean Platelet Volume 7.7 FL (6.5-10.1) Neutrophils (%) (Auto) 62.3 % (45.0-75.0) Lymphocytes (%) (Auto) 19.6 % (20.0-45.0) L Monocytes (%) (Auto) 10.4 % (1.0-10.0) H Eosinophils (%) (Auto) 5.3 % (0.0-3.0) H Basophils (%) (Auto) 2.4 % (0.0-2.0) H Sodium Level 137 MMOL/L (136-145) Potassium Level 3.2 MMOL/L (3.5-5.1) L Chloride Level 103 MMOL/L (98-107) Carbon Dioxide Level 27 MMOL/L (21-32) Anion Gap 7 mmol/L (5-15) Blood Urea Nitrogen 36 mg/dL (7-18) H Creatinine 1.6 MG/DL (0.55-1.30) H Estimat Glomerular Filtration Rate mL/min (>60) Glucose Level 120 MG/DL (74-106) H Uric Acid 6.8 MG/DL (2.6-7.2) Calcium Level 8.5 MG/DL (8.5-10.1) Phosphorus Level 3.0 MG/DL (2.5-4.9) Magnesium Level 2.0 MG/DL (1.8-2.4) Total Bilirubin 0.3 MG/DL (0.2-1.0) Gamma Glutamyl Transpeptidase 32 U/L (5-85) Aspartate Amino Transf (AST/SGOT) 17 U/L (15-37) Alanine Aminotransferase (ALT/SGPT) 21 U/L (12-78) Alkaline Phosphatase 64 U/L (46-116) Pro-B-Type Natriuretic Peptide 7092 pg/mL (0-125) H Total Protein 6.5 G/DL (6.4-8.2) Albumin 2.7 G/DL (3.4-5.0) L Globulin 3.8 g/dL Albumin/Globulin Ratio 0.7 (1.0-2.7) L Stool Occult Blood Pending Current Medications Medications (Trade) Dose Ordered Sig/Shazia Route PRN Reason Start Time Stop Time Status Last Admin Dose Admin Albuterol/ Ipratropium (Albuterol/ Ipratropium) 3 ml Q6HRT HHN 04/25/18 13:00 04/28/18 00:59 04/25/18 13:30 Aspirin (Ecotrin) 81 mg DAILY ORAL 04/23/18 09:00 05/20/18 08:59 04/25/18 08:27 Atorvastatin Calcium (Lipitor) 80 mg DAILY ORAL 04/23/18 09:00 05/20/18 08:59 04/25/18 08:28 Carvedilol (Coreg) 12.5 mg EVERY 12 HOURS ORAL 04/24/18 21:00 05/20/18 20:59 04/25/18 08:27 Chlorhexidine Gluconate (Monet-Hex 2%) 1 applic DAILY@1999 TOPIC 04/23/18 20:00 05/20/18 19:59 04/24/18 20:57 Clopidogrel Bisulfate (Plavix) 75 mg DAILY ORAL 04/23/18 09:00 2/15/19 08:59 04/25/18 08:25 Dextrose (Dextrose 50%) 25 ml Q30M PRN IV Hypoglycemia 04/22/18 22:30 05/20/18 08:29 Dextrose (Dextrose 50%) 50 ml Q30M PRN IV Hypoglycemia 04/22/18 22:30 05/20/18 08:29 Enalapril Maleate (Vasotec) 2.5 mg EVERY 12 HOURS ORAL 04/24/18 22:15 05/24/18 22:14 04/25/18 08:28 Furosemide (Lasix) 80 mg DAILY ORAL 04/25/18 09:00 05/25/18 08:59 04/25/18 08:29 Guaifenesin (Mucinex ER) 600 mg TWICE A DAY ORAL 04/23/18 09:00 05/21/18 17:59 04/25/18 08:27 Heparin Sodium (Porcine) (Heparin 5000 units/ml) 5,000 units EVERY 12 HOURS SUBQ 04/23/18 09:00 05/22/18 20:59 04/25/18 08:31 Insulin Aspart (NovoLOG) BEFORE MEALS AND HS SUBQ 04/23/18 06:30 05/20/18 11:29 04/25/18 11:36 Levofloxacin (Levaquin) 250 mg QOD ORAL 04/24/18 09:00 04/29/18 13:59 04/24/18 08:37 Pantoprazole (Protonix) 40 mg DAILY ORAL 04/23/18 09:00 05/20/18 08:59 04/25/18 08:29 Potassium Chloride (K-Dur) 40 meq TWICE A DAY ORAL 04/25/18 09:00 05/25/18 08:59 04/25/18 09:13 Sitagliptin Phosphate (Januvia) 25 mg ACBREAKFAST ORAL 04/25/18 07:15 05/25/18 07:14 04/25/18 07:45 Spironolactone (Aldactone) 25 mg DAILY ORAL 04/23/18 09:00 05/21/18 08:59 04/25/18 08:29 Matt Elkins MD Apr 25, 2018 15:05
--- NOTE | 2018-04-25 15:36 | Pulmonology Progress Note ---
Assessment/Plan Assessment/Plan Pulmonary Progress Note Assessment/Plan Problems: (1) Respiratory distress - VQ low probability (2) Pulmonary edema (3) Anemia (4) NSTEMI (non-ST elevated myocardial infarction) (5) HTN (hypertension) (6) UTI (urinary tract infection) (7) ARF (acute renal failure) (8) Acute on chronic renal failure (9) Diabetic nephropathy (10) Diabetes mellitus Assessment/Plan Declines BiPAP, gas exchange adequate Titrate down FiO2 to keep SaO2 > 90% RTC and PRN HHN's Zosyn (D3) per ID, F/U Cx's, F/U rapid viral swab Monitor volumes and renal function, lasix 40 IV BID - may need to slow down on diuresis DC IVUH and switch to Hep SQ ASA, BB, statin, home meds Monitor BS, SSI, accu check QID AC HS ADA diet, aspiration precautions, [employer]FORMATION [employer] recs, VSS Px: IVUH, PPI FC Subjective Allergies: Coded Allergies: SULFA (SULFONAMIDE ANTIBIOTICS) (Verified Allergy, Severe, ITCHING AND RASH BREAKOUT, 01/24/14) Subjective AFVSS on 3L -2.8L Cr 1.9 less SOB less cough no wheezing no FC Objective Vital Signs Noted General Appearance: WD/WN, no acute distress HEENT: normocephalic, atraumatic, anicteric Respiratory/Chest: crackles/rales Cardiovascular: normal peripheral pulses, normal rate, regular rhythm, regularly irregular Abdomen: normal bowel sounds, soft, non tender, no organomegaly, non distended , no mass Extremities: no cyanosis, no clubbing, other - trace edema better S/P BKA Microbiology Date/Time Source Procedure Growth Status 04/19/18 21:25 Blood Blood Culture - Preliminary NO GROWTH AFTER 48 HOURS Resulted 04/19/18 21:10 Blood Blood Culture - Preliminary NO GROWTH AFTER 48 HOURS Resulted 04/20/18 21:30 Nasal Not Otherwise Specified Influenza Types A,B Antigen (ROSA) - Final Complete 04/19/18 22:50 Urine,Clean Catch Urine Culture - Final Pseudomonas Aeruginosa Complete 04/19/18 23:30 Rectum VRE Culture - Final NO VANCOMYCIN RESISTANT ENTEROCOCCUS ... Complete Laboratory Tests 04/22/18 01:00: Urine Eosinophils Negative 04/22/18 04:09: White Blood Count 10.0, Red Blood Count 2.87L, Hemoglobin 8.0L, Hematocrit 24.4L , Mean Corpuscular Volume 85, Mean Corpuscular Hemoglobin 27.8, Mean Corpuscular Hemoglobin Concent 32.7, Red Cell Distribution Width 12.9, Platelet Count 184, Mean Platelet Volume 7.1, Neutrophils (%) (Auto) 63.7, Lymphocytes (% ) (Auto) 17.2L, Monocytes (%) (Auto) 12.1H, Eosinophils (%) (Auto) 6.0H, Basophils (%) (Auto) 1.0, Activated Partial Thromboplast Time > 150*H, Sodium Level 141, Potassium Level 3.6, Chloride Level 105, Carbon Dioxide Level 28, Anion Gap 8, Blood Urea Nitrogen 36H, Creatinine 1.9H, Estimat Glomerular Filtration Rate , Glucose Level 150H, Uric Acid 5.4, Calcium Level 8.4L, Phosphorus Level 4.1, Magnesium Level 1.8, Total Bilirubin 0.3, Direct Bilirubin 0.1, Aspartate Amino Transf (AST/SGOT) 9L, Alanine Aminotransferase ( ALT/SGPT) 24, Alkaline Phosphatase 65, C-Reactive Protein, Quantitative 8.5H, Pro-B-Type Natriuretic Peptide 1576H, Total Protein 6.3L, Albumin 2.5L Current Medications Medications (Trade) Dose Ordered Sig/Shazia Route PRN Reason Start Time Stop Time Status Last Admin Dose Admin Albuterol/ Ipratropium (Albuterol/ Ipratropium) 3 ml Q4H PRN N Shortness of Breath 04/21/18 16:07 04/24/18 16:06 Albuterol/ Ipratropium (Albuterol/ Ipratropium) 3 ml Q6HRT HHN 04/21/18 19:00 04/25/18 12:59 04/22/18 07:43 Aspirin (Ecotrin) 81 mg DAILY ORAL 04/22/18 09:00 05/20/18 08:59 04/22/18 08:28 Atorvastatin Calcium (Lipitor) 80 mg DAILY ORAL 04/22/18 09:00 05/20/18 08:59 04/22/18 08:27 Carvedilol (Coreg) 3.125 mg EVERY 12 HOURS ORAL 04/21/18 21:00 05/20/18 20:59 04/22/18 08:28 Chlorhexidine Gluconate (Monet-Hex 2%) 1 applic DAILY@2000 TOPIC 04/21/18 20:00 05/20/18 19:59 04/21/18 21:02 Clopidogrel Bisulfate (Plavix) 75 mg DAILY ORAL 04/22/18 09:00 05/20/18 08:59 04/22/18 08:27 Dextrose (Dextrose 50%) 25 ml Q30M PRN IV Hypoglycemia 04/21/18 16:30 05/20/18 08:29 Dextrose (Dextrose 50%) 50 ml Q30M PRN IV Hypoglycemia 04/21/18 16:30 05/20/18 08:29 Furosemide (Lasix) 40 mg EVERY 12 HOURS IV 04/21/18 21:00 05/20/18 08:59 04/22/18 08:27 Guaifenesin (Mucinex ER) 600 mg TWICE A DAY ORAL 04/21/18 18:00 05/21/18 17:59 04/22/18 08:27 Heparin Sodium/ Dextrose 500 ml @ 10.977 mls/ hr ADJUST PER PROTOCOL IV 04/22/18 06:00 05/20/18 16:05 04/22/18 06:25 Insulin Aspart (NovoLOG) BEFORE MEALS AND HS SUBQ 04/21/18 16:30 05/20/18 11:29 04/21/18 21:05 Iron Sucrose 100 mg/Sodium Chloride 60 ml @ 240 mls/hr BEDTIME IV 04/21/18 21:00 04/23/18 21:14 04/21/18 21:03 Pantoprazole (Protonix) 40 mg DAILY ORAL 04/22/18 09:00 05/20/18 08:59 04/22/18 08:27 Piperacillin Sod/ Tazobactam Sod 3.375 gm/Sodium Chloride 110 ml @ 27.5 mls/hr EVERY 8 HOURS IVPB 04/21/18 22:00 04/25/18 11:59 04/22/18 06:24 Spironolactone (Aldactone) 25 mg DAILY ORAL 04/22/18 09:00 05/21/18 08:59 04/22/18 08:27 Subjective ROS Limited/Unobtainable: No Allergies: Coded Allergies: SULFA (SULFONAMIDE ANTIBIOTICS) (Verified Allergy, Severe, ITCHING AND RASH BREAKOUT, 01/24/14) Objective Last 24 Hour Vital Signs Date Time Temp Pulse Resp B/P (MAP) Pulse Ox O2 Delivery O2 Flow Rate FiO2 04/25/18 13:42 85 16 99 Nasal Cannula 2.0 28 04/25/18 13:30 84 15 100 Nasal Cannula 3.0 32 04/25/18 12:00 98.6 84 19 128/61 (83) 99 04/25/18 09:00 Nasal Cannula 4.0 04/25/18 08:28 131/64 04/25/18 08:27 82 131/64 04/25/18 08:00 98.7 82 19 131/64 (86) 100 04/25/18 07:22 99 Nasal Cannula 3.0 32 04/25/18 07:22 Nasal Cannula 3.0 32 04/25/18 07:22 Nasal Cannula 3.0 32 04/25/18 07:22 Nasal Cannula 3.0 32 04/25/18 04:00 98.5 82 19 144/68 (93) 100 82 04/25/18 01:46 76 18 97 Nasal Cannula 3.0 32 04/25/18 01:24 84 18 95 Nasal Cannula 3.0 32 04/25/18 00:00 97.8 81 19 128/63 (84) 100 81 04/24/18 22:15 128/63 04/24/18 21:00 Nasal Cannula 4.0 04/24/18 20:57 87 133/73 04/24/18 20:00 99.0 87 18 133/73 (93) 100 87 04/24/18 19:31 86 18 100 Nasal Cannula 3.0 32 04/24/18 19:18 96 Nasal Cannula 3.0 32 04/24/18 19:18 Nasal Cannula 3.0 32 04/24/18 19:15 86 18 98 Nasal Cannula 3.0 32 04/24/18 16:00 98.6 94 18 136/68 (90) 98 94 Intake and Output 04/24/18 04/25/18 19:00 07:00 Intake Total 1052 ml 240 ml Output Total 1000 ml 450 ml Balance 52 ml -210 ml Intake Oral 1052 ml 240 ml Output Urine Total 1000 ml 450 ml Laboratory Tests 04/25/18 05:00: White Blood Count 10.3, Red Blood Count 2.91L, Hemoglobin 8.3L, Hematocrit 25.1L , Mean Corpuscular Volume 86, Mean Corpuscular Hemoglobin 28.4, Mean Corpuscular Hemoglobin Concent 32.9, Red Cell Distribution Width 13.0, Platelet Count 200, Mean Platelet Volume 7.7, Neutrophils (%) (Auto) 62.3, Lymphocytes (% ) (Auto) 19.6L, Monocytes (%) (Auto) 10.4H, Eosinophils (%) (Auto) 5.3H, Basophils (%) (Auto) 2.4H, Sodium Level 137, Potassium Level 3.2L, Chloride Level 103, Carbon Dioxide Level 27, Anion Gap 7, Blood Urea Nitrogen 36H, Creatinine 1.6H, Estimat Glomerular Filtration Rate , Glucose Level 120H, Uric Acid 6.8, Calcium Level 8.5, Phosphorus Level 3.0, Magnesium Level 2.0, Total Bilirubin 0.3, Gamma Glutamyl Transpeptidase 32, Aspartate Amino Transf (AST/ SGOT) 17, Alanine Aminotransferase (ALT/SGPT) 21, Alkaline Phosphatase 64, Pro-B -Type Natriuretic Peptide 7092H, Total Protein 6.5, Albumin 2.7L, Globulin 3.8, Albumin/Globulin Ratio 0.7L 04/25/18 08:55: Stool Occult Blood [Pending] Current Medications Medications (Trade) Dose Ordered Sig/Shazia Route PRN Reason Start Time Stop Time Status Last Admin Dose Admin Albuterol/ Ipratropium (Albuterol/ Ipratropium) 3 ml Q6HRT HHN 04/25/18 13:00 04/28/18 00:59 04/25/18 13:30 Aspirin (Ecotrin) 81 mg DAILY ORAL 04/23/18 09:00 05/20/18 08:59 04/25/18 08:27 Atorvastatin Calcium (Lipitor) 80 mg DAILY ORAL 04/23/18 09:00 05/20/18 08:59 04/25/18 08:28 Carvedilol (Coreg) 12.5 mg EVERY 12 HOURS ORAL 04/24/18 21:00 05/20/18 20:59 04/25/18 08:27 Chlorhexidine Gluconate (Monet-Hex 2%) 1 applic DAILY@2000 TOPIC 04/23/18 20:00 05/20/18 19:59 04/24/18 20:57 Clopidogrel Bisulfate (Plavix) 75 mg DAILY ORAL 04/23/18 09:00 05/20/18 08:59 04/25/18 08:25 Dextrose (Dextrose 50%) 25 ml Q30M PRN IV Hypoglycemia 04/22/18 22:30 05/20/18 08:29 Dextrose (Dextrose 50%) 50 ml Q30M PRN IV Hypoglycemia 04/22/18 22:30 05/20/18 08:29 Enalapril Maleate (Vasotec) 2.5 mg EVERY 12 HOURS ORAL 04/24/18 22:15 05/24/18 22:14 04/25/18 08:28 Furosemide (Lasix) 80 mg DAILY ORAL 04/25/18 09:00 05/25/18 08:59 04/25/18 08:29 Guaifenesin (Mucinex ER) 600 mg TWICE A DAY ORAL 04/23/18 09:00 05/21/18 17:59 04/25/18 08:27 Heparin Sodium (Porcine) (Heparin 5000 units/ml) 5,000 units EVERY 12 HOURS SUBQ 04/23/18 09:00 05/22/18 20:59 04/25/18 08:31 Insulin Aspart (NovoLOG) BEFORE MEALS AND HS SUBQ 04/23/18 06:30 05/20/18 11:29 04/25/18 11:36 Pantoprazole (Protonix) 40 mg DAILY ORAL 04/23/18 09:00 05/20/18 08:59 04/25/18 08:29 Potassium Chloride (K-Dur) 40 meq TWICE A DAY ORAL 04/25/18 09:00 05/25/18 08:59 04/25/18 09:13 Sitagliptin Phosphate (Januvia) 25 mg ACBREAKFAST ORAL 04/25/18 07:15 05/25/18 07:14 04/25/18 07:45 Spironolactone (Aldactone) 25 mg DAILY ORAL 04/23/18 09:00 05/21/18 08:59 04/25/18 08:29 Shabbir Dillard MD Apr 25, 2018 15:36
--- NOTE | 2018-04-25 19:00 | NUR ---
RESTING QUIETLY IN BED, IN NO APPARENT DISTRESS NURSE NOTES:
--- NOTE | 2018-04-25 19:04 | NUR ---
HAND-OFF: Report given to Helena BENTLEY LVN.
--- NOTE | 2018-04-25 19:04 | NUR ---
NURSE NOTES:Patient received from Diya Thompson patient awake , alert and oriented x4 . no sob / no n/v noted at this time . hickman catheter draining yellow urine .call light within reach . bed in low position at all times . will continue to monitor patient . Addendum: 04/25/18 at 1944 by PAUL BENTLEY LVN Patient on O2 2l via n/c in placed . Right upper arm PICC line double lumen in placed. Will continue to monitor .
[2018-04-25] MEDS: Dyna-Hex 2% Top Sol 2oz TOPIC SCH (20:54)
--- NOTE | 2018-04-25 21:42 | General Progress Note ---
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 SNOMED: 59576999, 837800378 (7) Cardiomyopathy ICD Codes: I42.9 - Cardiomyopathy, unspecified SNOMED: 71731982 (8) Pacemaker ICD Codes: Z95.0 - Presence of cardiac pacemaker SNOMED: 345278683 (9) CHF exacerbation ICD Codes: I50.9 - Heart failure, unspecified SNOMED: 74010115 (10) Diabetes mellitus ICD Codes: E11.9 - Diabetes mellitus SNOMED: 55149143 (11) Valvular cardiomyopathy ICD Codes: I42.8 - Valvular cardiomyopathy SNOMED: 91655572 (12) Hypokalemia ICD Codes: E87.6 - Hypokalemia SNOMED: 56837529 (13) ARF (acute renal failure) ICD Codes: N17.9 - ARF (acute renal failure) SNOMED: 45709208 Status: progressing Assessment/Plan chf exac is improving heart murmer extertional dyspnea htn cardiomyopathy valvular insuffcieny pulm edema azotemia check sugar not hypoxic Subjective ROS Limited/Unobtainable: Yes Allergies: Coded Allergies: SULFA (SULFONAMIDE ANTIBIOTICS) (Verified Allergy, Severe, ITCHING AND RASH BREAKOUT, 01/24/14) Objective Last 24 Hour Vital Signs Date Time Temp Pulse Resp B/P (MAP) Pulse Ox O2 Delivery O2 Flow Rate FiO2 04/25/18 21:19 136/74 04/25/18 21:16 98.7 84 18 136/70 (92) 97 04/25/18 21:00 Nasal Cannula 4.0 04/25/18 20:56 87 144/73 04/25/18 20:00 99.3 87 18 144/73 (96) 99 04/25/18 16:00 98.7 83 20 121/55 (77) 100 04/25/18 13:42 85 16 99 Nasal Cannula 2.0 28 04/25/18 13:30 84 15 100 Nasal Cannula 3.0 32 04/25/18 12:00 98.6 84 19 128/61 (83) 99 04/25/18 09:00 Nasal Cannula 4.0 04/25/18 08:28 131/64 04/25/18 08:27 82 131/64 04/25/18 08:00 98.7 82 19 131/64 (86) 100 04/25/18 07:22 99 Nasal Cannula 3.0 32 04/25/18 07:22 Nasal Cannula 3.0 32 04/25/18 07:22 Nasal Cannula 3.0 32 04/25/18 07:22 Nasal Cannula 3.0 32 04/25/18 04:00 98.5 82 19 144/68 (93) 100 82 04/25/18 01:46 76 18 97 Nasal Cannula 3.0 32 04/25/18 01:24 84 18 95 Nasal Cannula 3.0 32 04/25/18 00:00 97.8 81 19 128/63 (84) 100 81 04/24/18 22:15 128/63 Intake and Output 04/24/18 04/25/18 18:59 06:59 Intake Total 1052 ml 240 ml Output Total 1000 ml 450 ml Balance 52 ml -210 ml Intake Oral 1052 ml 240 ml Output Urine Total 1000 ml 450 ml Laboratory Tests 04/25/18 05:00: White Blood Count 10.3, Red Blood Count 2.91L, Hemoglobin 8.3L, Hematocrit 25.1L , Mean Corpuscular Volume 86, Mean Corpuscular Hemoglobin 28.4, Mean Corpuscular Hemoglobin Concent 32.9, Red Cell Distribution Width 13.0, Platelet Count 200, Mean Platelet Volume 7.7, Neutrophils (%) (Auto) 62.3, Lymphocytes (% ) (Auto) 19.6L, Monocytes (%) (Auto) 10.4H, Eosinophils (%) (Auto) 5.3H, Basophils (%) (Auto) 2.4H, Sodium Level 137, Potassium Level 3.2L, Chloride Level 103, Carbon Dioxide Level 27, Anion Gap 7, Blood Urea Nitrogen 36H, Creatinine 1.6H, Estimat Glomerular Filtration Rate , Glucose Level 120H, Uric Acid 6.8, Calcium Level 8.5, Phosphorus Level 3.0, Magnesium Level 2.0, Total Bilirubin 0.3, Gamma Glutamyl Transpeptidase 32, Aspartate Amino Transf (AST/ SGOT) 17, Alanine Aminotransferase (ALT/SGPT) 21, Alkaline Phosphatase 64, Pro-B -Type Natriuretic Peptide 7092H, Total Protein 6.5, Albumin 2.7L, Globulin 3.8, Albumin/Globulin Ratio 0.7L 04/25/18 08:55: Stool Occult Blood [Pending] Height (Feet): 5 Height (Inches): 2.00 Weight (Pounds): 115 Neck: supple Cardiovascular: normal rate Respiratory/Chest: lungs clear Светлана Vazquez MD Apr 25, 2018 21:42
--- NOTE | 2018-04-25 22:14 | Cardiology Progress Note ---
Assessment/Plan Assessment/Plan 1. Acute systolic congestive heart failure, LVEF at 35% to 40% with associated WMA. Continue enalapril, will check creat periodically. 2. Slight elevation of troponin I level in this patient could be type 2 [address]- elevation myocardial infarction or due to myocarditis. 3. Moderate pericardial effusion with no echocardiographic or clinical evidence of pericardial tamponade. 4. Chronic kidney disease. Creatinine stable down to 1.6. 5. 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 6. Bilateral pleural effusion. 7. Acute respiratory failure, resolved. Subjective Subjective Not on the telemetry monitoring. No cardiac events. Objective Last 24 Hour Vital Signs Date Time Temp Pulse Resp B/P (MAP) Pulse Ox O2 Delivery O2 Flow Rate FiO2 04/25/18 21:19 136/74 04/25/18 21:16 98.7 84 18 136/70 (92) 97 04/25/18 21:00 Nasal Cannula 4.0 04/25/18 20:56 87 144/73 04/25/18 20:00 99.3 87 18 144/73 (96) 99 04/25/18 16:00 98.7 83 20 121/55 (77) 100 04/25/18 13:42 85 16 99 Nasal Cannula 2.0 28 04/25/18 13:30 84 15 100 Nasal Cannula 3.0 32 04/25/18 12:00 98.6 84 19 128/61 (83) 99 04/25/18 09:00 Nasal Cannula 4.0 04/25/18 08:28 131/64 04/25/18 08:27 82 131/64 04/25/18 08:00 98.7 82 19 131/64 (86) 100 04/25/18 07:22 99 Nasal Cannula 3.0 32 04/25/18 07:22 Nasal Cannula 3.0 32 04/25/18 07:22 Nasal Cannula 3.0 32 04/25/18 07:22 Nasal Cannula 3.0 32 04/25/18 04:00 98.5 82 19 144/68 (93) 100 82 04/25/18 01:46 76 18 97 Nasal Cannula 3.0 32 04/25/18 01:24 84 18 95 Nasal Cannula 3.0 32 04/25/18 00:00 97.8 81 19 128/63 (84) 100 81 04/24/18 22:15 128/63 Intake and Output 04/24/18 04/25/18 19:00 07:00 Intake Total 1052 ml 240 ml Output Total 1000 ml 450 ml Balance 52 ml -210 ml Intake Oral 1052 ml 240 ml Output Urine Total 1000 ml 450 ml 2D Echo: EF 40%, Mild LVH/LAE, Medium Leslie.Eff. no tamponade, RVSP 35, Grade I LVDD Laboratory Tests Test 04/25/18 05:00 04/25/18 08:55 White Blood Count 10.3 K/UL (4.8-10.8) Red Blood Count 2.91 M/UL (4.20-5.40) L Hemoglobin 8.3 G/DL (12.0-16.0) L Hematocrit 25.1 % (37.0-47.0) L Mean Corpuscular Volume 86 FL (80-99) Mean Corpuscular Hemoglobin 28.4 PG (27.0-31.0) Mean Corpuscular Hemoglobin Concent 32.9 G/DL (32.0-36.0) Red Cell Distribution Width 13.0 % (11.6-14.8) Platelet Count 200 K/UL (150-450) Mean Platelet Volume 7.7 FL (6.5-10.1) Neutrophils (%) (Auto) 62.3 % (45.0-75.0) Lymphocytes (%) (Auto) 19.6 % (20.0-45.0) L Monocytes (%) (Auto) 10.4 % (1.0-10.0) H Eosinophils (%) (Auto) 5.3 % (0.0-3.0) H Basophils (%) (Auto) 2.4 % (0.0-2.0) H Sodium Level 137 MMOL/L (136-145) Potassium Level 3.2 MMOL/L (3.5-5.1) L Chloride Level 103 MMOL/L (98-107) Carbon Dioxide Level 27 MMOL/L (21-32) Anion Gap 7 mmol/L (5-15) Blood Urea Nitrogen 36 mg/dL (7-18) H Creatinine 1.6 MG/DL (0.55-1.30) H Estimat Glomerular Filtration Rate mL/min (>60) Glucose Level 120 MG/DL (74-106) H Uric Acid 6.8 MG/DL (2.6-7.2) Calcium Level 8.5 MG/DL (8.5-10.1) Phosphorus Level 3.0 MG/DL (2.5-4.9) Magnesium Level 2.0 MG/DL (1.8-2.4) Total Bilirubin 0.3 MG/DL (0.2-1.0) Gamma Glutamyl Transpeptidase 32 U/L (5-85) Aspartate Amino Transf (AST/SGOT) 17 U/L (15-37) Alanine Aminotransferase (ALT/SGPT) 21 U/L (12-78) Alkaline Phosphatase 64 U/L (46-116) Pro-B-Type Natriuretic Peptide 7092 pg/mL (0-125) H Total Protein 6.5 G/DL (6.4-8.2) Albumin 2.7 G/DL (3.4-5.0) L Globulin 3.8 g/dL Albumin/Globulin Ratio 0.7 (1.0-2.7) L Stool Occult Blood Pending Objective HEENT: Atraumatic and normocephalic. Anicteric. Pupils are equal, round, and reactive to light and accommodation. Extraocular muscles intact. NECK: JVP is less than 2 mm. No carotid bruit. Carotid upstrokes 2+ bilaterally. CARDIOVASCULAR: Normal S1 and S2. Regular rate and rhythm. No murmurs, gallops, or rubs. PMI is at fourth intercostal space in the mid clavicular line. LUNGS: Diminished breath sounds in both lungs. ABDOMEN: Soft, nontender, and nondistended. No hepatosplenomegaly. Positive bowel sounds. 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 Logan Mathur MD Apr 25, 2018 22:14
--- NOTE | 2018-04-25 22:54 | Diagnostic Imaging Report ---
APPROVED REPORT CPT Code: 50109 Present Symptoms Lower Extremity Edema: Left Shortness of breath Comments: Above the thigh amputation (right leg) RIGHT LEG: Venous imaging reveals a patent deep venous system. There is no evidence of thrombus within the common and proximal superficial femoral veins. The greater saphenous vein is also within normal limits. Doppler indicates normal spontaneous flow within these segments. LEFT LEG: Venous imaging reveals a patent deep venous system. There is no evidence of thrombus within the femoral, popliteal or tibial segments. The greater saphenous vein is also within normal limits. Doppler indicates normal spontaneous flow within these segments.
[2018-04-26] MEDS: Albuterol/Ipratropium 3ml neb HHN SCH ×3 (01:00→13:00)
[2018-04-26 03:47] VITALS: BP 120/67
[2018-04-26] MEDS: sitaGLIPtin 25mg tab ORAL SCH (06:27)
[2018-04-26] MEDS: NovoLOG Insulin Flexpen SUBQ SCH ×2 (06:29→11:27)
--- NOTE | 2018-04-26 06:49 | General Progress Note ---
Assessment/Plan Problem List: (1) Cardiomyopathy ICD Codes: I42.9 - Cardiomyopathy, unspecified SNOMED: 55507872 (2) ARF (acute renal failure) ICD Codes: N17.9 - Acute kidney failure, unspecified SNOMED: 34747156 (3) Pulmonary edema ICD Codes: J81.1 - Chronic pulmonary edema SNOMED: 43638004 (4) Diabetes mellitus ICD Codes: E11.9 - Diabetes mellitus SNOMED: 14606761 Assessment/Plan continue to keep off Metformin continue Januvia 25 mg daily continue NISS ac / hs Subjective Allergies: Coded Allergies: SULFA (SULFONAMIDE ANTIBIOTICS) (Verified Allergy, Severe, ITCHING AND RASH BREAKOUT, 01/24/14) All Systems: reviewed and negative except above Subjective events noted Objective Last 24 Hour Vital Signs Date Time Temp Pulse Resp B/P (MAP) Pulse Ox O2 Delivery O2 Flow Rate FiO2 04/26/18 03:47 98.5 84 18 120/67 (84) 99 04/26/18 01:00 Nasal Cannula 3.0 32 04/26/18 01:00 Nasal Cannula 3.0 32 04/25/18 23:54 98.9 83 18 137/69 (91) 99 04/25/18 21:19 136/74 04/25/18 21:16 98.7 84 18 136/70 (92) 97 04/25/18 21:13 85 18 100 Nasal Cannula 2.0 28 04/25/18 21:00 Nasal Cannula 4.0 04/25/18 20:56 87 144/73 04/25/18 20:55 83 18 100 Nasal Cannula 3.0 32 04/25/18 20:55 100 Nasal Cannula 3.0 32 04/25/18 20:55 Nasal Cannula 3.0 32 04/25/18 20:00 99.3 87 18 144/73 (96) 99 04/25/18 16:00 98.7 83 20 121/55 (77) 100 04/25/18 13:42 85 16 99 Nasal Cannula 2.0 28 04/25/18 13:30 84 15 100 Nasal Cannula 3.0 32 04/25/18 12:00 98.6 84 19 128/61 (83) 99 04/25/18 09:00 Nasal Cannula 4.0 04/25/18 08:28 131/64 04/25/18 08:27 82 131/64 04/25/18 08:00 98.7 82 19 131/64 (86) 100 04/25/18 07:22 99 Nasal Cannula 3.0 32 04/25/18 07:22 Nasal Cannula 3.0 32 04/25/18 07:22 Nasal Cannula 3.0 32 04/25/18 07:22 Nasal Cannula 3.0 32 Intake and Output 04/25/18 04/26/18 19:00 07:00 Intake Total 776 ml 1020 ml Output Total 650 ml 600 ml Balance 126 ml 420 ml Intake Oral 776 ml 1020 ml Output Urine Total 650 ml 600 ml # Voids 1 # Bowel Movements 2 5 Laboratory Tests 04/25/18 08:55: Stool Occult Blood [Pending] Height (Feet): 5 Height (Inches): 2.00 Weight (Pounds): 119 General Appearance: no apparent distress Neck: normal alignment Cardiovascular: normal rate Respiratory/Chest: lungs clear Abdomen: normal bowel sounds Pelvis: normal external exam Edema: no edema noted Arm (L), no edema noted Arm (R), no edema noted Leg (L), no edema noted Leg (R), no edema noted Pedal (L), no edema noted Pedal (R), no edema noted Generalized Objective Current Medications Medications (Trade) Dose Ordered Sig/Shazia Route PRN Reason Start Time Stop Time Status Last Admin Dose Admin Albuterol/ Ipratropium (Albuterol/ Ipratropium) 3 ml Q6HRT HHN 04/25/18 13:00 04/28/18 00:59 04/25/18 20:55 Aspirin (Ecotrin) 81 mg DAILY ORAL 04/23/18 09:00 05/20/18 08:59 04/25/18 08:27 Atorvastatin Calcium (Lipitor) 80 mg DAILY ORAL 04/23/18 09:00 05/20/18 08:59 04/25/18 08:28 Carvedilol (Coreg) 12.5 mg EVERY 12 HOURS ORAL 04/24/18 21:00 05/20/18 20:59 04/25/18 20:56 Chlorhexidine Gluconate (Monet-Hex 2%) 1 applic DAILY@2000 TOPIC 04/23/18 20:00 05/20/18 19:59 04/25/18 20:54 Clopidogrel Bisulfate (Plavix) 75 mg DAILY ORAL 04/23/18 09:00 05/20/18 08:59 04/25/18 08:25 Dextrose (Dextrose 50%) 25 ml Q30M PRN IV Hypoglycemia 04/22/18 22:30 05/20/18 08:29 Dextrose (Dextrose 50%) 50 ml Q30M PRN IV Hypoglycemia 04/22/18 22:30 05/20/18 08:29 Enalapril Maleate (Vasotec) 2.5 mg EVERY 12 HOURS ORAL 04/24/18 22:15 05/24/18 22:14 04/25/18 21:19 Furosemide (Lasix) 80 mg DAILY ORAL 04/25/18 09:00 05/25/18 08:59 04/25/18 08:29 Guaifenesin (Mucinex ER) 600 mg TWICE A DAY ORAL 04/23/18 09:00 05/21/18 17:59 04/25/18 17:36 Heparin Sodium (Porcine) (Heparin 5000 units/ml) 5,000 units EVERY 12 HOURS SUBQ 04/23/18 09:00 05/22/18 20:59 04/25/18 20:59 Insulin Aspart (NovoLOG) BEFORE MEALS AND HS SUBQ 04/23/18 06:30 05/20/18 11:29 04/26/18 06:29 Pantoprazole (Protonix) 40 mg DAILY ORAL 04/23/18 09:00 05/20/18 08:59 04/25/18 08:29 Potassium Chloride (K-Dur) 40 meq TWICE A DAY ORAL 04/25/18 09:00 05/25/18 08:59 04/25/18 17:36 Sitagliptin Phosphate (Januvia) 25 mg ACBREAKFAST ORAL 04/25/18 07:15 05/25/18 07:14 04/26/18 06:27 Spironolactone (Aldactone) 25 mg DAILY ORAL 04/23/18 09:00 05/21/18 08:59 04/25/18 08:29 Item Value Date Time Bedside Blood Glucose 139 mg/dl H 04/26/18 0630 Bedside Blood Glucose 146 mg/dl H 04/25/18 2100 Bedside Blood Glucose 189 mg/dl H 04/25/18 1636 Bedside Blood Glucose 122 mg/dl H 04/25/18 1144 Bedside Blood Glucose 118 mg/dl 04/25/18 0644 Richi Jeff MD Apr 26, 2018 06:49
--- NOTE | 2018-04-26 07:00 | NUR ---
HAND-OFF: Report given to Lizz Cobb Patient in stable condition.
[2018-04-26 07:26] LABS: BASOPHILS % (AUTO) 1.9 % (0.0-2.0); HEMATOCRIT 24.7 % (37.0-47.0); HEMOGLOBIN 8.2 G/DL (12.0-16.0); LYMPHOCYTES % (AUTO) 14.4 % (20.0-45.0); MEAN CORPUSCULAR VOLUME 86 FL (80-99); MONOCYTES % (AUTO) 11.6 % (1.0-10.0); NEUTROPHILS % (AUTO) 68.1 % (45.0-75.0); PLATELET COUNT 195 K/UL (150-450); RED BLOOD COUNT 2.88 M/UL (4.20-5.40); WHITE BLOOD COUNT 9.4 K/UL (4.8-10.8)
--- NOTE | 2018-04-26 07:50 | NUR ---
NURSE NOTES: Received report from JERALD Forrester. Pt in bed, awake, talkative, no complaints of pain, no apparent distress noted. Bed in lowest position, call light within reach.
[2018-04-26 08:00] VITALS: BP_SYST 111; BP_SYST 120; BP_DIAS 57; BP_DIAS 70
[2018-04-26 08:05] LABS: ANION GAP 7 mmol/L (5-15); BLOOD UREA NITROGEN 41 mg/dL (7-18); CALCIUM 8.5 MG/DL (8.5-10.1); CARBON DIOXIDE 25 MMOL/L (21-32); CHLORIDE 108 MMOL/L (98-107); CREATININE 1.6 MG/DL (0.55-1.30); POTASSIUM 4.6 MMOL/L (3.5-5.1); SODIUM 140 MMOL/L (136-145)
[2018-04-26] MEDS: Carvedilol 12.5mg tab ORAL SCH (09:00)
[2018-04-26] MEDS: Aspirin EC 81mg tab ORAL SCH (09:00)
[2018-04-26] MEDS: Spironolactone 25mg tab ORAL SCH (09:00)
[2018-04-26] MEDS: Furosemide 80mg tab ORAL SCH (09:00)
[2018-04-26] MEDS: Enalapril 2.5mg tab ORAL SCH (09:00)
[2018-04-26] MEDS: guaiFENesin ER 600mg tab ORAL SCH (09:00)
[2018-04-26] MEDS: Atorvastatin 80mg tab ORAL SCH (09:01)
[2018-04-26] MEDS: Heparin 5000 units/ml inj SUBQ SCH (09:06)
[2018-04-26] MEDS ORDERED: CARVEDILOL12.5 MG ORAL (10:00)
[2018-04-26] MEDS ORDERED: ENALAPRIL MALE2.5 MG ORAL (10:01)
[2018-04-26] MEDS ORDERED: FUROSEMIDE80 M1 ORAL (10:02)
[2018-04-26] MEDS ORDERED: GUAIFENESIN600 MG ORAL (10:04)
[2018-04-26] MEDS ORDERED: JANUVIA25 MG ORAL (10:06)
[2018-04-26] MEDS ORDERED: SPIRONOLACTONE100 MG ORAL (10:07)
--- NOTE | 2018-04-26 11:15 | NUR ---
NURSE NOTES: Pt refused Video Swallow study. When Speech Therapist Tiana was here to take pt to procedure, pt became upset, cried, stating "I do not want to do this, I don't need it." Discussed with Tiana and pt, okay for pt to refuse swallow study.
--- NOTE | 2018-04-26 11:47 | NUR ---
ST NOTE: SWALLOW STATUS FOLLOWED PT'S CONDITIONS. DISCUSSED WITH RAFFI MARQUES RE:PT'S CONDITIONS. PER RN, PENDING VIDEOSWALLOW STUDY PRIOR THE DISCHARGE. PT WAS SCHEDULED FOR VIDEOSWALLOW STUDY TODAY. SEEN PT AT BEDSIDE, PT DENIED ANY SWALLOWING DIFFICULTY. AND PER PT, DOESN'T WANT TO COMPLETE (REFUSE) THE VIDEOSWALLOW STUDY. EDUCATED PT RE: REFLUX PRECAUTIONS AND PT VERBALIZED THE GOOD UNDERSTANDING OF INFO GIVEN. AND PER PT, WILL FOLLOW UP WITH HER PRIMARY PHYSICIAN RE: VIDEOSWALLOW STUDY, GI AND ENT IF NEEDED. DO NOT HOLD UP THE DISCHARGE. RAFFI MARQUES, NOTIFIED.
[2018-04-26 12:04] VITALS: BP 138/73
--- NOTE | 2018-04-26 12:32 | Nephrology Progress Note ---
Assessment/Plan Problem List: (1) ARF (acute renal failure) (2) Diabetic nephropathy (3) Anemia (4) CHF exacerbation (5) Cardiomyopathy (6) Pacemaker Assessment Renal failure- likely acute on chronic Likely Diabetic Nephropathy 3+ proteinuria Anemia Etiology?? Respiratory failure, acute / Pulmonary edema / Pneumonia CHF exacerbation NSTEMI (non-ST elevated myocardial infarction) Diabetes mellitus Leukocytosis Hx of BKA Plan Optimize cardiac and pulmonary status avoid Nephrotoxics BP and BS in check increase coreg DC hickman echo 40 5 ej fx urine studies venofer IV lasix to po Subjective ROS Limited/Unobtainable: No Constitutional: Reports: malaise Objective Objective Last 24 Hour Vital Signs Date Time Temp Pulse Resp B/P (MAP) Pulse Ox O2 Delivery O2 Flow Rate FiO2 04/26/18 12:04 97.7 89 18 138/73 (94) 99 04/26/18 09:00 Nasal Cannula 4.0 04/26/18 09:00 120/57 04/26/18 09:00 82 120/57 04/26/18 08:00 99.3 82 19 120/57 (78) 100 82 04/26/18 07:37 Nasal Cannula 2.0 28 04/26/18 07:37 Nasal Cannula 2.0 28 04/26/18 07:37 80 18 100 Nasal Cannula 2.0 28 04/26/18 07:37 100 Nasal Cannula 2.0 28 04/26/18 03:47 98.5 84 18 120/67 (84) 99 04/26/18 01:00 Nasal Cannula 3.0 32 04/26/18 01:00 Nasal Cannula 3.0 32 04/25/18 23:54 98.9 83 18 137/69 (91) 99 04/25/18 21:19 136/74 04/25/18 21:16 98.7 84 18 136/70 (92) 97 04/25/18 21:13 85 18 100 Nasal Cannula 2.0 28 04/25/18 21:00 Nasal Cannula 4.0 04/25/18 20:56 87 144/73 04/25/18 20:55 83 18 100 Nasal Cannula 3.0 32 04/25/18 20:55 100 Nasal Cannula 3.0 32 04/25/18 20:55 Nasal Cannula 3.0 32 04/25/18 20:00 99.3 87 18 144/73 (96) 99 04/25/18 16:00 98.7 83 20 121/55 (77) 100 04/25/18 13:42 85 16 99 Nasal Cannula 2.0 28 04/25/18 13:30 84 15 100 Nasal Cannula 3.0 32 Intake and Output 04/25/18 04/26/18 19:00 07:00 Intake Total 776 ml 1020 ml Output Total 650 ml 600 ml Balance 126 ml 420 ml Intake Oral 776 ml 1020 ml Output Urine Total 650 ml 600 ml # Voids 1 # Bowel Movements 2 5 Laboratory Tests 04/26/18 06:22: White Blood Count 9.4, Red Blood Count 2.88L, Hemoglobin 8.2L, Hematocrit 24.7L , Mean Corpuscular Volume 86, Mean Corpuscular Hemoglobin 28.4, Mean Corpuscular Hemoglobin Concent 33.1, Red Cell Distribution Width 14.0, Platelet Count 195, Mean Platelet Volume 7.9, Neutrophils (%) (Auto) 68.1, Lymphocytes (% ) (Auto) 14.4L, Monocytes (%) (Auto) 11.6H, Eosinophils (%) (Auto) 4.0H, Basophils (%) (Auto) 1.9, Sodium Level 140, Potassium Level 4.6, Chloride Level 108H, Carbon Dioxide Level 25, Anion Gap 7, Blood Urea Nitrogen 41H, Creatinine 1.6H, Estimat Glomerular Filtration Rate , Glucose Level 115H, Calcium Level 8.5 Height (Feet): 5 Height (Inches): 2.00 Weight (Pounds): 119 General Appearance: no apparent distress Cardiovascular: normal rate Respiratory/Chest: decreased breath sounds Abdomen: soft Objective breathing easier Antony Adkins MD Apr 26, 2018 12:32
--- NOTE | 2018-04-26 13:07 | GI Progress Note ---
Assessment/Plan Problems: (1) Anemia ICD Codes: D64.9 - Anemia, unspecified SNOMED: 246133534 (2) Respiratory distress ICD Codes: R06.00 - Dyspnea, unspecified SNOMED: 268535392 (3) Acute on chronic renal failure ICD Codes: N17.9 - Acute on chronic renal failure; N18.9 - Chronic kidney disease, unspecified SNOMED: 459669331 Status: stable Status Narrative Discussed with Dr. Anthony Assessment/Plan OB stool was positive Stable H&H defer GI procedures, supportive care at this time Pulmonary support on ADA diet venofer monitor H&H, prn transfusions bowel regime ppi fu labs The patient was seen and examined at bedside and all new and available data was reviewed in the patients chart. I agree with the above findings, impression and plan. (Patient seen earlier today. Signature stamp does not reflect patient encounter time.). - Norman Anthony MD Subjective Subjective Denies any abdominal pain Denies any diarrhea or constipation Tolerating diet Objective Last 24 Hour Vital Signs Date Time Temp Pulse Resp B/P (MAP) Pulse Ox O2 Delivery O2 Flow Rate FiO2 04/26/18 12:04 97.7 89 18 138/73 (94) 99 04/26/18 09:00 Nasal Cannula 4.0 04/26/18 09:00 120/57 04/26/18 09:00 82 120/57 04/26/18 08:00 99.3 82 19 120/57 (78) 100 82 04/26/18 07:37 Nasal Cannula 2.0 28 04/26/18 07:37 Nasal Cannula 2.0 28 04/26/18 07:37 80 18 100 Nasal Cannula 2.0 28 04/26/18 07:37 100 Nasal Cannula 2.0 28 04/26/18 03:47 98.5 84 18 120/67 (84) 99 04/26/18 01:00 Nasal Cannula 3.0 32 04/26/18 01:00 Nasal Cannula 3.0 32 04/25/18 23:54 98.9 83 18 137/69 (91) 99 04/25/18 21:19 136/74 04/25/18 21:16 98.7 84 18 136/70 (92) 97 04/25/18 21:13 85 18 100 Nasal Cannula 2.0 28 04/25/18 21:00 Nasal Cannula 4.0 04/25/18 20:56 87 144/73 04/25/18 20:55 83 18 100 Nasal Cannula 3.0 32 04/25/18 20:55 100 Nasal Cannula 3.0 32 04/25/18 20:55 Nasal Cannula 3.0 32 04/25/18 20:00 99.3 87 18 144/73 (96) 99 04/25/18 16:00 98.7 83 20 121/55 (77) 100 04/25/18 13:42 85 16 99 Nasal Cannula 2.0 28 04/25/18 13:30 84 15 100 Nasal Cannula 3.0 32 Intake and Output 04/25/18 04/26/18 19:00 07:00 Intake Total 776 ml 1020 ml Output Total 650 ml 600 ml Balance 126 ml 420 ml Intake Oral 776 ml 1020 ml Output Urine Total 650 ml 600 ml # Voids 1 # Bowel Movements 2 5 Laboratory Tests Test 04/26/18 06:22 White Blood Count 9.4 K/UL (4.8-10.8) Red Blood Count 2.88 M/UL (4.20-5.40) L Hemoglobin 8.2 G/DL (12.0-16.0) L Hematocrit 24.7 % (37.0-47.0) L Mean Corpuscular Volume 86 FL (80-99) Mean Corpuscular Hemoglobin 28.4 PG (27.0-31.0) Mean Corpuscular Hemoglobin Concent 33.1 G/DL (32.0-36.0) Red Cell Distribution Width 14.0 % (11.6-14.8) Platelet Count 195 K/UL (150-450) Mean Platelet Volume 7.9 FL (6.5-10.1) Neutrophils (%) (Auto) 68.1 % (45.0-75.0) Lymphocytes (%) (Auto) 14.4 % (20.0-45.0) L Monocytes (%) (Auto) 11.6 % (1.0-10.0) H Eosinophils (%) (Auto) 4.0 % (0.0-3.0) H Basophils (%) (Auto) 1.9 % (0.0-2.0) Sodium Level 140 MMOL/L (136-145) Potassium Level 4.6 MMOL/L (3.5-5.1) Chloride Level 108 MMOL/L (98-107) H Carbon Dioxide Level 25 MMOL/L (21-32) Anion Gap 7 mmol/L (5-15) Blood Urea Nitrogen 41 mg/dL (7-18) H Creatinine 1.6 MG/DL (0.55-1.30) H Estimat Glomerular Filtration Rate mL/min (>60) Glucose Level 115 MG/DL (74-106) H Calcium Level 8.5 MG/DL (8.5-10.1) Height (Feet): 5 Height (Inches): 2.00 Weight (Pounds): 119 General Appearance: WD/WN, no apparent distress, alert Cardiovascular: normal rate Respiratory/Chest: normal breath sounds, no respiratory distress Abdominal Exam: normal bowel sounds, non tender, soft Extremities: normal range of motion, non-tender Renee Crespo NP Apr 26, 2018 13:07
--- NOTE | 2018-04-26 15:13 | NUR ---
NURSE NOTES: Pt completed blood transfusion, vitals stable, no blood transfusion reaction. PICC line removed as pt will be discharged today at 1600
--- NOTE | 2018-04-26 15:29 | Pulmonology Progress Note ---
Assessment/Plan Assessment/Plan Pulmonary Progress Note Assessment/Plan Problems: (1) Respiratory distress - VQ low probability (2) Pulmonary edema (3) Anemia (4) NSTEMI (non-ST elevated myocardial infarction) (5) HTN (hypertension) (6) UTI (urinary tract infection) (7) ARF (acute renal failure) (8) Acute on chronic renal failure (9) Diabetic nephropathy (10) Diabetes mellitus Assessment/Plan Titrate down FiO2 to keep SaO2 > 90% RTC and PRN HHN's Zosyn (D3) per ID, F/U Cx's, F/U rapid viral swab Monitor volumes and renal function, lasix 40 IV BID - may need to slow down on diuresis PPX Hep SQ, PPI ASA, BB, statin, home meds Monitor BS, SSI, accu check QID AC HS ADA diet, aspiration precautions, [employer]IL[employer]ORDIN[employer] recs, VSS FC Subjective Allergies: Coded Allergies: SULFA (SULFONAMIDE ANTIBIOTICS) (Verified Allergy, Severe, ITCHING AND RASH BREAKOUT, 01/24/14) Subjective AFVSS on 3L -2.8L Cr 1.9 less SOB less cough no wheezing no FC Objective Vital Signs Noted General Appearance: WD/WN, no acute distress HEENT: normocephalic, atraumatic, anicteric Respiratory/Chest: crackles/rales Cardiovascular: normal peripheral pulses, normal rate, regular rhythm, regularly irregular Abdomen: normal bowel sounds, soft, non tender, no organomegaly, non distended , no mass Extremities: no cyanosis, no clubbing, other - trace edema better S/P BKA Microbiology Date/Time Source Procedure Growth Status 04/19/18 21:25 Blood Blood Culture - Preliminary NO GROWTH AFTER 48 HOURS Resulted 04/19/18 21:10 Blood Blood Culture - Preliminary NO GROWTH AFTER 48 HOURS Resulted 04/20/18 21:30 Nasal Not Otherwise Specified Influenza Types A,B Antigen (ROSA) - Final Complete 04/19/18 22:50 Urine,Clean Catch Urine Culture - Final Pseudomonas Aeruginosa Complete 04/19/18 23:30 Rectum VRE Culture - Final NO VANCOMYCIN RESISTANT ENTEROCOCCUS ... Complete Laboratory Tests 04/22/18 01:00: Urine Eosinophils Negative 04/22/18 04:09: White Blood Count 10.0, Red Blood Count 2.87L, Hemoglobin 8.0L, Hematocrit 24.4L , Mean Corpuscular Volume 85, Mean Corpuscular Hemoglobin 27.8, Mean Corpuscular Hemoglobin Concent 32.7, Red Cell Distribution Width 12.9, Platelet Count 184, Mean Platelet Volume 7.1, Neutrophils (%) (Auto) 63.7, Lymphocytes (% ) (Auto) 17.2L, Monocytes (%) (Auto) 12.1H, Eosinophils (%) (Auto) 6.0H, Basophils (%) (Auto) 1.0, Activated Partial Thromboplast Time > 150*H, Sodium Level 141, Potassium Level 3.6, Chloride Level 105, Carbon Dioxide Level 28, Anion Gap 8, Blood Urea Nitrogen 36H, Creatinine 1.9H, Estimat Glomerular Filtration Rate , Glucose Level 150H, Uric Acid 5.4, Calcium Level 8.4L, Phosphorus Level 4.1, Magnesium Level 1.8, Total Bilirubin 0.3, Direct Bilirubin 0.1, Aspartate Amino Transf (AST/SGOT) 9L, Alanine Aminotransferase ( ALT/SGPT) 24, Alkaline Phosphatase 65, C-Reactive Protein, Quantitative 8.5H, Pro-B-Type Natriuretic Peptide 1576H, Total Protein 6.3L, Albumin 2.5L Current Medications Medications (Trade) Dose Ordered Sig/Shazia Route PRN Reason Start Time Stop Time Status Last Admin Dose Admin Albuterol/ Ipratropium (Albuterol/ Ipratropium) 3 ml Q4H PRN HHN Shortness of Breath 04/21/18 16:07 04/24/18 16:06 Albuterol/ Ipratropium (Albuterol/ Ipratropium) 3 ml Q6HRT HHN 04/21/18 19:00 04/25/18 12:59 04/22/18 07:43 Aspirin (Ecotrin) 81 mg DAILY ORAL 04/22/18 09:00 05/20/18 08:59 04/22/18 08:28 Atorvastatin Calcium (Lipitor) 80 mg DAILY ORAL 04/22/18 09:00 05/20/18 08:59 04/22/18 08:27 Carvedilol (Coreg) 3.125 mg EVERY 12 HOURS ORAL 04/21/18 21:00 05/20/18 20:59 04/22/18 08:28 Chlorhexidine Gluconate (Monet-Hex 2%) 1 applic DAILY@1999 TOPIC 04/21/18 20:00 05/20/18 19:59 04/21/18 21:02 Clopidogrel Bisulfate (Plavix) 75 mg DAILY ORAL 04/22/18 09:00 05/20/18 08:59 04/22/18 08:27 Dextrose (Dextrose 50%) 25 ml Q30M PRN IV Hypoglycemia 04/21/18 16:30 05/20/18 08:29 Dextrose (Dextrose 50%) 50 ml Q30M PRN IV Hypoglycemia 04/21/18 16:30 05/20/18 08:29 Furosemide (Lasix) 40 mg EVERY 12 HOURS IV 04/21/18 21:00 05/20/18 08:59 04/22/18 08:27 Guaifenesin (Mucinex ER) 600 mg TWICE A DAY ORAL 04/21/18 18:00 05/21/18 17:59 04/22/18 08:27 Heparin Sodium/ Dextrose 500 ml @ 10.977 mls/ hr ADJUST PER PROTOCOL IV 04/22/18 06:00 05/20/18 16:05 04/22/18 06:25 Insulin Aspart (NovoLOG) BEFORE MEALS AND HS SUBQ 04/21/18 16:30 05/20/18 11:29 04/21/18 21:05 Iron Sucrose 100 mg/Sodium Chloride 60 ml @ 240 mls/hr BEDTIME IV 04/21/18 21:00 04/23/18 21:14 04/21/18 21:03 Pantoprazole (Protonix) 40 mg DAILY ORAL 04/22/18 09:00 05/20/18 08:59 04/22/18 08:27 Piperacillin Sod/ Tazobactam Sod 3.375 gm/Sodium Chloride 110 ml @ 27.5 mls/hr EVERY 8 HOURS IVPB 04/21/18 22:00 04/25/18 11:59 04/22/18 06:24 Spironolactone (Aldactone) 25 mg DAILY ORAL 04/22/18 09:00 05/21/18 08:59 04/22/18 08:27 Subjective ROS Limited/Unobtainable: No Allergies: Coded Allergies: SULFA (SULFONAMIDE ANTIBIOTICS) (Verified Allergy, Severe, ITCHING AND RASH BREAKOUT, 01/24/14) Objective Last 24 Hour Vital Signs Date Time Temp Pulse Resp B/P (MAP) Pulse Ox O2 Delivery O2 Flow Rate FiO2 04/26/18 12:04 97.7 89 18 138/73 (94) 99 04/26/18 09:00 Nasal Cannula 4.0 04/26/18 09:00 120/57 04/26/18 09:00 82 120/57 04/26/18 08:00 99.3 82 19 120/57 (78) 100 82 04/26/18 07:37 Nasal Cannula 2.0 28 04/26/18 07:37 Nasal Cannula 2.0 28 04/26/18 07:37 80 18 100 Nasal Cannula 2.0 28 04/26/18 07:37 100 Nasal Cannula 2.0 28 04/26/18 03:47 98.5 84 18 120/67 (84) 99 04/26/18 01:00 Nasal Cannula 3.0 32 04/26/18 01:00 Nasal Cannula 3.0 32 04/25/18 23:54 98.9 83 18 137/69 (91) 99 04/25/18 21:19 136/74 04/25/18 21:16 98.7 84 18 136/70 (92) 97 04/25/18 21:13 85 18 100 Nasal Cannula 2.0 28 04/25/18 21:00 Nasal Cannula 4.0 04/25/18 20:56 87 144/73 04/25/18 20:55 83 18 100 Nasal Cannula 3.0 32 04/25/18 20:55 100 Nasal Cannula 3.0 32 04/25/18 20:55 Nasal Cannula 3.0 32 04/25/18 20:00 99.3 87 18 144/73 (96) 99 04/25/18 16:00 98.7 83 20 121/55 (77) 100 Intake and Output 04/25/18 04/26/18 19:00 07:00 Intake Total 776 ml 1020 ml Output Total 650 ml 600 ml Balance 126 ml 420 ml Intake Oral 776 ml 1020 ml Output Urine Total 650 ml 600 ml # Voids 1 # Bowel Movements 2 5 Laboratory Tests 04/26/18 06:22: White Blood Count 9.4, Red Blood Count 2.88L, Hemoglobin 8.2L, Hematocrit 24.7L , Mean Corpuscular Volume 86, Mean Corpuscular Hemoglobin 28.4, Mean Corpuscular Hemoglobin Concent 33.1, Red Cell Distribution Width 14.0, Platelet Count 195, Mean Platelet Volume 7.9, Neutrophils (%) (Auto) 68.1, Lymphocytes (% ) (Auto) 14.4L, Monocytes (%) (Auto) 11.6H, Eosinophils (%) (Auto) 4.0H, Basophils (%) (Auto) 1.9, Sodium Level 140, Potassium Level 4.6, Chloride Level 108H, Carbon Dioxide Level 25, Anion Gap 7, Blood Urea Nitrogen 41H, Creatinine 1.6H, Estimat Glomerular Filtration Rate , Glucose Level 115H, Calcium Level 8.5 Current Medications Medications (Trade) Dose Ordered Sig/Shazia Route PRN Reason Start Time Stop Time Status Last Admin Dose Admin Albuterol/ Ipratropium (Albuterol/ Ipratropium) 3 ml Q6HRT HHN 04/25/18 13:00 04/28/18 00:59 04/25/18 20:55 Aspirin (Ecotrin) 81 mg DAILY ORAL 04/23/18 09:00 05/20/18 08:59 04/26/18 09:00 Atorvastatin Calcium (Lipitor) 80 mg DAILY ORAL 04/23/18 09:00 05/20/18 08:59 04/26/18 09:01 Carvedilol (Coreg) 12.5 mg EVERY 12 HOURS ORAL 04/24/18 21:00 05/20/18 20:59 04/26/18 09:00 Chlorhexidine Gluconate (Monet-Hex 2%) 1 applic DAILY@2000 TOPIC 04/23/18 20:00 05/20/18 19:59 04/25/18 20:54 Clopidogrel Bisulfate (Plavix) 75 mg DAILY ORAL 04/23/18 09:00 05/20/18 08:59 04/26/18 09:00 Dextrose (Dextrose 50%) 25 ml Q30M PRN IV Hypoglycemia 04/22/18 22:30 05/20/18 08:29 Dextrose (Dextrose 50%) 50 ml Q30M PRN IV Hypoglycemia 04/22/18 22:30 05/20/18 08:29 Enalapril Maleate (Vasotec) 2.5 mg EVERY 12 HOURS ORAL 04/24/18 22:15 05/24/18 22:14 04/26/18 09:00 Furosemide (Lasix) 80 mg DAILY ORAL 04/25/18 09:00 05/25/18 08:59 04/26/18 09:00 Guaifenesin (Mucinex ER) 600 mg TWICE A DAY ORAL 04/23/18 09:00 05/21/18 17:59 04/26/18 09:00 Heparin Sodium (Porcine) (Heparin 5000 units/ml) 5,000 units EVERY 12 HOURS SUBQ 04/23/18 09:00 05/22/18 20:59 04/26/18 09:06 Insulin Aspart (NovoLOG) BEFORE MEALS AND HS SUBQ 04/23/18 06:30 05/20/18 11:29 04/26/18 11:27 Pantoprazole (Protonix) 40 mg DAILY ORAL 04/23/18 09:00 05/20/18 08:59 04/26/18 09:01 Potassium Chloride (K-Dur) 40 meq TWICE A DAY ORAL 04/25/18 09:00 05/25/18 08:59 04/26/18 09:01 Sitagliptin Phosphate (Januvia) 25 mg ACBREAKFAST ORAL 04/25/18 07:15 05/25/18 07:14 04/26/18 06:27 Spironolactone (Aldactone) 25 mg DAILY ORAL 04/23/18 09:00 05/21/18 08:59 04/26/18 09:00 Shabbir Dillard MD Apr 26, 2018 15:29
[2018-04-26] MEDS ORDERED: NS 500ML ONE (16:11)
[2018-04-26] MEDS ORDERED: Tubing IV Blood Pump IV ONE (16:11)
[2018-04-26] MEDS ORDERED: Tubing IV Secondary IV ONE (16:11)
--- NOTE | 2018-04-26 16:11 | NUR ---
NURSE NOTES: Pt discharge home accompanied by family. Pt discharged with all belongings, PICC line removed, Jenkins removed, pt stable.
--- NOTE | 2018-04-26 22:09 | General Progress Note ---
Assessment/Plan Assessment/Plan Assessment and Recommendations: # Leukocytosis/Elevated white blood cell count, likely related to underlying stress reaction, smoking, or underlying infection --> Peripheral has been ordered, results reviewed, no blasts noted --> trend wbc 15.6-->18.4-->10.2-->10 --> Medications have been reviewed --> Imaging has been reviewed --> Blood cultures and urine reviewed --> has been started on Zosyn --> atul ID recs # Anemia of iron deficiency though borderline --> Anemia w/u has been ordered / reviewed --> No evidence of hemolysis is noted --> peripheral smear has been reviewed. --> Hgb goal >7. Transfuse prn --> Hgb trend 11.5-->10.2--> 8.3-->8 --> iron iv has been started x3d # Acute respiratory failure --> was on BiPAP mask, now on Venturi mask. # Acute systolic congestive heart failure. --> medical therapy including carvedilol, NICK inhibitors/ ARBs as well as spironolactone --> diuresis as per cards # Slight elevation of troponin I level in this patient could be type [address]- elevation myocardial infarction or due to myocarditis. 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 # Bilateral pleural effusion. The timing of this note does not necessarily reflect the time of the patient was seen Greatly appreciate consultation! Subjective Constitutional: Denies: no symptoms, chills, diaphoresis, fever, malaise, weakness, other HEENT: Denies: no symptoms, eye pain, blurred vision, tearing, double vision, ear pain, ear discharge, nose pain, nose congestion, throat pain, throat swelling, mouth pain, mouth swelling, other Cardiovascular: Denies: no symptoms, chest pain, edema, irregular heart rate, lightheadedness, palpitations, syncope, other Respiratory: Denies: no symptoms, cough, orthopnea, shortness of breath, SOB with excertion, SOB at rest, sputum, stridor, wheezing, other Gastrointestinal/Abdominal: Denies: no symptoms, abdomen distended, abdominal pain, black stools, tarry stools, blood in stool, constipated, diarrhea, difficulty swallowing, nausea, poor appetite, poor fluid intake, rectal bleeding , vomiting, other Genitourinary: Denies: no symptoms, burning, discharge, frequency, flank pain, hematuria, incontinence, pain, urgency, other Neurologic/Psychiatric: Denies: no symptoms, anxiety, depressed, emotional problems, headache, numbness, paresthesia, pre-existing deficit, seizure, tingling, tremors, weakness, other Endocrine: Denies: no symptoms, excessive sweating, flushing, intolerance to cold, intolerance to heat, increased hunger, increased thirst, increased urine, unexplained weight gain, unexplained weight loss, other Hematologic/Lymphatic: Denies: no symptoms, anemia, easy bleeding, easy bruising, other Allergies: Coded Allergies: SULFA (SULFONAMIDE ANTIBIOTICS) (Verified Allergy, Severe, ITCHING AND RASH BREAKOUT, 01/24/14) Subjective 04/21: on heparin gtt as per pulm until vq is negative, otherwise anemia panel reviewed, started on iron iv 04/22: heparin gtt was stopped, started on hep sq, no fevers or chills, remains on iron 04/26: seen by bedside, awake, comfortable, completed transfusion, no events. Objective Last 24 Hour Vital Signs Date Time Temp Pulse Resp B/P (MAP) Pulse Ox O2 Delivery O2 Flow Rate FiO2 04/26/18 13:00 Nasal Cannula 2.0 28 04/26/18 13:00 95 18 100 Nasal Cannula 2.0 04/26/18 12:04 97.7 89 18 138/73 (94) 99 04/26/18 09:00 Nasal Cannula 4.0 04/26/18 09:00 120/57 04/26/18 09:00 82 120/57 04/26/18 08:00 99.3 82 19 120/57 (78) 100 82 04/26/18 07:37 Nasal Cannula 2.0 04/26/18 07:37 Nasal Cannula 2.0 28 04/26/18 07:37 80 18 100 Nasal Cannula 2.0 28 04/26/18 07:37 100 Nasal Cannula 2.0 28 04/26/18 03:47 98.5 84 18 120/67 (84) 99 04/26/18 01:00 Nasal Cannula 3.0 32 04/26/18 01:00 Nasal Cannula 3.0 32 04/25/18 23:54 98.9 83 18 137/69 (91) 99 Intake and Output 04/25/18 04/26/18 19:00 07:00 Intake Total 776 ml 1020 ml Output Total 650 ml 600 ml Balance 126 ml 420 ml Intake Oral 776 ml 1020 ml Output Urine Total 650 ml 600 ml # Voids 1 # Bowel Movements 2 5 Laboratory Tests 04/26/18 06:22: White Blood Count 9.4, Red Blood Count 2.88L, Hemoglobin 8.2L, Hematocrit 24.7L , Mean Corpuscular Volume 86, Mean Corpuscular Hemoglobin 28.4, Mean Corpuscular Hemoglobin Concent 33.1, Red Cell Distribution Width 14.0, Platelet Count 195, Mean Platelet Volume 7.9, Neutrophils (%) (Auto) 68.1, Lymphocytes (% ) (Auto) 14.4L, Monocytes (%) (Auto) 11.6H, Eosinophils (%) (Auto) 4.0H, Basophils (%) (Auto) 1.9, Sodium Level 140, Potassium Level 4.6, Chloride Level 108H, Carbon Dioxide Level 25, Anion Gap 7, Blood Urea Nitrogen 41H, Creatinine 1.6H, Estimat Glomerular Filtration Rate , Glucose Level 115H, Calcium Level 8.5 Height (Feet): 5 Height (Inches): 2.00 Weight (Pounds): 119 Objective General Appearance: A+O x3, NAD HEENT: normocephalic, atraumatic Neck: non-tender, normal alignment Respiratory/Chest: venturi-mask, diminished breath sounds in both lungs. 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 Loi Shepherd MD Apr 26, 2018 22:09
--- NOTE | 2018-04-27 13:43 | Discharge Summary ---
Discharge Summary Discharge Summary _ DATE OF ADMISSION: 04/19/2018 DATE OF DISCHARGE: 04/26/2017 DISCHARGED BY: Dr. Vazquez REASON FOR ADMISSION: [] 83 years old female with past medical history of congestive heart failure cardiomyopathy, hypertension, COPD/asthma, secondary to long-standing tobacco use, diabetes mellitus, GERD, dementia, presented from home with shortness of breath Upon arrival in emergency room patient appears to be in acute respiratory distress with tachypnea and use of accessory muscles and impending respiratory failure. Vital signs revealed tachycardia tachypnea patient was placed on supplemental oxygen and pulse oximetry reading only 91%.. No fever. Blood pressure 140/91. Laboratory workup revealed leukocytosis WBC 15.6 globin 11.5 hematocrit 26.4 potassium 5.3 29 creatinine 1.6. Lactic acid 1.9. Elevated d-dimer 3.97. Troponin 0 0.064. ProBNP 7943. EKG revealed paced rhythm. Urinalysis revealed +3 protein pyuria and few bacteria. ABG on BiPAP revealed acidosis with a pH 7.23 PCO2 49.6 pulse oximetry was 94%. Chest x-ray revealed congestive heart failure patient was admitted for further management CONSULTANTS: icebox man Dr. Mathur pulmonary Dr. Cruz ID specialist Dr. Sidhu GI specialist Dr. Anthony promotions associate Dr. Adkins sock ironer/oncologist Dr. Layton court manager Dr. Jeff [facility] COURSE: Patient admitted to telemetry floor. Char Belt Operator closely followed. Patient started ion diuresis with close monitoring of volumes and cardiorenal parameters. Troponin was trended. Next two troponin with mild elevation and last two troponin negative. Echocardiogram revealed reduced ejection fraction 40-45%. Mild left ventricular hypertrophy. Circumferential pericardial effusion with mild early diastolic collapse and respiratory variation. Right ventricular systolic pressure of 35., consistent with mild pulmonary hypertension. Per icebox man, patient with moderate pericardial effusion , but no echocardiographic or clinical evidence of pericardial tamponade. Venous Doppler bilateral lower extremity revealed no evidence of acute DVT. VQ scan revealed low probability for pulmonary emboli. Acute respiratory failure was due to acute systolic CHF. Patient was followed-up with ABG and chest x-ray. Chest x-ray subsequently revealed improvement in congestive heart failure. As patient clinically stabilized, he was able to be weaned first to Venturi mask and then to oxygen via nasal cannula. As patient condition improved , Lasix was transitioned to oral route. Hot Repairman closely followed . Renal parameters and electrolytes were closely monitored. Electrolytes were corrected as needed. Nephrotoxics were avoided. Patient likely had diabetic nephropathy, given evidence of proteinuria and history of diabetes mellitus. Per promotions associate, renal failure was likely acute on chronic due to diabetic nephropathy. Hemoglobin and hematocrit were closely monitored with goal to keep hemoglobin above 7. Anemia workup was consistent with anemia of iron deficiency. Engine Pilot followed. Peripheral blood smear and anemia workup were reviewed. No evidence of hemolysis. IV Venofer provided for 3 days as per sock ironer recommendation. Rotary Engine Assembler closely followed. Blood sugar was managed with e Januvia and sliding scale of insulin as needed. Patient was kept off metformin. Patient was provided with diabetic diet. Hemoglobin A1c nearly at goal - 7.4. Patient was reminded on importance of compliance with medication regimen. Infectious disease specialist followed. Sputum culture was negative. Urine culture revealed Pseudomonas. Blood cultures were negative. Influenza screen test was negative. Patient completed antibiotic management for UTI. Leukocytosis resolved, no fever. ID specialist recommended to observe patient off antibiotics. GI specialist closely followed. Stool for occult blood was positive, however hemoglobin and hematocrit remained positive. GI specialist recommended to defer GI procedure at this time and provide supportive care. Bowel regimen instituted . GI prophylaxis with PPI continued. Patient clinically stabilized and t was ready for discharge home with home health services to follow. FINAL DIAGNOSES: Acute respiratory failure ( requiring BiPAP) - resolved Pulmonary edema Acute systolic congestive heart failure Abnormal cardiac enzyme likely type II non-STEMI Possible myocarditis Acute on chronic renal failure Diabetic nephropathy Bronchitis Possible pneumonia Urinary tract infection with Pseudomonas Mild pulmonary hypertension Bilateral pleural effusion Anemia of iron deficiency Diabetes mellitus DISCHARGE MEDICATIONS: See Medication Reconciliation list. DISCHARGE INSTRUCTIONS: Patient was discharged home Follow up with primary care provider in one week. I have been assigned to dictate discharge summary for this account. I was not involved in the patient's management. Claire Martinez NP Apr 27, 2018 13:43
--- NOTE | 2018-05-05 14:34 | Cardiology Report ---
APPROVED REPORT EKG Measurement Heart [id number] Normal sinus rhythm Right bundle branch block T wave abnormality, consider inferolateral ischemia Abnormal ECG
== END 2018-04-26 16:12 | disposition home or self-care (01) | DRG 280 ==
LOC: EDBD 21:06 → EMR 21:18 → ICU 21:37 → EDBEDREQ 22:08 → 2W 04-21 15:30 → 3E 04-22 22:00
PROC: B548ZZA Ultrasonography of Superior Vena Cava, Guidance (ICD-10-PCS; principal; 2018-04-21)
PROC: 02HV33Z Insertion of Infusion Device into Superior Vena Cava, Percutaneous Approach (ICD-10-PCS; principal; 2018-04-21)
DX: I13.0 Hypertensive heart and chronic kidney disease with heart failure and stage 1 through stage 4 chronic kidney disease, or unspecified chronic kidney disease (principal); I50.21 Acute systolic (congestive) heart failure; I21.A1 Myocardial infarction type 2; J96.00 Acute respiratory failure, unspecified whether with hypoxia or hypercapnia; J18.9 Pneumonia, unspecified organism; J44.0 Chronic obstructive pulmonary disease with (acute) lower respiratory infection; N17.9 Acute kidney failure, unspecified; J90 Pleural effusion, not elsewhere classified; N39.0 Urinary tract infection, site not specified; N18.9 Chronic kidney disease, unspecified; E11.22 Type 2 diabetes mellitus with diabetic chronic kidney disease; E11.65 Type 2 diabetes mellitus with hyperglycemia; E87.5 Hyperkalemia; E87.6 Hypokalemia; E78.5 Hyperlipidemia, unspecified; E11.21 Type 2 diabetes mellitus with diabetic nephropathy; Z95.0 Presence of cardiac pacemaker; Z96.641 Presence of right artificial hip joint; I73.9 Peripheral vascular disease, unspecified; I25.10 Atherosclerotic heart disease of native coronary artery without angina pectoris; Z98.61 Coronary angioplasty status; I42.9 Cardiomyopathy, unspecified; I27.20 Pulmonary hypertension, unspecified; B96.5 Pseudomonas (aeruginosa) (mallei) (pseudomallei) as the cause of diseases classified elsewhere; D50.9 Iron deficiency anemia, unspecified; I51.4 Myocarditis, unspecified
CPT/HCPCS: 36415; 36569; 36600; 71045; 76937; 78579; 78580; 80048; 80053; 80061; 80076; 81003; 82270; 82378; 82550; 82553; 82607; 82728; 82746; 82803; 82962; 82977; 83036; 83540; 83550; 83605; 83615; 83690; 83735; 83880; 84100; 84439; 84443; 84484; 84550; 85007; 85025; 85044; 85060; 85379; 85384; 85610; 85730; 86140; 86710; 86850; 86900; 86901; 86920; 87040; 87070; 87081; 87086; 87181; 87205; 89050; 93005; 93306; 93971; 94640; 94660; 94664; 94760; 96365; 99291; A9503; J1815; J7620; J8499